=== PATIENT | female | born 1970 | race Caucasian/White ===

== ENCOUNTER 2017-09-08 13:25 | Inpatient (IN) | payer BC ==
[~2017-09-08] VITALS: Ht 167.6 cm; Wt 96.6 kg
[~2017-09-08 13:25] MED LIST: CEPH500C PO
[2017-09-08] MEDS ORDERED: SODIUM CHLORIDE 0.9% 1000ML 1,000 ML IV SCH (13:47)
--- NOTE | 2017-09-08 14:06 | DIAGNOSTIC IMAGING REPORT ---
HEAD WITHOUT CONTRAST (CT) CLINICAL HISTORY: 46 years-old Female with Stroke. Acute strokelike symptoms with right arm numbness and tingling TECHNIQUE: Multiple axial CT images of the head were obtained without contrast. A dose lowering technique was utilized adhering to the principles of ALARA. CT DOSE: 601.98 mGy.cm COMPARISON: None. FINDINGS: No acute intracranial hemorrhage, midline shift, mass, large territorial ischemia or abnormal extra-axial collection. The calvarium is intact. The paranasal sinuses, mastoid air cells, and middle ear cavities are clear. IMPRESSION: No acute intracranial abnormality. The above report was generated using voice recognition software. It may contain grammatical, syntax or spelling errors. Electronically signed by: Sagar Keller M.D. 09/08/2017 2:05 PM Dictated Date/Time: 09/08/2017 1:57 PM
--- NOTE | 2017-09-08 14:21 | EMERGENCY ROOM VISIT NOTE ---
History Report prepared by Rodrigue: Haley Lugo Under the Supervision of: Dr. Richard Galan M.D. First contact with patient: 13:44 Chief Complaint: NEURO SYMPTOMS Nursing Triage Summary: Pt reports she was sitting at her desk at work and had sudden onset of right hand and arm numbness and tingling, tingling and tightness in chest, slurred speech, and tingling to face. Pt states "my tongue went weird." Pt reports lasted 2 1/2 minutes. Pt reports symptoms haven't subsided, but lessened in severity. NIH scale 0. History of Present Illness The patient is a 46 year old female who presents to the Emergency Room with complaints of an episode of neurological symptoms occurring 45 minutes LEADITE HEATER. The patient states that she had been feeling well all morning. She was at work and took a break to eat lunch. Afterwards she went outside and was sitting on a wall , smoking a cigarette, and talking to her daughter on the phone. She suddenly developed slurred speech, numbness in her right hand, tightness in her chest, and tingling in her face. These symptoms lasted for less than 5 minutes and resolved on their own. She denies experiencing any chest pain or shortness of breath. sppech appears to be normal wo slurring or signs of dysarthria delete ears. soft nontedner moves all ex well no motor senosry deficirts. noted. Source of History: patient Onset: 45 minutes LEADITE HEATER Position: other (global) Quality: other (neurological) Timing: other (episode) Modifying Factors (Relieving): other (time) Associated Symptoms: + numbness (right hand), No chest pain, No SOB Note: Pt notes slurred speech, tightness in chest, tingling in face. Review of Systems All systems have been listed, reviewed, and are negative other than those previously mentioned. Please see Additional Medical History Sheet. Past Medical & Surgical Medical Problems: (1) Possible TIA (2) Stroke-like symptoms Surgical Problems: (1) H/O tubal ligation Family History Cancer Diabetes mellitus Gallbladder disease Heart disease Hypertension Kidney disease Kidney stones Social History Smoking Status: Current Every Day Smoker Alcohol Use: occasionally Marital Status: in relationship Housing Status: lives with significant other Occupation Status: employed Current/Historical Medications No Active Prescriptions or Reported Meds Allergies Coded Allergies: No Known Allergies (Verified , 09/08/17) Physical Exam Vital Signs Date Time Temp Pulse Resp B/P (MAP) Pulse Ox O2 Delivery O2 Flow Rate FiO2 09/08/17 14:24 76 18 128/85 94 Room Air 09/08/17 14:02 96 Room Air 09/08/17 13:37 80 09/08/17 13:35 36.7 79 18 115/75 95 Room Air Physical Exam GENERAL: Patient awake, alert, oriented x 3. Patient follows commands. Patient does not appear toxic. Patient is adequately hydrated and well- nourished. SKIN: No erythema, pallor, cyanosis or rash HEENT: Normal head, pupils equal, reactive to light and accommodation. Ears normal. Oral cavity and posterior pharynx appear normal. Neck: Without adenopathy, no neck vein distention. LUNGS: Clear to auscultation. No wheezes, no rales, no rhonchi. HEART: No murmurs. No gallops. No rubs ABDOMEN: No masses, no rebound, no hepatomegaly or splenomegaly. EXTREMITIES: No signs of trauma. No pedal or pretibial edema. No calf or thigh tenderness. NEUROLOGIC: Cranial nerves II-XII within normal limits. No gross motor sensory function deficits. Medical Decision & Procedures ER Provider Diagnostic Interpretation: Radiology results as stated below per my review and radiologist interpretation: HEAD WITHOUT CONTRAST (CT) CLINICAL HISTORY: 46 years-old Female with Stroke. Acute strokelike symptoms with right arm numbness and tingling TECHNIQUE: Multiple axial CT images of the head were obtained without contrast. A dose lowering technique was utilized adhering to the principles of ALARA. CT DOSE: 601.98 mGy.cm COMPARISON: None. FINDINGS: No acute intracranial hemorrhage, midline shift, mass, large territorial ischemia or abnormal extra-axial collection. The calvarium is intact. The paranasal sinuses, mastoid air cells, and middle ear cavities are clear. IMPRESSION: No acute intracranial abnormality. The above report was generated using voice recognition software. It may contain grammatical, syntax or spelling errors. Electronically signed by: Sagar Keller M.D. 09/08/2017 2:05 PM Dictated Date/Time: 09/08/2017 1:57 PM Laboratory Results 09/08/17 14:05 Red Blood Count 3.97, Mean Corpuscular Volume 96.5, Mean Corpuscular Hemoglobin 34.0, Mean Corpuscular Hemoglobin Concent 35.2, Mean Platelet Volume 10.4, Neutrophils (%) (Auto) 60.5, Lymphocytes (%) (Auto) 28.5, Monocytes (%) (Auto) 8.4, Eosinophils (%) (Auto) 2.1, Basophils (%) (Auto) 0.4, Neutrophils # (Auto) 4.32, Lymphocytes # (Auto) 2.04, Monocytes # (Auto) 0.60, Eosinophils # (Auto) 0.15, Basophils # (Auto) 0.03 09/08/17 14:05 Test 09/08/17 14:05 White Blood Count 7.15 K/uL (4.8-10.8) Red Blood Count 3.97 M/uL (4.2-5.4) Hemoglobin 13.5 g/dL (12.0-16.0) Hematocrit 38.3 % (37-47) Mean Corpuscular Volume 96.5 fL (80-100) Mean Corpuscular Hemoglobin 34.0 pg (25-34) Mean Corpuscular Hemoglobin Concent 35.2 g/dl (32-36) Platelet Count 226 K/uL (130-400) Mean Platelet Volume 10.4 fL (7.4-10.4) Neutrophils (%) (Auto) 60.5 % Lymphocytes (%) (Auto) 28.5 % Monocytes (%) (Auto) 8.4 % Eosinophils (%) (Auto) 2.1 % Basophils (%) (Auto) 0.4 % Neutrophils # (Auto) 4.32 K/uL (1.4-6.5) Lymphocytes # (Auto) 2.04 K/uL (1.2-3.4) Monocytes # (Auto) 0.60 K/uL (0.11-0.59) Eosinophils # (Auto) 0.15 K/uL (0-0.5) Basophils # (Auto) 0.03 K/uL (0-0.2) RDW Standard Deviation 47.7 fL (36.4-46.3) RDW Coefficient of Variation 13.5 % (11.5-14.5) Immature Granulocyte % (Auto) 0.1 % Immature Granulocyte # (Auto) 0.01 K/uL (0.00-0.02) Prothrombin Time 10.5 SECONDS (9.0-12.0) Prothromb Time International Ratio 1.0 (0.9-1.1) Activated Partial Thromboplast Time 26.9 SECONDS (21.0-31.0) Partial Thromboplastin Ratio 1.0 Anion Gap 6.0 mmol/L (3-11) Est Creatinine Clear Calc Drug Dose 113.4 ml/min Estimated GFR () 120.5 Estimated GFR (Non- 103.9 BUN/Creatinine Ratio 17.3 (10-20) Calcium Level 9.1 mg/dl (8.5-10.1) Total Creatine Kinase 106 U/L (26-192) Troponin I < 0.015 ng/ml (0-0.045) Laboratory results as stated above per my review. Medications Administered Medications (Trade) Dose Ordered Sig/Tsering Route Start Time Stop Time Status Last Admin Dose Admin Sodium Chloride 1,000 ml @ 50 mls/hr Q20H IV 09/08/17 13:47 10/08/17 13:46 09/08/17 14:10 50 MLS/HR Aspirin (Ecotrin Tab) 325 mg ONE ONCE PO 09/08/17 14:30 09/08/17 14:31 DC 09/08/17 14:37 325 MG ECG Indication: altered mental status Rate (beats per minute): 66 Rhythm: normal sinus Findings: no acute ischemic change, no ectopy ED Course 1344: Past medical records reviewed. The patient was evaluated in room B3B. A complete history and physical examination was performed. The patient was taken to CT at this time. 1347: NSS 1000 ml @ 50 mls/hr IV 1417: I reassessed the patient and updated her on the CT results. 1430: Aspirin 325 mg PO 1432: I spoke with Jessica Merritt PA-C. We discussed the patients case. [facility] Medical Decision Nurses notes reviewed. Medical history sheet reviewed. Differential diagnosis includes but is not limited to: CVA, TIA, hyperventilation/anxiety. The patient's presentation is most consistent with a TIA. I did consider the possibility of hyperventilation but her symptoms seemed to be more focal especially with the slurred speech and right hand numbness. The patient's NIH stroke score is now 0. The patient was given 325 mg of aspirin. I believe the patient should be further evaluated in the hospital with an MRI and ultrasound of her carotids. I discussed care with the patient, her significant other and the hospitalist. Medication Reconcilliation Current Medication List: was personally reviewed by me Blood Pressure Screening Patient's blood pressure: Normal blood pressure Consults Time Called: 1429 Consulting Physician: Jessica Merritt PA-C Returned Call: 1432 I spoke with Jessica Merritt PA-C. We discussed the patients case. The patient will be evaluated by the [facility] for further management. Impression Primary Impression: TIA (transient ischemic attack) Scribe Attestation The scribe's documentation has been prepared under my direction and personally reviewed by me in its entirety. I confirm that the note above accurately reflects all work, treatment, procedures, and medical decision making performed by me. Departure Information Dispostion Being Evaluated By Hospitalist Prescriptions No Active Prescriptions or Reported Meds Referrals Chema Schwartz M.D. (PCP) Patient Instructions My [facility] Stroke History Time Last Known Well 12:50 Stroke t-PA Criteria Reviewed Does NOT meet criteria for t-PA Reason t-PA Not Given Treatment not indicated Strict Exclusion Criteria Complete resolution of symptoms (NI Problem Qualifiers Primary Impression: TIA (transient ischemic attack)
[2017-09-08 14:29] LABS: BASO % 0.4 %; BASO ABS # 0.03 K/uL (0-0.2); COMPLETE YES; EOS % 2.1 %; HEMATOCRIT 38.3 % (37-47); IG% 0.1 %; LYMPH % 28.5 %; LYMPH ABS # 2.04 K/uL (1.2-3.4); MEAN CELL VOLUME 96.5 fL (80-100); MEAN CORPUSCULAR HGB CONC 35.2 g/dl (32-36); MEAN PLATELET VOLUME 10.4 fL (7.4-10.4); MONO % 8.4 %; NEUT % 60.5 %; PLATELET COUNT 226 K/uL (130-400); RED BLOOD COUNT 3.97 M/uL (4.2-5.4); WHITE BLOOD COUNT 7.15 K/uL (4.8-10.8)
[2017-09-08] MEDS ORDERED: ASPIRIN 325 MG ECTAB PO ONE (14:30)
[2017-09-08 14:39] LABS: PROTHROMBIN TIME (PATIENT) 10.5 SECONDS (9.0-12.0)
[2017-09-08 14:50] LABS: BLOOD UREA NITROGEN 12 mg/dl (7-18); BUN/CREATININE RATIO 17.3 (10-20); CALCIUM 9.1 mg/dl (8.5-10.1); CARBON DIOXIDE 27 mmol/L (21-32); CHLORIDE 107 mmol/L (98-107); CREATININE 0.67 mg/dl (0.60-1.20); GLUCOSE 89 mg/dl (70-99); POTASSIUM 3.8 mmol/L (3.5-5.1); SODIUM 141 mmol/L (136-145)
[2017-09-08] MEDS ORDERED: ONDANSETRON INJ 2 MG/ML 2 ML VIAL IV PRN (15:15)
[2017-09-08 15:35] VITALS: BP 141/82; PULSE 64; TEMP 36.7; O2SAT 96; Ht 167.6 cm; Wt 96.6 kg
[2017-09-08] MEDS ORDERED: IV FLUIDS COMPLETED PRN (15:45)
[2017-09-08] MEDS: ACETAMINOPHEN 325 MG TAB PO PRN (15:49)
--- NOTE | 2017-09-08 16:02 | History and Physical ---
History & Physical Date & Time of Service: Sep 08, 2017 at 15:22 Chief Complaint: neurological symptoms Primary Care Physician: Chema Schwartz M.D. History of Present Illness Source: patient, clinic records This is a 46 y/o female chronic smoker, otherwise without significant PMH, who presents to the ED with neurological symptoms. Pt states today around 12:50 PM she was sitting at work talking to her daughter on the phone when she developed facial tingling, "tongue twisting", difficulty using her lips to form words, slurred speech, tingling and tightness across her chest, right arm felt numb and contracted against her chest and she was unable to move it, blurred vision, and head "felt like a blur". She states she was repeating that something was wrong. Symptoms resolved after 5 minutes. She denies being upset or anxious at the time of the incident. Pt has a chronic cough with yellow sputum attributed to smoking which is unchanged from baseline. She reports longstanding bilateral thigh pain when climbing stairs. She denies fever, chills, diaphoresis, GOMEZ, jaw pain, neck pain, back pain, URI symptoms, swallowing difficulty, dizziness, SOB , SCHULER, palpitations, abdominal pain, N/V/D, dysuria, frequency, urgency, abnormal bleeding. Denies hx of HTN, HL, DM, stroke, CAD. 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 Social History Smoking Status: Current Every Day Smoker (1 ppd, pt unsure how many years) Alcohol Use: 3-4 beers per day. occasional liquor. last drink 09/07 evening. no hx of etoh withdrawal. Drug Use: none Marital Status: in relationship Occupational Status: employed Immunizations History of Influenza Vaccine: N/A History of Tetanus Vaccine?: Unknown History of Pneumococcal: No History of Hepatitis B Vaccine: Unknown Multi-Drug Resistant Organisms History of MDRO: No Allergies Coded Allergies: No Known Allergies (Verified , 09/08/17) Home Medications No Active Prescriptions or Reported Meds Review of Systems Ten systems reviewed and negative except as noted in HPI. Physical Exam Vital Signs Date Time Temp Pulse Resp B/P (MAP) Pulse Ox O2 Delivery O2 Flow Rate FiO2 09/08/17 15:06 Room Air 09/08/17 14:24 76 18 128/85 94 Room Air 09/08/17 14:02 96 Room Air 09/08/17 13:37 80 09/08/17 13:35 36.7 79 18 115/75 95 Room Air General Appearance: WD/WN, no apparent distress, + pertinent finding (alert cooperative 46 year old female, boyfriend at bedside, supportive) Head: normocephalic, atraumatic Eyes: normal inspection, PERRL, EOMI, sclerae normal ENT: normal ENT inspection (normal external inspection of ears, nose, lips), hearing grossly normal, pharynx normal Neck: supple, trachea midline Respiratory/Chest: chest non-tender, lungs clear, normal breath sounds, no respiratory distress, no accessory muscle use Cardiovascular: regular rate, rhythm, no murmur, normal peripheral pulses (DP pulses 2+) Abdomen/GI: normal bowel sounds, non tender, soft Extremities/Musculoskelatal: no calf tenderness, no pedal edema, + pertinent finding (left great toe partial amputation, well healed) Neurologic/Psych: 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 facial movements symmetric. ), no motor/sensory deficits (motor 5/5 all extremities. sensation to light touch grossly intact all extremities.), alert, normal mood/affect, oriented x 3, + pertinent finding (finger to nose intact bilaterally. plantar reflex difficult to elicit. no tremor. ) Skin: normal color, warm/dry, no rash (no rash on the chest) Diagnostics Laboratory Results Results Past 24 Hours Test 09/08/17 14:05 Range/Units White Blood Count 7.15 4.8-10.8 K/uL Red Blood Count 3.97 4.2-5.4 M/uL Hemoglobin 13.5 12.0-16.0 g/dL Hematocrit 38.3 37-47 % Mean Corpuscular Volume 96.5 80-100 fL Mean Corpuscular Hemoglobin 34.0 25-34 pg Mean Corpuscular Hemoglobin Concent 35.2 32-36 g/dl Platelet Count 226 130-400 K/uL Mean Platelet Volume 10.4 7.4-10.4 fL Neutrophils (%) (Auto) 60.5 % Lymphocytes (%) (Auto) 28.5 % Monocytes (%) (Auto) 8.4 % Eosinophils (%) (Auto) 2.1 % Basophils (%) (Auto) 0.4 % Neutrophils # (Auto) 4.32 1.4-6.5 K/uL Lymphocytes # (Auto) 2.04 1.2-3.4 K/uL Monocytes # (Auto) 0.60 0.11-0.59 K/uL Eosinophils # (Auto) 0.15 0-0.5 K/uL Basophils # (Auto) 0.03 0-0.2 K/uL RDW Standard Deviation 47.7 36.4-46.3 fL RDW Coefficient of Variation 13.5 11.5-14.5 % Immature Granulocyte % (Auto) 0.1 % Immature Granulocyte # (Auto) 0.01 0.00-0.02 K/uL Prothrombin Time 10.5 9.0-12.0 SECONDS Prothromb Time International Ratio 1.0 0.9-1.1 Activated Partial Thromboplast Time 26.9 21.0-31.0 SECONDS Partial Thromboplastin Ratio 1.0 Sodium Level 141 136-145 mmol/L Potassium Level 3.8 3.5-5.1 mmol/L Chloride Level 107 98-107 mmol/L Carbon Dioxide Level 27 21-32 mmol/L Anion Gap 6.0 3-11 mmol/L Blood Urea Nitrogen 12 7-18 mg/dl Creatinine 0.67 0.60-1.20 mg/dl Est Creatinine Clear Calc Drug Dose 113.4 ml/min Estimated GFR () 120.5 Estimated GFR (Non- 103.9 BUN/Creatinine Ratio 17.3 10-20 Random Glucose 89 70-99 mg/dl Calcium Level 9.1 8.5-10.1 mg/dl Total Creatine Kinase 106 26-192 U/L Troponin I < 0.015 0-0.045 ng/ml Diagnostic Radiology HEAD WITHOUT CONTRAST (CT) CLINICAL HISTORY: 46 years-old Female with Stroke. Acute strokelike symptoms with right arm numbness and tingling TECHNIQUE: Multiple axial CT images of the head were obtained without contrast. A dose lowering technique was utilized adhering to the principles of ALARA. CT DOSE: 601.98 mGy.cm COMPARISON: None. FINDINGS: No acute intracranial hemorrhage, midline shift, mass, large territorial ischemia or abnormal extra-axial collection. The calvarium is intact. The paranasal sinuses, mastoid air cells, and middle ear cavities are clear. IMPRESSION: No acute intracranial abnormality. EKG NSR, 66 bpm, no ST abnormality Impression Assessment and Plan TRANSIENT NEUROLOGICAL SYMPTOMS Possible TIA? At risk due to cigarette smoking, obesity No focal deficits on exam CT head negative Labs unremarkable Received aspirin 324 mg in ER, will add aspirin 81 mg daily Check MRI brain, echo with bubble study, carotid doppler Telemetry monitoring, neuro checks Consult neurology EPISODE OF CHEST TINGLING/ TIGHTNESS, ATYPICAL Occurred with neurological symptoms EKG- no evidence of ischemia Troponin negative x 1 ALCOHOL USE No sign of withdrawal Monitor DVT PROPHYLAXIS Lovenox SQ FULL CODE DISPOSITION Admission telemetry PCP is Dr. Schwartz Patient seen in collaboration with Dr. Tran. Please see his addendum. Resuscitation Status FULL RESUSCITATION VTE Prophylaxis VTE Risk Assessment Done? Y/N: Yes Risk Level: Moderate Given or contraindicated: Enoxaparin (Lovenox)SQ Note ATTENDING ADDENDUM Record reviewed. Patient interviewed and examined. Care coordinated with Leonarda Merritt PA-C. Please refer to her documentation for patient's history. 46 YO female with episode of facial paresthesiae (circumoral), visual changes, dysarthria, RUE weakness or spasm. Symptoms resolved. Mild headache. EXAM: General- no distress VS- as noted Lungs- clear Heart- RRR Abdomen- + BS, soft, nontender Extremities- no pretibial edema or calf tenderness Neuro- alert, PERRL, EOMI, no dysarthria, no aphasia, no facial palsy, tongue midline, upper and lower extremity strength 5/5 . DATA: Head CT negative. ASSESSMENT AND PLAN: Neuro symptoms as summarized above. Head CT negative. Symptoms resolved. ? vascular event (TIA vs migraine equivalent). Consider hyperventilation with associated symptoms. EKG NSR. Check MRI brain, carotid duplex, echo. Risk factor modification. Neuro consulted. Please refer to CLIFFORD Merritt's documentation for discussion of other issues. Westley Tran MD .
[2017-09-08] MEDS ORDERED: ENOXAPARIN 40 MG/0.4 ML SYR SC SCH (18:00)
[2017-09-08 19:45] VITALS: BP 162/90; PULSE 60; TEMP 36.7; O2SAT 97
[2017-09-08] MEDS ORDERED: GADAVIST IV PRN (19:45)
--- NOTE | 2017-09-08 19:47 | DIAGNOSTIC IMAGING REPORT ---
BRAIN COMBO CLINICAL HISTORY: stroke like symptoms, possible TIA mental status change COMPARISON STUDY: No previous studies for comparison. TECHNIQUE: Utilizing a 1.5 Kanika magnet and dedicated coil, multiplanar, multiecho imaging of the brain was performed pre and postcontrast administration. IV administration of 9 mL of Gadavist contrast was uneventful. FINDINGS: Diffusion-weighted images are negative for an acute ischemic insult. Signal characteristics of the cerebellar as well as cerebral hemispheres are in general unremarkable. Findings of mild chronic small vessel change of the pontine medullary region as well as cerebral hemispheres bilaterally. There is no significant postcontrast enhancement. IMPRESSION: Mild chronic small vessel change of aging given the patient's age. No acute ischemic process. No abnormal postcontrast enhancement. The above report was generated using voice recognition software. It may contain grammatical, syntax or spelling errors. Electronically signed by: Chema Ng M.D. 09/08/2017 7:45 PM Dictated Date/Time: 09/08/2017 7:42 PM
--- NOTE | 2017-09-08 21:48 | DIAGNOSTIC IMAGING REPORT ---
CAROTID DOPPLER NECK ART HISTORY: Mental status change possible TIA COMPARISON: None. TECHNIQUE: Real-time, grayscale, and color Doppler sonography of the carotid arteries was performed. Imaging reviewed in the transverse and longitudinal planes. All measurements were calculated based on NASCET criteria. FINDINGS: Antegrade flow is seen in the bilateral vertebral arteries. The brachial pressures are hemodynamically similar. Mild plaque dimension bilaterally The peak systolic velocity within the right ICA is 59. The right systolic ratio is 1.0. The peak systolic velocity within the left ICA is 66. The left systolic ratio is 0.9. IMPRESSION: No hemodynamically significant stenosis seen within the carotid arteries. Minimal plaque formation bilaterally The above report was generated using voice recognition software. It may contain grammatical, syntax or spelling errors. Electronically signed by: Chema Ng M.D. 09/08/2017 9:47 PM Dictated Date/Time: 09/08/2017 9:46 PM
[2017-09-08 23:59] VITALS: O2SAT 97
[2017-09-09] VITALS (7 sets, daily range): BP systolic 120–138; BP diastolic 64–85; PULSE 51–59; TEMP 36.5–36.7; O2SAT 96–97
[2017-09-09] MEDS: ACETAMINOPHEN 325 MG TAB PO PRN (03:17)
[2017-09-09 06:10] LABS: BLOOD UREA NITROGEN 13 mg/dl (7-18); BUN/CREATININE RATIO 20.8 (10-20); CALCIUM 8.4 mg/dl (8.5-10.1); CARBON DIOXIDE 27 mmol/L (21-32); CHLORIDE 105 mmol/L (98-107); CHOLESTEROL 200 mg/dl (0-200); CREATININE 0.61 mg/dl (0.60-1.20); GLUCOSE 88 mg/dl (70-99); POTASSIUM 3.4 mmol/L (3.5-5.1); SODIUM 137 mmol/L (136-145); TRIGLYCERIDES 97 mg/dl (0-150); VERY LOW DENSITY LIPOPROT CALC 19 mg/dl
[2017-09-09 06:15] LABS: CHOLESTEROL/HDL RATIO 2.3; HDL CHOLESTEROL 87 mg/dl; LDL CHOLESTEROL CALCULATED 94 mg/dl
[2017-09-09] MEDS: POTASSIUM CHLORIDE 20 MEQ TABCR PO SCH ×2 (08:52→16:41)
[2017-09-09] MEDS ORDERED: ASPIRIN 81 MG ECTAB PO SCH (09:00)
[2017-09-09] MEDS ORDERED: OPTIRAY 320 IV PRN (10:30)
--- NOTE | 2017-09-09 10:59 | NEUROLOGY CONSULTATION ---
DATE OF CONSULTATION: 09/09/2017 PRIMARY CARE PHYSICIAN: Chema Schwartz MD REASON FOR CONSULTATION: Possible transient ischemic attack. HISTORY OF PRESENT ILLNESS: Mrs. Ocampo is a 46-year-old right-handed female, who was a chronic smoker without significant medical history, presents to the Emergency Room. Around 12:50, she was sitting on a wall, talking to her daughter, about a nonstressful event, noted bilateral facial tingling, bilateral chest tingling, tightness in her chest. Her right arm fell onto her chest and she could not move it. It did not spasm. Her speech was slurred. She speaks of her tongue twisting, but physically it did not actually twist. No other numbness or tingling were noted. Her vision was blurred, but there was no scintillating visual phenomenon. No facial weakness was noted. It terminated gradually in 5 minutes without any accompanying headache. There was no chest palpitation or shortness of breath. She denies a history of anxiety or panic attacks. She has otherwise been well. No head or neck injury, chiropractic manipulation of the neck, medical or dental procedures, fevers, chills, sweats or weight loss. There was no vertigo. No dysphasia. No nausea, vomiting, urinary frequency, or urgency. PAST MEDICAL HISTORY: Her medical history is notable for smoking. She has no history of high blood pressure, diabetes, or elevated cholesterol. She has not had a DVT, PE or miscarriage. There is no history of rheumatic fever. There is no history of [place]. The patient has no history of migrainous headaches or throbbing headaches. 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 SOCIAL HISTORY: Smokes. Drinks 3-4 beers per day. No drug use. Works at a [id number]. ALLERGIES: No allergies are noted. MEDICATIONS: No meds were used. There is no vepe-kzi-modscgu medication use or recent medication withdrawals. FAMILY HISTORY: No early cerebrovascular disease. Sister has had 2 DVTs and the patient believes she is on anticoagulant. Her daughter has migraines. CT of the head noncontrast was unremarkable. MRI of the brain, both of which I have reviewed, showed mild chronic vascular changes. No acute abnormality. Carotid ultrasound, no significant stenosis. EKG sinus rhythm. LABORATORY DATA: White count 7.15, H&H 13.5/38.3, and platelet count 226. PT 10.5 and PTT 26.9. Chemistry profile is unremarkable. Total cholesterol is 200, LDL 94, and HDL 87. PHYSICAL EXAMINATION: VITAL SIGNS: Temperature 36.7, pulse 59, respiratory rate 20, blood pressure 138/76, and oxygen saturation 97%. GENERAL: The patient is awake and alert. There is normal speech and language. Her affect is appropriate. There is no right/left confusion. NECK: There are no carotid bruits. HEART: No heart murmur. Heart is regular rate and rhythm. LUNGS: Clear. ABDOMEN: Soft and nontender. EXTREMITIES: There are some superficial varicosities in the anterior left cancino. There is no calf swelling or tenderness. Peripheral pulses are intact and feet as well radial pulse. NEUROLOGIC: Pupils are equal, round, and reactive to light. The optic nerves were unremarkable. There are normal will, motility, facial sensation, and facial symmetry. Speech and language are normal. Tongue is midline. Motor: Normal bulk and tone. No resting tremor or cogwheel rigidity. Full strength. No drift. Normal rapid alternating movements. There is a mild tremor on [id number], left greater than right. Jdcj-[id number] is normal. Sensation is intact to light touch, temperature and vibration. Reflexes symmetric. Toes downgoing. Gait is unremarkable. IMPRESSION: This spell of facial tingling, chest tingling and chest tightness has some home farooq of hyperventilation; however, I can confidently attribute dysarthria and weakness of the right arm to hyperventilation. Initially, it sounded like she may have had carpopedal spasm, but in exploring this further with the patient that does not appear to be so. Therefore, I would say that this could be a posterior circulation transient ischemic attack given the bilateral paresthesias, dysarthria and right arm weakness. To complete workup, I would do a CTA of the head and neck with attention to the posterior circulation and echo with a bubble study. Given her family history of pulmonary embolism, if the echo with bubble study shows a patent foramen ovale, I would do a venous Doppler of the lower extremities. I as well will order a thrombosis panel given the family history. I would recommend aspirin and Plavix together for 3 months and then aspirin alone, statin with a goal LDL less than 70. The patient appears to have an essential tremor, although whether or not this is simply a heightened physiologic tremor due to the stress of the illness is unclear. Provided vascular imaging is unremarkable, I think she can confidently return to work when she is scheduled next to do so. The patient should see us in followup within 2-3 weeks. Addendum. CTA reviewed. PRox L vert and distal L vert stenosis. Distal basilar narrowing, unclear if that is acquired or chronic or congenital flow given compensatory flow through COW. Rec asa, plavix, risk factor mod, statin, follow- up in my office, STEVEN Galindo MD [facility]
--- NOTE | 2017-09-09 11:29 | DIAGNOSTIC IMAGING REPORT ---
HEAD ANGIO WITH CONTRAST CLINICAL HISTORY: Vertebral basilar insufficiency. Mental status change TECHNIQUE: Transaxial acquisition with multi axial reformatted images COMPARISON STUDY: 09/08/2017 FINDINGS: Anterior and middle cerebral circulation is unremarkable. There is no significant stenotic process. The vertebral basilar system demonstrates a small caliber left vertebral artery within the cervical region. The right vertebral artery is dominant at that site. There is a high-grade stenosis of the left vertebral vessel at the level of the base of the skull at its juncture with C1. The right Vertebral artery is dominant at this site. There is a high-grade stenosis of the residual left vertebral artery medially proximal to its juncture with the right vertebral. The right vertebral supplies the bulk of the outflow to the basilar. The basilar shows a multifactorial moderate to moderately significant stenotic changes. The right as well as left posterior communicating vessels are patent and appear to supply the bulk of the blood flow to the posterior cerebral circulation. IMPRESSION: 1. Unremarkable appearing anterior and middle cerebral circulation. 2. 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 3. The right vertebral artery is dominant and supplies the bulk of the flow to the basilar artery. 4. Basilar artery shows considerable narrowing at its distal aspect with considerable components of the blood flow to the posterior cerebral circulation originating from the posterior communicating vessels. The above report was generated using voice recognition software. It may contain grammatical, syntax or spelling errors. Electronically signed by: Chema Ng M.D. 09/09/2017 11:28 AM Dictated Date/Time: 09/09/2017 11:16 AM
--- NOTE | 2017-09-09 11:34 | DIAGNOSTIC IMAGING REPORT ---
NECK ANGIO WITH CONTRAST HISTORY: Mental status change TECHNIQUE: Multiaxial CT images of the neck were performed following the intravenous administration of contrast to evaluate the major cervical vessels. Maximum intensity projection images were also obtained. All measurements were calculated based on NASCET criteria. A dose lowering technique was utilized adhering to the principles of ALARA. COMPARISON STUDY: None. FINDINGS: The aortic arch and proximal great vessels are widely patent. The right as well as left common as well as internal carotid artery show no significant stenotic process. The right vertebral vessel appears to be generally unremarkable throughout its length in the cervical region. No significant stenotic process is identified. Left vertebral artery is a moderate degree of stenosis at its origin. The remaining course of the left vertebral vessel demonstrates a small caliber as compared to the contralateral right vertebral. There is a high degree of the stenosis in or near occlusion at its distal aspect at approximately level of C1. Minimal, if any flow is identified distal to this level with the bulk of flow of the basilar artery supplied from the right vertebral. IMPRESSION: 1. No significant abnormality of the carotid systems. 2. Right vertebral artery is dominant with no significant stenotic process. 3. Left vertebral artery is relatively small in terms caliber compared to the right, and shows a significant degree of stenosis at its origin as well as near complete occlusion at its distal aspect at approximately level of C1. The above report was generated using voice recognition software. It may contain grammatical, syntax or spelling errors. Electronically signed by: Chema Ng M.D. 09/09/2017 11:33 AM Dictated Date/Time: 09/09/2017 11:30 AM
--- NOTE | 2017-09-09 12:34 | DIAGNOSTIC IMAGING REPORT ---
VENOUS DOPPLER LWR EXT BILA HISTORY: Pain. Edema. possible TIA COMPARISON STUDY: None. FINDINGS: There is normal compressibility, flow, and augmentation within the bilateral lower extremity deep venous systems. IMPRESSION: No DVT within the right or left lower extremity. The above report was generated using voice recognition software. It may contain grammatical, syntax or spelling errors. Electronically signed by: Chema Ng M.D. 09/09/2017 12:33 PM Dictated Date/Time: 09/09/2017 12:33 PM
--- NOTE | 2017-09-09 13:55 | ECHOCARDIOGRAM REPORT ---
*NOTICE TO RECEIVING [employer] This information is strictly Confidential and protected under [place] law. [place] law prohibits you from making any further disclosure of this information unless further disclosure is expressly permitted by the written consent of the person to whom it pertains or is authorized by law. A general authorization for the release of medical or other information is not sufficient for this purpose. Hospital accepts no responsibility if the information is made available to any other person, INCLUDING THE PATIENT. Interpretation Summary * Name: YANG FEBRUARY Study Date: 09/09/2017 09:47 AM BP: 120/84 mmHg * Patient Location: C.2E\S\E203\S\1 HR: 51 * : 1970 (M/d/yyyy) Gender: Female Height: 66 in * Age: 46 yrs Ethnicity: [place] Weight: 213 lb * Ordering Physician: Leonarda Merritt * Referring Physician: Self, Referred * Performed By: Leidy Her RDCS * * Reason For Study: TIA * BSA: 2.1 m2 * The study was technically difficult. * There is no comparison study available. * -- Conclusions -- * Ejection Fraction = 55-60%. * Injection of contrast documented no interatrial shunt. * Pulse wave TDI of the anterior and posterior mitral annulas demonstrates normal LV relaxation * There is trace mitral regurgitation. Procedure Details * A complete two-dimensional transthoracic echocardiogram was performed (2D, M-mode, Doppler and color flow Doppler). * A saline contrast injection was performed to assess for cardiac shunting. * The injection was performed through an intravenous line in the right arm. * The attending nurse who injected the saline contrast was Asia Childs RN. * A total of 20 cc of agitated saline was given. Left Ventricle * The left ventricle is normal in size. * There is normal left ventricular wall thickness. * Ejection Fraction = 55-60%. * Left ventricular systolic function is normal. * The left ventricular wall motion is normal. Right Ventricle * The right ventricle is normal size. * The right ventricular systolic function is normal as assessed by tricuspid annular plane systolic excursion (TAPSE) (normal >1.5 cm). Atria * The left atrial size is normal. * Right atrial size is normal. * Injection of contrast documented no interatrial shunt. Mitral Valve * The mitral valve is grossly normal. * There is no mitral valve stenosis. * There is trace mitral regurgitation. Tricuspid Valve * The tricuspid valve is not well visualized. * There is no tricuspid stenosis. * Significant tricuspid regurgitation is absent. Aortic Valve * The aortic valve is trileaflet. * Aortic stenosis is absent. * There is no significant aortic regurgitation. Pulmonic Valve * The pulmonary valve is not well seen, but the Doppler examination is normal without significant regurgitation or stenosis. Great Vessels * The aortic root and proximal ascending aorta are normal sized. Pericardium/Pleural * There is no pericardial effusion. Great Vessels * Normal inferior vena cava diameter and respiratory variation suggests normal central venous pressure. Left Ventricular Diastolic Function * Pulse wave TDI of the anterior and posterior mitral annulas demonstrates normal LV relaxation MMode 2D Measurements and Calculations IVSd 0.91 cm LVIDd 5.1 cm LVIDs 3.4 cm LVPWd 1.0 cm IVS/LVPW 0.88 FS 32.4 % EDV(Teich) 122.6 ml ESV(Teich) 48.6 ml EF(Teich) 60.3 % EDV(cubed) 131.0 ml ESV(cubed) 40.5 ml EF(cubed) 69.1 % LV mass(C)d 179.2 grams LV mass(C)dI 87.2 grams/m\S\2 SV(Teich) 74.0 ml SI(Teich) 36.0 ml/m\S\2 SV(cubed) 90.4 ml SI(cubed) 44.0 ml/m\S\2 Ao root diam 3.3 cm Ao root area 8.6 cm\S\2 ACS 1.9 cm LA dimension 3.0 cm asc Aorta Diam 3.1 cm LA/Ao 0.92 LVOT diam 2.0 cm LVOT area 3.2 cm\S\2 LVAd ap4 30.0 cm\S\2 LVLd ap4 8.5 cm EDV(MOD-sp4) 87.4 ml EDV(sp4-el) 89.7 ml LVAs ap4 16.0 cm\S\2 LVLs ap4 7.2 cm ESV(MOD-sp4) 30.2 ml ESV(sp4-el) 30.1 ml EF(MOD-sp4) 65.4 % EF(sp4-el) 66.4 % LVAd ap2 34.5 cm\S\2 LVLd ap2 8.5 cm EDV(MOD-sp2) 116.9 ml EDV(sp2-el) 119.3 ml LVAs ap2 18.1 cm\S\2 LVLs ap2 6.9 cm ESV(MOD-sp2) 41.7 ml ESV(sp2-el) 40.1 ml EF(MOD-sp2) 64.3 % EF(sp2-el) 66.4 % LVLd %diff -0.52 % EDV(MOD-bp) 101.7 ml LVLs %diff -4.03 % ESV(MOD-bp) 36.0 ml EF(MOD-bp) 64.6 % SV(MOD-sp4) 57.2 ml SI(MOD-sp4) 27.8 ml/m\S\2 SV(MOD-sp2) 75.2 ml SI(MOD-sp2) 36.6 ml/m\S\2 SV(MOD-bp) 65.7 ml SI(MOD-bp) 32.0 ml/m\S\2 SV(sp4-el) 59.6 ml SI(sp4-el) 29.0 ml/m\S\2 SV(sp2-el) 79.1 ml SI(sp2-el) 38.5 ml/m\S\2 Doppler Measurements and Calculations MV E max dyan 63.1 cm/sec MV A max dyan 42.7 cm/sec MV E/A 1.5 MV dec time 0.32 sec Ao V2 max 106.0 cm/sec Ao max PG 4.5 mmHg Ao max PG (full) 1.4 mmHg LYDIA(V,A) 2.6 cm\S\2 LYDIA(V,D) 2.6 cm\S\2 LV V1 max PG 3.1 mmHg LV V1 max 87.8 cm/sec PA V2 max 81.4 cm/sec PA max PG 2.7 mmHg PA acc slope 243.9 cm/sec\S\2 PA acc time 0.21 sec TR max dyan 201.5 cm/sec PA pr(Accel) -17.65 mmHg
--- NOTE | 2017-09-09 16:41 | Progress Note ---
Medicine Progress Note Date & Time of Visit: Sep 09, 2017 at 16:41 . Subjective Doing well. No further neuro symptoms. No headache. No CP or SOB. . Objective Last 8 Hrs Date Time Temp Pulse Resp B/P (MAP) Pulse Ox O2 Delivery O2 Flow Rate FiO2 09/09/17 15:12 36.7 57 18 131/85 (100) 96 Room Air 09/09/17 12:34 36.7 57 20 134/70 (91) 96 Room Air 09/09/17 12:00 Room Air Physical Exam: General- no distress Lungs- clear Heart- RRR Abdomen- + BS, soft, nontender Extremities- no pretibial edema or calf tenderness Neuro- alert; PERRL, EOMI; no facial palsy; no dysarthria; tongue midline; motor strength upper and lower extremities intact Laboratory Results: Last 24 Hours Test 09/08/17 22:14 09/09/17 05:21 09/09/17 11:45 Troponin I < 0.015 ng/ml < 0.015 ng/ml Sodium Level 137 mmol/L Potassium Level 3.4 mmol/L Chloride Level 105 mmol/L Carbon Dioxide Level 27 mmol/L Anion Gap 6.0 mmol/L Blood Urea Nitrogen 13 mg/dl Creatinine 0.61 mg/dl Est Creatinine Clear Calc Drug Dose 132.1 ml/min Estimated GFR () 124.2 Estimated GFR (Non- 107.2 BUN/Creatinine Ratio 20.8 Random Glucose 88 mg/dl Calcium Level 8.4 mg/dl Triglycerides Level 97 mg/dl Cholesterol Level 200 mg/dl HDL Cholesterol 87 mg/dl LDL Cholesterol, Calculated 94 mg/dl VLDL Cholesterol, Calculated 19 mg/dl Cholesterol/HDL Ratio 2.3 Assessment & Plan POSSIBLE TIA Presented with 5 min episode of facial numbness, dysarthria, RUE weakness while talking on phone. Exam in ED nonfocal. CT head negative. MRI brain demonstrated mild small vessel white matter ischemic changes, no acute event. EKG NSR. Carotid duplex showed minimal plaque. Echo showed normal LV wall motion and function, no intracardiac thrombi. Neurology consulted. [place] that pt may have had a posterior circulation event. Family history of thromboembolic disease. Venous duplex lower extremities negative. Echo did not show any right to left shunt. Hypercoagulable work-up ordered- results pending at time of discharge. CTA neck and intracranial vessels performed: moderate stenosis @ origin of left vertebral artery with high degree of stenosis distally bulk of flow to basilar artery supplied vias right vertebral artery narrowing of distal basilar artery Narrowing of left vertebral and basilar arteries could be congenital or atherosclerotic in nature. Antiplatelet therapy with aspirin + clopidogrel x 3 months, the aspirin alone long-term recommended. LDL-c = 94. Lipid lowering therapy with atorvastatin 40 mg daily initiated. Importance of smoking cessation stressed. VTE PROPHYLAXIS Received SQ enoxaparin. Ambulated. DISPOSITION Discharged to home. Family Medicine follow-up with Dr. Schwartz. Neurology follow-up with Dr. Galindo. . Current Inpatient Medications: Current Inpatient Medications Medications (Trade) Dose Ordered Sig/Tsering Route Start Time Stop Time Status Last Admin Dose Admin Enoxaparin Sodium (Lovenox Inj) 40 mg Q24H SC 09/08/17 18:00 10/08/17 17:59 09/08/17 17:18 40 MG Acetaminophen (Tylenol Tab) 650 mg Q4H PRN PO 09/08/17 15:15 10/08/17 15:14 09/09/17 03:17 650 MG Ondansetron HCl (Zofran Inj) 4 mg Q6H PRN IV 09/08/17 15:15 10/08/17 15:14 Miscellaneous (Iv Fluids Completed) 1 ea PRN PRN N/A 09/08/17 15:45 09/08/18 15:44 Aspirin (Ecotrin Tab) 81 mg QAM PO 09/09/17 09:00 10/09/17 08:59 09/09/17 08:52 81 MG Gadobutrol (Gadavist) 9 mmol UD PRN IV 09/08/17 19:45 09/12/17 19:44 Potassium Chloride (Klor-Con Tab) 20 meq BIDM PO 09/09/17 07:30 10/09/17 07:29 09/09/17 08:52 20 MEQ Ioversol (Optiray 320) 125 ml UD PRN IV 09/09/17 10:30 09/13/17 10:29
[2017-09-09] MEDS ORDERED: ASPI-428 PO (16:50)
[2017-09-09] MEDS ORDERED: LPT40 PO (16:50)
[2017-09-09] MEDS ORDERED: CLOP1TAB15 PO (16:50)
--- NOTE | 2017-09-09 16:59 | Discharge Instructions ---
Discharge Instructions Date of Service Sep 09, 2017. Admission Reason for Admission: possible TIA (ministroke) . Discharge Discharge Diagnosis / Problem: possible TIA (ministroke) Discharge Goals Goal(s): Improve disease control Activity Recommendations Activity Limitations: resume your previous activity . Instructions / Follow-Up Instructions / Follow-Up APPOINTMENTS: FAMILY MEDICINE 09/12/2017 3:10 PM Chema Schwartz MD NEUROLOGY Dr. Gloria Galindo Please ask Dr. Schwartz for referral. OTHER INSTRUCTIONS: You many have had a TIA (ministroke). New medications: coated aspirin (Lipitor) 81 mg daily, probably long-term clopidogrel (Plavix) 75 mg, probably for 3 months atorvastatin (Lipitor) 40 mg daily It is very important that you quit smoking- it can cause heart attacks, strokes , cancer, lung disease. Seek medical attention if you have: * temperature above 101 * chest pain or trouble breathing * abdominal pain, nausea, vomiting * diarrhea, dark stools or bloody stools * any unanswered questions or concerns Call 911 if symptoms are severe. Call if you have any questions or problems. My cell # is [phone]. You can also reach a [facility] hospitalist on duty at [facility] 24 hours a day by calling [phone]. Please take good care of yourself. Westley Tran . Risk Factors for Stroke: You can reduce your chances of stroke by working with your medical provider to adopt a healthy lifestyle. Some specific ways to lower your chance of stroke are: * If you are a smoker, now is the time to stop smoking cigarettes * If you are diabetic, improve the control of your blood sugars * Avoid excessive amounts of alcohol * Control high blood pressure * Lose weight if you are overweight * Be sure to lead an active lifestyle * Eat a healthy diet low in salt, cholesterol and fat You should know about other risk factors for stroke that you are unable to control. These include: * Age 55 years or older * Male gender * Certain racial groups: , or / * Family History of Stroke, Mini stroke or Heart Attack * Sickle Cell Disease Follow Up: It is important for you to keep your follow up appointments with your medical provider. Current Hospital Diet Patient's current hospital diet: AHA Diet (Heart Healthy) Discharge Diet Recommended Diet: AHA Diet (Heart Healthy) Procedures Procedures Performed: CT and MRI of brain looked OK ( no spots that looked like a stroke). CT angiogram to look at blood vessels showed some narrowing of arteries in back of neck that go to the bottom of the brain. Ultrasound of the carotid arteries in the front of the neck showed some mild hardening of the arteries. Ultrasound of legs looked OK- no blood clots. Ultrasound of heart looked OK. Pending Studies Studies pending at discharge: yes List of pending studies: Several blood tests to look for clotting disorders are being done. Results may take a week or so to come back. Laboratory Results Lipid Panel Test 09/09/17 05:21 Range/Units Triglycerides Level 97 0-150 mg/dl Cholesterol Level 200 0-200 mg/dl HDL Cholesterol 87 mg/dl Cholesterol/HDL Ratio 2.3 LDL Cholesterol, Calculated 94 mg/dl Medical Emergencies . Who to Call and When: Medical Emergencies: Call 911 immediately if you experience any of the following warning signs and symptoms of Stroke: * Sudden numbness or weakness of the face, arm or leg, especially on one side of the body * Sudden confusion, trouble speaking or understanding * Sudden trouble seeing in one or both eyes * Sudden trouble walking, dizziness, loss of balance or coordination * Sudden severe headache with no cause Do not delay calling 911 if you experience any warning signs or symptoms of a stroke. Delay in seeking medical attention may affect what treatments can be given to you. . Non-Emergent Contact Non-Emergency issues call your: Primary Care Provider, Hospital Doctor, Neurologist . . "Provider Documentation" section prepared by Westley Tran. . Stroke Core Measures Reason no t-PA for Stroke: Treatment not indicated Reason no antithrom by day 2: Treatment provided - N/A Reason no antithrom at D/C: Treatment provided - N/A Reason no statin at D/C: Treatment provided - N/A Reason no anticoag w/a fib: Treatment not tolerated VTE Core Measure Inpt VTE Proph given/why not?: Enoxaparin (Lovenox)SQ
--- NOTE | 2017-09-11 03:57 | Discharge Summary ---
Discharge Summary Date of Service Sep 11, 2017. 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 Procedures: cardiac monitoring CT head MRI brain carotid duplex echocardiogram venous duplex lower extremities CTA neck CTA intracranial vessels . Consultations: Neurology with Dr. Galindo . Pending Studies/Follow-Up: hypercoagulable work-up pending at time of discharge Please make referral for outpatient Neuro f/u with Dr. Galindo. . Medication Reconciliation New Medications: Aspirin (Ecotrin Low Strength) 81 Mg Tab 1 TAB PO DAILY, #30 TAB No prescription necessary. Atorvastatin (Atorvastatin Calcium) 40 Mg Tab 40 MG PO DAILY, #30 TAB Clopidogrel (Plavix) 75 Mg Tab 75 MG PO DAILY, #30 TAB Admission Information HPI (per Admitting provider): This is a 46 y/o female chronic smoker, otherwise without significant PMH, who presents to the ED with neurological symptoms. Pt states today around 12:50 PM she was sitting at work talking to her daughter on the phone when she developed facial tingling, "tongue twisting", difficulty using her lips to form words, slurred speech, tingling and tightness across her chest, right arm felt numb and contracted against her chest and she was unable to move it, blurred vision, and head "felt like a blur". She states she was repeating that something was wrong. Symptoms resolved after 5 minutes. She denies being upset or anxious at the time of the incident. Pt has a chronic cough with yellow sputum attributed to smoking which is unchanged from baseline. She reports longstanding bilateral thigh pain when climbing stairs. She denies fever, chills, diaphoresis, GOMEZ, jaw pain, neck pain, back pain, URI symptoms, swallowing difficulty, dizziness, SOB , SCHULER, palpitations, abdominal pain, N/V/D, dysuria, frequency, urgency, abnormal bleeding. Denies hx of HTN, HL, DM, stroke, CAD. . Physical Exam (per Admitting): General Appearance: WD/WN, no apparent distress, + pertinent finding (alert cooperative 46 year old female, boyfriend at bedside, supportive) Head: normocephalic, atraumatic Eyes: normal inspection, PERRL, EOMI, sclerae normal ENT: normal ENT inspection (normal external inspection of ears, nose, lips) , hearing grossly normal, pharynx normal Neck: supple, trachea midline Respiratory/Chest: chest non-tender, lungs clear, normal breath sounds, no respiratory distress, no accessory muscle use Cardiovascular: regular rate, rhythm, no murmur, normal peripheral pulses ( DP pulses 2+) Abdomen/GI: normal bowel sounds, non tender, soft Extremities/Musculoskelatal: no calf tenderness, no pedal edema, + pertinent finding (left great toe partial amputation, well healed) Neurologic/Psych: internet specialist II-XII nml as tested (no dysarthria. facial movements symmetric. ), no motor/sensory deficits (motor 5/5 all extremities. sensation to light touch grossly intact all extremities.), alert, normal mood/affect, oriented x 3, + pertinent finding (finger to nose intact bilaterally. plantar reflex difficult to elicit. no tremor. ) Skin: normal color, warm/dry, no rash (no rash on the chest) Hospital Course POSSIBLE TIA Presented with 5 min episode of facial numbness, dysarthria, RUE weakness while talking on phone. Exam in ED nonfocal. CT head negative. MRI brain demonstrated mild small vessel white matter ischemic changes, no acute event. EKG NSR. Carotid duplex showed minimal plaque. Echo showed normal LV wall motion and function, no intracardiac thrombi. Neurology consulted. Garfield that pt may have had a posterior circulation event. Family history of thromboembolic disease. Venous duplex lower extremities negative. Echo did not show any right to left shunt. Hypercoagulable work-up ordered- results pending at time of discharge. CTA neck and intracranial vessels performed: moderate stenosis @ origin of left vertebral artery with high degree of stenosis distally bulk of flow to basilar artery supplied vias right vertebral artery narrowing of distal basilar artery Narrowing of left vertebral and basilar arteries could be congenital or atherosclerotic in nature. Antiplatelet therapy with aspirin + clopidogrel x 3 months, the aspirin alone long-term recommended. LDL-c = 94. Lipid lowering therapy with atorvastatin 40 mg daily initiated. Importance of smoking cessation stressed. VTE PROPHYLAXIS Received SQ enoxaparin. Ambulated. DISPOSITION Discharged to home. Family Medicine follow-up with Dr. Schwartz. Neurology follow-up with Dr. Galindo. . Total time spent on discharge = 35 minutes. This includes examination of the patient, discharge planning, medication reconciliation, and communication with other providers. . Discharge Instructions Date of Service Sep 09, 2017. Admission Reason for Admission: possible TIA (ministroke) . Discharge Discharge Diagnosis / Problem: possible TIA (ministroke) Discharge Goals Goal(s): Improve disease control Activity Recommendations Activity Limitations: resume your previous activity . Instructions / Follow-Up Instructions / Follow-Up APPOINTMENTS: FAMILY MEDICINE 09/12/2017 3:10 PM Chema Schwartz MD NEUROLOGY Dr. Gloria Galindo Please ask Dr. Schwartz for referral. OTHER INSTRUCTIONS: You many have had a TIA (ministroke). New medications: coated aspirin (Lipitor) 81 mg daily, probably long-term clopidogrel (Plavix) 75 mg, probably for 3 months atorvastatin (Lipitor) 40 mg daily It is very important that you quit smoking- it can cause heart attacks, strokes , cancer, lung disease. Seek medical attention if you have: * temperature above 101 * chest pain or trouble breathing * abdominal pain, nausea, vomiting * diarrhea, dark stools or bloody stools * any unanswered questions or concerns Call 911 if symptoms are severe. Call if you have any questions or problems. My cell # is [phone]. You can also reach a [facility] hospitalist on duty at [facility] 24 hours a day by calling [phone]. Please take good care of yourself. Westley Tran . Risk Factors for Stroke: You can reduce your chances of stroke by working with your medical provider to adopt a healthy lifestyle. Some specific ways to lower your chance of stroke are: * If you are a smoker, now is the time to stop smoking cigarettes * If you are diabetic, improve the control of your blood sugars * Avoid excessive amounts of alcohol * Control high blood pressure * Lose weight if you are overweight * Be sure to lead an active lifestyle * Eat a healthy diet low in salt, cholesterol and fat You should know about other risk factors for stroke that you are unable to control. These include: * Age 55 years or older * Male gender * Certain racial groups: , or / * Family History of Stroke, Mini stroke or Heart Attack * Sickle Cell Disease Follow Up: It is important for you to keep your follow up appointments with your medical provider. Current Hospital Diet Patient's current hospital diet: AHA Diet (Heart Healthy) Discharge Diet Recommended Diet: AHA Diet (Heart Healthy) Procedures Procedures Performed: CT and MRI of brain looked OK ( no spots that looked like a stroke). CT angiogram to look at blood vessels showed some narrowing of arteries in back of neck that go to the bottom of the brain. Ultrasound of the carotid arteries in the front of the neck showed some mild hardening of the arteries. Ultrasound of legs looked OK- no blood clots. Ultrasound of heart looked OK. Pending Studies Studies pending at discharge: yes List of pending studies: Several blood tests to look for clotting disorders are being done. Results may take a week or so to come back. Laboratory Results Lipid Panel Test 09/09/17 05:21 Range/Units Triglycerides Level 97 0-150 mg/dl Cholesterol Level 200 0-200 mg/dl HDL Cholesterol 87 mg/dl Cholesterol/HDL Ratio 2.3 LDL Cholesterol, Calculated 94 mg/dl Medical Emergencies . Who to Call and When: Medical Emergencies: Call 911 immediately if you experience any of the following warning signs and symptoms of Stroke: * Sudden numbness or weakness of the face, arm or leg, especially on one side of the body * Sudden confusion, trouble speaking or understanding * Sudden trouble seeing in one or both eyes * Sudden trouble walking, dizziness, loss of balance or coordination * Sudden severe headache with no cause Do not delay calling 911 if you experience any warning signs or symptoms of a stroke. Delay in seeking medical attention may affect what treatments can be given to you. . Non-Emergent Contact Non-Emergency issues call your: Primary Care Provider, Hospital Doctor, Neurologist . . "Provider Documentation" section prepared by Westley Tran. . Stroke Core Measures Reason no t-PA for Stroke: Treatment not indicated Reason no antithrom by day 2: Treatment provided - N/A Reason no antithrom at D/C: Treatment provided - N/A Reason no statin at D/C: Treatment provided - N/A Reason no anticoag w/a fib: Treatment not tolerated VTE Core Measure Inpt VTE Proph given/why not?: Enoxaparin (Lovenox)SQ . Additional Copies To Chema Schwartz M.D.; Gloria Galindo M.D.
[2017-09-14 21:38] LABS: ANTITHROMBINIII ACTIVITY** 60 % activity (80-120); B2 GLYCOPROTEIN IGA <9 SAU (<=20); B2 GLYCOPROTEIN IGG <9 SGU (<=20); B2 GLYCOPROTEIN IGM <9 SMU (<=20); LUPUS ANTICOAGULANT** TC36573X Negative (Negative); PROTEIN C ACTIVITY** TC 1777X 86 % (70-180); PROTEIN S ACT(FUNCT)**1779X 118 % (60-140)
== END 2017-09-09 17:40 | disposition home or self-care (01) | DRG 69 ==
LOC: C.EDB 13:25 → EDBD 13:25 → ENRESERV 15:03 → C.2E 15:07 → EDBEDREQ 15:23
PROVIDERS: ADMIT Hospitalist; ATTEND Hospitalist
DX: G45.9 Transient cerebral ischemic attack, unspecified (principal); I65.02 Occlusion and stenosis of left vertebral artery; I65.1 Occlusion and stenosis of basilar artery; F17.210 Nicotine dependence, cigarettes, uncomplicated; M60.9 Myositis, unspecified; Z89.422 Acquired absence of other left toe(s)

== ENCOUNTER 2020-09-26 20:35 | Inpatient (IN) ==
[2020-09-26] MEDS ORDERED: SODIUM CHLORIDE 0.9% 1000ML 1,000 ML IV ONE (20:52)
[2020-09-26] MEDS ORDERED: DEXAMETHASONE SOD INJ 10 MG/ML VIAL IV ONE (20:56)
--- NOTE | 2020-09-26 21:04 | Emergency Department Note ---
Impression & Plan Pneumonia, Hypoxia, COVID-19 virus infection, SOB (shortness of breath) ED Provider Note NAME: KANCHAN SORIA AGE: 50 SEX: F : 1970 ARRIVES VIA: Walk-In INFORMANT: Patient, ED PROVIDER(S): Conor Steele DO CHIEF COMPLAINT: Cough HPI: The patient is a 50-year-old female who presented to the emergency department for an evaluation of difficulty breathing. The patient started having symptoms a few days ago. She noticed fever and cough. The cough is nonproductive. Her significant other recently tested positive for COVID-19. The patient is concerned that she may have COVID-19. She was tested recently as an outpatient but does not know the results of this test as of yet. She denies having any nausea but has had decreased p.o. intake. She is had decreased and loss of smell and taste. She notices no swelling in the legs. She denies having any chest pain. She states her symptoms are moderate to severe. She is not been seen by her primary care physician recently. She states that she is been compliant with her medications otherwise. She has noticed dizziness especially upon standing. ROS: See above HPI for pertinent positives & negatives. A total of 10 systems reviewed and were otherwise negative. PAST MEDICAL HISTORY: See Below PAST SURGICAL HISTORY: See Below FAMILY HISTORY: See Below SOCIAL HISTORY: See Below HOME MEDICATIONS: See Below ALLERGIES: See Below VITALS: See Below PHYSICAL EXAMINATION: GENERAL: The patient is awake and alert. She is very anxious appearing. EYES: The conjunctivae are clear. The pupils are round and reactive. EARS, NOSE, MOUTH AND THROAT: The nose is without any evidence of any deformity. NECK: The neck is nontender and supple. RESPIRATORY: Shallow respirations were noted. Scattered rales were noted in all lung will. There was significant conversational dyspnea as well as tachypnea. CARDIOVASCULAR: Regular rate and rhythm noted there no murmurs rubs or gallops normal S1 normal S2. GASTROINTESTINAL: The abdomen is soft. Abdomen is nontender. MUSCULOSKELETAL/EXTREMITIES: There is no evidence of gross deformity full range of motion is noted in the hips and shoulders. SKIN: There is no obvious evidence of any rash. There are no petechiae, pallor or cyanosis noted. NEUROLOGIC: Patient is awake alert and oriented x3. MEDICAL DECISION MAKING: The patient is a 50-year-old female who presented to the emergency department for an evaluation of difficulty breathing. The patient significant other tested positive for COVID-19. She herself started having symptoms over the last 2 or 3 days. She presents tonight with severe cough and difficulty breathing. The patient is very hypoxic. She was placed on supplemental oxygen. She had significant improvement of her symptoms. She was treated with IV fluids IV Decadron and IV Zosyn. She was reevaluated multiple times. I discussed the patient's laboratory and radiographic studies with her. Likely she is suffering from COVID-19 infection. [facility] to evaluate the patient in the emergency department for further management and disposition. Aggressive hydration was avoided given the patient's likely COVID-19 infection to avoid pulmonary edema. Triage Nursing notes reviewed. Prior medical records reviewed Vital Signs: reviewed and remarkable for hypoxia and hypotension Differential diagnosis: Reactive airway disease, pneumonia, pneumothorax, COPD, CHF, infections, cardiac ischemia, pulmonary embolism, musculoskeletal, gastrointestinal, as well as other pathologies. ER treatment provided: See below Diagnostics interpreted by me: ECG: EKG was obtained in the emergency department. My interpretation is normal sinus rhythm at 94 bpm. There was no ectopy. There was no acute ST segment abnormalities noted. This was compared to a tracing from November 052017. No significant changes were noted. Cardiac Monitoring: An order was placed for continuous cardiac monitoring. The monitor shows a rate of 89 bpm with sinus rhythm. Laboratory studies: As stated above and show below. Imaging studies: See below Consultation(s): 2200: I discussed this case with Dr. Olsen who [facility]. He is agreed to evaluate the patient in the emergency department. ED COURSE: Procedures: none PDMP:reviewed and no issues Critical Care: I have personally spent greater than 40 minutes of critical care time in the direct management of this patient. This includes bedside care, interpretation of diagnostic studies, and testing, discussion with consultants, patient, and family members, and other required patient management activities. This 40 minutes is in excess of all separately billable procedures. Past Med/Surg History Medical History (Updated 09/26/20 @ 22:03 by Conor Steele DO) GERD (gastroesophageal reflux disease) Well controlled and stable Hyperlipidemia SOB (shortness of breath) on exertion Chronic issue since pt has CVA in 2017 Transient ischemic attack (TIA) 2017-PLACED ON PLAVIX-NO ISSUES SINCE Surgical History H/O foot surgery LEFT GREAT TOE SX X 2 History of bilateral tubal ligation History of colonoscopy History of endometrial ablation History of esophagogastroduodenoscopy (EGD) Family History Mother Family history of diabetes mellitus Social History Smoking Status: Never smoker Second Hand Exposure: Yes (ON OCC); Hx Alcohol Use: Yes Alcohol type: beer Hx Substance Use: No Preferred Language: Turkmen Communication Ability: Effective Case Fitter Required: No Beliefs That Will Affect Care: None Current Living Situation: Significant Other Feels Safe at Home: Yes Assistive Devices: Glasses Allergies Allergies Allergy/AdvReac Type Severity Reaction Status Date / Time No Known Allergies Allergy Verified 09/26/20 21:57 Home Meds Home Medications Medication Instructions Recorded Confirmed atorvastatin 40 mg PO QAM 11/05/18 09/26/20 clopidogrel 75 mg PO QAM 11/05/18 09/26/20 omeprazole 40 mg PO QAM 11/05/18 09/26/20 Dulera 2 puff INHALATION BID 07/17/20 09/26/20 cyanocobalamin (vitamin B-12) 1,000 mcg PO QAM 07/17/20 09/26/20 meloxicam 15 mg PO DAILY PRN 07/17/20 09/26/20 Results & Data (ED) Vital Signs Vital Signs - 24 hr 09/26/20 20:38 09/26/20 21:20 09/26/20 21:22 Temperature 37.4 C Temperature Source Oral Pulse Rate 105 H Respiratory Rate 20 Respiratory Effort / Characteristics Non-Labored Spontaneous Respiratory Depth Normal Blood Pressure 98/62 L Blood Pressure Mean 74 Pulse Oximetry 77 L 95 Oxygen Delivery Method Room Air Nasal Cannula Oxygen Flow Rate 4 Sepsis Recent Fever Within 48 Hours Yes Sepsis New/Unexplained Change in Mental Status No Sepsis Action Taken by Nursing Physician Notified Home Medications Current Medication List: was personally reviewed by me Laboratory Data Attestation: I reviewed the patient's lab results. Result diagrams: 09/26/20 21:07 09/26/20 21:07 Lab Results 09/26/20 09/26/20 09/26/20 Range/Units 21:07 21:07 21:07 WBC 4.68 L (4.8-10.8) K/uL RBC 4.61 (4.2-5.4) M/uL Hgb 10.1 L (12.0-16.0) g/dL Hct 34.4 L (37-47) % MCV 74.6 L (80-100) fL MCH 21.9 L (25-34) pg MCHC 29.4 L (32-36) g/dL RDW Std Deviation 55.5 H (36.4-46.3) fL RDW Coeff of Iveth 20.4 H (11.5-14.5) % Plt Count 276 (130-400) K/uL MPV 10.2 (7.4-10.4) fL Immature Gran % (Auto) 0.4 % Neut % (Auto) 79.1 % Lymph % (Auto) 14.3 % Thomas % (Auto) 5.8 % Eos % (Auto) 0.0 % Baso % (Auto) 0.4 % Neut # (Auto) 3.70 (1.4-6.5) K/uL Lymph # (Auto) 0.67 L (1.2-3.4) K/uL Thomas # (Auto) 0.27 (0.11-0.59) K/uL Eos # (Auto) 0.00 (0-0.5) K/uL Baso # (Auto) 0.02 (0-0.2) K/uL Immature Gran # (Auto) 0.02 (0.00-0.02) K/uL Absolute Nucleated RBC 0.05 H (0-0) K/uL Nucleated RBC % (auto) 1.0 % Anisocytosis Present PT 10.8 (9.0-12.0) Seconds INR 1.0 (0.9-1.1) APTT 27.9 (21.0-31.0) Seconds PTT Ratio 1.0 VBG pH (7.36-7.41) VBG pCO2 (38-50) mmHg VBG pO2 mmHg VBG HCO3 mmol/L VBG O2 Saturation % VBG Base Excess mEq/L Barometric Pressure mm/Hg Sodium 134 L (136-145) mmol/L Potassium 3.3 L (3.5-5.1) mmol/L Chloride 98 (98-107) mmol/L Carbon Dioxide 28 (21-32) mmol/L Anion Gap 8.0 (3-11) BUN 12 (7-18) mg/dl Creatinine 0.88 (0.6-1.2) mg/dl Est Cr Clr Drug Dosing 87.2 ml/min Est GFR ( Amer) 87.6 Est GFR (Non-Af Amer) 75.5 BUN/Creatinine Ratio 14.0 (10-20) Glucose 101 H (70-99) mg/dl Calcium 8.5 (8.5-10.1) mg/dl Magnesium 2.5 H (1.8-2.4) mg/dl Total Bilirubin 0.4 (0.2-1) mg/dl AST 53 H (15-37) U/L ALT 31 (12-78) U/L Alkaline Phosphatase 72 (45-117) U/L Troponin I < 0.015 (0-0.045) ng/ml Total Protein 8.0 (6.4-8.2) gm/dl Albumin 3.2 L (3.4-5.0) gm/dl Globulin 4.8 H (2.5-4.0) gm/dl Albumin/Globulin Ratio 0.7 L (0.9-2) COVID-19 Eval Order 09/26/20 09/26/20 Range/Units 21:07 21:12 WBC (4.8-10.8) K/uL RBC (4.2-5.4) M/uL Hgb (12.0-16.0) g/dL Hct (37-47) % MCV (80-100) fL MCH (25-34) pg MCHC (32-36) g/dL RDW Std Deviation (36.4-46.3) fL RDW Coeff of Iveth (11.5-14.5) % Plt Count (130-400) K/uL MPV (7.4-10.4) fL Immature Gran % (Auto) % Neut % (Auto) % Lymph % (Auto) % Thomas % (Auto) % Eos % (Auto) % Baso % (Auto) % Neut # (Auto) (1.4-6.5) K/uL Lymph # (Auto) (1.2-3.4) K/uL Thomas # (Auto) (0.11-0.59) K/uL Eos # (Auto) (0-0.5) K/uL Baso # (Auto) (0-0.2) K/uL Immature Gran # (Auto) (0.00-0.02) K/uL Absolute Nucleated RBC (0-0) K/uL Nucleated RBC % (auto) % Anisocytosis PT (9.0-12.0) Seconds INR (0.9-1.1) APTT (21.0-31.0) Seconds PTT Ratio VBG pH 7.42 H (7.36-7.41) VBG pCO2 43 (38-50) mmHg VBG pO2 30 mmHg VBG HCO3 27 mmol/L VBG O2 Saturation < 60.0 % VBG Base Excess 2.3 mEq/L Barometric Pressure 739.2 mm/Hg Sodium (136-145) mmol/L Potassium (3.5-5.1) mmol/L Chloride (98-107) mmol/L Carbon Dioxide (21-32) mmol/L Anion Gap (3-11) BUN (7-18) mg/dl Creatinine (0.6-1.2) mg/dl Est Cr Clr Drug Dosing ml/min Est GFR ( Amer) Est GFR (Non-Af Amer) BUN/Creatinine Ratio (10-20) Glucose (70-99) mg/dl Calcium (8.5-10.1) mg/dl Magnesium (1.8-2.4) mg/dl Total Bilirubin (0.2-1) mg/dl AST (15-37) U/L ALT (12-78) U/L Alkaline Phosphatase (45-117) U/L Troponin I (0-0.045) ng/ml Total Protein (6.4-8.2) gm/dl Albumin (3.4-5.0) gm/dl Globulin (2.5-4.0) gm/dl Albumin/Globulin Ratio (0.9-2) COVID-19 Eval [email or web address] Administered Medications Discontinued Medications Dexamethasone (Dexamethasone Sod Inj 10 Mg/Ml Vial) 10 mg IV NOW ONE Stop: 09/26/20 20:57 Last Admin: 09/26/20 21:17 Dose: 10 mg Documented by: [id number] Sodium Chloride (Nss 1000ml) 1,000 mls @ 999 mls/hr IV .Q1H1M ONE Stop: 09/26/20 21:52 Last Admin: 09/26/20 21:17 Dose: 999 mls/hr Documented by: [id number] Imaging Data Attestation: I personally reviewed and interpreted this imaging study as follows: My Impression: 1 view the chest x-ray was obtained in the emergency department. My interpretation is bilateral parenchymal infiltrates were noted. There is no free air, mild cardiomegaly was noted. Blood Pressure Blood Pressure Findings: Low blood pressure Discharge Plan Visit Data Chief Complaint: Fever Stated Complaint: COVID - FEVER 102 - SOB ED Provider: Conor Steele Discharge Problem: Pneumonia, Hypoxia, COVID-19 virus infection, SOB (shortness of breath) Patient Disposition: Being Evaluated by Hospitalist Condition: Fair Forms Stand Alone Forms: My [facility] Prescriptions Prescriptions: No Action atorvastatin 40 mg tablet 40 mg PO QAM RF: 0 clopidogrel 75 mg tablet 75 mg PO QAM RF: 0 omeprazole 40 mg capsule,delayed release(DR/EC) 40 mg PO QAM RF: 0 meloxicam 15 mg Tablet 15 mg PO DAILY PRN (Reason: Pain) RF: 0 Dulera 200-5 mcg/actuation Hfa Aerosol Inhaler 2 puff INHALATION BID RF: 0 cyanocobalamin (vitamin B-12) 1,000 mcg Capsule 1,000 mcg PO QAM RF: 0 Referrals Referrals: Chema Schwartz MD [Primary Care Provider] -
[2020-09-26 21:34] LABS: Basophils # (auto) 0.02 K/uL (0-0.2); Basophils % (auto) 0.4 %; Hematocrit (blood only) 34.4 % (37-47); Hemoglobin 10.1 g/dL (12.0-16.0); Immature Granulocytes # (auto) 0.02 K/uL (0.00-0.02); Immature Granulocytes % (auto) 0.4 %; Lymphocytes # (auto) 0.67 K/uL (1.2-3.4); Lymphocytes % (auto) 14.3 %; Mean Corpuscular Hemoglobin 21.9 pg (25-34); Mean Corpuscular Hgb Conc 29.4 g/dL (32-36); Mean Corpuscular Volume 74.6 fL (80-100); Mean Platelet Volume 10.2 fL (7.4-10.4); Monocytes # (auto) 0.27 K/uL (0.11-0.59); Monocytes % (auto) 5.8 %; Neutrophils % (auto) 79.1 %; Nucleated RBC # (auto) 0.05 K/uL (0-0); Platelet Count 276 K/uL (130-400); RDW Coefficient of Variation 20.4 % (11.5-14.5); RDW Standard Deviation 55.5 fL (36.4-46.3); Red Blood Count 4.61 M/uL (4.2-5.4); White Blood Count 4.68 K/uL (4.8-10.8)
[2020-09-26 21:38] LABS: Base Excess VBG 2.3 mEq/L; HCO3 VBG 27 mmol/L; PCO2 VBG 43 mmHg (38-50); PO2 VBG 30 mmHg; pH VBG 7.42 (7.36-7.41)
[2020-09-26 21:39] LABS: Oxygen Saturation VBG < 60.0 %
[2020-09-26] MEDS ORDERED: PIPERACILLIN/TAZOBACTAM 4.5 GM/120 ML BAG IV ONE (21:42)
[2020-09-26] MEDS ORDERED: PIPERACILL/TAZOBAC CONSULT ACTIVE PRN (21:42)
[2020-09-26] MEDS ORDERED: SODIUM CHLORIDE 0.9% 1000ML 500 ML IV ONE (21:42)
[2020-09-26 21:44] LABS: Partial Thromboplastin Time 27.9 Seconds (21.0-31.0); Prothrombin Time 10.8 Seconds (9.0-12.0)
[2020-09-26 21:52] LABS: Anisocytosis Present
[2020-09-26 22:01] LABS: Alanine Aminotransferase 31 U/L (12-78); Albumin Globulin Ratio 0.7 (0.9-2); Albumin Level 3.2 gm/dl (3.4-5.0); Alkaline Phosphatase 72 U/L (45-117); Aspartate Aminotransferase 53 U/L (15-37); Bilirubin,Total 0.4 mg/dl (0.2-1); Blood Urea Nitrogen 12 mg/dl (7-18); Calcium 8.5 mg/dl (8.5-10.1); Carbon Dioxide 28 mmol/L (21-32); Chloride 98 mmol/L (98-107); Creatinine Clr Calc Pharmacy 87.2 ml/min; Est GFR (African American) 87.6; Est GFR (Non-African American) 75.5; Globulin 4.8 gm/dl (2.5-4.0); Glucose 101 mg/dl (70-99); Magnesium 2.5 mg/dl (1.8-2.4); Potassium 3.3 mmol/L (3.5-5.1); Sodium 134 mmol/L (136-145); Troponin I < 0.015 ng/ml (0-0.045)
[2020-09-26 23:54] LABS: Influenza A virus by PCR Negative (Negative); Influenza B virus by PCR Negative (Negative)
[2020-09-27 00:17] LABS: SARS CoV2 RNA(COVID-19) ID NOW NEGATIVE (NEGATIVE)
[2020-09-27 01:22] LABS: Adenovirus PCR Not Detected (NotDetected); Bordetella parapertussis PCR Not Detected (NotDetected); Bordetella pertussis PCR Not Detected (NotDetected); Chlamydia pneumoniae PCR Not Detected (NotDetected); Coronavirus 229E PCR Not Detected (NotDetected); Coronavirus HKU1 PCR Not Detected (NotDetected); Coronavirus NL63 PCR Not Detected (NotDetected); Coronavirus OC43PCR Not Detected (NotDetected); Human Metapneumovirus PCR Not Detected (NotDetected); Influenza A PCR Not Detected (NotDetected); Influenza B PCR Not Detected (NotDetected); Mycoplasma pneumoniae PCR Not Detected (NotDetected); Parainfluenza Virus 1 PCR Not Detected (NotDetected); Parainfluenza Virus 2 PCR Not Detected (NotDetected); Parainfluenza Virus 3 PCR Not Detected (NotDetected); Parainfluenza Virus 4 PCR Not Detected (NotDetected); Respiratory Syncytial VirusPCR Not Detected (NotDetected); Rhinovirus/Enterovirus PCR Not Detected (NotDetected)
[2020-09-27 01:45] LABS: Coronavirus CoV-2 (COVID19)PCR DETECTED (NotDetected)
[2020-09-27] MEDS ORDERED: REMDESIVIR 200 MG in SODIUM CHLORIDE 0.9% 210 ML IV STA (01:49)
[2020-09-27] MEDS ORDERED: ALBUTEROL HFA 8 GM INHALER INH PRN (02:32)
[2020-09-27] MEDS ORDERED: POTASSIUM CHLORIDE CRTAB 20 MEQ TABCR PO STA (02:32)
[2020-09-27] MEDS ORDERED: ACETAMINOPHEN 325 MG TAB PO PRN (02:32)
--- NOTE | 2020-09-27 03:19 | History and Physical Report ---
DATE OF ADMISSION: 09/26/2020 CHIEF COMPLAINT: Fever, short of breath. HISTORY OF PRESENT ILLNESS: A 50-year-old female with past medical history significant for CVA, history of lymphadenopathy, recent history of dysfunctional uterine bleeding, status post recent hysterectomy about 7 weeks ago, presents with not feeling well, fever and shortness of breath. The patient's was diagnosed with COVID. The patient's symptoms started last Monday, she was having dry cough, on and off fevers, body aches, headache, generalized weakness, poor appetite, has few episodes of diarrhea, could not tell whether she lost sense of smell or taste because she could not eat because of poor appetite. No sore throat, no runny nose, no blurred vision, no earache, no chest pain. Has some shortness of breath, no abdominal pain. No swelling in the legs, no rash. When the patient came here, she was hypoxic, oxygen level is 77% and somewhat hypotensive with 4 liters oxygen her saturations improved. Labs show leukopenia and lymphopenia. Initial SARS-CoV-2 was negative, but we will reorder the BioFire, which is pending. ALLERGIES: No known drug allergies. PAST MEDICAL HISTORY: As mentioned above. PAST SURGICAL HISTORY: Colonoscopy, EGDs, hysterectomy, endometrial ablation, ligation of oviducts, left great toe partial amputation. MEDICATIONS: The patient is on Meloxicam 50 mg p.o. daily p.r.n., Dulera two puffs b.i.d., atorvastatin 40 mg p.o. daily, Plavix 75 mg p.o. daily, omeprazole 40 mg p.o. daily, vitamin B12 1000 mcg sublingual daily, albuterol nebulization p.r.n. FAMILY HISTORY: Significant for mother had ovarian cancer, diabetes. Father has heart attack. Brother has diabetes. Sister has blood clots. SOCIAL HISTORY: . Former smoker, quit in 2017. Alcohol 2-3 beers per week. No drug use. REVIEW OF SYMPTOMS: As per HPI. Rest of review of symptoms negative. PHYSICAL EXAMINATION: GENERAL: The patient is obese, not in acute distress. VITAL SIGNS: Temperature 37.4, pulse 83, respiratory rate 21, blood pressure 116/69. Currently, oxygen when she came in was 77% on room air, currently 90% on 4 liters. HEENT: Pupils equal, round, reactive to light. Oral mucosa moist. NECK: No JVD, supple. CARDIOVASCULAR: S1, S2 heard, regular rate and rhythm, no murmur, no gallop. RESPIRATORY SYSTEM: Normal AP diameter. No accessory muscle use. No wheezing, no crackles. ABDOMEN: Soft, bowel sounds present, nontender. No distention. CENTRAL NERVOUS SYSTEM: Cranial nerves II-XII grossly intact. Nonfocal. EXTREMITIES: No edema, no erythema. LABORATORY DATA: WBC 4.6, hemoglobin 10.1, hematocrit 34.4, platelets 276. Lymphocytes 0.67. PT 10.8, INR 1, APTT 27.9. Venous blood gas pH of 7.42. Sodium 134, potassium 3.3, chloride 98, bicarbonate 28, BUN 12, creatinine 0.8, serum glucose 101, lactate 1.2, calcium 8.5, magnesium 2.5, total bilirubin 0.4, AST 53, ALT 31, alkaline phosphatase 72. Troponin I less than 0.015. Procalcitonin 0.07. SARS-CoV-2 RNA negative. Chest x-ray, right lower lobe infiltrate. EKG: Normal sinus rhythm, rate of 94, nonspecific ST changes seen, no significant change was found. ASSESSMENT AND PLAN: This is a 50-year-old female who was exposed to COVID prresents because of not feeling well since last Monday fever and shortness of breath, body aches, poor appetite, weakness and also hypoxic when she came in. 1. Hypoxia, possible COVID-19 pneumonia. Her got diagnosed with COVID-19. Initial test with SARS-CoV-2 negative we are waiting for BioFire but patient has leukopenia and also lymphopenia, requiring oxygen 4 liters. Received Zosyn and IV Decadron in the ER in the ER. We will continue with Rocephin and doxycycline and if the BioFire comes as COVID positive we continue with dexamethasone 6 mg daily and also start on remdesivir, closely monitor in the tele floor. 2. History of anemia secondary to recent dysfunctional uterine bleeding, status post hysterectomy, at the time of her hysterectomy her hemoglobin was 8, current hemoglobin is 10.1. We will follow the labs. 3. History of stroke, TIA in the past. Continue aspirin, continue Plavix and statin. 4. Deep venous thrombosis prophylaxis, Lovenox. DISPOSITION: Closely monitor in the tele floor. Level 1 full code. Addendum: Biofire covid positive. Started on remdesivir and decadron. MTDD
[2020-09-27] MEDS: DOXYCYCLINE HYCLATE 100 MG in DEXTROSE 5% 100 ML IV SCH ×2 (03:41→15:31)
[2020-09-27] MEDS: SODIUM CHLORIDE 0.9% 10ML FLUSH IV SCH (03:44)
[2020-09-27] MEDS ORDERED: ENOXAPARIN INJ 40 MG/0.4 ML SYR SQ SCH (04:00)
--- NOTE | 2020-09-27 07:02 | Electrocardiogram Report ---
Test Reason : Blood Pressure : / mmHG Vent. Rate : 094 BPM Atrial Rate : 094 BPM P-R Int : 142 ms QRS Dur : 090 ms QT Int : 350 ms P-R-T Axes : 029 -10 050 degrees QTc Int : 437 ms Normal sinus rhythm Moderate voltage criteria for LVH, may be normal variant Nonspecific ST abnormality Borderline ECG When compared with ECG of 05-NOV-2018 03:00, No significant change was found Confirmed by Juan Groves ([id number]) on 09/27/2020 7:01:55 AM Referred By: REFERRED SELF Confirmed By:Juan Groves
[2020-09-27 07:21] LABS: D Dimer 1130 ug/L FEU (0-500)
[2020-09-27 07:33] LABS: Alanine Aminotransferase 30 U/L (12-78); Albumin Level 2.6 gm/dl (3.4-5.0); Alkaline Phosphatase 60 U/L (45-117); Aspartate Aminotransferase 55 U/L (15-37); Bilirubin Direct < 0.1 mg/dl (0-0.2); Bilirubin,Total 0.3 mg/dl (0.2-1)
[2020-09-27] MEDS ORDERED: ENOXAPARIN INJ 60 MG/0.6 ML SYR SQ ONE (08:00)
[2020-09-27] MEDS: FLUTICASONE/VILANTEROL 200/25MCG 14 PUFFS/INHALER INH SCH (08:22)
[2020-09-27] MEDS: ATORVASTATIN 40 MG TAB PO SCH (08:23)
[2020-09-27] MEDS: CYANOCOBALAMIN 500 MCG TABLET (VITAMIN B-12) PO SCH (08:23)
[2020-09-27] MEDS: CLOPIDOGREL BISULFATE 75 MG TAB PO SCH (08:23)
[2020-09-27] MEDS: PANTOprazole 40 MG TAB PO SCH (08:23)
[2020-09-27] MEDS: cefTRIAXone SODIUM 2,000 MG in DEXTROSE 5% 50 ML IV SCH (08:23)
--- NOTE | 2020-09-27 08:52 | XRay Report ---
XR chest 1V portable HISTORY: 50 years-old Female SEPSIS COMPARISON: Chest radiograph 11/05/2018 TECHNIQUE: Portable AP view of the chest FINDINGS: Cardiac silhouette is mildly enlarged. Lungs are hypoinflated. Interstitial opacities of the mid and lower lung zones. No pneumothorax or large pleural effusion. Bones appear grossly intact. IMPRESSION: Interstitial opacities of the mid and lower lung zones are suspicious for an atypical pne umonitis. Pulmonary edema considered less likely. ACT 112: Negative or not required by law. The above report was generated using voice recognition software. It may contain grammatical, syntax o r spelling errors. Electronically signed by: Sagar Keller M.D. 09/27/2020 8:51 AM
[2020-09-27] MEDS: ADVANCED PROBIOTIC 1250 MG CAPSULE PO SCH (11:11)
--- NOTE | 2020-09-27 14:00 | Hospitalist Progress Note ---
Date of Service September 27, 2020 Assessment & Plan (1) Acute respiratory failure with hypoxia: Presented with cough, fever, shortness of breath with minimal exertion Have acute hypoxic respiratory failure at presentation secondary to COVID-19 infection Complains cough with increasing shortness of breath Has been requiring high flow oxygen to maintain saturation Been getting nebulized bronchodilator Discussed with sow farm manager, if the condition does not get any better she will need to be intubated and transferred to ICU We will try to keep her at prone position as large as she can tolerate (2) COVID-19 virus infection: Exposed to COVID-19 since Monday last Bio fire is positive for COVID-19 Has been receiving remdesivir and dexamethasone Supportive treatment with cough medications and nebulized bronchodilator (3) Pneumonia: Has bilateral interstitial opacities in lungs Likely secondary to Covid 19 pneumonia Will cover with antibiotic for possible bacterial superinfection with IV Zosyn and doxycycline (4) GERD (gastroesophageal reflux disease): Continue PPI (5) H/O: stroke: Continue Plavix DVT prophylaxis Noted to have high D-dimer at presentation with history of recent hysterectomy about 7 weeks ago High suspicion for thromboembolic disease CTA of the chest is not performed for technical reasons Cussed with sow farm manager and she was put on therapeutic Lovenox the plan to monitor D-dimer while in the hospital Discussed in detail with the patient and will discuss with the as well Admission and Anticipated Discharge Date Admission Date: September 26, 2020 Subjective 09/27/2020 The patient was seen and examined in telemetry/Covid unit She was exposed to her Covid positive since Monday last 09/25/2020 She has been complaining of extreme tiredness, cough fever and shortness of breath since then She complains to have cough and shortness of breath this afternoon without any chest pain and/or palpitation No fever and/or chills Review of Systems Review of Systems: All systems reviewed and are unremarkable except as noted below Respiratory: + cough, + chest congestion, + dyspnea and + wheezing Physical Exam Physical Exam: Lying in bed with distress secondary to cough and shortness of breath Constitutional: well developed, well nourished, + ill appearing and + obese Eyes: PERRL, conjunctivae normal, anicteric sclerae ENMT: external ear and nose normal, oropharynx normal Neck: trachea midline, no thyromegaly Respiratory: + respiratory distress (Moderate shortness of breath at rest) and + cough Auscultation: + diminished lung sounds, + crackles and + wheezes Cardiovascular: Rate/Rhythm: regular rate and regular rhythm Heart Sounds: no murmur Gastrointestinal (Abdomen): Inspection/Auscultation: abdomen not distended Percussion/Palpation: abdomen soft; abdomen nontender Musculoskeletal: No acute arthritis in any joint Neurologic: Alert, awake and oriented x3 Psychiatric: A+Ox3, euthymic affect Lymphatic: no cervical or axillary lymphadenopathy Results & Data Results & Data ([facility]) Vital Signs (Past 12 Hours) Vital Signs Temp Pulse Pulse Pulse Resp BP Pulse Ox 09/27/20 11:39 36.6 C 68 20 101/63 88 L 09/27/20 08:00 69 09/27/20 07:40 36.5 C 77 20 107/64 90 09/27/20 02:32 36.7 C 73 24 122/81 92 Laboratory Results Short CBC 09/26/20 Range/Units 21:07 WBC 4.68 L (4.8-10.8) K/uL Hgb 10.1 L (12.0-16.0) g/dL Hct 34.4 L (37-47) % Plt Count 276 (130-400) K/uL BMP 09/26/20 21:07 Sodium 134 L Potassium 3.3 L Chloride 98 Carbon Dioxide 28 BUN 12 Creatinine 0.88 Glucose 101 H Calcium 8.5 Cardiac Enzymes 09/26/20 Range/Units 21:07 Troponin I < 0.015 (0-0.045) ng/ml Liver Function 09/26/20 09/27/20 Range/Units 21:07 06:01 Total Bilirubin 0.4 0.3 (0.2-1) mg/dl Direct Bilirubin < 0.1 (0-0.2) mg/dl AST 53 H 55 H (15-37) U/L ALT 31 30 (12-78) U/L Alkaline Phosphatase 72 60 (45-117) U/L Albumin 3.2 L 2.6 L (3.4-5.0) gm/dl Medications Administered Current Inpatient Medications Acetaminophen (Acetaminophen 325 Mg Tab) 650 mg PO Q4H PRN PRN Reason: Pain or Fever Stop: 10/27/20 02:31 Albuterol (Albuterol Hfa 8 Gm Inhaler) 2 puffs INH Q4H PRN PRN Reason: Shortness Of Breath Or Wheezing Stop: 10/27/20 02:31 Atorvastatin Calcium (Atorvastatin 40 Mg Tab) 40 mg PO QAM [facility] Stop: 10/27/20 08:59 Last Admin: 09/27/20 08:23 Dose: 40 mg Documented by: Clopidogrel Bisulfate (Clopidogrel Bisulfate 75 Mg Tab) 75 mg PO QAM [facility] Stop: 10/27/20 08:59 Last Admin: 09/27/20 08:23 Dose: 75 mg Documented by: Cyanocobalamin (Cyanocobalamin 500 Mcg Tablet (Vitamin B-12)) 1,000 mcg PO QAM [facility] Stop: 10/27/20 08:59 Last Admin: 09/27/20 08:23 Dose: 1,000 mcg Documented by: Dexamethasone (Dexamethasone 1 Mg Tab) 6 mg PO DAILY@2100 [facility] Stop: 10/27/20 20:59 Enoxaparin Sodium (Enoxaparin 100 Mg/1ml Syr) 100 mg SQ Q12 [facility] Stop: 10/27/20 20:59 Fluticasone/Vilanterol (Fluticasone/Vilanterol 200/25mcg 14 Puffs/Inhaler) 1 puffs INH DAILY [facility] Stop: 10/27/20 08:59 Last Admin: 09/27/20 08:22 Dose: 1 puffs Documented by: Guaifenesin (Guaifenesin 600 Mg Tabcr) 1,200 mg PO Q12 [facility] Stop: 10/27/20 20:59 Ceftriaxone Sodium 2,000 mg/ (Dextrose) 70 mls @ 100 mls/hr IV DAILY [facility]; Protocol Stop: 10/04/20 08:59 Last Infusion: 09/27/20 09:05 Dose: Infused Documented by: Doxycycline Hyclate 100 mg/ (Dextrose) 110 mls @ 50 mls/hr IV Q12H [facility] Stop: 10/04/20 03:59 Last Infusion: 09/27/20 05:53 Dose: Infused Documented by: Remdesivir 100 mg/ Sodium (Chloride) 250 mls @ 250 mls/hr IV Q24H [facility]; Protocol Stop: 10/01/20 04:59 Lactobacillus Acidoph/Casei/Rhamnos (Advanced Probiotic 1250 Mg Capsule) 2 cap PO DAILY [facility] Stop: 10/27/20 09:14 Last Admin: 09/27/20 11:11 Dose: 2 cap Documented by: Pantoprazole Sodium (Pantoprazole 40 Mg Tab) 40 mg PO QAM [facility] Stop: 10/27/20 08:59 Last Admin: 09/27/20 08:23 Dose: 40 mg Documented by: Sodium Chloride (Sodium Chloride 0.9% 10ml Flush) 30 ml IV Q24H [facility] Stop: 10/01/20 04:01 Last Admin: 09/27/20 03:44 Dose: 30 ml Documented by: (1) Pneumonia Laterality: bilateral Lung location: unspecified part of lung Pneumonia type: due to unspecified organism Qualified Code(s): J18.9 - Pneumonia, unspecified organism
[2020-09-27] MEDS: ENOXAPARIN 100 MG/1ML SYR SQ SCH (20:06)
[2020-09-27] MEDS: guaiFENesin 600 MG TABCR PO SCH (20:08)
[2020-09-27] MEDS: dexAMETHasone 1 MG TAB PO SCH (20:09)
[2020-09-27] MEDS ORDERED: dexAMETHasone 1 MG TAB PO SCH (21:00)
[2020-09-28] MEDS: REMDESIVIR 100 MG in SODIUM CHLORIDE 0.9% 230 ML IV SCH (05:04)
[2020-09-28] MEDS: DOXYCYCLINE HYCLATE 100 MG in DEXTROSE 5% 100 ML IV SCH ×2 (06:27→15:32)
[2020-09-28] MEDS: SODIUM CHLORIDE 0.9% 10ML FLUSH IV SCH (06:28)
[2020-09-28 06:34] LABS: Hematocrit (blood only) 28.4 % (37-47); Hemoglobin 8.4 g/dL (12.0-16.0); Immature Granulocytes # (auto) 0.01 K/uL (0.00-0.02); Immature Granulocytes % (auto) 0.3 %; Lymphocytes # (auto) 0.39 K/uL (1.2-3.4); Lymphocytes % (auto) 10.5 %; Mean Corpuscular Hemoglobin 22.2 pg (25-34); Mean Corpuscular Hgb Conc 29.6 g/dL (32-36); Mean Corpuscular Volume 74.9 fL (80-100); Mean Platelet Volume 10.8 fL (7.4-10.4); Monocytes % (auto) 5.4 %; Neutrophils # (auto) 3.11 K/uL (1.4-6.5); Neutrophils % (auto) 83.8 %; Platelet Count 305 K/uL (130-400); RDW Coefficient of Variation 20.4 % (11.5-14.5); RDW Standard Deviation 56.4 fL (36.4-46.3); Red Blood Count 3.79 M/uL (4.2-5.4); White Blood Count 3.71 K/uL (4.8-10.8)
[2020-09-28 06:57] LABS: D Dimer 520 ug/L FEU (0-500)
[2020-09-28 07:12] LABS: Albumin Level 2.5 gm/dl (3.4-5.0); BUN Creatinine Ratio 22.3 (10-20); Calcium 8.1 mg/dl (8.5-10.1); Creatinine Clr Calc Pharmacy 109.1 ml/min; Est GFR (African American) 117.7; Est GFR (Non-African American) 101.6; Magnesium 2.5 mg/dl (1.8-2.4); Potassium 3.5 mmol/L (3.5-5.1)
[2020-09-28 07:15] LABS: Albumin Globulin Ratio 0.6 (0.9-2); Bilirubin,Total 0.3 mg/dl (0.2-1); C Reactive Protein 4.31 mg/dl (0-0.29); Ferritin 63.7 ng/ml (8-388); Globulin 4.2 gm/dl (2.5-4.0); Phosphorus 3.1 mg/dl (2.5-4.9); Total Protein 6.7 gm/dl (6.4-8.2)
[2020-09-28 07:16] LABS: Anisocytosis Present; Hypochromasia Present
[2020-09-28] MEDS: CLOPIDOGREL BISULFATE 75 MG TAB PO SCH (10:37)
[2020-09-28] MEDS: ENOXAPARIN 100 MG/1ML SYR SQ SCH ×2 (10:37→21:58)
[2020-09-28] MEDS: FLUTICASONE/VILANTEROL 200/25MCG 14 PUFFS/INHALER INH SCH (10:37)
[2020-09-28] MEDS: guaiFENesin 600 MG TABCR PO SCH ×2 (10:37→21:58)
[2020-09-28] MEDS: ATORVASTATIN 40 MG TAB PO SCH (10:37)
[2020-09-28] MEDS: cefTRIAXone SODIUM 2,000 MG in DEXTROSE 5% 50 ML IV SCH (10:38)
[2020-09-28] MEDS: CYANOCOBALAMIN 500 MCG TABLET (VITAMIN B-12) PO SCH (10:38)
[2020-09-28] MEDS: ADVANCED PROBIOTIC 1250 MG CAPSULE PO SCH (10:38)
[2020-09-28] MEDS: PANTOprazole 40 MG TAB PO SCH (10:38)
--- NOTE | 2020-09-28 15:31 | Hospitalist Progress Note ---
Date of Service September 28, 2020 Assessment & Plan (1) Acute respiratory failure with hypoxia: Presented with cough, fever, shortness of breath with minimal exertion Have acute hypoxic respiratory failure at presentation secondary to COVID-19 infection Complains cough with increasing shortness of breath Has been requiring high flow oxygen to maintain saturation Been getting nebulized bronchodilator Discussed with elementary school social worker, if the condition does not get any better she will need to be intubated and transferred to ICU We will try to keep her at prone position as large as she can tolerate Remains critical but stable and requiring high flow oxygen at 10 L via oxygen mask to maintain saturation above 92% We will continue current management if the oxygen requirements increases and the patient's condition deteriorates she will need to be intubated and transferred to ICU (2) COVID-19 virus infection: Exposed to COVID-19 since Monday last Bio fire is positive for COVID-19 Has been receiving remdesivir and dexamethasone Supportive treatment with cough medications and nebulized bronchodilator ID consultation has been placed for further guidance with management management (3) Pneumonia: Has bilateral interstitial opacities in lungs Likely secondary to Covid 19 pneumonia Will cover with antibiotic for possible bacterial superinfection with IV Zosyn and doxycycline Procalcitonin was not elevated We will continue current antibiotics for possible superinfection (4) GERD (gastroesophageal reflux disease): Continue PPI (5) H/O: stroke: Continue Plavix DVT prophylaxis Noted to have high D-dimer at presentation with history of recent hysterectomy about 7 weeks ago High suspicion for thromboembolic disease CTA of the chest is not performed for technical reasons Cussed with elementary school social worker and she was put on therapeutic Lovenox the plan to monitor D-dimer while in the hospital D-dimer has improved to 520 and will check it again day after tomorrow Discussed in detail with the patient and will discuss with the as well We will discussed with significant other this afternoon Admission and Anticipated Discharge Date Admission Date: September 26, 2020 Subjective 09/27/2020 The patient was seen and examined in telemetry/Covid unit She was exposed to her Covid positive since Monday last 09/25/2020 She has been complaining of extreme tiredness, cough fever and shortness of breath since then She complains to have cough and shortness of breath this afternoon without any chest pain and/or palpitation No fever and/or chills 09/28/2020 The patient was seen and examined in telemetry/Covid unit He remains stable but is still requiring high flow oxygen at a rate of 10 L via oxygen mask to maintain saturation She has cough and minimal chest pain secondary to cough Denies any other symptoms Review of Systems Review of Systems: All systems reviewed and are unremarkable except as noted below Respiratory: + cough, + chest congestion, + dyspnea and + wheezing Physical Exam Physical Exam: Lying in bed with distress secondary to cough and shortness of breath Constitutional: well developed, well nourished, + ill appearing and + obese Eyes: PERRL, conjunctivae normal, anicteric sclerae ENMT: external ear and nose normal, oropharynx normal Neck: trachea midline, no thyromegaly Respiratory: + respiratory distress (Moderate shortness of breath at rest) and + cough Auscultation: + diminished lung sounds, + crackles and + wheezes Cardiovascular: Rate/Rhythm: regular rate and regular rhythm Heart Sounds: no murmur Gastrointestinal (Abdomen): Inspection/Auscultation: abdomen not distended Percussion/Palpation: abdomen soft; abdomen nontender Musculoskeletal: No acute arthritis in any joint Psychiatric: A+Ox3, euthymic affect Lymphatic: no cervical or axillary lymphadenopathy Results & Data Results & Data ([facility]) Vital Signs (Past 12 Hours) Vital Signs Temp Pulse Pulse Pulse Resp BP Pulse Ox 09/28/20 11:11 36.5 C 57 L 18 106/65 92 09/28/20 08:00 69 09/28/20 07:33 36.7 C 58 L 19 98/61 L 93 09/28/20 03:27 36.6 C 67 22 90/40 L 91 Laboratory Results Short CBC 09/28/20 Range/Units 05:55 WBC 3.71 L (4.8-10.8) K/uL Hgb 8.4 L (12.0-16.0) g/dL Hct 28.4 L (37-47) % Plt Count 305 (130-400) K/uL BMP 09/28/20 05:55 Sodium 140 Potassium 3.5 Chloride 107 Carbon Dioxide 28 BUN 15 Creatinine 0.66 Glucose 129 H Calcium 8.1 L Liver Function 09/28/20 Range/Units 05:55 Total Bilirubin 0.3 (0.2-1) mg/dl AST 52 H (15-37) U/L ALT 34 (12-78) U/L Alkaline Phosphatase 56 (45-117) U/L Albumin 2.5 L (3.4-5.0) gm/dl Medications Administered Current Inpatient Medications Acetaminophen (Acetaminophen 325 Mg Tab) 650 mg PO Q4H PRN PRN Reason: Pain or Fever Stop: 10/27/20 02:31 Albuterol (Albuterol Hfa 8 Gm Inhaler) 2 puffs INH Q4H PRN PRN Reason: Shortness Of Breath Or Wheezing Stop: 10/27/20 02:31 Atorvastatin Calcium (Atorvastatin 40 Mg Tab) 40 mg PO QAM [facility] Stop: 10/27/20 08:59 Last Admin: 09/28/20 10:37 Dose: 40 mg Documented by: Clopidogrel Bisulfate (Clopidogrel Bisulfate 75 Mg Tab) 75 mg PO QAM [facility] Stop: 10/27/20 08:59 Last Admin: 09/28/20 10:37 Dose: 75 mg Documented by: Cyanocobalamin (Cyanocobalamin 500 Mcg Tablet (Vitamin B-12)) 1,000 mcg PO QAM [facility] Stop: 10/27/20 08:59 Last Admin: 09/28/20 10:38 Dose: 1,000 mcg Documented by: Dexamethasone (Dexamethasone 1 Mg Tab) 6 mg PO DAILY@2100 [facility] Stop: 10/27/20 20:59 Last Admin: 09/27/20 20:09 Dose: 6 mg Documented by: Enoxaparin Sodium (Enoxaparin 100 Mg/1ml Syr) 100 mg SQ Q12 [facility] Stop: 10/27/20 20:59 Last Admin: 09/28/20 10:37 Dose: 100 mg Documented by: Fluticasone/Vilanterol (Fluticasone/Vilanterol 200/25mcg 14 Puffs/Inhaler) 1 puffs INH DAILY [facility] Stop: 10/27/20 08:59 Last Admin: 09/28/20 10:37 Dose: 1 puffs Documented by: Guaifenesin (Guaifenesin 600 Mg Tabcr) 1,200 mg PO Q12 [facility] Stop: 10/27/20 20:59 Last Admin: 09/28/20 10:37 Dose: 1,200 mg Documented by: Ceftriaxone Sodium 2,000 mg/ (Dextrose) 70 mls @ 100 mls/hr IV DAILY [facility]; Protocol Stop: 10/04/20 08:59 Last Infusion: 09/28/20 11:20 Dose: Infused Documented by: Doxycycline Hyclate 100 mg/ (Dextrose) 110 mls @ 50 mls/hr IV Q12H [facility] Stop: 10/04/20 03:59 Last Infusion: 09/28/20 08:39 Dose: Infused Documented by: Remdesivir 100 mg/ Sodium (Chloride) 250 mls @ 250 mls/hr IV Q24H [facility]; Protocol Stop: 10/01/20 04:59 Last Infusion: 09/28/20 06:11 Dose: Infused Documented by: Lactobacillus Acidoph/Casei/Rhamnos (Advanced Probiotic 1250 Mg Capsule) 2 cap PO DAILY [facility] Stop: 10/27/20 09:14 Last Admin: 09/28/20 10:38 Dose: 2 cap Documented by: Pantoprazole Sodium (Pantoprazole 40 Mg Tab) 40 mg PO QAM [facility] Stop: 10/27/20 08:59 Last Admin: 09/28/20 10:38 Dose: 40 mg Documented by: Sodium Chloride (Sodium Chloride 0.9% 10ml Flush) 30 ml IV Q24H [facility] Stop: 10/01/20 04:01 Last Admin: 09/28/20 06:28 Dose: 30 ml Documented by: (1) Pneumonia Laterality: bilateral Lung location: unspecified part of lung Pneumonia type: due to unspecified organism Qualified Code(s): J18.9 - Pneumonia, unspecified organism
[2020-09-28] MEDS: dexAMETHasone 1 MG TAB PO SCH (22:00)
[2020-09-29] MEDS: REMDESIVIR 100 MG in SODIUM CHLORIDE 0.9% 230 ML IV SCH (03:23)
[2020-09-29] MEDS: DOXYCYCLINE HYCLATE 100 MG in DEXTROSE 5% 100 ML IV SCH ×2 (04:43→15:18)
[2020-09-29] MEDS: SODIUM CHLORIDE 0.9% 10ML FLUSH IV SCH (05:39)
[2020-09-29 07:14] LABS: Hematocrit (blood only) 28.1 % (37-47); Hemoglobin 8.1 g/dL (12.0-16.0); Mean Corpuscular Hemoglobin 21.7 pg (25-34); Mean Corpuscular Hgb Conc 28.8 g/dL (32-36); Mean Corpuscular Volume 75.1 fL (80-100); Mean Platelet Volume 11.1 fL (7.4-10.4); Platelet Count 349 K/uL (130-400); RDW Coefficient of Variation 20.5 % (11.5-14.5); RDW Standard Deviation 56.5 fL (36.4-46.3); Red Blood Count 3.74 M/uL (4.2-5.4); White Blood Count 3.94 K/uL (4.8-10.8)
[2020-09-29 07:20] LABS: D Dimer 270 ug/L FEU (0-500)
[2020-09-29 07:45] LABS: Anisocytosis Present; Immature Granulocytes # (auto) 0.02 K/uL (0.00-0.02); Immature Granulocytes % (auto) 0.5 %; Lymphocytes # (auto) 0.39 K/uL (1.2-3.4); Lymphocytes % (auto) 9.9 %; Monocytes # (auto) 0.27 K/uL (0.11-0.59); Monocytes % (auto) 6.9 %; Neutrophils # (auto) 3.26 K/uL (1.4-6.5); Neutrophils % (auto) 82.7 %
[2020-09-29 08:08] LABS: Albumin Level 2.4 gm/dl (3.4-5.0); BUN Creatinine Ratio 22.4 (10-20); Calcium 8.5 mg/dl (8.5-10.1); Creatinine Clr Calc Pharmacy 128.5 ml/min; Est GFR (African American) 122.1; Est GFR (Non-African American) 105.4; Magnesium 2.3 mg/dl (1.8-2.4); Potassium 3.4 mmol/L (3.5-5.1)
[2020-09-29 08:14] LABS: Albumin Globulin Ratio 0.6 (0.9-2); Bilirubin,Total 0.2 mg/dl (0.2-1); Phosphorus 3.8 mg/dl (2.5-4.9); Total Protein 6.4 gm/dl (6.4-8.2)
[2020-09-29] MEDS: ATORVASTATIN 40 MG TAB PO SCH (08:15)
[2020-09-29] MEDS: ENOXAPARIN 100 MG/1ML SYR SQ SCH (08:15)
[2020-09-29] MEDS: CYANOCOBALAMIN 500 MCG TABLET (VITAMIN B-12) PO SCH (08:16)
[2020-09-29] MEDS: FLUTICASONE/VILANTEROL 200/25MCG 14 PUFFS/INHALER INH SCH (08:16)
[2020-09-29] MEDS: ADVANCED PROBIOTIC 1250 MG CAPSULE PO SCH (08:16)
[2020-09-29] MEDS: guaiFENesin 600 MG TABCR PO SCH ×2 (08:16→20:24)
[2020-09-29] MEDS: PANTOprazole 40 MG TAB PO SCH (08:16)
[2020-09-29] MEDS: CLOPIDOGREL BISULFATE 75 MG TAB PO SCH (08:16)
[2020-09-29] MEDS: cefTRIAXone SODIUM 2,000 MG in DEXTROSE 5% 50 ML IV SCH (08:17)
[2020-09-29] MEDS ORDERED: POTASSIUM CHLORIDE CRTAB 20 MEQ TABCR PO STA (13:21)
--- NOTE | 2020-09-29 14:59 | Hospitalist Progress Note ---
Date of Service September 29, 2020 Assessment & Plan (1) Acute respiratory failure with hypoxia: Presented with cough, fever, shortness of breath with minimal exertion Have acute hypoxic respiratory failure at presentation secondary to COVID-19 infection Complains cough with increasing shortness of breath Has been requiring high flow oxygen to maintain saturation Has been getting nebulized bronchodilator Discussed with pipe foreman, if the condition does not get any better she will need to be intubated and transferred to ICU We will try to keep her at prone position as large as she can tolerate Remains critical but stable and requiring high flow oxygen at 10 L via oxygen mask since admission to maintain saturation above 92% s We will continue current management if the oxygen requirements increases and the patient's condition deteriorates she will need to be intubated and transferred to ICU Condition is much better since this morning of 09/29/2020 with decreasing cough, shortness of breath and wheezing Awaiting ID recommendation for further management (2) COVID-19 virus infection: Exposed to COVID-19 since Monday last Bio fire is positive for COVID-19 Has been receiving remdesivir and dexamethasone Supportive treatment with cough medications and nebulized bronchodilator ID consultation has been placed for further guidance with management management (3) Pneumonia: Has bilateral interstitial opacities in lungs Likely secondary to Covid 19 pneumonia Will cover with antibiotic for possible bacterial superinfection with IV ceftriaxone and doxycycline Procalcitonin was not elevated We will continue current antibiotics for possible superinfection Remains stable (4) GERD (gastroesophageal reflux disease): Continue PPI (5) H/O: stroke: Continue Plavix DVT prophylaxis Noted to have high D-dimer at presentation with history of recent hysterectomy about 7 weeks ago High suspicion for thromboembolic disease CTA of the chest is not performed for technical reasons Cussed with pipe foreman and she was put on therapeutic Lovenox the plan to monitor D-dimer while in the hospital D-dimer has improved to 520 and will check it again day after tomorrow D-dimer has been normalized Will discontinue therapeutic dose of Lovenox to prophylactic dose of Lovenox Discussed in detail with the patient and will discuss with the as well We will discussed with significant other this afternoon Admission and Anticipated Discharge Date Admission Date: September 26, 2020 Subjective 09/27/2020 The patient was seen and examined in telemetry/Covid unit She was exposed to her Covid positive since Monday last 09/25/2020 She has been complaining of extreme tiredness, cough fever and shortness of breath since then She complains to have cough and shortness of breath this afternoon without any chest pain and/or palpitation No fever and/or chills 09/28/2020 The patient was seen and examined in telemetry/Covid unit He remains stable but is still requiring high flow oxygen at a rate of 10 L via oxygen mask to maintain saturation She has cough and minimal chest pain secondary to cough Denies any other symptoms 09/29/2020 The patient was seen and examined in telemetry/Covid unit She has been feeling much better today with decreasing cough and shortness of breath Weakness is also improving Denies any fever and/or chills, any nausea and or vomiting Review of Systems Review of Systems: All systems reviewed and are unremarkable except as noted below Respiratory: + cough, + chest congestion, + dyspnea and + wheezing Neurologic: + generalized weakness Physical Exam Physical Exam: Lying in bed with mild distress distress secondary to cough and shortness of breath Constitutional: well developed, well nourished, + acute distress (Minimal distress due to shortness of breath), + ill appearing and + obese Eyes: PERRL, conjunctivae normal, anicteric sclerae ENMT: external ear and nose normal, oropharynx normal Neck: trachea midline, no thyromegaly Respiratory: + respiratory distress (Moderate shortness of breath at rest) and + cough Auscultation: + diminished lung sounds, + crackles (Minimal bibasilar) and + wheezes (Mild to minimal bilaterally) Cardiovascular: Rate/Rhythm: regular rate and regular rhythm Heart Sounds: no murmur Gastrointestinal (Abdomen): Inspection/Auscultation: abdomen not distended Percussion/Palpation: abdomen soft; abdomen nontender Musculoskeletal: No acute arthritis in any joint Neurologic: Alert, awake and oriented x3. Generally weak but no focal neuro deficit Psychiatric: A+Ox3, euthymic affect Lymphatic: no cervical or axillary lymphadenopathy Results & Data Results & Data ([facility]) Vital Signs (Past 12 Hours) Vital Signs Temp Pulse Pulse Pulse Resp BP Pulse Ox 09/29/20 11:43 36.6 C 66 19 99/60 L 92 09/29/20 08:00 86 09/29/20 07:38 36.4 C L 52 L 17 99/64 L 97 09/29/20 04:00 36.6 C 69 19 97/55 L 95 Laboratory Results Short CBC 09/29/20 Range/Units 06:38 WBC 3.94 L (4.8-10.8) K/uL Hgb 8.1 L (12.0-16.0) g/dL Hct 28.1 L (37-47) % Plt Count 349 (130-400) K/uL BMP 09/29/20 06:38 Sodium 140 Potassium 3.4 L Chloride 107 Carbon Dioxide 26 BUN 13 Creatinine 0.59 L Glucose 143 H Calcium 8.5 Liver Function 09/29/20 Range/Units 06:38 Total Bilirubin 0.2 (0.2-1) mg/dl AST 36 (15-37) U/L ALT 27 (12-78) U/L Alkaline Phosphatase 55 (45-117) U/L Albumin 2.4 L (3.4-5.0) gm/dl Medications Administered Current Inpatient Medications Acetaminophen (Acetaminophen 325 Mg Tab) 650 mg PO Q4H PRN PRN Reason: Pain or Fever Stop: 10/27/20 02:31 Albuterol (Albuterol Hfa 8 Gm Inhaler) 2 puffs INH Q4H PRN PRN Reason: Shortness Of Breath Or Wheezing Stop: 10/27/20 02:31 Atorvastatin Calcium (Atorvastatin 40 Mg Tab) 40 mg PO [facility] Stop: 10/27/20 08:59 Last Admin: 09/29/20 08:15 Dose: 40 mg Documented by: Clopidogrel Bisulfate (Clopidogrel Bisulfate 75 Mg Tab) 75 mg PO [facility] Stop: 10/27/20 08:59 Last Admin: 09/29/20 08:16 Dose: 75 mg Documented by: Cyanocobalamin (Cyanocobalamin 500 Mcg Tablet (Vitamin B-12)) 1,000 mcg PO [facility] Stop: 10/27/20 08:59 Last Admin: 09/29/20 08:16 Dose: 1,000 mcg Documented by: Dexamethasone (Dexamethasone 1 Mg Tab) 6 mg PO DAILY@2100 [facility] Stop: 10/27/20 20:59 Last Admin: 09/28/20 22:00 Dose: 6 mg Documented by: Enoxaparin Sodium (Enoxaparin Inj 40 Mg/0.4 Ml Syr) 40 mg SQ [facility] Stop: 10/30/20 08:59 Fluticasone/Vilanterol (Fluticasone/Vilanterol 200/25mcg 14 Puffs/Inhaler) 1 puffs INH DAILY [facility] Stop: 10/27/20 08:59 Last Admin: 09/29/20 08:16 Dose: 1 puffs Documented by: Guaifenesin (Guaifenesin 600 Mg Tabcr) 1,200 mg PO Q12 [facility] Stop: 10/27/20 20:59 Last Admin: 09/29/20 08:16 Dose: 1,200 mg Documented by: Ceftriaxone Sodium 2,000 mg/ (Dextrose) 70 mls @ 100 mls/hr IV DAILY [facility]; Protocol Stop: 10/04/20 08:59 Last Infusion: 09/29/20 08:59 Dose: Infused Documented by: Doxycycline Hyclate 100 mg/ (Dextrose) 110 mls @ 50 mls/hr IV Q12H [facility] Stop: 10/04/20 03:59 Last Admin: 09/29/20 15:18 Dose: 50 mls/hr Documented by: Remdesivir 100 mg/ Sodium (Chloride) 250 mls @ 250 mls/hr IV Q24H [facility]; Protocol Stop: 10/01/20 04:59 Last Infusion: 09/29/20 04:59 Dose: Infused Documented by: Lactobacillus Acidoph/Casei/Rhamnos (Advanced Probiotic 1250 Mg Capsule) 2 cap PO DAILY [facility] Stop: 10/27/20 09:14 Last Admin: 09/29/20 08:16 Dose: 2 cap Documented by: Pantoprazole Sodium (Pantoprazole 40 Mg Tab) 40 mg PO QAM [facility] Stop: 10/27/20 08:59 Last Admin: 09/29/20 08:16 Dose: 40 mg Documented by: Sodium Chloride (Sodium Chloride 0.9% 10ml Flush) 30 ml IV Q24H [facility] Stop: 10/01/20 04:01 Last Admin: 09/29/20 05:39 Dose: 30 ml Documented by: (1) Pneumonia Laterality: bilateral Lung location: unspecified part of lung Pneumonia type: due to unspecified organism Qualified Code(s): J18.9 - Pneumonia, unspecified organism
[2020-09-29] MEDS: dexAMETHasone 1 MG TAB PO SCH (20:23)
[2020-09-30] MEDS: REMDESIVIR 100 MG in SODIUM CHLORIDE 0.9% 230 ML IV SCH (03:55)
[2020-09-30] MEDS: DOXYCYCLINE HYCLATE 100 MG in DEXTROSE 5% 100 ML IV SCH ×2 (05:57→16:01)
[2020-09-30] MEDS: SODIUM CHLORIDE 0.9% 10ML FLUSH IV SCH (05:57)
[2020-09-30 08:17] LABS: Creatinine Clr Calc Pharmacy 128.4 ml/min; Est GFR (African American) 122.1; Est GFR (Non-African American) 105.4
[2020-09-30] MEDS: ENOXAPARIN INJ 40 MG/0.4 ML SYR SQ SCH (08:54)
[2020-09-30] MEDS: CLOPIDOGREL BISULFATE 75 MG TAB PO SCH (08:54)
[2020-09-30] MEDS: FLUTICASONE/VILANTEROL 200/25MCG 14 PUFFS/INHALER INH SCH (08:54)
[2020-09-30] MEDS: CYANOCOBALAMIN 500 MCG TABLET (VITAMIN B-12) PO SCH (08:54)
[2020-09-30] MEDS: cefTRIAXone SODIUM 2,000 MG in DEXTROSE 5% 50 ML IV SCH (08:54)
[2020-09-30] MEDS: guaiFENesin 600 MG TABCR PO SCH ×2 (08:54→20:52)
[2020-09-30] MEDS: ATORVASTATIN 40 MG TAB PO SCH (08:55)
[2020-09-30] MEDS: ADVANCED PROBIOTIC 1250 MG CAPSULE PO SCH (08:55)
[2020-09-30] MEDS: PANTOprazole 40 MG TAB PO SCH (08:55)
--- NOTE | 2020-09-30 16:08 | Hospitalist Progress Note ---
Date of Service September 30, 2020 Assessment & Plan (1) Acute respiratory failure with hypoxia: 2/2 COVID-19 pneumonia. Continues on dexmethasone and remdesivir. Also on Rocephin and doxycycline. Reporting diarrhea approx 4 times daily since symptoms began pre-hospital. Refuses Gatorade or other drinks outside of water. No wheezing on exam tonight and she appears stable/improving. Declined conv. plasma. Cont current management. IVF for COVID-associated diarrhea and check lytes in am. Check inflammatory markers in am. Probiotics ok to continue. Breo daily. Albuterol PRN. (2) Pneumonia due to COVID-19 virus: likely viral with negative procalcitonin but also receiving abx with significant hypoxia. Plan as above. (3) GERD (gastroesophageal reflux disease): stable, Continue PPI per home regimen. (4) H/O: stroke: per history, cont lipitor and plavix per home regimen. (5) Post-operative state: Hysterectomy 7-8 weeks ago. Was initially considered to have possible PE and was placed on full dose Lovenox. D-dimer was trended and normalized and her clinical course has improved. Lovenox reduced to the DVT prophylaxis dose. (6) DVT prophylaxis: Lovenox Full Code Dispo-cont hospitalization while hypoxic. Plan for home when off oxygen and medically stable. Zelda Sigala DO [facility] Hospitalist Admission and Anticipated Discharge Date Admission Date: September 26, 2020 Subjective 50 yo F admitted for COVID-19 pneumonia she is feeling improved today-persistent hypoxia still reports some shortness of breath and dry cough we discussed CP and she declines. She has some diarrhea, approx 4 times daily since symptoms began about 1 week ago. Significant other is doing well at home. Sister was on the phone and has no questions ROS otherwise negative. She is tolerating PO. Review of Systems Review of Systems: All systems reviewed & are unremarkable except as noted in Subjective Physical Exam Physical Exam: CONSTITUTIONAL: WNWD, vitals as above, generally well- appearing EYES: normal conjunctivae, no scleral icterus ENT: external ear and nose normal, MMM, oxymask in place RESPIRATORY: clear to auscultation bilaterally, no crackles, rales or wheezes, normal respiratory effort CARDIOVASCULAR: regular rate and rhythm, S1 and 2 heard without murmurs, gallops or rubs, no JVD, no peripheral edema GASTROINTESTINAL: soft, nontender, nondistended, no guarding MUSCULOSKELETAL: strength 5/5 throughout, head is normocephalic and atraumatic, can move around in bed independently. SKIN: warm and dry NEUROLOGIC: CN 2-12 grossly intact, normal cognition, normal speech, no gross focal deficits. PSYCHIATRIC: alert cooperative and oriented to person, place and time. Results & Data Results & Data ([facility]) Vital Signs (Past 12 Hours) Vital Signs Temp Pulse Pulse Pulse Resp BP BP 09/30/20 15:33 36.3 C L 64 18 109/65 09/30/20 11:21 36.9 C 60 19 104/74 09/30/20 08:00 48 L 09/30/20 07:33 09/30/20 07:26 36.5 C 57 L 18 110/76 Pulse Ox 09/30/20 15:33 96 09/30/20 11:21 95 09/30/20 08:00 09/30/20 07:33 95 09/30/20 07:26 95 Laboratory Results [facility] 09/30/20 06:34 Creatinine 0.59 L Liver Function 09/30/20 Range/Units 06:34 AST 32 (15-37) U/L ALT 27 (12-78) U/L Medications Administered Current Inpatient Medications Acetaminophen (Acetaminophen 325 Mg Tab) 650 mg PO Q4H PRN PRN Reason: Pain or Fever Stop: 10/27/20 02:31 Albuterol (Albuterol Hfa 8 Gm Inhaler) 2 puffs INH Q4H PRN PRN Reason: Shortness Of Breath Or Wheezing Stop: 10/27/20 02:31 Atorvastatin Calcium (Atorvastatin 40 Mg Tab) 40 mg PO [facility] Stop: 10/27/20 08:59 Last Admin: 09/30/20 08:55 Dose: 40 mg Documented by: Clopidogrel Bisulfate (Clopidogrel Bisulfate 75 Mg Tab) 75 mg PO [facility] Stop: 10/27/20 08:59 Last Admin: 09/30/20 08:54 Dose: 75 mg Documented by: Cyanocobalamin (Cyanocobalamin 500 Mcg Tablet (Vitamin B-12)) 1,000 mcg PO [facility] Stop: 10/27/20 08:59 Last Admin: 09/30/20 08:54 Dose: 1,000 mcg Documented by: Dexamethasone (Dexamethasone 1 Mg Tab) 6 mg PO DAILY@2100 [facility] Stop: 10/27/20 20:59 Last Admin: 09/29/20 20:23 Dose: 6 mg Documented by: Enoxaparin Sodium (Enoxaparin Inj 40 Mg/0.4 Ml Syr) 40 mg SQ QAM [facility] Stop: 10/30/20 08:59 Last Admin: 09/30/20 08:54 Dose: 40 mg Documented by: Fluticasone/Vilanterol (Fluticasone/Vilanterol 200/25mcg 14 Puffs/Inhaler) 1 puffs INH DAILY [facility] Stop: 10/27/20 08:59 Last Admin: 09/30/20 08:54 Dose: 1 puffs Documented by: Guaifenesin (Guaifenesin 600 Mg Tabcr) 1,200 mg PO Q12 [facility] Stop: 10/27/20 20:59 Last Admin: 09/30/20 08:54 Dose: 1,200 mg Documented by: Ceftriaxone Sodium 2,000 mg/ (Dextrose) 70 mls @ 100 mls/hr IV DAILY [facility]; Protocol Stop: 10/04/20 08:59 Last Infusion: 09/30/20 11:00 Dose: Infused Documented by: Doxycycline Hyclate 100 mg/ (Dextrose) 110 mls @ 50 mls/hr IV Q12H [facility] Stop: 10/04/20 03:59 Last Admin: 09/30/20 16:01 Dose: 50 mls/hr Documented by: Remdesivir 100 mg/ Sodium (Chloride) 250 mls @ 250 mls/hr IV Q24H [facility]; Protocol Stop: 10/01/20 04:59 Last Infusion: 09/30/20 05:56 Dose: Infused Documented by: Lactobacillus Acidoph/Casei/Rhamnos (Advanced Probiotic 1250 Mg Capsule) 2 cap PO DAILY [facility] Stop: 10/27/20 09:14 Last Admin: 09/30/20 08:55 Dose: 2 cap Documented by: Pantoprazole Sodium (Pantoprazole 40 Mg Tab) 40 mg PO QAM [facility] Stop: 10/27/20 08:59 Last Admin: 09/30/20 08:55 Dose: 40 mg Documented by: Sodium Chloride (Sodium Chloride 0.9% 10ml Flush) 30 ml IV Q24H [facility] Stop: 10/01/20 04:01 Last Admin: 09/30/20 05:57 Dose: 30 ml Documented by:
[2020-09-30] MEDS ORDERED: LOPERAMIDE HCL 2 MG CAP PO PRN (19:53)
[2020-09-30] MEDS: dexAMETHasone 1 MG TAB PO SCH (20:53)
[2020-10-01] MEDS: REMDESIVIR 100 MG in SODIUM CHLORIDE 0.9% 230 ML IV SCH (03:40)
[2020-10-01] MEDS: SODIUM CHLORIDE 0.9% 10ML FLUSH IV SCH (03:40)
[2020-10-01] MEDS: DOXYCYCLINE HYCLATE 100 MG in DEXTROSE 5% 100 ML IV SCH ×2 (04:40→16:21)
[2020-10-01 07:04] LABS: C Reactive Protein 1.35 mg/dl (0-0.29); Creatinine Clr Calc Pharmacy 126.3 ml/min; Est GFR (African American) 121.5; Est GFR (Non-African American) 104.8
[2020-10-01 07:09] LABS: Ferritin 25.2 ng/ml (8-388)
[2020-10-01] MEDS: FLUTICASONE/VILANTEROL 200/25MCG 14 PUFFS/INHALER INH SCH (08:49)
[2020-10-01] MEDS: PANTOprazole 40 MG TAB PO SCH (08:50)
[2020-10-01] MEDS: guaiFENesin 600 MG TABCR PO SCH ×2 (08:50→20:31)
[2020-10-01] MEDS: ADVANCED PROBIOTIC 1250 MG CAPSULE PO SCH (08:50)
[2020-10-01] MEDS: CYANOCOBALAMIN 500 MCG TABLET (VITAMIN B-12) PO SCH (08:51)
[2020-10-01] MEDS: ATORVASTATIN 40 MG TAB PO SCH (08:51)
[2020-10-01] MEDS: CLOPIDOGREL BISULFATE 75 MG TAB PO SCH (08:51)
[2020-10-01] MEDS: ENOXAPARIN INJ 40 MG/0.4 ML SYR SQ SCH (08:52)
[2020-10-01] MEDS: cefTRIAXone SODIUM 2,000 MG in DEXTROSE 5% 50 ML IV SCH (10:10)
--- NOTE | 2020-10-01 12:57 | Hospitalist Progress Note ---
Date of Service October 01, 2020 Assessment & Plan (1) Acute respiratory failure with hypoxia: 2/2 COVID-19 pneumonia. Continues on dexmethasone. Completed course of remdesivir. Also on Rocephin and doxycycline. Reporting diarrhea approx 4 times daily since symptoms began pre-hospital. Refuses Gatorade or other drinks outside of water. Diarrhea is unconcerning for her, and somewhat chronic?. No wheezing on exam tonight and she appears stable/improving. Declined conv. plasma. Cont current management. Probiotics ok to continue. Breo daily. Albuterol PRN. (2) Pneumonia due to COVID-19 virus: likely viral with negative procalcitonin but also receiving abx with significant hypoxia. Plan as above. (3) GERD (gastroesophageal reflux disease): stable, Continue PPI per home regimen. (4) H/O: stroke: per history, cont lipitor and plavix per home regimen. (5) Post-operative state: Hysterectomy 7-8 weeks ago. Was initially considered to have possible PE and was placed on full dose Lovenox. D-dimer was trended and normalized and her clinical course has improved. Lovenox reduced to the DVT prophylaxis dose. (6) DVT prophylaxis: Lovenox Full Code Dispo-cont hospitalization while hypoxic. Plan for home when off oxygen and medically stable. Zelda Sigala DO [facility] Hospitalist Admission and Anticipated Discharge Date Admission Date: September 26, 2020 Subjective cc: hypoxia 2/2 covid pneumonia Doing well today reported walking around the room and cleaning cough improved feeling well denies abdominal pain ([id number]) some persistent, chronic diarrhea, unconcerning to patient who is afebrile and tolerating PO Review of Systems Review of Systems: All systems reviewed & are unremarkable except as noted in Subjective Physical Exam Physical Exam: CONSTITUTIONAL: WNWD, vitals as above, generally well- appearing EYES: normal conjunctivae, no scleral icterus ENT: external ear and nose normal, MMM, oxymask in place RESPIRATORY: clear to auscultation bilaterally, no crackles, rales or wheezes, normal respiratory effort CARDIOVASCULAR: regular rate and rhythm, S1 and 2 heard without murmurs, gallops or rubs, no JVD, no peripheral edema GASTROINTESTINAL: soft, nontender, nondistended, no guarding MUSCULOSKELETAL: strength 5/5 throughout, head is normocephalic and atraumatic, can move around in bed independently. SKIN: warm and dry NEUROLOGIC: CN 2-12 grossly intact, normal cognition, normal speech, no gross focal deficits. PSYCHIATRIC: alert cooperative and oriented to person, place and time. Results & Data Results & Data ([facility]) Vital Signs (Past 12 Hours) Vital Signs Temp Pulse Pulse Resp BP Pulse Ox 10/01/20 10:48 36.4 C L 63 18 112/76 92 10/01/20 07:19 36.3 C L 63 20 105/65 93 10/01/20 03:52 36.6 C 72 24 122/76 94 Laboratory Results BMP 10/01/20 06:09 Creatinine 0.60 Liver Function 10/01/20 Range/Units 06:09 AST 37 (15-37) U/L ALT 34 (12-78) U/L Medications Administered Current Inpatient Medications Acetaminophen (Acetaminophen 325 Mg Tab) 650 mg PO Q4H PRN PRN Reason: Pain or Fever Stop: 10/27/20 02:31 Albuterol (Albuterol Hfa 8 Gm Inhaler) 2 puffs INH Q4H PRN PRN Reason: Shortness Of Breath Or Wheezing Stop: 10/27/20 02:31 Atorvastatin Calcium (Atorvastatin 40 Mg Tab) 40 mg PO [facility] Stop: 10/27/20 08:59 Last Admin: 10/01/20 08:51 Dose: 40 mg Documented by: Clopidogrel Bisulfate (Clopidogrel Bisulfate 75 Mg Tab) 75 mg PO [facility] Stop: 10/27/20 08:59 Last Admin: 10/01/20 08:51 Dose: 75 mg Documented by: Cyanocobalamin (Cyanocobalamin 500 Mcg Tablet (Vitamin B-12)) 1,000 mcg PO [facility] Stop: 10/27/20 08:59 Last Admin: 10/01/20 08:51 Dose: 1,000 mcg Documented by: Dexamethasone (Dexamethasone 1 Mg Tab) 6 mg PO DAILY@2100 [facility] Stop: 10/27/20 20:59 Last Admin: 09/30/20 20:53 Dose: 6 mg Documented by: Enoxaparin Sodium (Enoxaparin Inj 40 Mg/0.4 Ml Syr) 40 mg SQ [facility] Stop: 10/30/20 08:59 Last Admin: 10/01/20 08:52 Dose: 40 mg Documented by: Fluticasone/Vilanterol (Fluticasone/Vilanterol 200/25mcg 14 Puffs/Inhaler) 1 puffs INH DAILY [facility] Stop: 10/27/20 08:59 Last Admin: 10/01/20 08:49 Dose: 1 puffs Documented by: Guaifenesin (Guaifenesin 600 Mg Tabcr) 1,200 mg PO Q12 [facility] Stop: 10/27/20 20:59 Last Admin: 10/01/20 08:50 Dose: 1,200 mg Documented by: Ceftriaxone Sodium 2,000 mg/ (Dextrose) 70 mls @ 100 mls/hr IV DAILY [facility]; Protocol Stop: 10/04/20 08:59 Last Infusion: 10/01/20 10:55 Dose: Infused Documented by: Doxycycline Hyclate 100 mg/ (Dextrose) 110 mls @ 50 mls/hr IV Q12H [facility] Stop: 10/04/20 03:59 Last Infusion: 10/01/20 07:20 Dose: Infused Documented by: Lactobacillus Acidoph/Casei/Rhamnos (Advanced Probiotic 1250 Mg Capsule) 2 cap PO DAILY [facility] Stop: 10/27/20 09:14 Last Admin: 10/01/20 08:50 Dose: 2 cap Documented by: Loperamide HCl (Loperamide Hcl 2 Mg Cap) 2 mg PO DAILY PRN PRN Reason: diarrhea Stop: 10/30/20 19:52 Pantoprazole Sodium (Pantoprazole 40 Mg Tab) 40 mg PO QAM [facility] Stop: 10/27/20 08:59 Last Admin: 10/01/20 08:50 Dose: 40 mg Documented by:
[2020-10-01 16:32] LABS: Appearance Urine Clear (Clear); Bacteria Urine Automated Negative (Negative); Bilirubin Urine Negative (Negative); Blood Urine Negative (Negative); Color Urine Yellow; Epithelial Cell Urine Auto >30 /lpf (0-5); Glucose Urine UA Negative (Negative); Ketones Urine Negative (Negative); Leukocyte Esterase Urine Negative (Negative); Nitrite Urine Negative (Negative); Protein Urine Trace (Negative); RBC Urine Automated 0-4 /hpf (0-4); Specific Gravity Urine 1.022 (1.000-1.030); Urobilinogen Urine Negative (Negative); pH Urine 6.5 (4.5-7.5)
[2020-10-01] MEDS: dexAMETHasone 1 MG TAB PO SCH (20:31)
[2020-10-02] MEDS: DOXYCYCLINE HYCLATE 100 MG in DEXTROSE 5% 100 ML IV SCH ×2 (04:10→16:02)
[2020-10-02] MEDS: ADVANCED PROBIOTIC 1250 MG CAPSULE PO SCH (08:39)
[2020-10-02] MEDS: CYANOCOBALAMIN 500 MCG TABLET (VITAMIN B-12) PO SCH (08:39)
[2020-10-02] MEDS: guaiFENesin 600 MG TABCR PO SCH ×2 (08:41→19:31)
[2020-10-02] MEDS: PANTOprazole 40 MG TAB PO SCH (08:41)
[2020-10-02] MEDS: CLOPIDOGREL BISULFATE 75 MG TAB PO SCH (08:41)
[2020-10-02] MEDS: ATORVASTATIN 40 MG TAB PO SCH (08:41)
[2020-10-02] MEDS: ENOXAPARIN INJ 40 MG/0.4 ML SYR SQ SCH (08:42)
[2020-10-02] MEDS: FLUTICASONE/VILANTEROL 200/25MCG 14 PUFFS/INHALER INH SCH (08:43)
[2020-10-02] MEDS: cefTRIAXone SODIUM 2,000 MG in DEXTROSE 5% 50 ML IV SCH (08:48)
[2020-10-02] MEDS ORDERED: dexAMETHasone 1 MG TAB PO SCH (15:00)
--- NOTE | 2020-10-02 17:06 | Hospitalist Progress Note ---
Date of Service October 02, 2020 Assessment & Plan (1) Acute respiratory failure with hypoxia: 2/2 COVID-19 pneumonia. Continues on dexmethasone. Completed course of remdesivir. Also on Rocephin and doxycycline-today is 7th day of abx, so will stop after today. Reporting diarrhea approx 4 times daily since symptoms began pre-hospital. Refuses Gatorade or other drinks outside of water but appears unconcerned by this. Declined conv. plasma. Cont current management. Probiotics ok to continue. Breo daily. Albuterol PRN. 10/02-still hypoxic with ambulation so needs to remain hospitalized. DC telemetry, march shower. (2) Pneumonia due to COVID-19 virus: Plan as above. (3) GERD (gastroesophageal reflux disease): stable, Continue PPI per home regimen. (4) H/O: stroke: per history, cont lipitor and plavix per home regimen. (5) Post-operative state: Hysterectomy 7-8 weeks ago. Was initially considered to have possible PE and was placed on full dose Lovenox. D-dimer was trended and normalized and her clinical course has improved. Lovenox reduced to the DVT prophylaxis dose. (6) DVT prophylaxis: Lovenox Full Code Dispo-cont hospitalization while hypoxic. Plan for home when off oxygen and medically stable. Zelda Sigala DO [facility] Hospitalist Admission and Anticipated Discharge Date Admission Date: September 26, 2020 Subjective cc: hypoxia 2/2 covid pneumonia Doing well today continues to ambulate and has less SOB with exertion today. Nurse checked ambulatory pulse ox this morning and she dropped into the mid 80s feeling well denies abdominal pain (post-op state) some persistent, chronic diarrhea, unconcerning to patient who is afebrile and tolerating PO Review of Systems Review of Systems: All systems reviewed & are unremarkable except as noted in Subjective Physical Exam Physical Exam: CONSTITUTIONAL: WNWD, vitals as above, generally well- appearing EYES: normal conjunctivae, no scleral icterus ENT: external ear and nose normal, MMM, oxymask in place RESPIRATORY: clear to auscultation bilaterally, no crackles, rales or wheezes, normal respiratory effort CARDIOVASCULAR: regular rate and rhythm, S1 and 2 heard without murmurs, ga llops or rubs, no JVD, no peripheral edema GASTROINTESTINAL: soft, nontender, nondistended, no guarding MUSCULOSKELETAL: strength 5/5 throughout, head is normocephalic and atraumatic, ambulatory SKIN: warm and dry NEUROLOGIC: CN 2-12 grossly intact, normal cognition, normal speech, no gross focal deficits. PSYCHIATRIC: alert cooperative and oriented to person, place and time. Results & Data Results & Data ([facility]) Vital Signs (Past 12 Hours) Vital Signs Temp Pulse Pulse Pulse Resp BP Pulse Ox 10/02/20 16:16 36.4 C L 69 18 106/78 94 10/02/20 11:04 36.3 C L 57 L 20 110/63 90 10/02/20 07:42 67 10/02/20 07:35 36.2 C L 59 L 18 97/70 L 92 Medications Administered Current Inpatient Medications Acetaminophen (Acetaminophen 325 Mg Tab) 650 mg PO Q4H PRN PRN Reason: Pain or Fever Stop: 10/27/20 02:31 Albuterol (Albuterol Hfa 8 Gm Inhaler) 2 puffs INH Q4H PRN PRN Reason: Shortness Of Breath Or Wheezing Stop: 10/27/20 02:31 Atorvastatin Calcium (Atorvastatin 40 Mg Tab) 40 mg PO [facility] Stop: 10/27/20 08:59 Last Admin: 10/02/20 08:41 Dose: 40 mg Documented by: Clopidogrel Bisulfate (Clopidogrel Bisulfate 75 Mg Tab) 75 mg PO [facility] Stop: 10/27/20 08:59 Last Admin: 10/02/20 08:41 Dose: 75 mg Documented by: Cyanocobalamin (Cyanocobalamin 500 Mcg Tablet (Vitamin B-12)) 1,000 mcg PO [facility] Stop: 10/27/20 08:59 Last Admin: 10/02/20 08:39 Dose: 1,000 mcg Documented by: Dexamethasone (Dexamethasone 1 Mg Tab) 6 mg PO DAILY@1500 [facility] Stop: 11/01/20 14:59 Last Admin: 10/02/20 16:03 Dose: 6 mg Documented by: Enoxaparin Sodium (Enoxaparin Inj 40 Mg/0.4 Ml Syr) 40 mg SQ [facility] Stop: 10/30/20 08:59 Last Admin: 10/02/20 08:42 Dose: 40 mg Documented by: Fluticasone/Vilanterol (Fluticasone/Vilanterol 200/25mcg 14 Puffs/Inhaler) 1 puffs INH DAILY [facility] Stop: 10/27/20 08:59 Last Admin: 10/02/20 08:43 Dose: 1 puffs Documented by: Guaifenesin (Guaifenesin 600 Mg Tabcr) 1,200 mg PO Q12 [facility] Stop: 10/27/20 20:59 Last Admin: 10/02/20 08:41 Dose: 1,200 mg Documented by: Ceftriaxone Sodium 2,000 mg/ (Dextrose) 70 mls @ 100 mls/hr IV DAILY [facility]; Protocol Stop: 10/04/20 08:59 Last Infusion: 10/02/20 10:26 Dose: Infused Documented by: Doxycycline Hyclate 100 mg/ (Dextrose) 110 mls @ 50 mls/hr IV Q12H [facility] Stop: 10/04/20 03:59 Last Admin: 10/02/20 16:02 Dose: 50 mls/hr Documented by: Lactobacillus Acidoph/Casei/Rhamnos (Advanced Probiotic 1250 Mg Capsule) 2 cap PO DAILY [facility] Stop: 10/27/20 09:14 Last Admin: 10/02/20 08:39 Dose: 2 cap Documented by: Loperamide HCl (Loperamide Hcl 2 Mg Cap) 2 mg PO DAILY PRN PRN Reason: diarrhea Stop: 10/30/20 19:52 Pantoprazole Sodium (Pantoprazole 40 Mg Tab) 40 mg PO QAM [facility] Stop: 10/27/20 08:59 Last Admin: 10/02/20 08:41 Dose: 40 mg Documented by:
[2020-10-03 06:48] LABS: Hematocrit (blood only) 30.8 % (37-47); Mean Corpuscular Hemoglobin 21.6 pg (25-34); Mean Corpuscular Hgb Conc 29.2 g/dL (32-36); Mean Corpuscular Volume 73.9 fL (80-100); Mean Platelet Volume 10.8 fL (7.4-10.4); Platelet Count 532 K/uL (130-400); RDW Coefficient of Variation 20.4 % (11.5-14.5); Red Blood Count 4.17 M/uL (4.2-5.4)
[2020-10-03 07:21] LABS: BUN Creatinine Ratio 15.9 (10-20); Creatinine Clr Calc Pharmacy 117.7 ml/min; Est GFR (African American) 120.2; Est GFR (Non-African American) 103.7; Potassium 3.3 mmol/L (3.5-5.1)
[2020-10-03] MEDS: FLUTICASONE/VILANTEROL 200/25MCG 14 PUFFS/INHALER INH SCH (08:44)
[2020-10-03] MEDS: CYANOCOBALAMIN 500 MCG TABLET (VITAMIN B-12) PO SCH (08:45)
[2020-10-03] MEDS: PANTOprazole 40 MG TAB PO SCH (08:45)
[2020-10-03] MEDS: ADVANCED PROBIOTIC 1250 MG CAPSULE PO SCH (08:45)
[2020-10-03] MEDS: CLOPIDOGREL BISULFATE 75 MG TAB PO SCH (08:45)
[2020-10-03] MEDS: ENOXAPARIN INJ 40 MG/0.4 ML SYR SQ SCH (08:45)
[2020-10-03] MEDS: ATORVASTATIN 40 MG TAB PO SCH (08:45)
[2020-10-03] MEDS ORDERED: POTASSIUM CHLORIDE CRTAB 20 MEQ TABCR PO STA ×2 (10:54→10:57)
[2020-10-03] MEDS: dexAMETHasone 1 MG TAB PO SCH (11:52)
--- NOTE | 2020-10-03 16:10 | XRay Report ---
XR chest 1V portable HISTORY: persistent hypoxia, +covid COMPARISON: Chest 09/26/2020. FINDINGS: No pneumothorax. No pleural effusions. The heart remains borderline enlarged. There are per ipheral bilateral mid to lower lung zone airspace opacities, right greater than left. This has slight ly progressed on the right and slightly improved on the left. IMPRESSION: Bilateral peripheral airspace opacities. This has slightly progressed on the right and slightly impro lloyd on the left. ACT 112: Negative or not required by law. Electronically signed by: Maxi Benitez M.D. 10/03/2020 4:09 PM
--- NOTE | 2020-10-03 16:39 | Hospitalist Progress Note ---
Date of Service October 03, 2020 Assessment & Plan (1) Acute respiratory failure with hypoxia: 2/2 COVID-19 pneumonia. Continues on dexmethasone. Completed course of remdesivir. Also on Rocephin and doxycycline-today is 7th day of abx, so will stop after today. Reporting diarrhea approx 4 times daily since symptoms began pre-hospital. Refuses Gatorade or other drinks outside of water but appears unconcerned by this. Declined conv. plasma. Cont current management. Probiotics ok to continue. Breo daily. Albuterol PRN. 10/03-slightly increased oxygen needs. Monitor closely for second wave of inflammation. (2) Pneumonia due to COVID-19 virus: Plan as above. (3) GERD (gastroesophageal reflux disease): stable, Continue PPI per home regimen. (4) H/O: stroke: per history, cont lipitor and plavix per home regimen. (5) Post-operative state: Hysterectomy 7-8 weeks ago. Was initially considered to have possible PE and was placed on full dose Lovenox. D-dimer was trended and normalized and her clinical course has improved. Lovenox reduced to the DVT prophylaxis dose. (6) DVT prophylaxis: Lovenox Full Code Dispo-cont hospitalization while hypoxic. Plan for home when off oxygen and medically stable. Zelda Sigala DO [facility] Hospitalist Admission and Anticipated Discharge Date Admission Date: September 26, 2020 Subjective cc: hypoxia 2/2 covid pneumonia Appears to need more oxygen today drops to mid-80s saturation at rest on room air Platelets are slightly up otherwise no issues. Review of Systems Review of Systems: All systems reviewed & are unremarkable except as noted in Subjective Physical Exam Physical Exam: CONSTITUTIONAL: WNWD, vitals as above, generally well- appearing EYES: normal conjunctivae, no scleral icterus ENT: external ear and nose normal, MMM, oxymask in place RESPIRATORY: clear to auscultation bilaterally, no crackles, rales or wheezes, normal respiratory effort CARDIOVASCULAR: regular rate and rhythm, S1 and 2 heard without murmurs, gallops or rubs, no JVD, no peripheral edema GASTROINTESTINAL: soft, nontender, nondistended, no guarding MUSCULOSKELETAL: strength 5/5 throughout, head is normocephalic and atraumatic, ambulatory SKIN: warm and dry NEUROLOGIC: CN 2-12 grossly intact, normal cognition, normal speech, no gross focal deficits. PSYCHIATRIC: alert cooperative and oriented to person, place and time. Results & Data Results & Data ([facility]) Vital Signs (Past 12 Hours) Vital Signs Temp Pulse Resp BP Pulse Ox 10/03/20 16:08 36.5 C 74 20 115/75 95 10/03/20 08:09 36.6 C 52 L 18 111/60 97 Laboratory Results Short CBC 10/03/20 Range/Units 06:01 WBC 6.00 (4.8-10.8) K/uL Hgb 9.0 L (12.0-16.0) g/dL Hct 30.8 L (37-47) % Plt Count 532 H (130-400) K/uL BMP 10/03/20 06:01 Sodium 141 Potassium 3.3 L Chloride 106 Carbon Dioxide 30 BUN 10 Creatinine 0.62 Glucose 101 H Calcium 9.0 Medications Administered Current Inpatient Medications Acetaminophen (Acetaminophen 325 Mg Tab) 650 mg PO Q4H PRN PRN Reason: Pain or Fever Stop: 10/27/20 02:31 Albuterol (Albuterol Hfa 8 Gm Inhaler) 2 puffs INH Q4H PRN PRN Reason: Shortness Of Breath Or Wheezing Stop: 10/27/20 02:31 Atorvastatin Calcium (Atorvastatin 40 Mg Tab) 40 mg PO [facility] Stop: 10/27/20 08:59 Last Admin: 10/03/20 08:45 Dose: 40 mg Documented by: Clopidogrel Bisulfate (Clopidogrel Bisulfate 75 Mg Tab) 75 mg PO [facility] Stop: 10/27/20 08:59 Last Admin: 10/03/20 08:45 Dose: 75 mg Documented by: Cyanocobalamin (Cyanocobalamin 500 Mcg Tablet (Vitamin B-12)) 1,000 mcg PO [facility] Stop: 10/27/20 08:59 Last Admin: 10/03/20 08:45 Dose: 1,000 mcg Documented by: Dexamethasone (Dexamethasone 1 Mg Tab) 6 mg PO DAILY@1200 [facility] Stop: 11/02/20 11:59 Last Admin: 10/03/20 11:52 Dose: 6 mg Documented by: Enoxaparin Sodium (Enoxaparin Inj 40 Mg/0.4 Ml Syr) 40 mg SQ [facility] Stop: 10/30/20 08:59 Last Admin: 10/03/20 08:45 Dose: 40 mg Documented by: Fluticasone/Vilanterol (Fluticasone/Vilanterol 200/25mcg 14 Puffs/Inhaler) 1 puffs INH DAILY [facility] Stop: 10/27/20 08:59 Last Admin: 10/03/20 08:44 Dose: 1 puffs Documented by: Lactobacillus Acidoph/Casei/Rhamnos (Advanced Probiotic 1250 Mg Capsule) 2 cap PO DAILY [facility] Stop: 10/27/20 09:14 Last Admin: 10/03/20 08:45 Dose: 2 cap Documented by: Loperamide HCl (Loperamide Hcl 2 Mg Cap) 2 mg PO DAILY PRN PRN Reason: diarrhea Stop: 10/30/20 19:52 Pantoprazole Sodium (Pantoprazole 40 Mg Tab) 40 mg PO QAM [facility] Stop: 10/27/20 08:59 Last Admin: 10/03/20 08:45 Dose: 40 mg Documented by:
[2020-10-04 07:18] LABS: Hemoglobin 8.4 g/dL (12.0-16.0); Mean Corpuscular Hemoglobin 21.7 pg (25-34); Mean Corpuscular Volume 74.9 fL (80-100); Mean Platelet Volume 10.9 fL (7.4-10.4); Platelet Count 566 K/uL (130-400); RDW Coefficient of Variation 20.3 % (11.5-14.5); RDW Standard Deviation 55.3 fL (36.4-46.3); Red Blood Count 3.87 M/uL (4.2-5.4); White Blood Count 5.08 K/uL (4.8-10.8)
[2020-10-04 07:32] LABS: BUN Creatinine Ratio 16.4 (10-20); C Reactive Protein 0.87 mg/dl (0-0.29); Calcium 8.4 mg/dl (8.5-10.1); Creatinine Clr Calc Pharmacy 123.7 ml/min; Est GFR (African American) 122.1; Est GFR (Non-African American) 105.4; Potassium 3.3 mmol/L (3.5-5.1)
[2020-10-04 07:37] LABS: Ferritin 23.1 ng/ml (8-388)
[2020-10-04] MEDS ORDERED: POTASSIUM CHLORIDE CRTAB 20 MEQ TABCR PO STA (09:13)
[2020-10-04] MEDS: OMEPRAZOLE 40 MG PO SCH (09:33)
[2020-10-04] MEDS: FLUTICASONE/VILANTEROL 200/25MCG 14 PUFFS/INHALER INH SCH (09:34)
[2020-10-04] MEDS: ENOXAPARIN INJ 40 MG/0.4 ML SYR SQ SCH (09:34)
[2020-10-04] MEDS: ATORVASTATIN 40 MG TAB PO SCH (09:35)
[2020-10-04] MEDS: ADVANCED PROBIOTIC 1250 MG CAPSULE PO SCH (09:35)
[2020-10-04] MEDS: CYANOCOBALAMIN 500 MCG TABLET (VITAMIN B-12) PO SCH (09:36)
[2020-10-04] MEDS: CLOPIDOGREL BISULFATE 75 MG TAB PO SCH (09:36)
[2020-10-04] MEDS: PANTOprazole 40 MG TAB PO SCH (09:38)
[2020-10-04] MEDS: ASCORBIC ACID 500 MG TAB PO SCH (11:06)
[2020-10-04] MEDS: ZINC SULFATE 220 MG CAPSULE PO SCH (11:06)
[2020-10-04] MEDS: CHOLECALCIFEROL 1,000 UNITS 25 MCG TAB PO SCH (11:06)
[2020-10-04] MEDS: dexAMETHasone 1 MG TAB PO SCH (12:53)
--- NOTE | 2020-10-04 19:47 | Hospitalist Progress Note ---
Date of Service October 04, 2020 Assessment & Plan (1) Acute respiratory failure with hypoxia: 2/2 COVID-19 pneumonia. Continues on dexmethasone. Completed course of remdesivir. Also on Rocephin and doxycycline-today is 7th day of abx, so will stop after today. Reporting diarrhea approx 4 times daily since symptoms began pre-hospital. Refuses Gatorade or other drinks outside of water but appears unconcerned by this. Declined conv. plasma. Cont current management. Probiotics ok to continue. Breo daily. Albuterol PRN. Needing less oxygen today. Maybe home in am. (2) Pneumonia due to COVID-19 virus: Plan as above. (3) GERD (gastroesophageal reflux disease): stable, Continue PPI per home regimen. (4) H/O: stroke: per history, cont lipitor and plavix per home regimen. (5) Post-operative state: Hysterectomy 7-8 weeks ago. Was initially considered to have possible PE and was placed on full dose Lovenox. D-dimer was trended and normalized and her clinical course has improved. Lovenox reduced to the DVT prophylaxis dose. (6) DVT prophylaxis: Lovenox Full Code Dispo-cont hospitalization while hypoxic. Plan for home when off oxygen and medically stable. Zelda Siagla DO [facility] Hospitalist Admission and Anticipated Discharge Date Admission Date: September 26, 2020 Subjective cc: hypoxia 2/2 covid pneumonia Doing well today continues to ambulate and has less SOB with exertion today. she is now oxygenating well on room air and requiring min oxygen with ambulation she is eating a plate of chicken wings and tolerating PO Review of Systems Review of Systems: All systems reviewed & are unremarkable except as noted in Subjective Physical Exam Physical Exam: CONSTITUTIONAL: WNWD, vitals as above, generally well- appearing EYES: normal conjunctivae, no scleral icterus ENT: external ear and nose normal, MMM RESPIRATORY: clear to auscultation bilaterally, no crackles, rales or wheezes, normal respiratory effort CARDIOVASCULAR: regular rate and rhythm, S1 and 2 heard without murmurs, gallops or rubs, no JVD, no peripheral edema MUSCULOSKELETAL: strength 5/5 throughout, head is normocephalic and atraumatic, ambulatory SKIN: warm and dry NEUROLOGIC: CN 2-12 grossly intact, normal cognition, normal speech, no gross focal deficits. PSYCHIATRIC: alert cooperative and oriented to person, place and time. Results & Data Results & Data ([facility]) Vital Signs (Past 12 Hours) Vital Signs Temp Pulse Resp BP Pulse Ox 10/04/20 15:38 36.5 C 70 18 102/65 91 10/04/20 08:39 36.4 C L 66 18 123/77 96 Laboratory Results Short CBC 10/04/20 Range/Units 05:37 WBC 5.08 (4.8-10.8) K/uL Hgb 8.4 L (12.0-16.0) g/dL Hct 29.0 L (37-47) % Plt Count 566 H (130-400) K/uL BMP 10/04/20 05:37 Sodium 142 Potassium 3.3 L Chloride 108 H Carbon Dioxide 30 BUN 10 Creatinine 0.59 L Glucose 83 Calcium 8.4 L Medications Administered Current Inpatient Medications Acetaminophen (Acetaminophen 325 Mg Tab) 650 mg PO Q4H PRN PRN Reason: Pain or Fever Stop: 10/27/20 02:31 Albuterol (Albuterol Hfa 8 Gm Inhaler) 2 puffs INH Q4H PRN PRN Reason: Shortness Of Breath Or Wheezing Stop: 10/27/20 02:31 Ascorbic Acid (Ascorbic Acid 500 Mg Tab) 1,000 mg PO [facility] Stop: 11/03/20 09:14 Last Admin: 10/04/20 11:06 Dose: 1,000 mg Documented by: Atorvastatin Calcium (Atorvastatin 40 Mg Tab) 40 mg PO [facility] Stop: 10/27/20 08:59 Last Admin: 10/04/20 09:35 Dose: 40 mg Documented by: Clopidogrel Bisulfate (Clopidogrel Bisulfate 75 Mg Tab) 75 mg PO [facility] Stop: 10/27/20 08:59 Last Admin: 10/04/20 09:36 Dose: 75 mg Documented by: Cyanocobalamin (Cyanocobalamin 500 Mcg Tablet (Vitamin B-12)) 1,000 mcg PO [facility] Stop: 10/27/20 08:59 Last Admin: 10/04/20 09:36 Dose: 1,000 mcg Documented by: Dexamethasone (Dexamethasone 1 Mg Tab) 6 mg PO DAILY@1200 [facility] Stop: 11/02/20 11:59 Last Admin: 10/04/20 12:53 Dose: 6 mg Documented by: Enoxaparin Sodium (Enoxaparin Inj 40 Mg/0.4 Ml Syr) [facility] Stop: 10/30/20 08:59 Last Admin: 10/04/20 09:34 Dose: 40 mg Documented by: Fluticasone/Vilanterol (Fluticasone/Vilanterol 200/25mcg 14 Puffs/Inhaler) 1 puffs INH DAILY [facility] Stop: 10/27/20 08:59 Last Admin: 10/04/20 09:34 Dose: 1 puffs Documented by: Lactobacillus Acidoph/Casei/Rhamnos (Advanced Probiotic 1250 Mg Capsule) 2 cap PO DAILY [facility] Stop: 10/27/20 09:14 Last Admin: 10/04/20 09:35 Dose: 2 cap Documented by: Loperamide HCl (Loperamide Hcl 2 Mg Cap) 2 mg PO DAILY PRN PRN Reason: diarrhea Stop: 10/30/20 19:52 *Omeprazole Dr 40 Mg *Non-Formulary Patient's Own Med 1 ea PO DAILY@0800 [facility]; Protocol Stop: 11/03/20 07:59 Last Admin: 10/04/20 09:33 Dose: 1 cap Documented by: Pantoprazole Sodium (Pantoprazole 40 Mg Tab) 40 mg PO [facility] Stop: 10/27/20 08:59 Last Admin: 10/04/20 09:38 Dose: Not Given Documented by: Vitamin D (Cholecalciferol 1,000 Units 25 Mcg Tab) 2,000 units PO [facility] Stop: 11/03/20 09:14 Last Admin: 10/04/20 11:06 Dose: 2,000 units Documented by: Zinc Sulfate (Zinc Sulfate 220 Mg Capsule) 220 mg PO [facility] Stop: 11/03/20 09:14 Last Admin: 10/04/20 11:06 Dose: 220 mg Documented by:
[2020-10-05 08:00] LABS: Iron 22 mcg/dl (35-150); Total Iron Binding Capacity 311 mcg/dl (250-450)
[2020-10-05] MEDS: OMEPRAZOLE 40 MG PO SCH (08:33)
[2020-10-05] MEDS: CLOPIDOGREL BISULFATE 75 MG TAB PO SCH (08:34)
[2020-10-05] MEDS: ATORVASTATIN 40 MG TAB PO SCH (08:34)
[2020-10-05] MEDS: ZINC SULFATE 220 MG CAPSULE PO SCH (08:35)
[2020-10-05] MEDS: CHOLECALCIFEROL 1,000 UNITS 25 MCG TAB PO SCH (08:35)
[2020-10-05] MEDS: ASCORBIC ACID 500 MG TAB PO SCH (08:35)
[2020-10-05] MEDS: FLUTICASONE/VILANTEROL 200/25MCG 14 PUFFS/INHALER INH SCH (08:36)
[2020-10-05] MEDS: CYANOCOBALAMIN 500 MCG TABLET (VITAMIN B-12) PO SCH (08:36)
[2020-10-05] MEDS: ADVANCED PROBIOTIC 1250 MG CAPSULE PO SCH (08:36)
[2020-10-05] MEDS: ENOXAPARIN INJ 40 MG/0.4 ML SYR SQ SCH (08:37)
[2020-10-05] MEDS: PANTOprazole 40 MG TAB PO SCH (08:37)
[2020-10-05] MEDS: dexAMETHasone 1 MG TAB PO SCH (12:16)
--- NOTE | 2020-10-05 16:02 | Discharge Summary ---
Date of Service October 05, 2020 Admission HPI Per Admitting Provider HISTORY OF PRESENT ILLNESS: A 50-year-old female with past medical history significant for CVA, history of lymphadenopathy, recent history of dysfunctional uterine bleeding, status post recent hysterectomy about 7 weeks ago, presents with not feeling well, fever and shortness of breath. The patient's was diagnosed with COVID. The patient's symptoms started last Monday, she was having dry cough, on and off fevers, body aches, headache, generalized weakness, poor appetite, has few episodes of diarrhea, could not tell whether she lost sense of smell or taste because she could not eat because of poor appetite. No sore throat, no runny nose, no blurred vision, no earache, no chest pain. Has some shortness of breath, no abdominal pain. No swelling in the legs, no rash. When the patient came here, she was hypoxic, oxygen level is 77% and somewhat hypotensive with 4 liters oxygen her saturations improved. Labs show leukopenia and lymphopenia. Initial SARS-CoV-2 was negative, but we will reorder the [employer], which is pending. Admission Exam Per Admitting Provider PHYSICAL EXAMINATION: GENERAL: The patient is obese, not in acute distress. VITAL SIGNS: Temperature 37.4, pulse 83, respiratory rate 21, blood pressure 116/69. Currently, oxygen when she came in was 77% on room air, currently 90% on 4 liters. HEENT: Pupils equal, round, reactive to light. Oral mucosa moist. NECK: No JVD, supple. CARDIOVASCULAR: S1, S2 heard, regular rate and rhythm, no murmur, no gallop. RESPIRATORY SYSTEM: Normal AP diameter. No accessory muscle use. No wheezing, no crackles. ABDOMEN: Soft, bowel sounds present, nontender. No distention. CENTRAL NERVOUS SYSTEM: Cranial nerves II-XII grossly intact. Nonfocal. EXTREMITIES: No edema, no erythema. Principal Diagnosis COVID pneumonia Discharge Exam CONSTITUTIONAL: WNWD, vitals as above, generally well-appearing EYES: normal conjunctivae, no scleral icterus ENT: external ear and nose normal, MMM RESPIRATORY: clear to auscultation bilaterally, no crackles, rales or wheezes, normal respiratory effort CARDIOVASCULAR: regular rate and rhythm, S1 and 2 heard without murmurs, gallops or rubs, no JVD, no peripheral edema MUSCULOSKELETAL: strength 5/5 throughout, head is normocephalic and atraumatic, ambulatory SKIN: warm and dry NEUROLOGIC: CN 2-12 grossly intact, normal cognition, normal speech, no gross focal deficits. PSYCHIATRIC: alert cooperative and oriented to person, place and time. Discharge Data Allergies Allergy/AdvReac Type Severity Reaction Status Date / Time No Known Allergies Allergy Verified 09/26/20 21:57 Consultations 09/26/20 22:02 ED Decision to Admit Stat 09/27/20 02:32 Consult Case Management - Discharge Planning Routine 09/28/20 12:36 Consult Infectious Diseases Routine Hospital Course (1) Acute respiratory failure with hypoxia: 2/2 COVID-19 pneumonia. Received a 10-day course of dexmethasone. Completed course of remdesivir. Also completed 7 days of Rocephin and doxycycline. Declined conv. plasma. Cont current management. Probiotics ok to continue. Breo daily. At time of discharge she was still requiring a small amount of supplemental oxygen with ambulation and was set up with this at discharge. At time of discharge she was clinically stable and afebrile for several days. She was mentating and ambulating at baseline and was sent home in stable condition with close PCP follow-up recommended. (2) Pneumonia due to COVID-19 virus: Total Time Total Time Spent Total Time Spent (In Minutes): 60 Total Time Includes: Examination of the Patient, Discharge Planning, Medication Reconciliation and Communication With Other Providers Discharge Plan Discharge Items Patient Disposition: Home - Self-Care Reason For Visit: FEVER, SOB Discharge Diagnosis: COVID pneumonia Condition on Discharge: Good Activity: Resume your previous activity Non-emergency contact: Primary Care Provider Call non-emergency contact if: you have any medication questions, your symptoms worsen, your pain is not controlled and you have a fever Follow-up/Referrals: Chema Schwartz MD [Primary Care Provider] - 10/06/20 9:40 am (Date & Time 10/06/2020 9:40 AM Provider Chema Schwartz MD [facility] PLEASE NOTE: THIS IS A TELEPHONE APPOINTMENT. YOUR PHYSICIAN WILL CALL YOU AT THE APPOINTMENT TIME. IF YOU HAVE ANY QUESTIONS, PLEASE CALL ) Diet: Regular Addtl Attending Provider Instructions: Please take all medications as instructed on discharge list below. You are being sent home with supplemental oxygen, which you should be able to wean off of over the next 1-2 weeks. If you need prolonged oxygen, it may be a good idea to see a doctor for a referral to a clinical research monitor. You have completed a course of antibiotics for your pneumonia. A repeat x-ray is recommended in 4 weeks to ensure the pneumonia infiltrates have completely resolved. This may be ordered by your primary care physician. You completed a course of antiviral therapy and were also given steroids. It is recommended that you continue to rest and quarantine in your home for 21 days since your diagnosis of coronavirus, which was on 09/26/2020. Please consult www.cdc.gov and www.[place]gov for further information on coronavirus. You do have anemia and were found to have a low iron level. Supplementation for iron is being provided, and this will need to be followed up with your primary care provider. It was a pleasure taking care of you! Please call if you have any questions or problems. You can reach a [facility] hospitalist on duty at [facility] 24 hours a day by calling [phone]. Take care of yourself. Zelda Sigala DO [facility] Hospitalist Addtl Poolroom Table Attendant Provider Instructions: Home Isolation COVID-19 Instructions The following information about Home Isolation is from the CDC Website: https://www.cdc.gov/coronavirus/2019-ncov/hcp/nkcpnija-uuecvyg-rghszj.html Stay home except to get medical care People who are mildly ill with COVID-19 are able to isolate at home during their illness. You should restrict activities outside your home, except for getting medical care. Do not go to work, school, or public areas. Avoid using public transportation, ride-sharing, or taxis. Separate yourself from other people and animals in your home People: As much as possible, you should stay in a specific room and away from other people in your home. Also, you should use a separate bathroom, if available. Animals: You should restrict contact with pets and other animals while you are sick with COVID-19, just like you would around other people. Although there have not been reports of pets or other animals becoming sick with COVID-19, it is still recommended that people sick with COVID-19 limit contact with animals until more information is known about the virus. When possible, have another member of your household care for your animals while you are sick. If you are sick with COVID-19, avoid contact with your pet, including petting, snuggling, being kissed or licked, and sharing food. If you must care for your pet or be around animals while you are sick, wash your hands before and after you interact with pets and wear a face mask. Call ahead before visiting your doctor If you have a medical appointment, call the healthcare provider and tell them that you have or may have COVID-19. This will help the healthcare providers office take steps to keep other people from getting infected or exposed. Wear a face mask You should wear a face mask when you are around other people (e.g., sharing a room or vehicle) or pets and before you enter a healthcare providers office. If you are not able to wear a face mask (for example, because it causes trouble breathing), then people who live with you should not stay in the same room with you, or they should wear a face mask if they enter your room. Cover your coughs and sneezes Cover your mouth and nose with a tissue when you cough or sneeze. Throw used tissues in a lined trash can. Immediately wash your hands with soap and water fo r at least 20 seconds or, if soap and water are not available, clean your hands with an alcohol-based hand harvest worker field crop that contains at least 60% alcohol. Clean your hands often Wash your hands often with soap and water for at least 20 seconds, especially after blowing your nose, coughing, or sneezing; going to the bathroom; and before eating or preparing food. If soap and water are not readily available, use an alcohol-based hand harvest worker field crop with at least 60% alcohol, covering all surfaces of your hands and rubbing them together until they feel dry. Soap and water are the best option if hands are visibly dirty. Avoid touching your eyes, nose, and mouth with unwashed hands. Avoid sharing personal household items You should not share dishes, drinking glasses, cups, eating utensils, towels, or bedding with other people or pets in your home. After using these items, they should be washed thoroughly with soap and water. Clean all high-touch surfaces everyday High touch surfaces include counters, tabletops, doorknobs, bathroom fixtures, toilets, phones, keyboards, tablets, and bedside tables. Also, clean any chandler faces that may have blood, stool, or body fluids on them. Use a household cleaning spray or wipe, according to the label instructions. Labels contain instructions for safe and effective use of the cleaning product including precautions you should take when applying the product, such as wearing gloves and making sure you have good ventilation during use of the product. Monitor your symptoms Seek prompt medical attention if your illness is worsening (e.g., difficulty breathing).Beforeseeking care, call your healthcare provider and tell them th at you have, or are being evaluated for, COVID-19. Put on a face mask before you enter the facility. These steps will help the healthcare providers office to keep other people in the office or waiting room from getting infected or exposed. Ask your healthcare provider to call the local or state health department. Persons who are placed under active monitoring or facilitated self- monitoring should follow instructions provided by their local health department or occupational health professionals, as appropriate. When working with your local health department check their available hours. If you have a medical emergency and need to call 911, notify the dispatch personnel that you have, or are being evaluated for COVID-19. If possible, put on a face mask before emergency medical services arrive. Discontinuing home isolation Patients with confirmed COVID-19 should remain under home isolation precautions until the risk of secondary transmission to others is thought to be low. The decision to discontinue home isolation precautions should be made on a [id number] basis, in consultation with healthcare providers and state and local health departments. Pending Studies at Discharge: No Stand-Alone Forms: My [facility], Work/School Release (Inpt) Medications and DC Order Prescriptions: New ferrous sulfate 325 mg (65 mg iron) Tablet,Delayed Release (Dr/Ec) 325 mg PO BIDM Qty: 60 RF: 0 Continued atorvastatin 40 mg tablet 40 mg PO QAM RF: 0 clopidogrel 75 mg tablet 75 mg PO QAM RF: 0 omeprazole 40 mg capsule,delayed release(DR/EC) 40 mg PO QAM RF: 0 meloxicam 15 mg Tablet 15 mg PO DAILY PRN (Reason: Pain) RF: 0 Dulera 200-5 mcg/actuation Hfa Aerosol Inhaler 2 puff INHALATION BID RF: 0 cyanocobalamin (vitamin B-12) 1,000 mcg Capsule 1,000 mcg PO QAM RF: 0 Discharge Orders: Discharge Order (Routine); Ordered 10/05/20 Ordered By: Zelda Sigala Admission Data Admit Date/Time: 09/26/20 23:04 Attending Provider: Zelda Sigala Admit Provider: Kendall Olsen Primary Care Provider: Chema Schwartz Other Providers: Kendall Olsen ; Rajeev Fuller ; Lorena Sylvester ; Philippe Almonte I. ; Juan Nieves II ; Minda Alberto ; Chema Woo Other Interventions: Discharge Summary Assessment (RN) Last Done: 10/05/20 16:39
[2020-10-05] MEDS ORDERED: FERROUS SULFATE 325 MG TAB PO SCH (17:00)
== END 2020-10-05 17:04 | disposition home or self-care (01) | DRG 177 ==
LOC: ED 20:35 → 2S 23:04 → SUATTDRO 23:04 → 2S 09-27 01:58

== ENCOUNTER 2022-05-18 16:10 | Inpatient (IN) ==
--- NOTE | 2022-05-18 16:16 | ED Triage Note ---
Date of Service May 18, 2022 History of Present Illness This patient was briefly evaluated while in triage. An abbreviated physical exam was performed. This patient is a 51-year-old Female with past medical history of salmonella who presents to the ED for evaluation of "they sent me in. Something about my kidneys on my blood work". Blood work done at [facility] in [place]. Physical Exam VITALS: Vitals are noted on the nurse's note and reviewed by myself. GENERAL: This is a 51 year old white female, in no acute distress, nondiaphoretic, well-developed well-nourished. SKIN: No rashes, edema. HEAD: Normocephalic atraumatic. NECK: No JVD. MUSCULOSKELETAL: No tenderness to palpation. Normal gait. NEURO: Patient was alert and oriented to person place and time. No focal neurological deficits. Initial orders for labs and / or imaging were placed and patient was placed in the waiting area until a bed is available. Please see further documentation for the full ED course. MDM / Impression Impression Impression: SERAFIN (acute kidney injury), Acute dehydration, Diarrhea, Anemia : Diarrhea Qualifiers: Diarrhea type: unspecified type Qualified Code(s): R19.7 - Diarrhea, unspecified Anemia Qualifiers: Anemia type: unspecified type Qualified Code(s): D64.9 - Anemia, unspecified
[2022-05-18 17:15] LABS: Hemoglobin 9.7 g/dl (12.0-16.0); Mean Corpuscular Hemoglobin 25.2 pg (25.0-34.0); Mean Corpuscular Hgb Conc 32.3 g/dL (32.0-36.0); Mean Corpuscular Volume 77.9 fL (80.0-100.0); Mean Platelet Volume 9.8 fL (9.4-12.3); Platelet Count 471 K/uL (130-400); RDW Coefficient of Variation 16.3 % (11.5-14.5); RDW Standard Deviation 45.9 fL (36.4-46.3); Red Blood Count 3.85 M/uL (3.93-5.22); White Blood Count 9.61 K/ul (4.8-10.8)
[2022-05-18] MEDS ORDERED: SODIUM CHLORIDE 0.9% 1000ML 1,000 ML IV ONE ×2 (17:23→18:20)
[2022-05-18 17:25] LABS: Albumin Globulin Ratio 0.7 (0.9-2); BUN Creatinine Ratio 7.4 (10-20); Bilirubin,Total 0.4 mg/dl (0.2-1.0); Calcium 8.4 mg/dl (8.5-10.1); Creatinine Clr Calc Pharmacy 38.5 ml/min; Est GFR (African American) 34.5 ml/min; Est GFR (Non-African American) 29.8 ml/min; Globulin 4.2 gm/dl (2.5-4.0); Potassium 3.2 mmol/L (3.5-5.1); Total Protein 7.2 gm/dl (6.0-8.3)
--- NOTE | 2022-05-18 17:37 | Emergency Department Note ---
Impression & Plan SERAFIN (acute kidney injury), Acute dehydration, Diarrhea, Anemia ED Provider Note NAME: KANCHAN SORIA AGE: 51 SEX: F : 1970 ARRIVES VIA: Walk-In INFORMANT: Patient, ED PROVIDER(S): Conor Steele DO CHIEF COMPLAINT: Dehydration HPI: The patient is a 51-year-old female who presented to the emergency department for an evaluation. The patient started having diarrhea with blood over the course the last few weeks. She did have a colonoscopy was diagnosed with Salmonella. She was seen in our facility last week for similar complaints. This was also after her colonoscopy and her treatment for Salmonella. She continues to have diarrhea as well as blood in her bowel moods. She had outpatient lab studies done and was referred to the emergency department for "abnormal kidney studies". The patient does not know what her lab studies showed. She denies having any chest pain or difficulty breathing. She has been noticing swelling in her hands and her feet. She states she has been compliant with her outpatient medications otherwise. ROS: See above HPI for pertinent positives & negatives. A total of 10 systems reviewed and were otherwise negative. PAST MEDICAL HISTORY: See Below PAST SURGICAL HISTORY: See Below FAMILY HISTORY: See Below SOCIAL HISTORY: See Below HOME MEDICATIONS: See Below ALLERGIES: See Below VITALS: See Below PHYSICAL EXAMINATION: GENERAL: Patient is awake alert in no acute distress patient is resting comfortably and showing no signs of anxiety EYES: The conjunctivae are clear. The pupils are round and reactive. EARS, NOSE, MOUTH AND THROAT: The nose is without any evidence of any deformity. NECK: The neck is nontender and supple. RESPIRATORY: Normal respiratory effort is noted there is no evidence of wheezing rhonchi or rales CARDIOVASCULAR: Regular rate and rhythm noted there no murmurs rubs or gallops normal S1 normal S2. GASTROINTESTINAL: The abdomen was distended. There is no guarding or rigidity noted. MUSCULOSKELETAL/EXTREMITIES: There is no evidence of gross deformity full range of motion is noted in the hips and shoulders. SKIN: Skin is cool and dry. There is trace pedal edema bilaterally. NEUROLOGIC: Patient is awake alert and oriented x3 MEDICAL DECISION MAKING: The patient is a 51-year-old female who presented to the emergency department for an evaluation of diarrhea. The patient had outpatient lab studies which showed her creatinine was starting to go up. The patient had a colonoscopy recently which was positive for Salmonella. She was treated with an antibiotic but continues to have diarrhea as well as some blood in her bowel moods. I discussed the patient's laboratory results with her. I discussed her condition with her gastroenterology group as well as the on-call [facility] hospitalist group. The patient will likely require further IV hydration. She does have some degree of anemia. Triage Nursing notes reviewed. Prior medical records reviewed Vital Signs: reviewed and remarkable for no significant abnormalities Differential diagnosis: Infection, dehydration, metabolic abnormality, hypo/hyperglycemia, electrolyte disturbance, anemia, hypoxia, cardiac sources, intracerebral event, toxicologic, neurologic, as well as other pathologies. ER treatment provided: See below Diagnostics interpreted by me: ECG: none Cardiac Monitoring: An order was placed for continuous cardiac monitoring. The monitor shows a rate of 80 bpm with sinus rhythm. Laboratory studies: As stated above and show below. Imaging studies: See below Consultation(s): I discussed this case with Ria who is on-call for the [facility] hospitalist group. I discussed this case with Sia Evans. Past Med/Surg History Medical History GERD (gastroesophageal reflux disease) Well controlled and stable Hyperlipidemia SOB (shortness of breath) on exertion Chronic issue since pt has CVA in 2017 Transient ischemic attack (TIA) 2017-PLACED ON PLAVIX-NO ISSUES SINCE Surgical History H/O foot surgery LEFT GREAT TOE SX X 2 History of bilateral tubal ligation History of colonoscopy History of endometrial ablation History of esophagogastroduodenoscopy (EGD) Family History Mother Family history of diabetes mellitus Social History Smoking Status: Former smoker Second Hand Exposure: Yes (ON OCC); Hx Alcohol Use: Yes Alcohol type: beer Hx Substance Use: No Preferred Language: Kittitian Communication Ability: Effective Interior Design Consultant Required: No Beliefs That Will Affect Care: None Current Living Situation: Significant Other Feels Safe at Home: Yes Assistive Devices: Glasses and Oxygen - Continuous Allergies Allergies Allergy/AdvReac Type Severity Reaction Status Date / Time No Known Allergies Allergy Verified 10/26/20 22:21 Home Meds Home Medications Medication Instructions Recorded Confirmed atorvastatin 40 mg tablet 40 mg PO QAM 11/05/18 10/26/20 clopidogrel 75 mg tablet 75 mg PO QAM 11/05/18 10/26/20 omeprazole 40 mg capsule,delayed 40 mg PO QAM 11/05/18 10/26/20 release cyanocobalamin (vitamin B-12) 1,000 mcg PO QAM 07/17/20 10/26/20 1,000 mcg capsule meloxicam 15 mg tablet 15 mg PO DAILY PRN 07/17/20 10/26/20 mometasone-formoterol HFA 200 2 puff INHALATION BID 07/17/20 10/26/20 mcg-5 mcg/actuation aerosol inhaler (Dulera) albuterol sulfate 90 mcg/actuation 2 puff INHALATION QID PRN 10/26/20 10/26/20 aerosol inhaler Previous Rx's Medication Instructions Recorded dicyclomine 20 mg tablet 20 mg PO QID #20 tab 10/26/20 Results & Data (ED) Vital Signs Vital Signs - 24 hr 05/18/22 16:14 05/18/22 17:28 05/18/22 18:00 Temperature 37.0 C Temperature Source Temporal Artery Scan Pulse Rate 97 H 80 Pulse Rate [Apical] 92 H Pulse Rhythm Regular Pulse Strength Normal Respiratory Rate 20 19 23 Respiratory Effort / Characteristics Non-Labored Spontaneous Non-Labored Spontaneous Respiratory Depth Normal Normal Respiratory Pattern Regular Regular Blood Pressure 122/90 115/74 Blood Pressure [Right Arm] 131/91 Blood Pressure Mean 100 87 Blood Pressure Mean [Right Arm] 104 Blood Pressure Position Sitting Pulse Oximetry 93 98 97 Oxygen Delivery Method Room Air Room Air Sepsis Recent Fever Within 48 Hours No Sepsis New/Unexplained Change in Mental Status No Sepsis Action Taken by Nursing No Action Required Home Medications Current Medication List: was personally reviewed by me Laboratory Data Attestation: I reviewed the patient's lab results. Result diagrams: 05/18/22 16:56 05/18/22 16:56 Lab Results 05/18/22 05/18/22 05/18/22 Range/Units 16:56 16:56 17:38 WBC 9.61 (4.8-10.8) K/ul RBC 3.85 L (3.93-5.22) M/uL Hgb 9.7 L (12.0-16.0) g/dl Hct 30.0 L (34.1-44.9) % MCV 77.9 L (80.0-100.0) fL MCH 25.2 (25.0-34.0) pg MCHC 32.3 (32.0-36.0) g/dL RDW Std Deviation 45.9 (36.4-46.3) fL RDW Coeff of Iveth 16.3 H (11.5-14.5) % Plt Count 471 H (130-400) K/uL MPV 9.8 (9.4-12.3) fL Immature Gran % (Auto) 0.6 % Neut % (Auto) 75.4 % Lymph % (Auto) 10.3 % [place] % (Auto) 5.8 % Eos % (Auto) 7.3 % Baso % (Auto) 0.6 % Neut # (Auto) 7.24 H (1.4-6.5) K/uL Lymph # (Auto) 0.99 L (1.2-3.4) K/uL [place] # (Auto) 0.56 (0.24-0.82) K/uL Eos # (Auto) 0.70 H (0-0.50) K/uL Baso # (Auto) 0.06 (0-0.2) K/uL Immature Gran # (Auto) 0.06 H (0.00-0.02) K/uL Tear Drop Cells 1+ Sodium 133 L (136-145) mmol/L Potassium 3.2 L (3.5-5.1) mmol/L Chloride 95 L (98-107) mmol/L Carbon Dioxide 29 (21-32) mmol/L Anion Gap 9 (3-11) BUN 14 (6-23) mg/dl Creatinine 1.89 H (0.6-1.2) mg/dl Est Cr Clr Drug Dosing 38.5 ml/min Est GFR ( Amer) 34.5 ml/min Est GFR (Non-Af Amer) 29.8 ml/min BUN/Creatinine Ratio 7.4 L (10-20) Glucose 104 H (70-99(Fasting)) mg/dl Calcium 8.4 L (8.5-10.1) mg/dl Total Bilirubin 0.4 (0.2-1.0) mg/dl AST 45 H (13-39) U/L ALT 37 (7-52) U/L Alkaline Phosphatase 92 (34-104) U/L Total Protein 7.2 (6.0-8.3) gm/dl Albumin 3.0 L (3.4-5.0) gm/dl Globulin 4.2 H (2.5-4.0) gm/dl Albumin/Globulin Ratio 0.7 L (0.9-2) Urine Color Yellow Urine Appearance Clear (Clear) Urine pH 5.5 (4.5-7.5) Ur Specific [place] 1.010 (1.000-1.030) Urine Protein 1+ H (Negative) Urine Glucose (UA) Negative (Negative) Urine Ketones Negative (Negative) Urine Blood Trace H (Negative) Urine Nitrite Negative (Negative) Urine Bilirubin Negative (Negative) Urine Urobilinogen Negative (Negative) Ur Leukocyte Esterase 1+ H (Negative) Administered Medications Sodium Chloride (Nss 1000ml) 1,000 mls @ 999 mls/hr IV .Q1H1M ONE Stop: 05/18/22 19:20 Last Admin: 05/18/22 18:28 Dose: 999 mls/hr Documented by: [id number] Discontinued Medications Sodium Chloride (Nss 1000ml) 1,000 mls @ 999 mls/hr IV .Q1H1M ONE Stop: 05/18/22 18:23 Last Admin: 05/18/22 17:36 Dose: 999 mls/hr Documented by: [id number] Potassium Chloride (Potassium Chloride Crtab 20 Meq Tabcr) 20 meq PO NOW STA Stop: 05/18/22 18:03 Last Admin: 05/18/22 18:26 Dose: 20 meq Documented by: [id number] Discharge Plan Visit Data Chief Complaint: Abnormal Labs/Diagnostic Testing Stated Complaint: ABNORMAL LABS. REF BY DR SCHWARTZ ED Provider: Conor Steele Discharge Problem: SERAFIN (acute kidney injury), Acute dehydration, Diarrhea, Anemia Patient Disposition: Being Evaluated by Hospitalist Forms Stand Alone Forms: My [facility] Prescriptions Prescriptions: No Action atorvastatin 40 mg tablet 40 mg PO QAM RF: 0 clopidogrel 75 mg tablet 75 mg PO QAM RF: 0 omeprazole 40 mg capsule,delayed release(DR/EC) 40 mg PO QAM RF: 0 albuterol sulfate 90 mcg/actuation HFA aerosol inhaler 2 puff INHALATION QID PRN (Reason: Shortness Of Breath Or Wheezing) RF: 0 dicyclomine 20 mg tablet 20 mg PO QID Qty: 20 RF: 0 meloxicam 15 mg Tablet 15 mg PO DAILY PRN (Reason: Pain) RF: 0 Dulera 200-5 mcg/actuation Hfa Aerosol Inhaler 2 puff INHALATION BID RF: 0 cyanocobalamin (vitamin B-12) 1,000 mcg Capsule 1,000 mcg PO QAM RF: 0 Referrals Referrals: Chema Schwartz MD [Primary Care Provider] -
[2022-05-18 18:00] LABS: Appearance Urine Clear (Clear); Bacteria Urine Automated Negative (Negative); Bilirubin Urine Negative (Negative); Blood Urine Trace (Negative); Color Urine Yellow; Epithelial Cell Urine Auto >30 /lpf (0-5); Glucose Urine UA Negative (Negative); Ketones Urine Negative (Negative); Leukocyte Esterase Urine 1+ (Negative); Nitrite Urine Negative (Negative); Protein Urine 1+ (Negative); Urobilinogen Urine Negative (Negative); pH Urine 5.5 (4.5-7.5)
[2022-05-18] MEDS ORDERED: POTASSIUM CHLORIDE CRTAB 20 MEQ TABCR PO STA ×2 (18:02→19:07)
[2022-05-18 18:42] LABS: Basophils # (auto) 0.06 K/uL (0-0.2); Basophils % (auto) 0.6 %; Eosinophils % (auto) 7.3 %; Immature Granulocytes # (auto) 0.06 K/uL (0.00-0.02); Immature Granulocytes % (auto) 0.6 %; Lymphocytes # (auto) 0.99 K/uL (1.2-3.4); Lymphocytes % (auto) 10.3 %; Monocytes # (auto) 0.56 K/uL (0.24-0.82); Monocytes % (auto) 5.8 %; Neutrophils # (auto) 7.24 K/uL (1.4-6.5); Neutrophils % (auto) 75.4 %; Tear Drop Cells 1+
[2022-05-18 19:14] LABS: RBC Urine Automated 0-4 /hpf (0-4)
--- NOTE | 2022-05-18 21:45 | History & Physical Report ---
Date of Service May 18, 2022 Assessment & Plan (1) Salmonella enteritis: (2) Colitis: (3) Hypokalemia: (4) Reactive arthritis: (5) SERAFIN (acute kidney injury): (6) Anemia: Plan: This is a 51-year-old female who has significant past medical history of COVID-pneumonia, TIA currently on aspirin therapy, GERD, anemia who presents to ED for persistent bloody diarrhea x2-1/2 months. Salmonella enteritis Colitis with bloody diarrhea Admit to telemetry Consult gastroenterology Last colonoscopy 05/04 showed chronic inflammation Stool culture from April positive for Salmonella, repeat on 05/18 was negative She did complete course of ciprofloxacin Afebrile and WBC WNL Will hold on antibiotics for now until evaluated by GI Diet as tolerated, n.p.o. after midnight Await GI evaluation before starting antidiarrheals continue ASA for now in setting of prior TIA Reactive arthritis/hawa syndrome Conjunctivitis Likely in setting of recent Salmonella infection ESR significantly elevated, CRP pending Further work-up includes Lyme, Anaplasma, hepatitis, chlamydia, gonorrhea, RPR, blood cultures NSAIDS contraindicated in setting of SERAFIN Consider Prednisone 20mg daily if okay with GI Consult opthal to r/o Uveitis Hypokalemia replace SERAFIN cr 1.89 likely in setting of GI loss NSS + 20meq KCL - re eval in a.m. Hx of TIA continue asa no residual deficit Anemia hx of iron def likely in setting of blood loss from diarrhea obtain anemia panel in a.m. DVT ppx: SCDS Dispo: tele PCP: Lana FULL CODE Pt was seen and examined in collaboration with Dr. Arredondo, please see addendum History of Present Illness Chief Complaint: bloody diarrhea x 2.5 months Primary Care Provider: Chema Schwartz MD This is a 51-year-old female who has significant past medical history of COVID- pneumonia, TIA currently on aspirin therapy, GERD, anemia who presents to ED for persistent bloody diarrhea x2-1/2 months. Patient states her diarrhea started approximately 2 and half months ago. She reports it is also bloody, but not with every bowel movement. She reports it is bright red blood per rectum. She was seen and evaluated by PCP In mid April in which a stool culture tested positive for Salmonella. She was started on Cipro 500 mg twice daily x3 days. She completed course. Unfortunately her diarrhea and bloody stools persisted. She did have a repeat stool culture today which was negative for enteric pathogens and C. difficile. She is having anywhere from 10-20 bowel movements a day. She is able to tolerate oral intake; however, her bowels move instantly. She also reports significant arthralgias specifically in elbows, hands, knees, ankles and feet. She feels she has difficult time walking due to the pain in her feet. Over the last week she also developed bilateral eye redness. She does complain of painful eyes but denies any change in vision, blurry vision, double vision, or drainage. She denies any sick contacts. She also reports painless lesions on her hands intermittently. The one approximately 2 weeks ago developed into a blister and the skin peeled off. She currently has 1 on her right hand. She also reports occasional mouth ulcerations, but has not had anything recently. She denies any fever, chills, sweats, lightheadedness, dizziness, syncope, chest pain, shortness with, cough, hemoptysis, nausea, vomiting, dysuria, increased urgency or frequency with urination, vaginal discharge. She does have a history of hysterectomy. Her boyfriend is at bedside. She reports approximately 20 pound weight loss in the past 2 months. In ED patient made hemodynamically stable. She was afebrile. Lab work notable for anemia of 9.7, ESR 118, sodium 133, K3.2, creatinine 1.89, calcium 8.4, AST 45, SARS-CoV-2 negative. She was seen in ED at the end of April. At that time she did have CT abdomen pelvis which showed findings consistent with proctocolitis most pronounced in the descending colon and sigmoid colon. She had a colonoscopy on 05/04 which showed chronic inflammation. This was reviewed in [facility]. Allergies Allergy/AdvReac Type Severity Reaction Status Date / Time No Known Allergies Allergy Verified 10/26/20 22:21 Home Medications Medication Instructions Recorded Confirmed Type atorvastatin 40 mg tablet 40 mg PO QAM 11/05/18 05/18/22 History omeprazole 40 mg capsule,delayed 40 mg PO QAM 11/05/18 05/18/22 History release meloxicam 15 mg tablet 15 mg PO DAILY PRN 07/17/20 05/18/22 History mometasone-formoterol HFA 200 2 puff INHALATION BID 07/17/20 05/18/22 History mcg-5 mcg/actuation aerosol inhaler (Dulera) albuterol sulfate 90 mcg/actuation 2 puff INHALATION QID PRN 10/26/20 05/18/22 History aerosol inhaler aspirin 81 mg chewable tablet 81 mg PO DAILY 05/18/22 05/18/22 History cholecalciferol (vitamin D3) 25 25 mcg PO DAILY 05/18/22 05/18/22 History mcg (1,000 unit) tablet dicyclomine 10 mg capsule 10 mg PO QID PRN 05/18/22 05/18/22 History Past Med/Surg History Medical History GERD (gastroesophageal reflux disease) Well controlled and stable Hyperlipidemia SOB (shortness of breath) on exertion Chronic issue since pt has CVA in 2017 Transient ischemic attack (TIA) 2017-PLACED ON PLAVIX-NO ISSUES SINCE Surgical History H/O foot surgery LEFT GREAT TOE SX X 2 History of bilateral tubal ligation History of colonoscopy History of endometrial ablation History of esophagogastroduodenoscopy (EGD) Family History Mother Family history of diabetes mellitus Social History Smoking Status: Never smoker Second Hand Exposure: Yes (ON OCC); Hx Alcohol Use: Yes Alcohol type: beer Hx Substance Use: No Preferred Language: Salvadorean Communication Ability: Effective Metal Solderer Required: No Beliefs That Will Affect Care: None Current Living Situation: Other Current Living Situation Comment: fiance Feels Safe at Home: Yes Assistive Devices: None Review of Systems Review of Systems: All systems reviewed & are unremarkable except as noted in HPI & below Physical Exam Physical Exam: Constitutional: WD/WN, acutely ill-appearing female, vitals as above, NAD, sitting up in bed, pleasant, conversing easily Head: Normocephalic, Atraumatic Eyes: PERRL, conjunctivae with bilateral erythema sparing limbus, anicteric sclerae ENMT: external ear and nose normal, oropharynx normal Neck: trachea midline, no thyromegaly normal visual inspection Respiratory: normal respiratory effort, lungs clear to auscultation, no wheeze, rales, rhonchi. Normal insp/exp effort, no accessory muscle use Cardiovascular: RRR, no murmur, no edema Vessels: no JVD or carotid bruit Chest: normal inspection of chest Abdomen: normal bowel sounds, soft, nontender, no hepatosplenomegaly Musculoskeletal: no cyanosis or clubbing, extremities motor strength 5/5, no edema or joint effusions Skin: Positive urticarial lesion to palmar aspect of right hand, warm and dry normal turgor Neurologic: PERRL, EOMI, accommodation nl, no face palsy, no dysarthria CN's II-XI intact bilaterally and moves all extremities Psychiatric: A+Ox3, euthymic affect Lymphatic: no cervical or axillary lymphadenopathy : deferred Results & Data Results & Data ([facility]) Vital Signs (Past 12 Hours) Vital Signs Temp Pulse Pulse Resp BP BP Pulse Ox 05/18/22 21:00 37.1 C 90 18 130/85 92 05/18/22 19:00 37.1 C 82 18 129/88 94 05/18/22 18:00 80 23 115/74 97 05/18/22 17:28 92 H 19 131/91 98 05/18/22 16:14 37.0 C 97 H 20 122/90 93 Medications Administered Medication List Discontinued Medications Sodium Chloride (Nss 1000ml) 1,000 mls @ 999 mls/hr IV .Q1H1M ONE Stop: 05/18/22 18:23 Last Infusion: 05/18/22 18:43 Dose: 0 mls/hr Documented by: [id number] Admin: 05/18/22 17:36 Dose: 999 mls/hr Documented by: [id number] Sodium Chloride (Nss 1000ml) 1,000 mls @ 999 mls/hr IV .Q1H1M ONE Stop: 05/18/22 19:20 Last Infusion: 05/18/22 19:43 Dose: 0 mls/hr Documented by: [id number] Admin: 05/18/22 18:28 Dose: 999 mls/hr Documented by: [id number] Potassium Chloride (Potassium Chloride Crtab 20 Meq Tabcr) 20 meq PO NOW STA Stop: 05/18/22 18:03 Last Admin: 05/18/22 18:26 Dose: 20 meq Documented by: [id number] Potassium Chloride (Potassium Chloride Crtab 20 Meq Tabcr) 20 meq PO NOW STA Stop: 05/18/22 19:08 Last Admin: 05/18/22 20:50 Dose: 20 meq Documented by: [id number] COVID-19 Results Results COVID-19 Adm Lab Results: RBC 3.55 M/uL (3.93-5.22) L 05/19/22 WBC 7.45 K/ul (4.8-10.8) 05/19/22 Hgb 8.9 g/dl (12.0-16.0) L 05/19/22 Hct 28.1 % (34.1-44.9) L 05/19/22 Plt Count 424 K/uL (130-400) H 05/19/22 Neutrophils (%) (Auto) 75.0 % 05/19/22 Lymphocytes (%) (Auto) 9.1 % 05/19/22 Monocytes # (Auto) 0.56 K/uL (0.24-0.82) 05/19/22 Eosinophils # (Auto) 0.54 K/uL (0-0.50) H 05/19/22 Immature Granulocyte % (Auto) 0.7 % 05/19/22 Neutrophils # (Auto) 5.58 K/uL (1.4-6.5) 05/19/22 Lymphocytes # (Auto) 0.68 K/uL (1.2-3.4) L 05/19/22 Monocytes # (Auto) 0.56 K/uL (0.24-0.82) 05/19/22 Eosinophils # (Auto) 0.54 K/uL (0-0.50) H 05/19/22 Basophils # (Auto) 0.04 K/uL (0-0.2) 05/19/22 Immature Granulocyte # (Auto) 0.05 K/uL (0.00-0.02) H 05/19/22 Echinocytes 1+ 05/19/22 Tear Drop Cells 1+ 05/18/22 Na 140 mmol/L (136-145) 05/19/22 K 3.9 mmol/L (3.5-5.1) 05/19/22 Cl 106 mmol/L (98-107) 05/19/22 CO2 24 mmol/L (21-32) 05/19/22 Anion Gap 10 (3-11) 05/19/22 BUN 11 mg/dl (6-23) 05/19/22 Creatinine 1.54 mg/dl (0.6-1.2) H 05/19/22 BUN/Creatinine Ratio 7.1 (10-20) L 05/19/22 Glucose Level 96 mg/dl (70-99(Fasting)) 05/19/22 Ca 7.7 mg/dl (8.5-10.1) L 05/19/22 Total Bilirubin 0.3 mg/dl (0.2-1.0) 05/19/22 AST/SGOT 30 U/L (13-39) 05/19/22 ALT/SGPT 28 U/L (7-52) 05/19/22 Alkaline Phosphatase 78 U/L (34-104) 05/19/22 Total Protein 5.9 gm/dl (6.0-8.3) L 05/19/22 Albumin 2.5 gm/dl (3.4-5.0) L 05/19/22 Globulin 3.4 gm/dl (2.5-4.0) 05/19/22 Albumin/Globulin Ratio 0.7 (0.9-2) L 05/19/22 CRP 23.63 mg/dl (0-0.5) H 05/18/22 Ferritin 110.4 ng/ml (8-388) 05/19/22 SARS-CoV-2, RNA, NAAT NEGATIVE (NEGATIVE) 05/18/22 Code Status & VTE Plan Code Status FULL CODE VTE Prophylaxis Plan VTE Prophylaxis will be ordered: Yes Supervising Physician Co-Signing Physician Notes Patient seen and examined by me, care coordinated with Ulises Thomas PA-C, please refer to her note above for further detail. Pt is a 51-year-old female w/ history of COVID-pneumonia, TIA currently on aspirin therapy, GERD, anemia, Salmonella infection, who presents w/persistent bloody diarrhea x2-1/2 months. She was seen and evaluated by PCP In mid April in which a stool culture tested positive for Salmonella. She was started on Cipro 500 mg twice daily x3 days. She completed course. Unfortunately her diarrhea and bloody stools persisted. She did have a repeat stool culture today which was negative for enteric pathogens and C. difficile. She also reports signific ant arthralgias. Over the last week she also developed bilateral eye redness. She was seen in ED at the end of April. At that time she did have CT abdomen pelvis which showed findings consistent with proctocolitis most pronounced in the descending colon and sigmoid colon. She had a colonoscopy on 05/04 which showed chronic inflammation. This was reviewed in [facility]. Creatinine elevated, given IV fluids in ED. Currently patient is lying in bed, in no acute distress. She is alert oriented answer questions appropriately. Heart sounds regular. Lung sounds clear to auscultation. Abdomen soft nontender nondistended. Patient is able to move extremities. As above, reports pain in joints. Bilateral conjunctivitis noted. Patient was given IV fluids in the ED, for SERAFIN. Will consult further with GI given persistent bloody stools. Ophthalmology also consulted. Given arthralgias, and her other findings, concern for systemic underlying process, ?Hawa's syndrome , additional blood work ordered as above. Continue to closely monitor. MD Arnulfo (1) Anemia Anemia type: unspecified type Qualified Code(s): D64.9 - Anemia, unspecified
[2022-05-18] MEDS ORDERED: ALUMINUM/MAGNESIUM SUSP 30 ML UDC PO PRN (21:52)
[2022-05-18] MEDS ORDERED: ALBUTEROL HFA 8 GM INHALER INH PRN (21:52)
[2022-05-18] MEDS ORDERED: ACETAMINOPHEN 325 MG TAB PO PRN (21:52)
[2022-05-18] MEDS: NSS + 20MEQ KCL 20 MEQ/1,000 ML BAG IV SCH (22:18)
[2022-05-18 22:32] LABS: Lyme Ab IgG w/WB Rflx Negative (Negative); Lyme Ab IgM w/WB Rflx Negative (Negative)
[2022-05-19 01:08] LABS: Rapid Plasma Reagin Nonreactive (Nonreactive)
[2022-05-19 07:00] LABS: Hematocrit (blood only) 28.1 % (34.1-44.9); Hemoglobin 8.9 g/dl (12.0-16.0); Mean Corpuscular Hemoglobin 25.1 pg (25.0-34.0); Mean Corpuscular Hgb Conc 31.7 g/dL (32.0-36.0); Mean Corpuscular Volume 79.2 fL (80.0-100.0); Mean Platelet Volume 9.9 fL (9.4-12.3); Platelet Count 424 K/uL (130-400); RDW Coefficient of Variation 16.2 % (11.5-14.5); RDW Standard Deviation 46.6 fL (36.4-46.3); Red Blood Count 3.55 M/uL (3.93-5.22); White Blood Count 7.45 K/ul (4.8-10.8)
[2022-05-19 07:13] LABS: Alanine Aminotransferase 28 U/L (7-52); Albumin Globulin Ratio 0.7 (0.9-2); Albumin Level 2.5 gm/dl (3.4-5.0); Alkaline Phosphatase 78 U/L (34-104); Anion Gap 10 (3-11); Aspartate Aminotransferase 30 U/L (13-39); BUN Creatinine Ratio 7.1 (10-20); Bilirubin,Total 0.3 mg/dl (0.2-1.0); Blood Urea Nitrogen 11 mg/dl (6-23); Calcium 7.7 mg/dl (8.5-10.1); Carbon Dioxide 24 mmol/L (21-32); Chloride 106 mmol/L (98-107); Creatinine Clr Calc Pharmacy 47.9 ml/min; Est GFR (African American) 44.2 ml/min; Est GFR (Non-African American) 38.1 ml/min; Globulin 3.4 gm/dl (2.5-4.0); Glucose 96 mg/dl (70-99(Fasting)); Iron < 10 mcg/dl (35-150); Magnesium 1.6 mg/dl (1.7-2.4); Potassium 3.9 mmol/L (3.5-5.1); Sodium 140 mmol/L (136-145); Total Protein 5.9 gm/dl (6.0-8.3); Transferrin 152 mg/dl (200-360)
[2022-05-19 07:20] LABS: Ferritin 110.4 ng/ml (8-388)
[2022-05-19 07:23] LABS: Folate (Folic Acid) 18.65 ng/ml (>5.38)
[2022-05-19 07:30] LABS: Basophils # (auto) 0.04 K/uL (0-0.2); Basophils % (auto) 0.5 %; Echinocytes 1+; Eosinophils # (auto) 0.54 K/uL (0-0.50); Eosinophils % (auto) 7.2 %; Immature Granulocytes # (auto) 0.05 K/uL (0.00-0.02); Immature Granulocytes % (auto) 0.7 %; Lymphocytes # (auto) 0.68 K/uL (1.2-3.4); Lymphocytes % (auto) 9.1 %; Monocytes # (auto) 0.56 K/uL (0.24-0.82); Monocytes % (auto) 7.5 %; Neutrophils # (auto) 5.58 K/uL (1.4-6.5)
[2022-05-19] MEDS: NSS + 20MEQ KCL 20 MEQ/1,000 ML BAG IV SCH (07:34)
--- NOTE | 2022-05-19 08:13 | Gastrointestinal Consultation ---
Date of Consultation May 19, 2022 Assessment & Plan (1) Salmonella infection: (2) Colitis: (3) Reactive arthritis: This is a 51 y/o female with 2.5 month h/o (bloody) diarrhea; history of Salmonella infection (Tx w/ Cipro and repeat stool studies neg) and recent colonoscopy w/ inflammatory changes seen in the left colon/sigmoid/rectum and bx w/ mild chronic active colitis. Now admitted w/ SERAFIN, having ongoing diarrhea and now with eye redness, arthralgias and papular skin rash on the extremities. Of note, ESR elevated > 100 and CRP 23; has chronic anemia as well. On exam she has conjunctival injection; abd soft, nontender. Unclear etiology for her presentation though diff dx includes IBD (? new-onset extraintestinal manifestations), reactive arthritis/conjunctivitis given recent infection vs other; leaning more toward IBD. - Multiple labs pending including Lyme, FIONA, blood cx - Monitor and document stool output - Recommend starting IV SoluMedrol 20 mg TID today; re-evaluate tomorrow and probably send home on a tapering course w/ outpt GI follow-up thereafter to reassess and adjust medications - Low residue diet Thank you for allowing us to participate in the care of this patient. Please call with any acute changes, questions or concerns. Please see addendum below with additional recommendation from my supervising physician. Supervising Physician Co-Signing Physician Notes I saw and evaluated the patient. We were consulted for evaluation of persistent hematochezia. The patient has a history of Salmonella infection but has had persistent symptoms despite a recent therapy. The patient did recently have repeat stool cultures which were negative. A colonoscopy was performed by my partner several weeks ago notable for left-sided colitis. Reports having hematochezia and running to the bathroom at least 15 up to 20 times per day. Physical examination Swelling of the upper extremities and lower extremities noted Mild epigastric tenderness noted Impression: Patient presenting with a somewhat complicated picture given the recent Salmonella infection. As the patient was culture negative and has persistent symptoms I wonder if she may have underlying ulcerative colitis. Would recommend initiation of steroid therapy and will reassess her symptoms over the next few days for improvement. History of Present Illness Reason for Consultation: salmonella , persistent bloody diarrhea Requesting Physician: Ria Thomas PA-C Attending Physician: Aleks Patel MD History of Present Illness This is a 51-year-old female with PMHx COVID-PNA, TIA currently on aspirin therapy, GERD, chronic anemia who presents to ED for persistent bloody diarrhea x 2-1/2 months. Stool culture in April positive for Salmonella, tx w/ Cipro x 3 days but diarrhea persisted. Having 10-20 BMs a day along with 20 lb weight loss. She was seen in ED at the end of April. At that time she did have CT abdomen pelvis which showed findings consistent with proctocolitis most pronounced in the descending colon and sigmoid colon. She had a colonoscopy on 05/04 which showed friable inflamed mucosa with spontaneous bleeding in the descending/sigmoid colon and rectum; bx w/ mild chronic active colitis. Repeat stool culture and C diff testing neg. Was sent to the ER as OP labs showed SERAFIN w/ creatinine of 2. On arrival she was afebrile. Lab work notable for anemia of 9.7, ESR 118, CRP 23, sodium 133, K3.2, SERAFIN w/ creatinine 1.89, calcium 8.4, AST 45, SARS-CoV-2 negative. Has developed bilateral conjunctival redness and upper and lower extremity arthralgias, ? Tony syndrome; ophtho consult pending. She also has a few small red bumps on her knees and hands. Further work-up includes Lyme, Anaplasma, hepatitis, chlamydia, gonorrhea, RPR, blood cultures pending. She continues to have diarrhea which is intermittently bloody. Can have 10-20 BMs per day. Stool can be small or med volume but persists through nonfasting states; keeps her up at night. + Urgency. Stool can be brown; can be mucosy. No melena or fatty stools. Has occasional LLQ pressure preceding BMs. No fam Hx UC, Crohn's. No recent change in meds. Colonoscopy 05/06/22: - The examined colon appeared normal. - Friable (with spontaneous bleeding), granular, hemorrhagic and inflamed mucosa was found in the descending, sigmoid, and rectum. Biopsied. - The examination was otherwise normal on direct and retroflexion views. A. Colon, descending, biopsies: Mild chronic active colitis No dysplasia is seen B. Colon, sigmoid, biopsies: Mild chronic active colitis No dysplasia is seen C. Colon, rectum, biopsies: Mild chronic active colitis No dysplasia is seen CTAP 2020: No acute process identified within the abdomen or pelvis. Fat within the bowel wall of the ascending and proximal transverse colon. This is a nonspecific finding that has been described as having increased incidence in the setting of inflammatory bowel disease, as well as, obesity. No findings to suggest acute bowel pathology. EUS 2020; There was no sign of significant pathology in the ampulla. - There was no sign of significant pathology in the common bile duct. - There was no sign of significant pathology in the gallbladder. - There was no evidence of significant pathology in the visualized portion of the liver. - There was no sign of significant pathology in the entire pancreas. - Endosonographic images of the left adrenal gland were unremarkable. Colonoscopy 2020:The examined colon appeared normal. Biopsied. - The examination was otherwise normal on direct and retroflexion views. EGD 2020: Normal esophagus. - Z-line regular. - Normal stomach. Biopsied. - Normal duodenal bulb and second portion of the duodenum. Biopsied EGD 2019:Normal esophagus. Biopsied. - Normal stomach. Biopsied. - Normal duodenal bulb and second portion of the duodenum. Biopsied. Colonoscopy 2018:The examined colon appeared normal. A 4 mm polyp was found in the sigmoid colon. The polyp was sessile abd was removed with a cold biopsy forceps. Resection and retrieval were complete. Scattered small-mouthed diverticula were found in the sigmoid colon. Internal hemorrhoids were found during retroflexion. Allergies Allergy/AdvReac Type Severity Reaction Status Date / Time No Known Allergies Allergy Verified 10/26/20 22:21 Home Medications Medication Instructions Recorded Confirmed Type atorvastatin 40 mg tablet 40 mg PO QAM 11/05/18 05/18/22 History omeprazole 40 mg capsule,delayed 40 mg PO QAM 11/05/18 05/18/22 History release meloxicam 15 mg tablet 15 mg PO DAILY PRN 07/17/20 05/18/22 History mometasone-formoterol HFA 200 2 puff INHALATION BID 07/17/20 05/18/22 History mcg-5 mcg/actuation aerosol inhaler (Dulera) albuterol sulfate 90 mcg/actuation 2 puff INHALATION QID PRN 10/26/20 05/18/22 History aerosol inhaler aspirin 81 mg chewable tablet 81 mg PO DAILY 05/18/22 05/18/22 History cholecalciferol (vitamin D3) 25 25 mcg PO DAILY 05/18/22 05/18/22 History mcg (1,000 unit) tablet dicyclomine 10 mg capsule 10 mg PO QID PRN 05/18/22 05/18/22 History Patient History Medical History GERD (gastroesophageal reflux disease) Well controlled and stable Hyperlipidemia SOB (shortness of breath) on exertion Chronic issue since pt has CVA in 2017 Transient ischemic attack (TIA) 2017-PLACED ON PLAVIX-NO ISSUES SINCE Surgical History H/O foot surgery LEFT GREAT TOE SX X 2 History of bilateral tubal ligation History of colonoscopy History of endometrial ablation History of esophagogastroduodenoscopy (EGD) Family History Mother Family history of diabetes mellitus Social History Smoking Status: Never smoker Second Hand Exposure: Yes (ON OCC); Hx Alcohol Use: Yes Alcohol type: beer Hx Substance Use: No Preferred Language: Ukrainian Communication Ability: Effective 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 Beliefs That Will Affect Care: None Current Living Situation: Other Current Living Situation Comment: fiance Feels Safe at Home: Yes Assistive Devices: None Review of Systems Review of Systems: All systems reviewed & are unremarkable except as noted in HPI & below Physical Exam Constitutional: WD/WN, vitals as above Eyes: + conjunctival injection bilaterally ENMT: external ear and nose normal, oropharynx normal Respiratory: normal respiratory effort, lungs clear to auscultation Cardiovascular: RRR, no murmur, no edema Gastrointestinal (Abdomen): normal bowel sounds, soft, nontender, no hepatosplenomegaly Skin: a few small erythematous papular lesions to the knees, hands Psychiatric: A+Ox3, euthymic affect Results & Data ([facility]) Vital Signs (Past 12 Hours) Vital Signs Temp Pulse Pulse Resp BP Pulse Ox Pulse Ox 05/19/22 07:59 37.3 C 86 18 113/74 94 05/19/22 04:35 37.0 C 86 16 118/81 94 05/18/22 22:43 37.3 C 93 H 20 145/83 H 94 05/18/22 22:17 87 05/18/22 22:02 88 05/18/22 21:52 37.3 C 93 H 20 145/83 H 94 94 05/18/22 21:00 37.1 C 90 18 130/85 92 Laboratory Results 05/19/22 05/19/22 05/19/22 Range/Units 06:29 06:29 06:29 WBC 7.45 (4.8-10.8) K/ul RBC 3.55 L (3.93-5.22) M/uL Hgb 8.9 L (12.0-16.0) g/dl Hct 28.1 L (34.1-44.9) % MCV 79.2 L (80.0-100.0) fL MCH 25.1 (25.0-34.0) pg MCHC 31.7 L (32.0-36.0) g/dL RDW Std Deviation 46.6 H (36.4-46.3) fL RDW Coeff of Iveth 16.2 H (11.5-14.5) % Plt Count 424 H (130-400) K/uL MPV 9.9 (9.4-12.3) fL Immature Gran % (Auto) 0.7 % Neut % (Auto) 75.0 % Lymph % (Auto) 9.1 % [place] % (Auto) 7.5 % Eos % (Auto) 7.2 % Baso % (Auto) 0.5 % Neut # (Auto) 5.58 (1.4-6.5) K/uL Lymph # (Auto) 0.68 L (1.2-3.4) K/uL [place] # (Auto) 0.56 (0.24-0.82) K/uL Eos # (Auto) 0.54 H (0-0.50) K/uL Baso # (Auto) 0.04 (0-0.2) K/uL Immature Gran # (Auto) 0.05 H (0.00-0.02) K/uL Tear Drop Cells Echinocytes 1+ ESR (0-30) mm/hr Sodium 140 (136-145) mmol/L Potassium 3.9 D (3.5-5.1) mmol/L Chloride 106 (98-107) mmol/L Carbon Dioxide 24 (21-32) mmol/L Anion Gap 10 (3-11) BUN 11 (6-23) mg/dl Creatinine 1.54 H D (0.6-1.2) mg/dl Est Cr Clr Drug Dosing 47.9 ml/min Est GFR ( Amer) 44.2 ml/min Est GFR (Non-Af Amer) 38.1 ml/min BUN/Creatinine Ratio 7.1 L (10-20) Glucose 96 (70-99(Fasting)) mg/dl Calcium 7.7 L (8.5-10.1) mg/dl Magnesium 1.6 L (1.7-2.4) mg/dl Iron < 10 L (35-150) mcg/dl Transferrin 152 L (200-360) mg/dl Ferritin 110.4 (8-388) ng/ml Total Bilirubin 0.3 (0.2-1.0) mg/dl AST 30 (13-39) U/L ALT 28 (7-52) U/L Alkaline Phosphatase 78 (34-104) U/L C-Reactive Protein (0-0.5) mg/dl Total Protein 5.9 L (6.0-8.3) gm/dl Albumin 2.5 L (3.4-5.0) gm/dl Globulin 3.4 (2.5-4.0) gm/dl Albumin/Globulin Ratio 0.7 L (0.9-2) Vitamin B12 456 (180-914) pg/ml Folate 18.65 (>5.38) ng/ml TSH (0.300-4.500) uIu/ml Urine Color Urine Appearance (Clear) Urine pH (4.5-7.5) Ur Specific [place] (1.000-1.030) Urine Protein (Negative) Urine Glucose (UA) (Negative) Urine Ketones (Negative) Urine Blood (Negative) Urine Nitrite (Negative) Urine Bilirubin (Negative) Urine Urobilinogen (Negative) Ur Leukocyte Esterase (Negative) Urine WBC (Auto) (0-5) /hpf Urine RBC (Auto) (0-4) /hpf U Hyaline Cast (Auto) (0-5) /lpf U Epithel Cells (Auto) (0-5) /lpf Urine Bacteria (Auto) (Negative) Ur Renal Epithelial Cell Rheumatoid Factor FIONA Screen RPR (Nonreactive) Lyme Disease IgG Ab (Negative) Lyme Disease IgM Ab (Negative) C.trachomatis RNA Hepatitis A IgM Ab Hep Bs Antigen Hep Bs Ag Confirmation Hep B Core IgM Ab Hepatitis C Ab (EIA) Hep C Ab Signal/Cutoff N.gonorrhoeae RNA SARS-CoV-2, RNA, NAAT (NEGATIVE) Anti-Streptolysin O Ab 05/18/22 05/18/22 05/18/22 Range/Units Unknown 17:38 17:38 WBC (4.8-10.8) K/ul RBC (3.93-5.22) M/uL Hgb (12.0-16.0) g/dl Hct (34.1-44.9) % MCV (80.0-100.0) fL MCH (25.0-34.0) pg MCHC (32.0-36.0) g/dL RDW Std Deviation (36.4-46.3) fL RDW Coeff of Iveth (11.5-14.5) % Plt Count (130-400) K/uL MPV (9.4-12.3) fL Immature Gran % (Auto) % Neut % (Auto) % Lymph % (Auto) % [place] % (Auto) % Eos % (Auto) % Baso % (Auto) % Neut # (Auto) (1.4-6.5) K/uL Lymph # (Auto) (1.2-3.4) K/uL [place] # (Auto) (0.24-0.82) K/uL Eos # (Auto) (0-0.50) K/uL Baso # (Auto) (0-0.2) K/uL Immature Gran # (Auto) (0.00-0.02) K/uL Tear Drop Cells Echinocytes ESR (0-30) mm/hr Sodium (136-145) mmol/L Potassium (3.5-5.1) mmol/L Chloride (98-107) mmol/L Carbon Dioxide (21-32) mmol/L Anion Gap (3-11) BUN (6-23) mg/dl Creatinine (0.6-1.2) mg/dl Est Cr Clr Drug Dosing ml/min Est GFR ( Amer) ml/min Est GFR (Non-Af Amer) ml/min BUN/Creatinine Ratio (10-20) Glucose (70-99(Fasting)) mg/dl Calcium (8.5-10.1) mg/dl Magnesium (1.7-2.4) mg/dl Iron (35-150) mcg/dl Transferrin (200-360) mg/dl Ferritin (8-388) ng/ml Total Bilirubin (0.2-1.0) mg/dl AST (13-39) U/L ALT (7-52) U/L Alkaline Phosphatase (34-104) U/L C-Reactive Protein (0-0.5) mg/dl Total Protein (6.0-8.3) gm/dl Albumin (3.4-5.0) gm/dl Globulin (2.5-4.0) gm/dl Albumin/Globulin Ratio (0.9-2) Vitamin B12 (180-914) pg/ml Folate (>5.38) ng/ml TSH (0.300-4.500) uIu/ml Urine Color Yellow Urine Appearance Clear (Clear) Urine pH 5.5 (4.5-7.5) Ur Specific [place] 1.010 (1.000-1.030) Urine Protein 1+ H (Negative) Urine Glucose (UA) Negative (Negative) Urine Ketones Negative (Negative) Urine Blood Trace H (Negative) Urine Nitrite Negative (Negative) Urine Bilirubin Negative (Negative) Urine Urobilinogen Negative (Negative) Ur Leukocyte Esterase 1+ H (Negative) Urine WBC (Auto) 10-30 H (0-5) /hpf Urine RBC (Auto) 0-4 (0-4) /hpf U Hyaline Cast (Auto) 1-5 (0-5) /lpf U Epithel Cells (Auto) >30 H (0-5) /lpf Urine Bacteria (Auto) Negative (Negative) Ur Renal Epithelial Cell Not Reportable Rheumatoid Factor FIONA Screen RPR (Nonreactive) Lyme Disease IgG Ab (Negative) Lyme Disease IgM Ab (Negative) C.trachomatis RNA Pending Hepatitis A IgM Ab Hep Bs Antigen Hep Bs Ag Confirmation Hep B Core IgM Ab Hepatitis C Ab (EIA) Hep C Ab Signal/Cutoff N.gonorrhoeae RNA Pending SARS-CoV-2, RNA, NAAT NEGATIVE (NEGATIVE) Anti-Streptolysin O Ab 05/18/22 05/18/2222 Range/Units 16:56 16:56 16:56 WBC (4.8-10.8) K/ul RBC (3.93-5.22) M/uL Hgb (12.0-16.0) g/dl Hct (34.1-44.9) % MCV (80.0-100.0) fL MCH (25.0-34.0) pg MCHC (32.0-36.0) g/dL RDW Std Deviation (36.4-46.3) fL RDW Coeff of Iveth (11.5-14.5) % Plt Count (130-400) K/uL MPV (9.4-12.3) fL Immature Gran % (Auto) % Neut % (Auto) % Lymph % (Auto) % [place] % (Auto) % Eos % (Auto) % Baso % (Auto) % Neut # (Auto) (1.4-6.5) K/uL Lymph # (Auto) (1.2-3.4) K/uL [place] # (Auto) (0.24-0.82) K/uL Eos # (Auto) (0-0.50) K/uL Baso # (Auto) (0-0.2) K/uL Immature Gran # (Auto) (0.00-0.02) K/uL Tear Drop Cells Echinocytes ESR 118 H (0-30) mm/hr Sodium 133 L (136-145) mmol/L Potassium 3.2 L (3.5-5.1) mmol/L Chloride 95 L (98-107) mmol/L Carbon Dioxide 29 (21-32) mmol/L Anion Gap 9 (3-11) BUN 14 (6-23) mg/dl Creatinine 1.89 H (0.6-1.2) mg/dl Est Cr Clr Drug Dosing 38.5 ml/min Est GFR ( Amer) 34.5 ml/min Est GFR (Non-Af Amer) 29.8 ml/min BUN/Creatinine Ratio 7.4 L (10-20) Glucose 104 H (70-99(Fasting)) mg/dl Calcium 8.4 L (8.5-10.1) mg/dl Magnesium (1.7-2.4) mg/dl Iron (35-150) mcg/dl Transferrin (200-360) mg/dl Ferritin (8-388) ng/ml Total Bilirubin 0.4 (0.2-1.0) mg/dl AST 45 H (13-39) U/L ALT 37 (7-52) U/L Alkaline Phosphatase 92 (34-104) U/L C-Reactive Protein 23.63 H (0-0.5) mg/dl Total Protein 7.2 (6.0-8.3) gm/dl Albumin 3.0 L (3.4-5.0) gm/dl Globulin 4.2 H (2.5-4.0) gm/dl Albumin/Globulin Ratio 0.7 L (0.9-2) Vitamin B12 (180-914) pg/ml Folate (>5.38) ng/ml TSH (0.300-4.500) uIu/ml Urine Color Urine Appearance (Clear) Urine pH (4.5-7.5) Ur Specific [place] (1.000-1.030) Urine Protein (Negative) Urine Glucose (UA) (Negative) Urine Ketones (Negative) Urine Blood (Negative) Urine Nitrite (Negative) Urine Bilirubin (Negative) Urine Urobilinogen (Negative) Ur Leukocyte Esterase (Negative) Urine WBC (Auto) (0-5) /hpf Urine RBC (Auto) (0-4) /hpf U Hyaline Cast (Auto) (0-5) /lpf U Epithel Cells (Auto) (0-5) /lpf Urine Bacteria (Auto) (Negative) Ur Renal Epithelial Cell Rheumatoid Factor FIONA Screen RPR (Nonreactive) Lyme Disease IgG Ab (Negative) Lyme Disease IgM Ab (Negative) C.trachomatis RNA Hepatitis A IgM Ab Hep Bs Antigen Hep Bs Ag Confirmation Hep B Core IgM Ab Hepatitis C Ab (EIA) Hep C Ab Signal/Cutoff N.gonorrhoeae RNA SARS-CoV-2, RNA, NAAT (NEGATIVE) Anti-Streptolysin O Ab 05/18/22 05/18/22 05/18/22 Range/Units 16:56 16:54 16:54 WBC 9.61 (4.8-10.8) K/ul RBC 3.85 L (3.93-5.22) M/uL Hgb 9.7 L (12.0-16.0) g/dl Hct 30.0 L (34.1-44.9) % MCV 77.9 L (80.0-100.0) fL MCH 25.2 (25.0-34.0) pg MCHC 32.3 (32.0-36.0) g/dL RDW Std Deviation 45.9 (36.4-46.3) fL RDW Coeff of Iveth 16.3 H (11.5-14.5) % Plt Count 471 H (130-400) K/uL MPV 9.8 (9.4-12.3) fL Immature Gran % (Auto) 0.6 % Neut % (Auto) 75.4 % Lymph % (Auto) 10.3 % [place] % (Auto) 5.8 % Eos % (Auto) 7.3 % Baso % (Auto) 0.6 % Neut # (Auto) 7.24 H (1.4-6.5) K/uL Lymph # (Auto) 0.99 L (1.2-3.4) K/uL [place] # (Auto) 0.56 (0.24-0.82) K/uL Eos # (Auto) 0.70 H (0-0.50) K/uL Baso # (Auto) 0.06 (0-0.2) K/uL Immature Gran # (Auto) 0.06 H (0.00-0.02) K/uL Tear Drop Cells 1+ Echinocytes ESR (0-30) mm/hr Sodium (136-145) mmol/L Potassium (3.5-5.1) mmol/L Chloride (98-107) mmol/L Carbon Dioxide (21-32) mmol/L Anion Gap (3-11) BUN (6-23) mg/dl Creatinine (0.6-1.2) mg/dl Est Cr Clr Drug Dosing ml/min Est GFR ( Amer) ml/min Est GFR (Non-Af Amer) ml/min BUN/Creatinine Ratio (10-20) Glucose (70-99(Fasting)) mg/dl Calcium (8.5-10.1) mg/dl Magnesium (1.7-2.4) mg/dl Iron (35-150) mcg/dl Transferrin (200-360) mg/dl Ferritin (8-388) ng/ml Total Bilirubin (0.2-1.0) mg/dl AST (13-39) U/L ALT (7-52) U/L Alkaline Phosphatase (34-104) U/L C-Reactive Protein (0-0.5) mg/dl Total Protein (6.0-8.3) gm/dl Albumin (3.4-5.0) gm/dl Globulin (2.5-4.0) gm/dl Albumin/Globulin Ratio (0.9-2) Vitamin B12 (180-914) pg/ml Folate (>5.38) ng/ml TSH 3.953 (0.300-4.500) uIu/ml Urine Color Urine Appearance (Clear) Urine pH (4.5-7.5) Ur Specific [place] (1.000-1.030) Urine Protein (Negative) Urine Glucose (UA) (Negative) Urine Ketones (Negative) Urine Blood (Negative) Urine Nitrite (Negative) Urine Bilirubin (Negative) Urine Urobilinogen (Negative) Ur Leukocyte Esterase (Negative) Urine WBC (Auto) (0-5) /hpf Urine RBC (Auto) (0-4) /hpf U Hyaline Cast (Auto) (0-5) /lpf U Epithel Cells (Auto) (0-5) /lpf Urine Bacteria (Auto) (Negative) Ur Renal Epithelial Cell Rheumatoid Factor FIONA Screen RPR Nonreactive (Nonreactive) Lyme Disease IgG Ab Negative (Negative) Lyme Disease IgM Ab Negative (Negative) C.trachomatis RNA Hepatitis A IgM Ab Hep Bs Antigen Hep Bs Ag Confirmation Hep B Core IgM Ab Hepatitis C Ab (EIA) Hep C Ab Signal/Cutoff N.gonorrhoeae RNA SARS-CoV-2, RNA, NAAT (NEGATIVE) Anti-Streptolysin O Ab 05/18/22 Range/Units 16:54 WBC (4.8-10.8) K/ul RBC (3.93-5.22) M/uL Hgb (12.0-16.0) g/dl Hct (34.1-44.9) % MCV (80.0-100.0) fL MCH (25.0-34.0) pg MCHC (32.0-36.0) g/dL RDW Std Deviation (36.4-46.3) fL RDW Coeff of Iveth (11.5-14.5) % Plt Count (130-400) K/uL MPV (9.4-12.3) fL Immature Gran % (Auto) % Neut % (Auto) % Lymph % (Auto) % [place] % (Auto) % Eos % (Auto) % Baso % (Auto) % Neut # (Auto) (1.4-6.5) K/uL Lymph # (Auto) (1.2-3.4) K/uL [place] # (Auto) (0.24-0.82) K/uL Eos # (Auto) (0-0.50) K/uL Baso # (Auto) (0-0.2) K/uL Immature Gran # (Auto) (0.00-0.02) K/uL Tear Drop Cells Echinocytes ESR (0-30) mm/hr Sodium (136-145) mmol/L Potassium (3.5-5.1) mmol/L Chloride (98-107) mmol/L Carbon Dioxide (21-32) mmol/L Anion Gap (3-11) BUN (6-23) mg/dl Creatinine (0.6-1.2) mg/dl Est Cr Clr Drug Dosing ml/min Est GFR ( Amer) ml/min Est GFR (Non-Af Amer) ml/min BUN/Creatinine Ratio (10-20) Glucose (70-99(Fasting)) mg/dl Calcium (8.5-10.1) mg/dl Magnesium (1.7-2.4) mg/dl Iron (35-150) mcg/dl Transferrin (200-360) mg/dl Ferritin (8-388) ng/ml Total Bilirubin (0.2-1.0) mg/dl AST (13-39) U/L ALT (7-52) U/L Alkaline Phosphatase (34-104) U/L C-Reactive Protein (0-0.5) mg/dl Total Protein (6.0-8.3) gm/dl Albumin (3.4-5.0) gm/dl Globulin (2.5-4.0) gm/dl Albumin/Globulin Ratio (0.9-2) Vitamin B12 (180-914) pg/ml Folate (>5.38) ng/ml TSH (0.300-4.500) uIu/ml Urine Color Urine Appearance (Clear) Urine pH (4.5-7.5) Ur Specific [place] (1.000-1.030) Urine Protein (Negative) Urine Glucose (UA) (Negative) Urine Ketones (Negative) Urine Blood (Negative) Urine Nitrite (Negative) Urine Bilirubin (Negative) Urine Urobilinogen (Negative) Ur Leukocyte Esterase (Negative) Urine WBC (Auto) (0-5) /hpf Urine RBC (Auto) (0-4) /hpf U Hyaline Cast (Auto) (0-5) /lpf U Epithel Cells (Auto) (0-5) /lpf Urine Bacteria (Auto) (Negative) Ur Renal Epithelial Cell Rheumatoid Factor Pending FIONA Screen Pending RPR (Nonreactive) Lyme Disease IgG Ab (Negative) Lyme Disease IgM Ab (Negative) C.trachomatis RNA Hepatitis A IgM Ab Pending Hep Bs Antigen Pending Hep Bs Ag Confirmation Pending Hep B Core IgM Ab Pending Hepatitis C Ab (EIA) Pending Hep C Ab Signal/Cutoff Pending N.gonorrhoeae RNA SARS-CoV-2, RNA, NAAT (NEGATIVE) Anti-Streptolysin O Ab Pending
[2022-05-19] MEDS: DICYCLOMINE HCL 10 MG CAP PO PRN (08:42)
[2022-05-19] MEDS: PANTOprazole 40 MG TAB PO SCH (08:43)
[2022-05-19] MEDS: ATORVASTATIN 40 MG TAB PO SCH (08:43)
[2022-05-19] MEDS: ASPIRIN 81 MG ECTAB PO SCH (08:43)
[2022-05-19] MEDS: FLUTICASONE/VILANTEROL 200/25MCG 14 PUFFS/INHALER INH SCH (08:43)
[2022-05-19] MEDS: CHOLECALCIFEROL 1,000 UNITS 25 MCG TAB PO SCH (08:43)
[2022-05-19] MEDS: ARTIFICIAL TEARS OP SCH ×2 (14:05→21:09)
--- NOTE | 2022-05-19 14:18 | Hospitalist Progress Note ---
Date of Service May 19, 2022 Assessment & Plan (1) IBD (inflammatory bowel disease): (2) Colitis: (3) Reactive arthritis: (4) Salmonella enteritis: (5) Hypokalemia: (6) SERAFIN (acute kidney injury): (7) Anemia: Plan: This is a 51-year-old female with h/o COVID-pneumonia, TIA, GERD, anemia, recent salmonella infection in April s/p ciprox3 days with negative repeat stool studies presented to the ED 05/18 for persistent bloody diarrhea x2-1/2 months. She had OP colonoscopy 05/06 which showed inflammatory changes in left colon/sigmoid/rectum with mild chronic active colitis. She had recent CT A/P 05/09 which showed findings consistent with a proctocolitis, most pronounced within the descending colon and sigmoid colon. ? IBD/?reactive arthritis with h/o recent salmonella infection - Continues to have bloody diarrhea for 2.5 months. S/p ciprox3 days for salmonella infection in April- repeat stool studies negative - OP colonoscopy 05/04 with inflammatory changes in left colon/sigmoid/rectum with mild chronic active colitis - On presentation, afebrile, normal WBC but has elevated ESR >100, CRP 23 along with arthralgias and conjunctivitis concern for IBD with extraintestinal manifestation vs Reactive arthritis vs others - Seen by GI- recommendations noted- plan for iv solumedrol tid to see response along with steroid taper at discharged and OP GI follow up - low residue diet - f/u on remaining labs - Ophthalmology eval pending Hypokalemia- resolved with repletion Hypomagnesemia- repleted, recheck in am SERAFIN- suspected prerenal in setting of continued GI loss - Cr 1.89->1.5, continue IVF, recheck in am Hx of TIA- On ASA Anemia- Hb 8.9, relatively stable, likely from ongoing acute illness and intermittent rectal bleeding. B12, folate normal. Iron studies inconclusive, probable anemia of chronic inflammation, possible some iron deficiency. Will monitor. DVT ppx: SCDS Dispo- Medsurg. Started on iv solumedrol for suspected IBD, await improvement. Admission and Anticipated Discharge Date Admission Date: May 18, 2022 Subjective Continues to have multiple loose BMs- 11 since admission- intermittently bloody. No fever, chills, nausea, vomiting. No eye pain, photophobia, blurry vision, diplopia. Has multiple joint pains and some papular skin rash in hand and LE. Physical Exam Physical Exam: General: Sitting comfortably in bed, not in acute distress, on room air HEENT: EOMI, SARIKA, MMM. Bilateral conjunctival injections laterally, no discharge, no diplopia. Chest: Clear breath sounds bilaterally, no wheezes or crackles CVS: Regular rate and rhythm, normal heart sounds, no murmur Abdomen: Soft, non tender, not distended, normal bowel sounds Neuro: Awake, alert, oriented, conversing well, non focal Extremities: No cyanosis, clubbing or edema Skin: few papular skin rash in hand, thigh MSK: Multiple joint pains (wrist, knee, elbows etc)- no erythema or effusion Results & Data Results & Data ([facility]) Vital Signs (Past 12 Hours) Vital Signs Temp Pulse Pulse Resp BP Pulse Ox 05/19/22 11:28 36.8 C 78 20 111/75 96 05/19/22 08:58 95 H 05/19/22 07:59 37.3 C 86 18 113/74 94 05/19/22 04:35 37.0 C 86 16 118/81 94 Laboratory Results Short CBC 05/18/22 05/19/22 Range/Units 16:56 06:29 WBC 9.61 7.45 (4.8-10.8) K/ul Hgb 9.7 L 8.9 L (12.0-16.0) g/dl Hct 30.0 L 28.1 L (34.1-44.9) % Plt Count 471 H 424 H (130-400) K/uL BMP 05/18/22 05/19/22 16:56 06:29 Sodium 133 L 140 Potassium 3.2 L 3.9 D Chloride 95 L 106 Carbon Dioxide 29 24 BUN 14 11 Creatinine 1.89 H 1.54 H D Glucose 104 H 96 Calcium 8.4 L 7.7 L Liver Function 05/18/22 05/19/22 Range/Units 16:56 06:29 Total Bilirubin 0.4 0.3 (0.2-1.0) mg/dl AST 45 H 30 (13-39) U/L ALT 37 28 (7-52) U/L Alkaline Phosphatase 92 78 (34-104) U/L Albumin 3.0 L 2.5 L (3.4-5.0) gm/dl Urine 05/18/22 Range/Units 17:38 Urine Color Yellow Urine Appearance Clear (Clear) Urine pH 5.5 (4.5-7.5) Ur Specific Ponce 1.010 (1.000-1.030) Urine Protein 1+ H (Negative) Urine Glucose (UA) Negative (Negative) Medications Administered Current Inpatient Medications Acetaminophen (Acetaminophen 325 Mg Tab) 650 mg PO Q4H PRN PRN Reason: Pain or Fever Stop: 06/17/22 21:51 Al Hydrox/Mg Hydrox/Simethicone (Aluminum/Magnesium Susp 30 Ml Udc) 15 ml PO Q4H PRN PRN Reason: Dyspepsia Stop: 06/17/22 21:51 Albuterol (Albuterol Hfa 8 Gm Inhaler) 2 puffs INH QID PRN PRN Reason: Shortness Of Breath Or Wheezin Stop: 06/17/22 21:51 Artificial Tears (Artificial Tears) 2 drops OP TID [facility]VIN Stop: 06/18/22 13:59 Aspirin (Aspirin 81 Mg Ectab) 81 mg PO DAILY [facility] Stop: 06/18/22 08:59 Last Admin: 05/19/22 08:43 Dose: 81 mg Documented by: Atorvastatin Calcium (Atorvastatin 40 Mg Tab) 40 mg PO QAM [facility] Stop: 06/18/22 08:59 Last Admin: 05/19/22 08:43 Dose: 40 mg Documented by: Dicyclomine HCl (Dicyclomine Hcl 10 Mg Cap) 10 mg PO QID PRN PRN Reason: abd pain Stop: 06/17/22 21:51 Last Admin: 05/19/22 08:42 Dose: 10 mg Documented by: Fluticasone/Vilanterol (Fluticasone/Vilanterol 200/25mcg 14 Puffs/Inhaler) 1 puffs INH DAILY [facility] Stop: 06/18/22 08:59 Last Admin: 05/19/22 08:43 Dose: 1 puffs Documented by: Potassium Chloride/Sodium Chloride (Normal Saline W/20 Meq Kcl) 20 meq in 1,000 mls @ 100 mls/hr IV .Q10H [facility]VIN; Protocol Stop: 06/17/22 21:59 Last Admin: 05/19/22 07:34 Dose: 100 mls/hr Documented by: Methylprednisolone 20 mg/ (Syringe) 0.32 mls @ 1.5 mls/min IV TID [facility] Stop: 06/18/22 13:59 Ondansetron HCl (Ondansetron Inj 2 Mg/Ml 2 Ml Vial) 4 mg IV Q6H PRN PRN Reason: Nausea Stop: 06/17/22 21:51 Pantoprazole Sodium (Pantoprazole 40 Mg Tab) 40 mg PO QAM [facility] Stop: 06/18/22 08:59 Last Admin: 05/19/22 08:43 Dose: 40 mg Documented by: Vitamin D (Cholecalciferol 1,000 Units 25 Mcg Tab) 1,000 units PO DAILY [facility] Stop: 06/18/22 08:59 Last Admin: 05/19/22 08:43 Dose: 1,000 units Documented by: (1) Anemia Anemia type: unspecified type Qualified Code(s): D64.9 - Anemia, unspecified
[2022-05-19] MEDS: methylPREDNISolone 20 MG in SYRINGE 0 ML IV SCH ×2 (14:26→22:31)
[2022-05-19] MEDS: SODIUM CHLORIDE 0.9% 1000ML 1,000 ML IV SCH (14:26)
--- NOTE | 2022-05-19 21:45 | Consultation Report ---
OPHTHALMOLOGY CONSULTATION NOTE DATE OF SERVICE: 05/19/2022. CHIEF COMPLAINT AND HISTORY OF PRESENT ILLNESS: This is a 51-year-old female who was admitted to [facility] for bloody diarrhea that has been persistent over the past 2-1/2 months. S he did have a positive stool culture for Salmonella in mid April and has been on treatment, but her sy mptoms have been persistent. She has a medical history of TIA, GERD and anemia. She reports that ab out 2 weeks ago, she began to have redness on the whites of her eyes. There is no pain or light sens itivity, but she feels like her vision may have been more blurry since the redness started. Her visi on in general has seemed blurry recently and she is overdue for an eye exam. She reports that she maloney s had similar episodes of redness in the past, but has attributed them to other factors such as cough ing or sneezing or bearing down with Valsalva. She denies any associated headaches or significant lo ss of vision. She was given prescription bifocals years ago, but does not wear them. She only uses reading glasses. She does not use any eye drops regularly. The primary hospital team is concerned f or the possibility for reactive arthritis and they have consulted ophthalmology to look for the possi bility of uveitis. PAST MEDICAL HISTORY: TIA, hyperlipidemia, GERD, anemia. PAST SURGICAL HISTORY: Tubal ligation, endometrial ablation, colonoscopy. MEDICATIONS: Please see med list. ALLERGIES: No known drug allergies. FAMILY HISTORY: She does report that 2 of her brothers are blind, but does not know what the reason is for their blindness. SOCIAL HISTORY: She lives with her fiance. PHYSICAL EXAMINATION: Her visual acuity without correction is 20/60 in the right eye and 20/40 in th e left eye. Her eye pressures in the right are 18 and in the left are 15. Her pupils are both 4 mm and react down to 3 mm with no afferent pupillary defect noted. Her confrontational visual will ar e full in both eyes and her extraocular movements are full in both eyes. Her slit-lamp exam for the right eye shows lids, lashes, and lacrimal glands within normal limits. Her conjunctiva and sclera s how nasal and temporal injection of the bulbar conjunctiva, which is mild. Her cornea looks clear. Her anterior chamber is deep and quiet with no AC cell. Her iris is normal. Her lens shows 1+ nucle ar sclerosis. For her left eye, the lids, lashes, and lacrimal glands appear within normal limits. T he conjunctiva and sclera show nasal and temporal bulbar conjunctival injection, which is mild. The cornea is clear. The anterior chamber is deep and quiet with no AC cell. The iris is normal and the lens shows 1+ nuclear sclerosis. Her dilated exam on the right side shows a cup-to-disc ratio of 0. 35. The macula, vessels, and peripheral retina are within normal limits. The dilated exam on the le ft shows a cup-to-disc ratio of 0.35 and the macula, vessels, and peripheral retina are all within no rmal limits. ASSESSMENT AND PLAN: This is a 51-year-old female with a 2-week history of conjunctival injection bi laterally. 1. Conjunctivitis/episcleritis, both eyes. This does not seem infectious. It is mostly nasal and t emporal in the interpalpebral region and there is no associated watering or discharge. This could be inflammatory given her recent gastrointestinal inflammation and concerns from her primary team and g astrointestinal team, but there is no uveitis noted in either eye anteriorly or posteriorly. We disc ussed that redness on the white of the eye could also be due to ocular surface dryness, which could n ot be assessed very well in this inpatient environment. It looks like she has already been ordered a rtificial tears to be used in the hospital and I agree that it is fine to use them 3-4 times a day an d more if needed. If this is indeed inflammatory in nature, then her treatment with IV Solu-Medrol w ill help treat her eye condition as well. I recommend that we reassess her eyes as an outpatient upo n discharge. 2. Nuclear cataracts. These are mild in both eyes. They do not seem like they are visually signifi cant, but we will need to check a formal refraction as an outpatient to see if there is any effect on her vision from the cataracts. Thank you for this consult. Job ID: [id number]
[2022-05-20] MEDS: SODIUM CHLORIDE 0.9% 1000ML 1,000 ML IV SCH ×3 (04:02→22:37)
[2022-05-20 06:09] LABS: Hematocrit (blood only) 26.1 % (34.1-44.9); Hemoglobin 8.1 g/dl (12.0-16.0); Mean Corpuscular Hemoglobin 24.9 pg (25.0-34.0); Mean Corpuscular Volume 80.3 fL (80.0-100.0); Mean Platelet Volume 9.5 fL (9.4-12.3); Platelet Count 370 K/uL (130-400); RDW Coefficient of Variation 16.3 % (11.5-14.5); Red Blood Count 3.25 M/uL (3.93-5.22); White Blood Count 4.82 K/ul (4.8-10.8)
[2022-05-20 06:39] LABS: Albumin Globulin Ratio 0.8 (0.9-2); Albumin Level 2.5 gm/dl (3.4-5.0); BUN Creatinine Ratio 9.7 (10-20); Bilirubin,Total 0.2 mg/dl (0.2-1.0); C Reactive Protein 17.88 mg/dl (0-0.5); Calcium 7.6 mg/dl (8.5-10.1); Creatinine Clr Calc Pharmacy 51.2 ml/min; Est GFR (African American) 47.9 ml/min; Est GFR (Non-African American) 41.4 ml/min; Globulin 3.3 gm/dl (2.5-4.0); Magnesium 1.5 mg/dl (1.7-2.4); Phosphorus 3.2 mg/dl (2.5-4.9); Potassium 3.9 mmol/L (3.5-5.1); Total Protein 5.8 gm/dl (6.0-8.3)
[2022-05-20 06:55] LABS: Basophils # (auto) 0.01 K/uL (0-0.2); Basophils % (auto) 0.2 %; Immature Granulocytes # (auto) 0.04 K/uL (0.00-0.02); Immature Granulocytes % (auto) 0.8 %; Lymphocytes # (auto) 0.38 K/uL (1.2-3.4); Lymphocytes % (auto) 7.9 %; Monocytes % (auto) 4.1 %; Neutrophils # (auto) 4.19 K/uL (1.4-6.5)
[2022-05-20] MEDS: MAGNESIUM SULFATE / D5W 1 GM/100 ML BAG IV SCH ×2 (08:10→10:46)
[2022-05-20] MEDS: ASPIRIN 81 MG ECTAB PO SCH (08:12)
[2022-05-20] MEDS: CHOLECALCIFEROL 1,000 UNITS 25 MCG TAB PO SCH (08:12)
[2022-05-20] MEDS: ATORVASTATIN 40 MG TAB PO SCH (08:12)
[2022-05-20] MEDS: FLUTICASONE/VILANTEROL 200/25MCG 14 PUFFS/INHALER INH SCH (08:12)
[2022-05-20] MEDS: ARTIFICIAL TEARS OP SCH ×3 (08:13→20:00)
[2022-05-20] MEDS: PANTOprazole 40 MG TAB PO SCH (08:13)
[2022-05-20] MEDS: methylPREDNISolone 20 MG in SYRINGE 0 ML IV SCH ×3 (08:13→20:00)
--- NOTE | 2022-05-20 09:58 | Gastroenterology Progress Note ---
Date of Service May 20, 2022 Assessment & Plan (1) Salmonella infection: (2) Colitis: (3) Reactive arthritis: Plan: This is a 51 y/o female with 2.5 month h/o (bloody) diarrhea; history of Salmonella infection (Tx w/ Cipro and repeat stool studies neg and symptoms persist) and recent colonoscopy w/ inflammatory changes seen in the left colon/sigmoid/rectum and bx w/ mild chronic active colitis. Now admitted w/ SERAFIN, ongoing diarrhea and hematochezia, along with eye redness/arthralgias/papular skin rash and elevated ESR/CRP, suggesting inflammatory component. She has chronic anemia as well; HGB 8 today. Overnight her eyes and joints seem improved though diarrhea continues. Abd soft, nontender. Given her presentation we wonder about IBD such as UC. - Multiple labs pending including Lyme, FIONA, blood cx - Monitor and document stool output - Trend H&H, transfuse PRN - Continue IV SoluMedrol 20 mg TID. Pending improvement and when ready for discharge, would recommend sending home on a tapering course of PO steroids (perhaps prednisone starting at 60 mg daily), w/ outpt GI follow-up thereafter to reassess and adjust medications as needed - Notified nurse team about her left hand swelling - Low residue diet Thank you for allowing us to participate in the care of this patient. Please call with any acute changes, questions or concerns. Please see addendum below with additional recommendation from my supervising physician. Admission and Anticipated Discharge Date Admission Date: May 18, 2022 Supervising Physician Co-Signing Physician Notes I saw and evaluated the patient. She notes that she continues to have medication diarrhea however her I changes in joint pains are improved today. Would recommend continued use of Solu-Medrol, should the patient be discharged over the weekend with then recommend outpatient use of prednisone 40 mg daily for 2 weeks, 30 mg daily for 1 week, 20 mg daily for 1 week, 10 mg daily for 1 week then 5 mg daily. The patient will need to follow with her regular GI provider Dr. Piña for further recommendations with regard to her new diagnosis of inflammatory bowel disease. Subjective Patient seen and examined, chart reviewed. Continues to have loose BMs overnight and this AM; intermittent blood, LLQ abd cramping prior to BMs. Tolerating low-residue diet. No nausea, vomiting, hematemesis, melena, fever, chills, CP, SOB. Was seen by construction stonemason and given eye drops; eye redness is better today; ankle pain is better; has dorsal left hand swelling. Review of Systems Review of Systems: All systems reviewed & are unremarkable except as noted in HPI & below Physical Exam Constitutional: WD/WN, vitals as above Eyes: eyes with much less injection today ENMT: external ear and nose normal, oropharynx normal Respiratory: normal respiratory effort, lungs clear to auscultation Cardiovascular: RRR, no murmur, no edema Gastrointestinal (Abdomen): normal bowel sounds, soft, nontender, no hepatosplenomegaly Musculoskeletal: left dorsal hand with mild edema; soft, no erythema, warmth, rash Skin: improved skin rash to the knees (had a few small erythematous papular lesions; resolving today) Psychiatric: A+Ox3, euthymic affect Results & Data ([facility]) Vital Signs (Past 12 Hours) Vital Signs Temp Pulse Pulse Pulse Resp BP Pulse Ox 05/20/22 07:52 36.4 C L 73 16 133/86 98 05/20/22 07:38 36.5 C 60 18 122/82 94 05/20/22 04:00 36.4 C L 57 L 18 119/79 95 05/19/22 23:00 36.5 C 65 18 115/77 94 05/19/22 22:45 60 Laboratory Results 05/20/22 05/20/22 05/20/22 Range/Units 05:52 05:52 05:52 WBC 4.82 (4.8-10.8) K/ul RBC 3.25 L (3.93-5.22) M/uL Hgb 8.1 L (12.0-16.0) g/dl Hct 26.1 L (34.1-44.9) % MCV 80.3 (80.0-100.0) fL MCH 24.9 L (25.0-34.0) pg MCHC 31.0 L (32.0-36.0) g/dL RDW Std Deviation 48.0 H (36.4-46.3) fL RDW Coeff of Iveth 16.3 H (11.5-14.5) % Plt Count 370 (130-400) K/uL MPV 9.5 (9.4-12.3) fL Immature Gran % (Auto) 0.8 % Neut % (Auto) 87.0 % Lymph % (Auto) 7.9 % Lamar % (Auto) 4.1 % Eos % (Auto) 0.0 % Baso % (Auto) 0.2 % Neut # (Auto) 4.19 (1.4-6.5) K/uL Lymph # (Auto) 0.38 L (1.2-3.4) K/uL Lamar # (Auto) 0.20 L (0.24-0.82) K/uL Eos # (Auto) 0.00 (0-0.50) K/uL Baso # (Auto) 0.01 (0-0.2) K/uL Immature Gran # (Auto) 0.04 H (0.00-0.02) K/uL ESR 87 H (0-30) mm/hr Sodium 137 (136-145) mmol/L Potassium 3.9 (3.5-5.1) mmol/L Chloride 107 (98-107) mmol/L Carbon Dioxide 23 (21-32) mmol/L Anion Gap 7 (3-11) BUN 14 (6-23) mg/dl Creatinine 1.44 H (0.6-1.2) mg/dl Est Cr Clr Drug Dosing 51.2 ml/min Est GFR ( Amer) 47.9 ml/min Est GFR (Non-Af Amer) 41.4 ml/min BUN/Creatinine Ratio 9.7 L (10-20) Glucose 141 H (70-99(Fasting)) mg/dl Calcium 7.6 L (8.5-10.1) mg/dl Phosphorus 3.2 (2.5-4.9) mg/dl Magnesium 1.5 L (1.7-2.4) mg/dl Total Bilirubin 0.2 (0.2-1.0) mg/dl AST 26 (13-39) U/L ALT 27 (7-52) U/L Alkaline Phosphatase 70 (34-104) U/L C-Reactive Protein 17.88 H (0-0.5) mg/dl Total Protein 5.8 L (6.0-8.3) gm/dl Albumin 2.5 L (3.4-5.0) gm/dl Globulin 3.3 (2.5-4.0) gm/dl Albumin/Globulin Ratio 0.8 L (0.9-2)
[2022-05-20 11:12] LABS: Chlamydia Trach RNA NOT DETECTED (NOT DETECTED); GC (Neis gonorrhoeae) RNA NOT DETECTED (NOT DETECTED)
[2022-05-20 13:12] LABS: Anti Nuclear Antibody Screen NEGATIVE (NEGATIVE); HBSAG NON-REACTIVE (NON-REACTIVE); Hepatitis A Antibody IgM NON-REACTIVE (NON-REACTIVE); Hepatitis B Core Antibody IgM NON-REACTIVE (NON-REACTIVE); Rheumatoid Factor <14 IU/mL (<14)
--- NOTE | 2022-05-20 13:47 | Hospitalist Progress Note ---
Date of Service May 20, 2022 Assessment & Plan (1) IBD (inflammatory bowel disease): (2) Colitis: (3) Reactive arthritis: (4) Salmonella enteritis: (5) Hypokalemia: (6) SERAFIN (acute kidney injury): (7) Anemia: Plan: This is a 51-year-old female with h/o COVID-pneumonia, TIA, GERD, anemia, recent salmonella infection in April s/p ciprox3 days with negative repeat stool studies presented to the ED 05/18 for persistent bloody diarrhea x2-1/2 months. She had OP colonoscopy 05/06 which showed inflammatory changes in left colon/sigmoid/rectum with mild chronic active colitis. She had recent CT A/P 05/09 which showed findings consistent with a proctocolitis, most pronounced within the descending colon and sigmoid colon. ? IBD/?reactive arthritis with h/o recent salmonella infection - Continues to have bloody diarrhea for 2.5 months. S/p ciprox3 days for salmonella infection in April- repeat stool studies negative - OP colonoscopy 05/04 with inflammatory changes in left colon/sigmoid/rectum with mild chronic active colitis - On presentation, afebrile, normal WBC but has elevated ESR >100, CRP 23 along with arthralgias and conjunctivitis concern for IBD with extraintestinal manifestation vs Reactive arthritis vs others - Seen by GI- recommendations noted- Continue iv solumedrol 20 mg tid (started 05/19)- change to prendisone taper at discharge. ESR, CRP already improving. OP f/u with GI - low residue diet - f/u on remaining labs - Seen by Ophthalmology- no uveitis- OP follow up Hypokalemia- resolved with repletion Hypomagnesemia- repleted, recheck in am SERAFIN- suspected prerenal in setting of continued GI loss - Cr 1.89->1.5->1.4, continue IVF, recheck in am Hx of TIA- On ASA Anemia- Hb 9.7->8.9->8.1, relatively stable, likely from ongoing acute illness and intermittent rectal bleeding. B12, folate normal. Iron studies inconclusive, probable anemia of chronic inflammation, possible some iron deficiency. Will monitor. DVT ppx: SCDS. Will consider sc heparin if hemoglobin and rectal bleeding remains stable. On PPI for GI prophylaxis Dispo- Medsurg. Started on iv solumedrol for suspected IBD, await improvement. Admission and Anticipated Discharge Date Admission Date: May 18, 2022 Subjective Feels about the same, only slightly improved. Still having lots of bloody BMs, about 8 so far. Still has some abd pain. No N/V, fever, chills, shortness of breath. She is concerned about her left hand swelling- recommended elevating her LLE and using ice pack. Tolerating oral intake without issues. Physical Exam 2 Physical Exam: General: Sitting comfortably in bed, not in acute distress, on room air HEENT: EOMI, SARIKA, MMM. Bilateral conjunctival redness improved. Chest: Clear breath sounds bilaterally, no wheezes or crackles CVS: Regular rate and rhythm, normal heart sounds, no murmur Abdomen: Soft, non tender, not distended, normal bowel sounds Neuro: Awake, alert, oriented, conversing well, non focal Extremities: No cyanosis, clubbing or edema Skin: few papular skin rash in fingers, thigh MSK: Multiple arthralgias (wrist, knee, elbows etc)- no erythema or effusion Results & Data Results & Data ([facility]) Vital Signs (Past 12 Hours) Vital Signs Temp Pulse Pulse Resp BP Pulse Ox 05/20/22 11:11 36.6 C 62 18 114/76 96 05/20/22 07:52 36.4 C L 73 16 133/86 98 05/20/22 07:38 36.5 C 60 18 122/82 94 05/20/22 04:00 36.4 C L 57 L 18 119/79 95 Laboratory Results Short CBC 05/20/22 Range/Units 05:52 WBC 4.82 (4.8-10.8) K/ul Hgb 8.1 L (12.0-16.0) g/dl Hct 26.1 L (34.1-44.9) % Plt Count 370 (130-400) K/uL BMP 05/20/22 05:52 Sodium 137 Potassium 3.9 Chloride 107 Carbon Dioxide 23 BUN 14 Creatinine 1.44 H Glucose 141 H Calcium 7.6 L Liver Function 05/20/22 Range/Units 05:52 Total Bilirubin 0.2 (0.2-1.0) mg/dl AST 26 (13-39) U/L ALT 27 (7-52) U/L Alkaline Phosphatase 70 (34-104) U/L Albumin 2.5 L (3.4-5.0) gm/dl Medications Administered Current Inpatient Medications Acetaminophen (Acetaminophen 325 Mg Tab) 650 mg PO Q4H PRN PRN Reason: Pain or Fever Stop: 06/17/22 21:51 Al Hydrox/Mg Hydrox/Simethicone (Aluminum/Magnesium Susp 30 Ml Udc) 15 ml PO Q4H PRN PRN Reason: Dyspepsia Stop: 06/17/22 21:51 Albuterol (Albuterol Hfa 8 Gm Inhaler) 2 puffs INH QID PRN PRN Reason: Shortness Of Breath Or Wheezin Stop: 06/17/22 21:51 Artificial Tears (Artificial Tears) 2 drops OP TID [facility] Stop: 06/18/22 13:59 Last Admin: 05/20/22 08:13 Dose: 2 drops Documented by: Aspirin (Aspirin 81 Mg Ectab) 81 mg PO DAILY [facility] Stop: 06/18/22 08:59 Last Admin: 05/20/22 08:12 Dose: 81 mg Documented by: Atorvastatin Calcium (Atorvastatin 40 Mg Tab) 40 mg PO QAM [facility] Stop: 06/18/22 08:59 Last Admin: 05/20/22 08:12 Dose: 40 mg Documented by: Dicyclomine HCl (Dicyclomine Hcl 10 Mg Cap) 10 mg PO QID PRN PRN Reason: abd pain Stop: 06/17/22 21:51 Last Admin: 05/19/22 08:42 Dose: 10 mg Documented by: Fluticasone/Vilanterol (Fluticasone/Vilanterol 200/25mcg 14 Puffs/Inhaler) 1 puffs INH DAILY [facility] Stop: 06/18/22 08:59 Last Admin: 05/20/22 08:12 Dose: 1 puffs Documented by: Methylprednisolone 20 mg/ (Syringe) 0.32 mls @ 1.5 mls/min IV TID [facility] Stop: 06/18/22 13:59 Last Admin: 05/20/22 08:13 Dose: 1.5 mls/min Documented by: Sodium Chloride (Nss 1000ml) 1,000 mls @ 125 mls/hr IV .Q8H [facility] Stop: 06/18/22 14:29 Last Infusion: 05/20/22 09:05 Dose: 125 mls/hr Documented by: Ondansetron HCl (Ondansetron Inj 2 Mg/Ml 2 Ml Vial) 4 mg IV Q6H PRN PRN Reason: Nausea Stop: 06/17/22 21:51 Pantoprazole Sodium (Pantoprazole 40 Mg Tab) 40 mg PO QAM [facility] Stop: 06/18/22 08:59 Last Admin: 05/20/22 08:13 Dose: 40 mg Documented by: Vitamin D (Cholecalciferol 1,000 Units 25 Mcg Tab) 1,000 units PO DAILY [facility] Stop: 06/18/22 08:59 Last Admin: 05/20/22 08:12 Dose: 1,000 units Documented by: (1) Anemia Anemia type: unspecified type Qualified Code(s): D64.9 - Anemia, unspecified
[2022-05-20] MEDS ORDERED: Nursing to Pharmacy Communication SCH (15:45)
[2022-05-21] MEDS: SODIUM CHLORIDE 0.9% 1000ML 1,000 ML IV SCH ×3 (06:18→22:05)
[2022-05-21 07:12] LABS: Hematocrit (blood only) 26.7 % (34.1-44.9); Hemoglobin 8.3 g/dl (12.0-16.0); Mean Corpuscular Hemoglobin 25.1 pg (25.0-34.0); Mean Corpuscular Hgb Conc 31.1 g/dL (32.0-36.0); Mean Corpuscular Volume 80.7 fL (80.0-100.0); Mean Platelet Volume 9.8 fL (9.4-12.3); Platelet Count 463 K/uL (130-400); RDW Coefficient of Variation 16.4 % (11.5-14.5); RDW Standard Deviation 48.6 fL (36.4-46.3); Red Blood Count 3.31 M/uL (3.93-5.22); White Blood Count 7.21 K/ul (4.8-10.8)
[2022-05-21 07:31] LABS: C Reactive Protein 7.03 mg/dl (0-0.5); Magnesium 1.7 mg/dl (1.7-2.4)
[2022-05-21 07:39] LABS: Albumin Globulin Ratio 0.7 (0.9-2); Albumin Level 2.6 gm/dl (3.4-5.0); BUN Creatinine Ratio 13.2 (10-20); Bilirubin,Total 0.2 mg/dl (0.2-1.0); Calcium 7.6 mg/dl (8.5-10.1); Creatinine Clr Calc Pharmacy 64.7 ml/min; Est GFR (African American) 63.6 ml/min; Est GFR (Non-African American) 54.9 ml/min; Globulin 3.5 gm/dl (2.5-4.0); Potassium 3.7 mmol/L (3.5-5.1); Total Protein 6.1 gm/dl (6.0-8.3)
[2022-05-21] MEDS: DICYCLOMINE HCL 10 MG CAP PO PRN (08:27)
[2022-05-21] MEDS: ASPIRIN 81 MG ECTAB PO SCH (08:27)
[2022-05-21] MEDS: PANTOprazole 40 MG TAB PO SCH (08:28)
[2022-05-21] MEDS: methylPREDNISolone 20 MG in SYRINGE 0 ML IV SCH ×3 (08:28→20:45)
[2022-05-21] MEDS: ATORVASTATIN 40 MG TAB PO SCH (08:28)
[2022-05-21] MEDS: CHOLECALCIFEROL 1,000 UNITS 25 MCG TAB PO SCH (08:28)
[2022-05-21] MEDS: FLUTICASONE/VILANTEROL 200/25MCG 14 PUFFS/INHALER INH SCH (08:29)
[2022-05-21] MEDS: ARTIFICIAL TEARS OP SCH ×3 (08:29→20:45)
[2022-05-21 11:54] LABS: Appearance Urine Clear (Clear); Bilirubin Urine Negative (Negative); Blood Urine Negative (Negative); Color Urine Yellow; Glucose Urine UA Negative (Negative); Ketones Urine Negative (Negative); Leukocyte Esterase Urine Negative (Negative); Nitrite Urine Negative (Negative); Protein Urine Negative (Negative); Specific Gravity Urine 1.007 (1.000-1.030); Urobilinogen Urine Negative (Negative); pH Urine 5.5 (4.5-7.5)
[2022-05-21] MEDS: LOPERAMIDE HCL 2 MG CAP PO PRN (13:49)
--- NOTE | 2022-05-21 15:30 | Hospitalist Progress Note ---
Date of Service May 21, 2022 Assessment & Plan (1) IBD (inflammatory bowel disease): (2) Colitis: (3) Reactive arthritis: (4) Salmonella enteritis: (5) Hypokalemia: (6) SERAFIN (acute kidney injury): (7) Anemia: Plan: This is a 51-year-old female with h/o COVID-pneumonia, TIA, GERD, anemia, recent salmonella infection in April s/p ciprox3 days with negative repeat stool studies presented to the ED 05/18 for persistent bloody diarrhea x2-1/2 months. She had OP colonoscopy 05/06 which showed inflammatory changes in left colon/sigmoid/rectum with mild chronic active colitis. She had recent CT A/P 05/09 which showed findings consistent with a proctocolitis, most pronounced within the descending colon and sigmoid colon. ? IBD/?reactive arthritis with h/o recent salmonella infection - Continues to have bloody diarrhea for 2.5 months. S/p ciprox3 days for salmonella infection in April- repeat stool studies negative - OP colonoscopy 05/04 with inflammatory changes in left colon/sigmoid/rectum with mild chronic active colitis - On presentation, afebrile, normal WBC but has elevated ESR >100, CRP 23 along with arthralgias and conjunctivitis concern for IBD with extraintestinal manifestation vs Reactive arthritis vs others - Seen by GI- recommendations noted- Continue iv solumedrol 20 mg tid (started 05/19)- change to prednisone taper at discharge. ESR, CRP already improving (ESR 118->87->79) and (CRP 23->17->7). OP f/u with GI - Patient does not feel improved- had more BMs- discussed with GI- okay with imodium as C diff negative. Bowel rest for now. - f/u on remaining labs - Seen by Ophthalmology- no uveitis- OP follow up Hypokalemia- resolved with repletion Hypomagnesemia- resolved with repletion SERAFIN- suspected prerenal in setting of continued GI loss - Cr 1.89->1.5->1.4->1.1, continue IVF, recheck in am Hx of TIA- On ASA Anemia- Hb 9.7->8.9->8.1->8.3, relatively stable, likely from ongoing acute illness and intermittent rectal bleeding. B12, folate normal. Iron studies inconclusive, probable anemia of chronic inflammation, possible some iron deficiency. Will monitor. DVT ppx: SCDS. sc heparin On PPI for GI prophylaxis Dispo- Medsurg. Started on iv solumedrol for suspected IBD, await improvement. Admission and Anticipated Discharge Date Admission Date: May 18, 2022 Subjective She does not feel good as she has had 20+ BM overnight. She is disappointed that she is not improving. Has some abd pain with bowel movement. Had night sweat but no fever. No CP or shortness of breath. Physical Exam Physical Exam: General: Lying in bed, not in acute distress, on room air HEENT: EOMI, SARIKA, MMM. Bilateral conjunctival redness improved. Chest: Clear breath sounds bilaterally, no wheezes or crackles CVS: Regular rate and rhythm, normal heart sounds, no murmur Abdomen: Soft, mild LLQ tenderness, not distended, normal bowel sounds Neuro: Awake, alert, oriented, conversing well, non focal Extremities: No cyanosis, clubbing or edema Skin: few papular skin rash in fingers, thigh MSK: Multiple arthralgias (wrist, knee, elbows etc)- no erythema or effusion Results & Data Results & Data ([facility]) Vital Signs (Past 12 Hours) Vital Signs Temp Pulse Pulse Resp BP Pulse Ox 05/21/22 15:10 36.8 C 58 L 18 121/78 94 05/21/22 12:11 36.5 C 53 L 18 131/84 95 05/21/22 09:28 67 05/21/22 04:00 36.5 C 57 L 20 123/80 94 Laboratory Results Short CBC 05/21/22 Range/Units 06:48 WBC 7.21 (4.8-10.8) K/ul Hgb 8.3 L (12.0-16.0) g/dl Hct 26.7 L (34.1-44.9) % Plt Count 463 H (130-400) K/uL BMP 05/21/22 06:48 Sodium 138 Potassium 3.7 Chloride 107 Carbon Dioxide 24 BUN 15 Creatinine 1.14 D Glucose 125 H Calcium 7.6 L Liver Function 05/21/22 Range/Units 06:48 Total Bilirubin 0.2 (0.2-1.0) mg/dl AST 49 H (13-39) U/L ALT 47 (7-52) U/L Alkaline Phosphatase 74 (34-104) U/L Albumin 2.6 L (3.4-5.0) gm/dl Urine 05/21/22 Range/Units Unknown Urine Color Yellow Urine Appearance Clear (Clear) Urine pH 5.5 (4.5-7.5) Ur Specific [place] 1.007 (1.000-1.030) Urine Protein Negative (Negative) Urine Glucose (UA) Negative (Negative) Medications Administered Current Inpatient Medications Acetaminophen (Acetaminophen 325 Mg Tab) 650 mg PO Q4H PRN PRN Reason: Pain or Fever Stop: 06/17/22 21:51 Al Hydrox/Mg Hydrox/Simethicone (Aluminum/Magnesium Susp 30 Ml Udc) 15 ml PO Q4H PRN PRN Reason: Dyspepsia Stop: 06/17/22 21:51 Albuterol (Albuterol Hfa 8 Gm Inhaler) 2 puffs INH QID PRN PRN Reason: Shortness Of Breath Or Wheezin Stop: 06/17/22 21:51 Artificial Tears (Artificial Tears) 2 drops OP TID [facility]VIN Stop: 06/18/22 13:59 Last Admin: 05/21/22 13:42 Dose: 2 drops Documented by: Aspirin (Aspirin 81 Mg Ectab) 81 mg PO DAILY [facility]VIN Stop: 06/18/22 08:59 Last Admin: 05/21/22 08:27 Dose: 81 mg Documented by: Atorvastatin Calcium (Atorvastatin 40 Mg Tab) 40 mg PO QAM [facility] Stop: 06/18/22 08:59 Last Admin: 05/21/22 08:28 Dose: 40 mg Documented by: Dicyclomine HCl (Dicyclomine Hcl 10 Mg Cap) 10 mg PO QID PRN PRN Reason: abd pain Stop: 06/17/22 21:51 Last Admin: 05/21/22 08:27 Dose: 10 mg Documented by: Fluticasone/Vilanterol (Fluticasone/Vilanterol 200/25mcg 14 Puffs/Inhaler) 1 puffs INH DAILY [facility]VIN Stop: 06/18/22 08:59 Last Admin: 05/21/22 08:29 Dose: 1 puffs Documented by: Methylprednisolone 20 mg/ (Syringe) 0.32 mls @ 1.5 mls/min IV TID ALVIN Stop: 06/18/22 13:59 Last Admin: 05/21/22 13:42 Dose: 1.5 mls/min Documented by: Sodium Chloride (Nss 1000ml) 1,000 mls @ 125 mls/hr IV .Q8H ALVIN Stop: 06/18/22 14:29 Last Admin: 05/21/22 13:42 Dose: 125 mls/hr Documented by: Loperamide HCl (Loperamide Hcl 2 Mg Cap) 2 mg PO QID PRN PRN Reason: Diarrhea Stop: 06/20/22 13:10 Last Admin: 05/21/22 13:49 Dose: 2 mg Documented by: Ondansetron HCl (Ondansetron Inj 2 Mg/Ml 2 Ml Vial) 4 mg IV Q6H PRN PRN Reason: Nausea Stop: 06/17/22 21:51 Pantoprazole Sodium (Pantoprazole 40 Mg Tab) 40 mg PO QAM COUNT INCLUDES THE [facility] Stop: 06/18/22 08:59 Last Admin: 05/21/22 08:28 Dose: 40 mg Documented by: Vitamin D (Cholecalciferol 1,000 Units 25 Mcg Tab) 1,000 units PO DAILY COUNT INCLUDES THE [facility] Stop: 06/18/22 08:59 Last Admin: 05/21/22 08:28 Dose: 1,000 units Documented by: (1) Anemia Anemia type: unspecified type Qualified Code(s): D64.9 - Anemia, unspecified
[2022-05-21] MEDS: HEPARIN SOD 5,000 UNIT/0.5 ML VIAL SQ SCH (20:49)
[2022-05-22] MEDS: SODIUM CHLORIDE 0.9% 1000ML 1,000 ML IV SCH (05:33)
[2022-05-22 06:05] LABS: Hematocrit (blood only) 24.2 % (34.1-44.9); Hemoglobin 7.6 g/dl (12.0-16.0); Mean Corpuscular Hemoglobin 25.3 pg (25.0-34.0); Mean Corpuscular Hgb Conc 31.4 g/dL (32.0-36.0); Mean Corpuscular Volume 80.7 fL (80.0-100.0); Mean Platelet Volume 9.9 fL (9.4-12.3); Platelet Count 401 K/uL (130-400); RDW Coefficient of Variation 16.6 % (11.5-14.5); RDW Standard Deviation 49.1 fL (36.4-46.3); White Blood Count 5.48 K/ul (4.8-10.8)
[2022-05-22 06:26] LABS: BUN Creatinine Ratio 14.3 (10-20); Calcium 7.2 mg/dl (8.5-10.1); Creatinine Clr Calc Pharmacy 75.2 ml/min; Est GFR (African American) 76.3 ml/min; Est GFR (Non-African American) 65.9 ml/min; Magnesium 1.4 mg/dl (1.7-2.4); Phosphorus 3.8 mg/dl (2.5-4.9); Potassium 3.6 mmol/L (3.5-5.1)
[2022-05-22] MEDS: MAGNESIUM SULFATE / D5W 1 GM/100 ML BAG IV SCH ×2 (08:35→10:39)
[2022-05-22] MEDS: ARTIFICIAL TEARS OP SCH ×3 (08:36→20:03)
[2022-05-22] MEDS: ASPIRIN 81 MG ECTAB PO SCH (08:36)
[2022-05-22] MEDS: ATORVASTATIN 40 MG TAB PO SCH (08:36)
[2022-05-22] MEDS: FLUTICASONE/VILANTEROL 200/25MCG 14 PUFFS/INHALER INH SCH (08:37)
[2022-05-22] MEDS: CHOLECALCIFEROL 1,000 UNITS 25 MCG TAB PO SCH (08:37)
[2022-05-22] MEDS: PANTOprazole 40 MG TAB PO SCH (08:38)
[2022-05-22] MEDS: methylPREDNISolone 20 MG in SYRINGE 0 ML IV SCH ×3 (08:38→20:03)
[2022-05-22] MEDS: LOPERAMIDE HCL 2 MG CAP PO PRN ×2 (10:23→20:03)
[2022-05-22] MEDS: DICYCLOMINE HCL 10 MG CAP PO PRN ×2 (10:57→20:03)
--- NOTE | 2022-05-22 11:15 | Hospitalist Progress Note ---
Date of Service May 22, 2022 Assessment & Plan (1) IBD (inflammatory bowel disease): (2) Colitis: (3) Reactive arthritis: (4) Salmonella enteritis: (5) Hypokalemia: (6) SERAFIN (acute kidney injury): (7) Anemia: Plan: This is a 51-year-old female with h/o COVID-pneumonia, TIA, GERD, anemia, recent salmonella infection in April s/p ciprox3 days with negative repeat stool studies presented to the ED 05/18 for persistent bloody diarrhea x2-1/2 months. She had OP colonoscopy 05/06 which showed inflammatory changes in left colon/sigmoid/rectum with mild chronic active colitis. She had recent CT A/P 05/09 which showed findings consistent with a proctocolitis, most pronounced within the descending colon and sigmoid colon. ? IBD/?reactive arthritis with h/o recent salmonella infection - Continues to have bloody diarrhea for 2.5 months. S/p ciprox3 days for salmonella infection in April- repeat stool studies negative - OP colonoscopy 05/04 with inflammatory changes in left colon/sigmoid/rectum with mild chronic active colitis - On presentation, afebrile, normal WBC but has elevated ESR >100, CRP 23 along with arthralgias and conjunctivitis concern for IBD with extraintestinal manifestation vs Reactive arthritis vs others - Seen by GI- recommendations noted- Continue iv solumedrol 20 mg tid (started 05/19)- change to prednisone taper at discharge. ESR, CRP already improving (ESR 118->87->79) and (CRP 23->17->7). OP f/u with GI - C diff negative. Continue imodium prn. Her clinical improvement is lagging behind her labs improvement. - f/u on remaining labs - Seen by Ophthalmology- no uveitis- OP follow up Hypomagnesemia- due to GI loss. repleted iv. recheck in am SERAFIN- suspected prerenal in setting of continued GI loss. Resolved with ivf. - Cr 1.89->1.5->1.4->1.1->0.9 Hx of TIA- On ASA Anemia- Hb 9.7->8.9->8.1->8.3->7.6, relatively stable, likely from ongoing acute illness and intermittent rectal bleeding. B12, folate normal. Iron studies inconclusive, probable anemia of chronic inflammation, possible some iron deficiency. Will start on oral iron supplementation. DVT ppx: SCDS. sc heparin On PPI for GI prophylaxis Dispo- Medsurg. Started on iv solumedrol for suspected IBD, await clinical improvement. Admission and Anticipated Discharge Date Admission Date: May 18, 2022 Subjective Bowel movement temporarily slowed down yesterday after imodium but worsened again overnight. Still with some abd pain with bowel movements. No fever chills, nausea, vomiting. Left hand swelling improved. no new rash. she feels better other than the multiple frequent bowel movements. Arthralgias improved. Physical Exam Physical Exam: General: Sitting in bed, not in acute distress, on room air HEENT: EOMI, SARIKA, MMM. Bilateral conjunctival redness improved. Chest: Clear breath sounds bilaterally, no wheezes or crackles CVS: Regular rate and rhythm, normal heart sounds, no murmur Abdomen: Soft, mild LLQ tenderness, not distended, normal bowel sounds Neuro: Awake, alert, oriented, conversing well, non focal Extremities: No cyanosis, clubbing or edema Skin: few papular skin rash in fingers, thigh MSK: Multiple arthralgias (wrist, knee, elbows etc)- no erythema or effusion Results & Data Results & Data ([facility]) Vital Signs (Past 12 Hours) Vital Signs Temp Pulse Pulse Resp BP Pulse Ox 05/22/22 08:14 36.5 C 46 L 18 163/95 H 95 05/22/22 06:03 48 L 05/22/22 04:00 36.4 C L 47 L 20 128/65 95 Laboratory Results Short CBC 05/22/22 Range/Units 05:42 WBC 5.48 (4.8-10.8) K/ul Hgb 7.6 L (12.0-16.0) g/dl Hct 24.2 L (34.1-44.9) % Plt Count 401 H (130-400) K/uL BMP 05/22/22 05:42 Sodium 139 Potassium 3.6 Chloride 110 H Carbon Dioxide 24 BUN 14 Creatinine 0.98 Glucose 123 H Calcium 7.2 L Urine 05/21/22 Range/Units Unknown Urine Color Yellow Urine Appearance Clear (Clear) Urine pH 5.5 (4.5-7.5) Ur Specific [place] 1.007 (1.000-1.030) Urine Protein Negative (Negative) Urine Glucose (UA) Negative (Negative) Medications Administered Current Inpatient Medications Acetaminophen (Acetaminophen 325 Mg Tab) 650 mg PO Q4H PRN PRN Reason: Pain or Fever Stop: 06/17/22 21:51 Al Hydrox/Mg Hydrox/Simethicone (Aluminum/Magnesium Susp 30 Ml Udc) 15 ml PO Q4H PRN PRN Reason: Dyspepsia Stop: 06/17/22 21:51 Albuterol (Albuterol Hfa 8 Gm Inhaler) 2 puffs INH QID PRN PRN Reason: Shortness Of Breath Or Wheezin Stop: 06/17/22 21:51 Artificial Tears (Artificial Tears) 2 drops OP TID REPLACED BY [facility] Stop: 06/18/22 13:59 Last Admin: 05/22/22 08:36 Dose: 2 drops Documented by: Aspirin (Aspirin 81 Mg Ectab) 81 mg PO DAILY REPLACED BY [facility] Stop: 06/18/22 08:59 Last Admin: 05/22/22 08:36 Dose: 81 mg Documented by: Atorvastatin Calcium (Atorvastatin 40 Mg Tab) 40 mg PO QAM REPLACED BY [facility] Stop: 06/18/22 08:59 Last Admin: 05/22/22 08:36 Dose: 40 mg Documented by: Dicyclomine HCl (Dicyclomine Hcl 10 Mg Cap) 10 mg PO QID PRN PRN Reason: abd pain Stop: 06/17/22 21:51 Last Admin: 05/22/22 10:57 Dose: 10 mg Documented by: Ferrous Sulfate (Ferrous Sulfate 325 Mg Tab) 325 mg PO QAM REPLACED BY [facility] Stop: 06/21/22 11:14 Fluticasone/Vilanterol (Fluticasone/Vilanterol 200/25mcg 14 Puffs/Inhaler) 1 puffs INH DAILY REPLACED BY [facility] Stop: 06/18/22 08:59 Last Admin: 05/22/22 08:37 Dose: 1 puffs Documented by: Heparin Sodium (Porcine) (Heparin Sod 5,000 Unit/0.5 Ml Vial) 5,000 units SQ Q12 [facility] Stop: 06/20/22 20:59 Last Admin: 05/21/22 20:49 Dose: Not Given Documented by: Methylprednisolone 20 mg/ (Syringe) 0.32 mls @ 1.5 mls/min IV TID REPLACED BY [facility] Stop: 06/18/22 13:59 Last Admin: 05/22/22 08:38 Dose: 1.5 mls/min Documented by: Magnesium Sulfate/Dextrose (Magnesium Sulfate / D5w) 1 gm in 100 mls @ 50 mls/hr IV Q2H [facility] Stop: 05/22/22 11:59 Last Admin: 05/22/22 10:39 Dose: 50 mls/hr Documented by: Loperamide HCl (Loperamide Hcl 2 Mg Cap) 2 mg PO QID PRN PRN Reason: Diarrhea Stop: 06/20/22 13:10 Last Admin: 05/22/22 10:23 Dose: 2 mg Documented by: Ondansetron HCl (Ondansetron Inj 2 Mg/Ml 2 Ml Vial) 4 mg IV Q6H PRN PRN Reason: Nausea Stop: 06/17/22 21:51 Pantoprazole Sodium (Pantoprazole 40 Mg Tab) 40 mg PO QAM [facility] Stop: 06/18/22 08:59 Last Admin: 05/22/22 08:38 Dose: 40 mg Documented by: Vitamin D (Cholecalciferol 1,000 Units 25 Mcg Tab) 1,000 units PO DAILY REPLACED BY [facility] Stop: 06/18/22 08:59 Last Admin: 05/22/22 08:37 Dose: 1,000 units Documented by: (1) Anemia Anemia type: unspecified type Qualified Code(s): D64.9 - Anemia, unspecified
[2022-05-22] MEDS: FERROUS SULFATE 325 MG TAB PO SCH (11:57)
[2022-05-23] MEDS: ONDANSETRON INJ 2 MG/ML 2 ML VIAL IV PRN ×2 (02:34→15:09)
[2022-05-23] MEDS: FLUTICASONE/VILANTEROL 200/25MCG 14 PUFFS/INHALER INH SCH (08:09)
[2022-05-23] MEDS: DICYCLOMINE HCL 10 MG CAP PO PRN ×2 (08:10→20:48)
[2022-05-23] MEDS: ARTIFICIAL TEARS OP SCH ×3 (08:10→20:48)
[2022-05-23] MEDS: methylPREDNISolone 20 MG in SYRINGE 0 ML IV SCH ×3 (08:10→20:47)
[2022-05-23] MEDS: FERROUS SULFATE 325 MG TAB PO SCH (08:11)
[2022-05-23] MEDS: ATORVASTATIN 40 MG TAB PO SCH (08:12)
[2022-05-23] MEDS: ASPIRIN 81 MG ECTAB PO SCH (08:12)
[2022-05-23] MEDS: PANTOprazole 40 MG TAB PO SCH (08:12)
[2022-05-23] MEDS: CHOLECALCIFEROL 1,000 UNITS 25 MCG TAB PO SCH (08:13)
[2022-05-23] MEDS: LOPERAMIDE HCL 2 MG CAP PO PRN ×2 (08:18→20:47)
[2022-05-23 08:21] LABS: Hematocrit (blood only) 25.6 % (34.1-44.9); Hemoglobin 8.1 g/dl (12.0-16.0); Mean Corpuscular Hemoglobin 25.2 pg (25.0-34.0); Mean Corpuscular Hgb Conc 31.6 g/dL (32.0-36.0); Mean Corpuscular Volume 79.8 fL (80.0-100.0); Mean Platelet Volume 9.4 fL (9.4-12.3); Nucleated RBC # (auto) 0.02 K/uL (0-0); Nucleated RBC % (auto) 0.3 %; Platelet Count 416 K/uL (130-400); RDW Coefficient of Variation 16.8 % (11.5-14.5); RDW Standard Deviation 48.3 fL (36.4-46.3); Red Blood Count 3.21 M/uL (3.93-5.22); White Blood Count 6.73 K/ul (4.8-10.8)
[2022-05-23 08:48] LABS: BUN Creatinine Ratio 11.3 (10-20); C Reactive Protein 2.34 mg/dl (0-0.5); Calcium 7.9 mg/dl (8.5-10.1); Creatinine Clr Calc Pharmacy 64.1 ml/min; Est GFR (African American) 62.9 ml/min; Est GFR (Non-African American) 54.3 ml/min; Magnesium 1.6 mg/dl (1.7-2.4); Potassium 3.3 mmol/L (3.5-5.1)
[2022-05-23] MEDS ORDERED: POTASSIUM CHLORIDE CRTAB 20 MEQ TABCR PO ONE (09:20)
[2022-05-23] MEDS: MAGNESIUM SULFATE / D5W 1 GM/100 ML BAG IV SCH ×2 (09:41→11:56)
--- NOTE | 2022-05-23 12:03 | Hospitalist Progress Note ---
Date of Service May 23, 2022 Assessment & Plan (1) IBD (inflammatory bowel disease): (2) Colitis: (3) Reactive arthritis: (4) Salmonella enteritis: (5) Hypokalemia: (6) SERAFIN (acute kidney injury): (7) Anemia: Plan: This is a 51-year-old female with h/o COVID-pneumonia, TIA, GERD, anemia, recent salmonella infection in April s/p ciprox3 days with negative repeat stool studies presented to the ED 05/18 for persistent bloody diarrhea x2-1/2 months. She had OP colonoscopy 05/06 which showed inflammatory changes in left colon/sigmoid/rectum with mild chronic active colitis. She had recent CT A/P 05/09 which showed findings consistent with a proctocolitis, most pronounced within the descending colon and sigmoid colon. ? IBD/?reactive arthritis with h/o recent salmonella infection - Continues to have bloody diarrhea for 2.5 months. S/p ciprox3 days for salmonella infection in April- repeat stool studies negative - OP colonoscopy 05/04 with inflammatory changes in left colon/sigmoid/rectum with mild chronic active colitis - On presentation, afebrile, normal WBC but has elevated ESR >100, CRP 23 along with arthralgias and conjunctivitis concern for IBD with extraintestinal manifestation vs Reactive arthritis vs others - Seen by GI- recommendations noted- Continue iv solumedrol 20 mg tid (started 05/19)- change to prednisone taper at discharge. ESR, CRP already improving (ESR 118->87->79->59) and (CRP 23->17->7->2) but her clinical improvement is lagging behind- will discuss with GI regarding any change in plans. - C diff negative. Continue imodium prn. Further management per GI - Seen by Ophthalmology- no uveitis- OP follow up - FIONA negative, RF negative Hypomagnesemia- due to GI loss. repleted iv. recheck in am Hypokalemia- d/t GI loss. repleted. recheck in am SERAFIN- suspected prerenal in setting of continued GI loss. Resolved with ivf. - Cr 1.89->1.5->1.4->1.1->0.9->1.1 Hx of TIA- On ASA Anemia- Hb 9.7->8.9->8.1->8.3->7.6->8.1, relatively stable, likely from ongoing acute illness and intermittent rectal bleeding. B12, folate normal. Iron studies inconclusive, probable anemia of chronic inflammation, possible some iron deficiency. Started on oral iron supplementation 05/22. DVT ppx: SCDS. sc heparin On PPI for GI prophylaxis Dispo- Medsurg. Started on iv solumedrol for suspected IBD, await clinical improvement. Admission and Anticipated Discharge Date Admission Date: May 18, 2022 Subjective Continues to have multiple bloody BM with abdominal pain, otherwise feels improved. No fever or chills. No new rash. Joint pain improved. Physical Exam Physical Exam: General: Sitting in bed, not in acute distress, on room air HEENT: EOMI, SARIKA, MMM. Bilateral conjunctival redness improved. Chest: Clear breath sounds bilaterally, no wheezes or crackles CVS: Regular rate and rhythm, normal heart sounds, no murmur Abdomen: Soft, mild LLQ tenderness, not distended, normal bowel sounds Neuro: Awake, alert, oriented, conversing well, non focal Extremities: No cyanosis, clubbing or edema Skin: few papular skin improved. no new rash MSK: Multiple arthralgias improved Results & Data Results & Data ([facility]) Vital Signs (Past 12 Hours) Vital Signs Temp Pulse Pulse Pulse Resp BP Pulse Ox 05/23/22 11:00 36.9 C 60 17 110/60 92 05/23/22 07:50 36.7 C 60 16 100/60 92 05/23/22 06:10 46 L 05/23/22 02:39 36.4 C L 45 L 16 152/84 H 96 Laboratory Results Short CBC 05/23/22 Range/Units 07:55 WBC 6.73 (4.8-10.8) K/ul Hgb 8.1 L (12.0-16.0) g/dl Hct 25.6 L (34.1-44.9) % Plt Count 416 H (130-400) K/uL BMP 05/23/22 07:55 Sodium 141 Potassium 3.3 L Chloride 105 Carbon Dioxide 29 BUN 13 Creatinine 1.15 Glucose 89 Calcium 7.9 L Medications Administered Artificial Tears (Artificial Tears) 2 drops OP TID [facility]VIN Stop: 06/18/22 13:59 Last Admin: 05/23/22 08:10 Dose: 2 drops Documented by: [id number] Admin: 05/22/22 20:03 Dose: 2 drops Documented by: [id number] Admin: 05/22/22 13:46 Dose: 2 drops Documented by: [id number] Admin: 05/22/22 08:36 Dose: 2 drops Documented by: [id number] Admin: 05/21/22 20:45 Dose: 2 drops Documented by: [id number] Admin: 05/21/22 13:42 Dose: 2 drops Documented by: [id number] Admin: 05/21/22 08:29 Dose: 2 drops Documented by: [id number] Admin: 05/20/22 20:00 Dose: 2 drops Documented by: [id number] Admin: 05/20/22 15:03 Dose: 2 drops Documented by: [id number] Admin: 05/20/22 08:13 Dose: 2 drops Documented by: [id number] Admin: 05/19/22 21:09 Dose: 2 drops Documented by: [id number] Admin: 05/19/22 14:05 Dose: 2 drops Documented by: [id number] Aspirin (Aspirin 81 Mg Ectab) 81 mg PO DAILY [facility] Stop: 06/18/22 08:59 Last Admin: 05/23/22 08:12 Dose: 81 mg Documented by: [id number] Admin: 05/22/22 08:36 Dose: 81 mg Documented by: [id number] Admin: 05/21/22 08:27 Dose: 81 mg Documented by: [id number] Admin: 05/20/22 08:12 Dose: 81 mg Documented by: [id number] Admin: 05/19/22 08:43 Dose: 81 mg Documented by: [id number] Atorvastatin Calcium (Atorvastatin 40 Mg Tab) 40 mg PO QAM [facility] Stop: 06/18/22 08:59 Last Admin: 05/23/22 08:12 Dose: 40 mg Documented by: [id number] Admin: 05/22/22 08:36 Dose: 40 mg Documented by: [id number] Admin: 05/21/22 08:28 Dose: 40 mg Documented by: [id number] Admin: 05/20/22 08:12 Dose: 40 mg Documented by: [id number] Admin: 05/19/22 08:43 Dose: 40 mg Documented by: [id number] Dicyclomine HCl (Dicyclomine Hcl 10 Mg Cap) 10 mg PO QID PRN PRN Reason: abd pain Stop: 06/17/22 21:51 Last Admin: 05/23/22 08:10 Dose: 10 mg Documented by: [id number] Admin: 05/22/22 20:03 Dose: 10 mg Documented by: [id number] Admin: 05/22/22 10:57 Dose: 10 mg Documented by: [id number] Admin: 05/21/22 08:27 Dose: 10 mg Documented by: [id number] Admin: 05/19/22 08:42 Dose: 10 mg Documented by: [id number] Ferrous Sulfate (Ferrous Sulfate 325 Mg Tab) 325 mg PO QAM [facility] Stop: 06/21/22 11:14 Last Admin: 05/23/22 08:11 Dose: 325 mg Documented by: [id number] Admin: 05/22/22 11:57 Dose: 325 mg Documented by: [id number] Fluticasone/Vilanterol (Fluticasone/Vilanterol 200/25mcg 14 Puffs/Inhaler) 1 puffs INH DAILY [facility] Stop: 06/18/22 08:59 Last Admin: 05/23/22 08:09 Dose: 1 puffs Documented by: [id number] Admin: 05/22/22 08:37 Dose: 1 puffs Documented by: [id number] Admin: 05/21/22 08:29 Dose: 1 puffs Documented by: [id number] Admin: 05/20/22 08:12 Dose: 1 puffs Documented by: [id number] Admin: 05/19/22 08:43 Dose: 1 puffs Documented by: [id number] Heparin Sodium (Porcine) (Heparin Sod 5,000 Unit/0.5 Ml Vial) 5,000 units SQ Q12 [facility] Stop: 06/20/22 20:59 Last Admin: 05/21/22 20:49 Dose: Not Given Documented by: [id number] Methylprednisolone 20 mg/ (Syringe) 0.32 mls @ 1.5 mls/min IV TID [facility] Stop: 06/18/22 13:59 Last Admin: 05/23/22 08:10 Dose: 1.5 mls/min Documented by: [id number] Admin: 05/22/22 20:03 Dose: 1.5 mls/min Documented by: [id number] Admin: 05/22/22 13:46 Dose: 1.5 mls/min Documented by: [id number] Admin: 05/22/22 08:38 Dose: 1.5 mls/min Documented by: [id number] Admin: 05/21/22 20:45 Dose: 1.5 mls/min Documented by: [id number] Admin: 05/21/22 13:42 Dose: 1.5 mls/min Documented by: [id number] Admin: 05/21/22 08:28 Dose: 1.5 mls/min Documented by: [id number] Admin: 05/20/22 20:00 Dose: 1.5 mls/min Documented by: [id number] Admin: 05/20/22 15:03 Dose: 1.5 mls/min Documented by: [id number] Admin: 05/20/22 08:13 Dose: 1.5 mls/min Documented by: [id number] Admin: 05/19/22 22:31 Dose: 1.5 mls/min Documented by: [id number] Admin: 05/19/22 14:26 Dose: 1.5 mls/min Documented by: [id number] Magnesium Sulfate/Dextrose (Magnesium Sulfate / D5w) 1 gm in 100 mls @ 50 mls/hr IV Q2H [facility] Stop: 05/23/22 13:29 Last Admin: 05/23/22 11:56 Dose: 50 mls/hr Documented by: [id number] Infusion: 05/23/22 11:41 Dose: 50 mls/hr Documented by: [id number] Admin: 05/23/22 09:41 Dose: 50 mls/hr Documented by: [id number] Loperamide HCl (Loperamide Hcl 2 Mg Cap) 2 mg PO QID PRN PRN Reason: Diarrhea Stop: 06/20/22 13:10 Last Admin: 05/23/22 08:18 Dose: 2 mg Documented by: [id number] Admin: 05/22/22 20:03 Dose: 2 mg Documented by: [id number] Admin: 05/22/22 10:23 Dose: 2 mg Documented by: [id number] Admin: 05/21/22 13:49 Dose: 2 mg Documented by: [id number] Ondansetron HCl (Ondansetron Inj 2 Mg/Ml 2 Ml Vial) 4 mg IV Q6H PRN PRN Reason: Nausea Stop: 06/17/22 21:51 Last Admin: 05/23/22 02:34 Dose: 4 mg Documented by: [id number] Pantoprazole Sodium (Pantoprazole 40 Mg Tab) 40 mg PO QAM [facility] Stop: 06/18/22 08:59 Last Admin: 05/23/22 08:12 Dose: 40 mg Documented by: [id number] Admin: 05/22/22 08:38 Dose: 40 mg Documented by: [id number] Admin: 05/21/22 08:28 Dose: 40 mg Documented by: [id number] Admin: 05/20/22 08:13 Dose: 40 mg Documented by: [id number] Admin: 05/19/22 08:43 Dose: 40 mg Documented by: [id number] Vitamin D (Cholecalciferol 1,000 Units 25 Mcg Tab) 1,000 units PO DAILY [facility] Stop: 06/18/22 08:59 Last Admin: 05/23/22 08:13 Dose: 1,000 units Documented by: [id number] Admin: 05/22/22 08:37 Dose: 1,000 units Documented by: [id number] Admin: 05/21/22 08:28 Dose: 1,000 units Documented by: [id number] Admin: 05/20/22 08:12 Dose: 1,000 units Documented by: [id number] Admin: 05/19/22 08:43 Dose: 1,000 units Documented by: [id number] (1) Anemia Anemia type: unspecified type Qualified Code(s): D64.9 - Anemia, unspecified
--- NOTE | 2022-05-23 14:38 | Gastroenterology Progress Note ---
Date of Service May 23, 2022 Assessment & Plan (1) IBD (inflammatory bowel disease): (2) Colitis: (3) Salmonella enteritis: Plan: Responding well to steroids. This and colonoscopy findings/path suggest diarrhea and pain are from UC. OK to also use Imodium on an as needed basis. Low fiber/low residual diet. Also recommend low lactose. If continues overnight without large number of BMs, then can be discharged tomorrow on prednisone 40mg daily x 1 wk then 30mg daily x 1 week, then 25mg daily x 1 week. Will try to move OP GI f/u to the next 2 wks. GI will watch peripherally, please notify us of new/worsening GI issues. Admission and Anticipated Discharge Date Admission Date: May 18, 2022 Supervising Physician Co-Signing Physician Notes Patient was seen and examined on 05/23 with MART Hays whose note reflects our findings andplan. Would recommend outpatient use of prednisone 40 mg daily for 2 weeks, 30 mg daily for 1 week, 20 mg daily for 1 week, 10 mg daily for 1 week then 5 mg daily. The patient will need to follow with her regular GI provider Dr. Piña for further recommendations with regard to her new diagnosis of inflammatory bowel disease. Will sign off. Please call with questions Subjective 51 yr old female admitted for SERAFIN on 05/19/22, likely secondary to diarrhea from UC. Being tx for IBD w IV steroids. Pt tells me diarrhea is much better today, at the time of our interview this morning, she reported having passed 23 BMs by that time yesterday, and 3 thus far today. Though has had blood in her BMs, not today. Has intermittent LLQ pain, mostly prior to defecation. CRP 2.34 today, down from max 23 on 05/18/22. OP colonoscopy 05/06/22: - Friable (with spontaneous bleeding), granular, hemorrhagic and inflamed mucosa was found in the descending, sigmoid, and rectum. Biopsied. Path: A. Colon, descending, biopsies: Mild chronic active colitis No dysplasia is seen B. Colon, sigmoid, biopsies: Mild chronic active colitis No dysplasia is seen C. Colon, rectum, biopsies: Mild chronic active colitis No dysplasia is seen CTAP w IV contrast 05/09/22: Findings consistent with a proctocolitis, most pronounced within the descending colon and sigmoid colon, as described above. These findings are nonspecific and differential considerations include infectious and inflammatory etiologies. Stool studies in April + for salmonella, - for C-diff. Salmonella tx w anti biotics. Stool studies in May (-) for C-diff and salmonella. Review of Systems Review of Systems: ROS: Gen: Denies weakness, fevers Eyes: No eye redness, or pain, no recent vision changes Resp: No SOB, no cough Cardio: No palpitations/irregular beats, no chest pain GI: Per HPI, otherwise (-) : Denies pain on urination Skin: No jaundice, itching or new rashes M/S: diffuse joint pain, much improved on steroids Physical Exam Constitutional: well developed and cooperative Eyes: PERRL, conjunctivae normal, anicteric sclerae Neck: trachea midline, no thyromegaly Respiratory: normal respiratory effort, lungs clear to auscultation Cardiovascular: RRR, no murmur, no edema Gastrointestinal (Abdomen): Inspection/Auscultation: abdomen normal to inspection and normal bowel sounds; abdomen not distended and no abdominal edema Percussion/Palpation: + abdomen tender (Mild LLQ tenderness. No signs of acute abdomen.) and abdomen soft; no guarding and abdomen not rigid Skin: no rashes, warm and dry normal turgor Neurologic: PERRL, EOMI, accommodation nl, no face palsy, no dysarthria awake; not confused Psychiatric: A+Ox3, euthymic affect Lymphatic: no cervical or axillary lymphadenopathy Results & Data ([facility]) Vital Signs (Past 12 Hours) Vital Signs Temp Pulse Pulse Pulse Resp BP Pulse Ox 05/23/22 11:00 36.9 C 60 17 110/60 92 05/23/22 07:50 36.7 C 60 16 100/60 92 05/23/22 06:10 46 L 05/23/22 02:39 36.4 C L 45 L 16 152/84 H 96 Laboratory Results WBC 6, Hb 8, Hct 25, Plts 416, Na 141, K 3.3, Cl 105, CO2 27, BUN 13, Cr 1.15, glucose 89, CRP 2.34 Diagnostic Findings See HPI (OP and ED imaging and recent stool studies)
[2022-05-23] MEDS: HEPARIN SOD 5,000 UNIT/0.5 ML VIAL SQ SCH (20:48)
[2022-05-24] MEDS: ONDANSETRON INJ 2 MG/ML 2 ML VIAL IV PRN (00:13)
[2022-05-24 05:36] LABS: Hematocrit (blood only) 24.9 % (34.1-44.9); Hemoglobin 7.8 g/dl (12.0-16.0); Mean Corpuscular Hemoglobin 24.8 pg (25.0-34.0); Mean Corpuscular Hgb Conc 31.3 g/dL (32.0-36.0); Mean Corpuscular Volume 79.3 fL (80.0-100.0); Mean Platelet Volume 9.7 fL (9.4-12.3); Nucleated RBC # (auto) 0.02 K/uL (0-0); Nucleated RBC % (auto) 0.3 %; Platelet Count 421 K/uL (130-400); RDW Coefficient of Variation 16.6 % (11.5-14.5); RDW Standard Deviation 47.4 fL (36.4-46.3); Red Blood Count 3.14 M/uL (3.93-5.22); White Blood Count 5.89 K/ul (4.8-10.8)
[2022-05-24 05:50] LABS: Partial Thromboplastin Ratio 0.8; Partial Thromboplastin Time 21.9 Seconds (21.0-31.0)
[2022-05-24 06:07] LABS: Calcium 7.4 mg/dl (8.5-10.1); Creatinine Clr Calc Pharmacy 73.7 ml/min; Est GFR (African American) 74.5 ml/min; Est GFR (Non-African American) 64.3 ml/min; Magnesium 1.6 mg/dl (1.7-2.4); Potassium 3.4 mmol/L (3.5-5.1)
[2022-05-24] MEDS: FERROUS SULFATE 325 MG TAB PO SCH ×2 (09:01→09:15)
[2022-05-24] MEDS: CHOLECALCIFEROL 1,000 UNITS 25 MCG TAB PO SCH (09:02)
[2022-05-24] MEDS: PANTOprazole 40 MG TAB PO SCH (09:02)
[2022-05-24] MEDS: ATORVASTATIN 40 MG TAB PO SCH (09:02)
[2022-05-24] MEDS: DICYCLOMINE HCL 10 MG CAP PO PRN (09:03)
[2022-05-24] MEDS: ASPIRIN 81 MG ECTAB PO SCH (09:03)
[2022-05-24] MEDS: methylPREDNISolone 20 MG in SYRINGE 0 ML IV SCH ×3 (09:04→13:52)
[2022-05-24] MEDS: ARTIFICIAL TEARS OP SCH ×2 (09:04→13:51)
[2022-05-24] MEDS: FLUTICASONE/VILANTEROL 200/25MCG 14 PUFFS/INHALER INH SCH (09:05)
[2022-05-24] MEDS: HEPARIN SOD 5,000 UNIT/0.5 ML VIAL SQ SCH (09:07)
[2022-05-24] MEDS ORDERED: POTASSIUM CHLORIDE CRTAB 20 MEQ TABCR PO STA (09:38)
[2022-05-24] MEDS: MAGNESIUM SULFATE / D5W 1 GM/100 ML BAG IV SCH ×2 (10:00→12:57)
[2022-05-24] MEDS ORDERED: FAMOTIDINE 20 MG TAB PO SCH (13:00)
[2022-05-24 14:44] LABS: Hematocrit (blood only) 28.8 % (34.1-44.9)
--- NOTE | 2022-05-24 16:06 | Discharge Summary ---
Date of Service May 24, 2022 Admission HPI Per Admitting Provider This is a 51-year-old female who has significant past medical history of COVID- pneumonia, TIA currently on aspirin therapy, GERD, anemia who presents to ED for persistent bloody diarrhea x2-1/2 months. Patient states her diarrhea started approximately 2 and half months ago. She reports it is also bloody, but not with every bowel movement. She reports it is bright red blood per rectum. She was seen and evaluated by PCP In mid April in which a stool culture tested positive for Salmonella. She was started on Cipro 500 mg twice daily x3 days. She completed course. Unfortunately her diarrhea and bloody stools persisted. She did have a repeat stool culture today which was negative for enteric pathogens and C. difficile. She is having anywhere from 10-20 bowel movements a day. She is able to tolerate oral intake; however, her bowels move instantly. She also reports significant arthralgias specifically in elbows, hands, knees, ankles and feet. She feels she has difficult time walking due to the pain in her feet. Over the last week she also developed bilateral eye redness. She does complain of painful eyes but denies any change in vision, blurry vision, double vision, or drainage. She denies any sick contacts. She also reports painless lesions on her hands intermittently. The one approximately 2 weeks ago developed into a blister and the skin peeled off. She currently has 1 on her right hand. She also reports occasional mouth ulcerations, but has not had anything recently. She denies any fever, chills, sweats, lightheadedness, dizziness, syncope, chest pain, shortness with, cough, hemoptysis, nausea, vomiting, dysuria, increased urgency or frequency with urination, vaginal discharge. She does have a history of hysterectomy. Her boyfriend is at bedside. She reports approximately 20 pound weight loss in the past 2 months. In ED patient made hemodynamically stable. She was afebrile. Lab work notable for anemia of 9.7, ESR 118, sodium 133, K3.2, creatinine 1.89, calcium 8.4, AST 45, SARS-CoV-2 negative. She was seen in ED at the end of April. At that time she did have CT abdomen pelvis which showed findings consistent with proctocolitis most pronounced in the descending colon and sigmoid colon. She had a colonoscopy on 05/04 which showed chronic inflammation. This was reviewed in [facility]. Admission Exam Per Admitting Provider Constitutional: WD/WN, acutely ill-appearing female, vitals as above, NAD, sitting up in bed, pleasant, conversing easily Head: Normocephalic, Atraumatic Eyes: PERRL, conjunctivae with bilateral erythema sparing limbus, anicteric sclerae ENMT: external ear and nose normal, oropharynx normal Neck: trachea midline, no thyromegaly normal visual inspection Respiratory: normal respiratory effort, lungs clear to auscultation, no wheeze, rales, rhonchi. Normal insp/exp effort, no accessory muscle use Cardiovascular: RRR, no murmur, no edema Vessels: no JVD or carotid bruit Chest: normal inspection of chest Abdomen: normal bowel sounds, soft, nontender, no hepatosplenomegaly Musculoskeletal: no cyanosis or clubbing, extremities motor strength 5/5, no ed olga or joint effusions Skin: Positive urticarial lesion to palmar aspect of right hand, warm and dry normal turgor Neurologic: PERRL, EOMI, accommodation nl, no face palsy, no dysarthria CN's II-XI intact bilaterally and moves all extremities Psychiatric: A+Ox3, euthymic affect Lymphatic: no cervical or axillary lymphadenopathy : deferred Principal Diagnosis Likely inflammatory bowel disease Colitis Salmonella enteritis Reactive arthritis Hypokalemia Hypomagnesemia Discharge Exam General: Lying in bed, not in acute distress, on room air HEENT: EOMI, SARIKA, MMM. Bilateral conjunctival redness --> improved. Chest: Clear breath sounds bilaterally, no wheezes or crackles CVS: Regular rate and rhythm, normal heart sounds, no murmur Abdomen: Soft, mild LLQ tenderness, not distended, normal bowel sounds Neuro: Awake, alert, oriented, conversing well, non focal Extremities: No cyanosis, clubbing or edema Skin: few papular skin improved. no new rash MSK: Multiple arthralgias improved Discharge Data Allergies Allergy/AdvReac Type Severity Reaction Status Date / Time No Known Allergies Allergy Verified 10/26/20 22:21 Consultations 05/18/22 18:40 ED Decision to Admit Stat 05/18/22 21:52 Consult Gastroenterology Routine Consult Ophthalmology Routine Hospital Course (1) IBD (inflammatory bowel disease): (2) Colitis: (3) Reactive arthritis: (4) Salmonella enteritis: (5) Hypokalemia: (6) SERAFIN (acute kidney injury): (7) Anemia: This is a 51-year-old female with h/o COVID-pneumonia, TIA, GERD, anemia, recent salmonella infection in April s/p ciprox3 days with negative repeat stool studies presented to the ED 05/18 for persistent bloody diarrhea x2-1/2 months. She had OP colonoscopy 05/06 which showed inflammatory changes in left colon/sigmoid/rectum with mild chronic active colitis. She had recent CT A/P 05/09 which showed findings consistent with a proctocolitis, most pronounced within the descending colon and sigmoid colon. She was managed for the following: #. ? IBD/?reactive arthritis with h/o recent salmonella infection - Continues to have bloody diarrhea for 2.5 months. S/p ciprox3 days for salmonella infection in April- repeat stool studies negative - OP colonoscopy 05/04 with inflammatory changes in left colon/sigmoid/rectum with mild chronic active colitis - On presentation, afebrile, normal WBC but has elevated ESR >100, CRP 23 along with arthralgias and conjunctivitis concern for IBD with extraintestinal manifestation vs Reactive arthritis vs others - Seen by GI- recommendations noted- Continue iv solumedrol 20 mg tid (started 05/19)---> changed to prednisone taper at discharge. ESR, CRP already improving (ESR 118->87->79->59) and (CRP 23->17->7->2) and some clinical improvement per patient, patient feels better and would like to go home. Pt to continue w/ pepcid for a month and her omeprazole changed to pantoprazole. - C diff negative. Continue imodium prn. Further management per GI - Seen by Ophthalmology- no uveitis- OP follow up - FIONA negative, RF negative #. Hypomagnesemia and Hypokalemia- due to GI loss. repleted. expect better control w/ BM being better, being dc'd on mag supplement, pt to have blood work in 5-7 days and have further discussion w/ PCP for eval and Mx. #. SERAFIN- suspected prerenal in setting of continued GI loss. Resolved with ivf. - Cr 1.89->1.5->1.4->1.1->0.9->1.1 #. Hx of TIA- On ASA #. Anemia- Hb 9.7->8.9->8.1->8.3->7.6->8.1, relatively stable, likely from ongoing acute illness and intermittent rectal bleeding. B12, folate normal. Iron studies inconclusive, probable anemia of chronic inflammation, possible some iron deficiency. Started on oral iron supplementation 05/22. Patient being discharged home with following instruction at the point of discharge: Follow-up with your primary care physician within a week time. You are being discharged on prednisone taper: 40 mg daily x 1 week, then 30 mg daily x 1 week, then 20 mg daily x 1 week, then 10 mg daily x 1 week, then 5 mg daily. You will need to follow-up with GI doctor in 2 weeks time and further discussion about your prednisone/colitis management as an outpatient at that time. You will be discharged on Pepcid twice a day, continue to take it for one month when steroid use is at higher side of taper. Also your omeprazole will be changed to pantoprazole upon discharge. Continue with low fiber/low residue diet. Continue with lactose free diet. Because of your frequent bowel movement, you will be discharged on a small dose of potassium and magnesium supplement, repeat blood work CBC, Mg level and CMP in a week time and have the results forwarded to your primary care physician. You might not need potassium and magnesium supplement once your bowel movements are better controlled. Further discussion with PCP as an outpatient visit within a week time. Follow up with your eye doctor yearly or as scheduled. Take your medications as prescribed. Total Time Total Time Spent Total Time Spent (In Minutes): 45 Discharge Plan Discharge Items Patient Disposition: Home - Self-Care Reason For Visit: SERAFIN, HYPOKALEMIA Discharge Diagnosis: Likely inflammatory bowel disease Colitis Salmonella enteritis Reactive arthritis Hypokalemia Hypomagnesemia Activity: Resume your previous activity Non-emergency contact: Primary Care Provider Call non-emergency contact if: you have any medication questions, your symptoms worsen and your temperature is above 101 Follow-up/Referrals: Chema Schwartz MD [Primary Care Provider] - (Date & Time 05/26/2022 9:40 AM Provider Chema Schwartz MD [facility] ) Diet: Low Fiber and Lactose Intolerant Addtl Attending Provider Instructions: Follow-up with your primary care physician within a week time. You are being discharged on prednisone taper: 40 mg daily x 1 week, then 30 mg daily x 1 week, then 20 mg daily x 1 week, then 10 mg daily x 1 week, then 5 mg daily. You will need to follow-up with GI doctor in 2 weeks time and further discussion about your prednisone/colitis management as an outpatient at that time. You will be discharged on Pepcid twice a day, continue to take it for one month when steroid use is at higher side of taper. Also your omeprazole will be changed to pantoprazole upon discharge. Continue with low fiber/low residue diet. Continue with lactose free diet. Because of your frequent bowel movement, you will be discharged on a small dose of potassium and magnesium supplement, repeat blood work CBC, Mg level and CMP in a week time and have the results forwarded to your primary care physician. You might not need potassium and magnesium supplement once your bowel movements are better controlled. Further discussion with PCP as an outpatient visit within a week time. Follow up with your eye doctor yearly or as scheduled. Take your medications as prescribed. Pending Studies at Discharge: No Stand-Alone Forms: My [facility] [employer] [place], Smoking Cessation Medications and DC Order Prescriptions: New ferrous sulfate 325 mg (65 mg iron) Tablet,Delayed Release (Dr/Ec) 325 mg PO Q OTHER DAY Qty: 30 RF: 0 polyvinyl alcohol [Artificial Tears (polyvin alc)] 1.4 % Drops 2 drp ophthalmic (eye) TID PRN (Reason: dry eye(s)) Qty: 15 RF: 0 pantoprazole 40 mg Tablet,Delayed Release (Dr/Ec) 40 mg PO QAM Qty: 30 RF: 0 famotidine 20 mg Tablet 20 mg PO BID 30 Days Qty: 60 RF: 0 loperamide 2 mg Capsule 2 mg PO QID PRN (Reason: loose stool) Qty: 30 RF: 0 ondansetron 4 mg tablet,disintegrating 4 mg PO Q12H PRN (Reason: nausea and vomiting) Qty: 30 RF: 0 prednisone 10 mg tablet 10 mg PO DAILY Qty: 75 RF: 0 potassium chloride 10 mEq capsule, extended release 10 meq PO DAILY 7 Days Qty: 7 RF: 0 magnesium glycinate 100 mg magnesium capsule 100 mg PO BID 7 Days Qty: 14 RF: 0 Continued atorvastatin 40 mg tablet 40 mg PO QAM RF: 0 albuterol sulfate 90 mcg/actuation HFA aerosol inhaler 2 puff INHALATION QID PRN (Reason: Shortness Of Breath Or Wheezing) RF: 0 meloxicam 15 mg Tablet 15 mg PO DAILY PRN (Reason: Pain) RF: 0 Dulera 200-5 mcg/actuation Hfa Aerosol Inhaler 2 puff INHALATION BID RF: 0 aspirin 81 mg tablet,chewable 81 mg PO DAILY RF: 0 cholecalciferol (vitamin D3) 25 mcg (1,000 unit) tablet 25 mcg PO DAILY RF: 0 dicyclomine 10 mg capsule 10 mg PO QID PRN (Reason: abd pain) RF: 0 Discontinued omeprazole 40 mg capsule,delayed release(DR/EC) 40 mg PO QAM RF: 0 Discharge Orders: Discharge Order (Routine); Ordered 05/24/22 Ordered By: Edward Huber Admission Data Admit Date/Time: 05/18/22 19:27 Attending Provider: Edward Huber Admit Provider: Nikita Arredondo Primary Care Provider: Chema Schwartz Other Providers: Nikita Arredondo ; Jesus Gan ; James Whitten
== END 2022-05-24 17:44 | disposition home or self-care (01) | DRG 372 ==
LOC: ED 16:10 → 2N 19:27 → SUATTDRO 19:27 → 2N 21:51 → 3N 05-23 21:10

== ENCOUNTER 2024-02-24 10:38 | Inpatient (IN) ==
[2024-02-24] MEDS: ONDANSETRON INJ 2 MG/ML 2 ML VIAL IV STA (11:12)
[2024-02-24] MEDS: SODIUM CHLORIDE 0.9% 1,000 ML IV ONE (11:13)
--- NOTE | 2024-02-24 11:22 | Emergency Department Note ---
Impression & Plan Hypoxia, Abdominal pain, Pancolitis, Hypokalemia ED Provider Note NAME: KANCHAN KING AGE: 53 SEX: F : 1970 ARRIVES VIA: Walk-In INFORMANT: Patient ED PROVIDER(S): Sarkis Chowdhury DO CHIEF COMPLAINT: abdominal pain HPI: Patient is a 53-year-old female who presents to the ER for epigastric abdominal pain which has been present for the past week. Symptoms started within the past 7 days. Pain is located in the epigastric region. She notes she has a burning pain from that region all the way up into the back of her throat which is making her cough. She can eat as this makes it worse. Denies any headache or change in vision. No chest pain or shortness of breath other than the burning. No dysuria, urgency, or frequency. She does have some left lower quadrant abdominal pain as well. No other exacerbating or remitting factors. ADDITIONAL HISTORY OBTAINED: Per HPI Chronic Medical/Social Conditions Affecting Care: Per HPI PAST MEDICAL HISTORY:See Below PAST SURGICAL HISTORY:See Below FAMILY HISTORY:See Below SOCIAL HISTORY:See Below HOME MEDICATIONS:See Below ALLERGIES:See Below VITALS:See Below PHYSICAL EXAMINATION: GENERAL: Sitting up in bed, alert, well appearing, well nourished, no distress, non-toxic EYE EXAM: normal conjunctiva. OROPHARYNX: no exudate, no erythema, lips, buccal mucosa, and tongue normal and mucous membranes are moist NECK: supple, no nuchal rigidity, no adenopathy, non-tender LUNGS: Clear to auscultation. Normal chest wall mechanics HEART: no murmurs, S1 normal and S2 normal ABDOMEN: abdomen soft, tender palpation in the epigastric region, normo-active bowel sounds, no masses, no rebound or guarding. UPPER EXTREMITIES: upper extremities are grossly normal. LOWER EXTREMITIES: No pitting edema. NEURO EXAM: Normal sensorium, cranial nerves II-XII grossly intact, normal speech, no gross weakness of arms, no gross weakness of legs. MEDICAL DECISION MAKING: Patient is a 53-year-old female with past medical history of ulcerative colitis, SERAFIN, respiratory failure who presents ER for above-stated complaint. IV was established and blood work is obtained. Labs show mild leukocytosis of 11.6 thousand. Mild anemia 11.3. Platelets are slightly elevated at 447. BMP with a hypokalemia at 3.0. This was repleted with IV potassium. Mag was slightly low at 1.6. LFTs, bilirubin, troponin, was negative. CRP and sed rate elevated ordered per hospitalist. UA was contaminated. Viral panel was negative. She was found to be hypoxic with a pulse ox of 84% on room air. She was placed on 2 L. She had already received a CT abdomen pelvis as she was i-STAT it and taking over to scan upon arrival when she was initially not hypoxic. She was monitored for some time off oxygen and remained persistently hypoxic. She admits to being a smoker for quite some time. She is still smoking. She was not given any narcotics. Following this we did perform a duplex of lower extremities to make sure there were no DVTs as scanning her chest would not be prudent as this would give a double contrast load. Discussed with the patient and as well as Dr. Arredondo. [facility]. Consults/Care Managements Discussions: Per [facility] Triage Nursing notes reviewed. Limited review of prior medical records performed Vital Signs: reviewed and remarkable for tachy Differential diagnosis: Cardiac ischemia, aortic dissection, pulmonary embolism, pneumothorax, pneumonia, pericarditis, myocarditis, esophageal rupture, GERD, cholecystitis, pancreatitis, musculoskeletal, as well as other pathologies. ER treatment provided: See below Diagnostics interpreted by me include EKG and cardiac monitoring as listed below: -Cardiac Monitoring: An order was placed for continuous cardiac monitoring. The monitor shows a rate of 101 with sinus rhythm. -ECG: Sinus rhythm rate 89 Normal axis No PVCs QTc 464 -Laboratory studies:Interpreted by me as stated above in MDM and shown below. Imaging studies: Xrays: As interpreted by me: Portable AP upright 1 view of the chest shows no focal infiltrate CTs show: CT abdomen pelvis shows pancolitis Procedures:none Critical Care: None Past Med/Surg History Medical History (Updated 02/24/24 @ 13:52 by Sarkis Chowdhury DO) Ulcerative colitis GERD (gastroesophageal reflux disease) Well controlled and stable Transient ischemic attack (TIA) 2017-PLACED ON PLAVIX-NO ISSUES SINCE SOB (shortness of breath) on exertion Chronic issue since pt has CVA in 2017 Hyperlipidemia Surgical History History of endometrial ablation History of bilateral tubal ligation H/O foot surgery LEFT GREAT TOE SX X 2 History of esophagogastroduodenoscopy (EGD) History of colonoscopy Family History Mother Family history of diabetes mellitus Social History Smoking Status: Current some day smoker Second Hand Exposure: Yes (ON OCC); Do You Dip or Chew Tobacco: No; Hx Alcohol Use: Yes Alcohol type: beer Hx Substance Use: No Preferred Language: Latvian Communication Ability: Effective Dip Dyer Required: No Beliefs That Will Affect Care: None Current Living Situation: Other Current Living Situation Comment: fiance Feels Safe at Home: Yes Assistive Devices: None Allergies Allergies Allergy/AdvReac Type Severity Reaction Status Date / Time No Known Allergies Allergy Verified 12/31/23 20:58 Home Meds Home Medications Medication Instructions Recorded Confirmed atorvastatin 40 mg tablet 40 mg PO QAM 11/05/18 12/31/23 meloxicam 15 mg tablet 15 mg PO DAILY PRN Pain 07/17/20 12/31/23 mometasone-formoterol HFA 200 2 puff inhalation BID 07/17/20 12/31/23 mcg-5 mcg/actuation aerosol inhaler (Dulera) albuterol sulfate 90 mcg/actuation 2 puff inhalation QID PRN 10/26/20 12/31/23 aerosol inhaler Shortness Of Breath Or Wheezing aspirin 81 mg chewable tablet 81 mg PO DAILY 05/18/22 12/31/23 dicyclomine 10 mg capsule 10 mg PO QID PRN abd pain 05/18/22 12/31/23 omeprazole 40 mg capsule,delayed 40 mg PO DAILY 12/31/23 12/31/23 release triamcinolone acetonide 0.1 % 1 applic dental BID PRN .. 12/31/23 12/31/23 dental paste Previous Rx's Medication Instructions Recorded loperamide 2 mg capsule 2 mg PO QID PRN loose stool #30 05/24/22 caps ondansetron 4 mg disintegrating 4 mg PO Q12H PRN nausea and 05/24/22 tablet vomiting #30 tabs polyvinyl alcohol 1.4 % eye drops 2 drp ophthalmic (eye) TID PRN dry 05/24/22 (Artificial Tears (polyvinyl eye(s) #15 mL alcohol)) prednisone 10 mg tablet 10 mg PO DAILY #75 tabs 05/24/22 Results & Data (ED) Vital Signs Vital Signs - 24 hr 02/24/24 10:48 02/24/24 11:43 02/24/24 11:45 Temperature 37.0 C Temperature Source Temporal Artery Scan Pulse Rate 108 H 86 Respiratory Rate 16 18 Respiratory Effort / Characteristics Non-Labored Spontaneous Respiratory Depth Normal Blood Pressure 110/78 Blood Pressure Mean 88 Pulse Oximetry 96 88 L 91 Oxygen Delivery Method Room Air Nasal Cannula Room Air Oxygen Flow Rate 0 Sepsis New/Unexplained Change in Mental Status No Sepsis Action Taken by Nursing No Action Required Oxygen Flow Rate - Titration 2 Pulse Oximetry Post Tiitration 96 02/24/24 11:50 02/24/24 12:00 02/24/24 12:09 Temperature Temperature Source Pulse Rate 89 91 H 80 Respiratory Rate 17 16 Respiratory Effort / Characteristics Respiratory Depth Blood Pressure 117/66 Blood Pressure Mean 83 Pulse Oximetry 95 98 Oxygen Delivery Method Nasal Cannula Nasal Cannula Oxygen Flow Rate 2 2 Sepsis New/Unexplained Change in Mental Status Sepsis Action Taken by Nursing Oxygen Flow Rate - Titration Pulse Oximetry Post Tiitration 02/24/24 12:10 02/24/24 13:21 Temperature Temperature Source Pulse Rate 83 81 Respiratory Rate 21 17 Respiratory Effort / Characteristics Respiratory Depth Blood Pressure 103/62 Blood Pressure Mean 75 Pulse Oximetry 97 97 Oxygen Delivery Method Nasal Cannula Nasal Cannula Oxygen Flow Rate 2 2 Sepsis New/Unexplained Change in Mental Status Sepsis Action Taken by Nursing Oxygen Flow Rate - Titration Pulse Oximetry Post Tiitration Laboratory Data 02/24/24 11:08 02/24/24 11:08 Lab Results 02/24/24 02/24/24 02/24/24 Range/Units 11:05 11:08 11:13 WBC 11.68 H (4.8-10.8) K/ul RBC 4.20 (4.20-5.40) M/uL Hgb 11.3 L (12.0-16.0) g/dl POC Hgb 12.6 (12.0-16.0) g/dl Hct 34.9 L (37.0-47.0) % POC Hct 37 (37-47) % MCV 83.1 (80.0-100.0) fL MCH 26.9 (25.0-34.0) pg MCHC 32.4 (32.0-36.0) g/dL RDW Std Deviation 47.4 H (36.4-46.3) fL RDW Coeff of Iveth 15.8 H (11.5-14.5) % Plt Count 447 H (130-400) K/uL MPV 10.0 (9.4-12.4) fL Immature Gran % (Auto) 0.5 % Neut % (Auto) 82.6 % Lymph % (Auto) 5.8 % [place] % (Auto) 9.9 % Eos % (Auto) 0.7 % Baso % (Auto) 0.5 % Neut # (Auto) 9.64 H (1.40-6.50) K/uL Lymph # (Auto) 0.68 L (1.20-3.40) K/uL [place] # (Auto) 1.16 H (0.11-0.59) K/uL Eos # (Auto) 0.08 (0.00-0.50) K/uL Baso # (Auto) 0.06 (0.00-0.20) K/uL Immature Gran # (Auto) 0.06 (0.01-0.20) K/uL ESR 99 H (0-30) mm/hr POC Sodium 133 L (135-144) mmol/L Sodium 135 L (136-145) mmol/L POC Potassium 2.9 L (3.3-5.0) mmol/L Potassium 3.0 L (3.5-5.1) mmol/L POC Chloride 91 L (101-112) mmol/L Chloride 94 L (98-107) mmol/L Carbon Dioxide 26 (21-32) mmol/L POC Total CO2 26 (24-31) mmol/L Anion Gap 15 H (3-11) POC Anion Gap 20.0 (16-25) mmol/L POC BUN 5 L (7-18) mg/dl BUN 7 (6-23) mg/dl Creatinine 0.81 (0.6-1.2) mg/dl POC Creatinine 0.9 (0.6-1.3) mg/dl Est Cr Clr Drug Dosing 80.2 ml/min Est GFR ( Amer) 94.8 ml/min Est GFR (Non-Af Amer) 81.8 ml/min BUN/Creatinine Ratio 8.6 L (10-20) Glucose 88 (70-99(Fasting)) mg/dl POC Glucose (other) 89 (70-99) mg/dl Calcium 8.7 (8.6-10.3) mg/dl POC Ioniz Calcium Gabrielle 0.99 L (1.12-1.32) mmol/l Phosphorus 3.5 (2.5-4.9) mg/dl Magnesium 1.6 L (1.7-2.4) mg/dl Total Bilirubin 0.5 (0.2-1.0) mg/dl AST 15 (13-39) U/L ALT 10 (7-52) U/L Alkaline Phosphatase 68 (34-104) U/L Troponin I High Sens 7.8 (0-14) pg/ml C-Reactive Protein 25.70 H (0-0.5) mg/dl Total Protein 7.1 (6.0-8.3) gm/dl Albumin 3.3 L (3.4-5.0) gm/dl Globulin 3.8 (2.5-4.0) gm/dl Albumin/Globulin Ratio 0.9 (0.9-2) Lipase < 3 L (11-82) U/L Urine Color Elliott Urine Appearance Cloudy A (Clear) Urine pH 6.0 (4.5-7.5) Ur Specific Boaz 1.022 (1.000-1.030) Urine Protein 2+ H (Negative) Urine Glucose (UA) Negative (Negative) Urine Ketones 2+ H (Negative) Urine Blood 2+ H (Negative) Urine Nitrite Negative (Negative) Urine Bilirubin 2+ H (Negative) Urine Urobilinogen Negative (Negative) Ur Leukocyte Esterase Trace H (Negative) Urine WBC (Auto) 0-5 (0-5) /hpf Urine RBC (Auto) 6-10 H (0-2) /hpf U Hyaline Cast (Auto) 3-5 H (0-2) /lpf U Epithel Cells (Auto) >20 H (0-2) /hpf Urine Bacteria (Auto) 1+ H (None Seen) Adenovirus (PCR) (NotDetected) B. pertussis DNA (PCR) (NotDetected) B.parapertussis DNA PCR (NotDetected) C. pneumoniae DNA (PCR) (NotDetected) Coronavirus OC43 (PCR) (NotDetected) Coronavirus HKU1 (PCR) (NotDetected) Coronavirus 229E (PCR) (NotDetected) SARS-CoV-2 (PCR) (NotDetected) Coronavirus NL63 (PCR) (NotDetected) Human Metapneumovir PCR (NotDetected) Influenza Type A (PCR) (NotDetected) Influenza Type B (PCR) (NotDetected) M. pneumoniae (PCR) (NotDetected) Parainfluenza 1 (PCR) (NotDetected) Parainfluenza 2 (PCR) (NotDetected) Parainfluenza 3 (PCR) (NotDetected) Parainfluenza 4 (PCR) (NotDetected) RSV (PCR) (NotDetected) Entero/Rhino (PCR) (NotDetected) 02/24/24 Range/Units 12:08 WBC (4.8-10.8) K/ul RBC (4.20-5.40) M/uL Hgb (12.0-16.0) g/dl POC Hgb (12.0-16.0) g/dl Hct (37.0-47.0) % POC Hct (37-47) % MCV (80.0-100.0) fL MCH (25.0-34.0) pg MCHC (32.0-36.0) g/dL RDW Std Deviation (36.4-46.3) fL RDW Coeff of Iveth (11.5-14.5) % Plt Count (130-400) K/uL MPV (9.4-12.4) fL Immature Gran % (Auto) % Neut % (Auto) % Lymph % (Auto) % [place] % (Auto) % Eos % (Auto) % Baso % (Auto) % Neut # (Auto) (1.40-6.50) K/uL Lymph # (Auto) (1.20-3.40) K/uL [place] # (Auto) (0.11-0.59) K/uL Eos # (Auto) (0.00-0.50) K/uL Baso # (Auto) (0.00-0.20) K/uL Immature Gran # (Auto) (0.01-0.20) K/uL ESR (0-30) mm/hr POC Sodium (135-144) mmol/L Sodium (136-145) mmol/L POC Potassium (3.3-5.0) mmol/L Potassium (3.5-5.1) mmol/L POC Chloride (101-112) mmol/L Chloride (98-107) mmol/L Carbon Dioxide (21-32) mmol/L POC Total CO2 (24-31) mmol/L Anion Gap (3-11) POC Anion Gap (16-25) mmol/L POC BUN (7-18) mg/dl BUN (6-23) mg/dl Creatinine (0.6-1.2) mg/dl POC Creatinine (0.6-1.3) mg/dl Est Cr Clr Drug Dosing ml/min Est GFR ( Amer) ml/min Est GFR (Non-Af Amer) ml/min BUN/Creatinine Ratio (10-20) Glucose (70-99(Fasting)) mg/dl POC Glucose (other) (70-99) mg/dl Calcium (8.6-10.3) mg/dl POC Ioniz Calcium Gabrielle (1.12-1.32) mmol/l Phosphorus (2.5-4.9) mg/dl Magnesium (1.7-2.4) mg/dl Total Bilirubin (0.2-1.0) mg/dl AST (13-39) U/L ALT (7-52) U/L Alkaline Phosphatase (34-104) U/L Troponin I High Sens (0-14) pg/ml C-Reactive Protein (0-0.5) mg/dl Total Protein (6.0-8.3) gm/dl Albumin (3.4-5.0) gm/dl Globulin (2.5-4.0) gm/dl Albumin/Globulin Ratio (0.9-2) Lipase (11-82) U/L Urine Color Urine Appearance (Clear) Urine pH (4.5-7.5) Ur Specific Boaz (1.000-1.030) Urine Protein (Negative) Urine Glucose (UA) (Negative) Urine Ketones (Negative) Urine Blood (Negative) Urine Nitrite (Negative) Urine Bilirubin (Negative) Urine Urobilinogen (Negative) Ur Leukocyte Esterase (Negative) Urine WBC (Auto) (0-5) /hpf Urine RBC (Auto) (0-2) /hpf U Hyaline Cast (Auto) (0-2) /lpf U Epithel Cells (Auto) (0-2) /hpf Urine Bacteria (Auto) (None Seen) Adenovirus (PCR) Not Detected (NotDetected) B. pertussis DNA (PCR) Not Detected (NotDetected) B.parapertussis DNA PCR Not Detected (NotDetected) C. pneumoniae DNA (PCR) Not Detected (NotDetected) Coronavirus OC43 (PCR) Not Detected (NotDetected) Coronavirus HKU1 (PCR) Not Detected (NotDetected) Coronavirus 229E (PCR) Not Detected (NotDetected) SARS-CoV-2 (PCR) Not Detected (NotDetected) Coronavirus NL63 (PCR) Not Detected (NotDetected) Human Metapneumovir PCR Not Detected (NotDetected) Influenza Type A (PCR) Not Detected (NotDetected) Influenza Type B (PCR) Not Detected (NotDetected) M. pneumoniae (PCR) Not Detected (NotDetected) Parainfluenza 1 (PCR) Not Detected (NotDetected) Parainfluenza 2 (PCR) Not Detected (NotDetected) Parainfluenza 3 (PCR) Not Detected (NotDetected) Parainfluenza 4 (PCR) Not Detected (NotDetected) RSV (PCR) Not Detected (NotDetected) Entero/Rhino (PCR) Not Detected (NotDetected) Administered Medications Discontinued Medications Al Hydrox/Mg Hydrox/Simethicone (Aluminum/Magnesium Susp 30 Ml Udc) 30 ml PO NOW STA Stop: 02/24/24 10:59 Last Admin: 02/24/24 11:34 Dose: 30 ml Documented By: [facility] Sodium Chloride (Nss) 1,000 mls @ 999 mls/hr IV .Q1H1M ONE Stop: 02/24/24 11:52 Last Admin: 02/24/24 11:13 Dose: 999 mls/hr Documented By: [facility] Potassium Chloride (K Isra / Wtr) 10 meq in 100 mls @ 100 mls/hr IV ONE ONE Stop: 02/24/24 12:57 Last Admin: 02/24/24 12:03 Dose: 100 mls/hr Documented By: TONYA Ioversol (Optiray 320 100ml) 92 ml IV ONCE ONE Stop: 02/24/24 11:29 Last Admin: 02/24/24 11:29 Dose: 92 ml Documented By: SHEKHAR Ketorolac Tromethamine (Ketorolac Tromethamine 15 Mg/Ml Vial) 15 mg IV NOW ONE Stop: 02/24/24 10:59 Last Admin: 02/24/24 11:34 Dose: 15 mg Documented By: TONYA Ondansetron HCl (Ondansetron Inj 2 Mg/Ml 2 Ml Vial) 4 mg IV NOW STA Stop: 02/24/24 10:53 Last Admin: 02/24/24 11:12 Dose: 4 mg Documented By: TONYA Imaging Data Radiologist's Impression: Abdomen/Pelvis CT 02/24/24 10:[address] WITH IV CONTRAST CT DOSE: 1210.67 mGy.cm HISTORY: Acute generalized abdominal pain with fever fever abd pain TECHNIQUE: Multiaxial CT images of the abdomen and pelvis were performed following the IV administration of 92 cc of Optiray, A dose lowering technique was utilized adhering to the principles of ALARA. COMPARISON STUDY: 12/31/2023, 05/09/2022 FINDINGS: Clear lung bases. Free air. Unremarkable spleen, pancreas and adrenal glands. Cholelithiasis without CT evidence of acute cholecystitis. No biliary duct dilation. Unremarkable liver. Patency of the hepatic and portal veins. Unremarkable kidneys. No hydronephrosis. Decompressed urinary bladder with wall thickening. Atherosclerosis of the aorta without aneurysm. There is no lymphadenopathy. No small bowel obstruction or small bowel wall thickening. Mild colonic diverticulosis. Moderate circumferential wall thickening involving the majority of the colon. There is pericolonic stranding. Associated hyperemia with prominent pericolonic vessels is noted. This again involves the ascending colon, transverse colon, descending colon and proximal sigmoid colon. A relatively similar appearance was noted on prior CT. Noninflamed appendix. No abscess. Unremarkable soft tissues. No acute fracture. IMPRESSION: 1. Redemonstration of acute pancolitis, with a similar presentation of disease seen on several prior exams. As previously mentioned, ulcerative colitis is the primary differential consideration. An infectious process could appear similarly. 2. No bowel obstruction, pneumoperitoneum or abscess . 3. Cholelithiasis. ACT 112: Negative or not required by law. The above report was generated using voice recognition software. It may contain grammatical, syntax or spelling errors. Electronically signed by: Nixon Keller M.D. 02/24/2024 12:02 PM Chest X-Ray 02/24/24 11:48 XR chest 1V portable HISTORY: 53 years-old Female hypoxic acute hypoxia COMPARISON: 10/03/2020 TECHNIQUE: AP view of the chest FINDINGS: Cardiomediastinal and hilar silhouettes are within normal limits. Mild chronic interstitial coarsening. No pneumothorax, pleural effusion or airspace consolidation. The bones appear grossly intact. IMPRESSION: No acute process. ACT 112: Negative or not required by law. The above report was generated using voice recognition software. It may contain grammatical, syntax or spelling errors. Electronically signed by: Nixon Keller M.D. 02/24/2024 12:12 PM Venous Doppler Study 02/24/24 11:49 BILATERAL LOWER EXTREMITY VENOUS DOPPLER HISTORY: Acute pain and swelling of the lower legs ? dvt COMPARISON STUDY: 09/09/2017. FINDINGS: There is normal compressibility, flow, and augmentation within the bilateral lower extremity deep venous systems. IMPRESSION: No DVT within the right or left lower extremity. ACT 112: Negative or not required by law. Electronically signed by: Nixon Keller M.D. 02/24/2024 1:28 PM Discharge Plan Visit Data Chief Complaint: Illness Stated Complaint: FEVER, NAUSEA, CHILLS, LETHARGIC ED Provider: Sarkis Chowdhury Discharge Problem: Hypoxia, Abdominal pain, Pancolitis, Hypokalemia Forms Stand Alone Forms: [facility] Prescriptions Prescriptions: No Action atorvastatin 40 mg tablet 40 mg PO QAM albuterol sulfate 90 mcg/actuation HFA aerosol inhaler 2 puff INHALATION QID PRN (Reason: Shortness Of Breath Or Wheezing) meloxicam 15 mg Tablet 15 mg PO DAILY PRN (Reason: Pain) Dulera 200-5 mcg/actuation Hfa Aerosol Inhaler 2 puff INHALATION BID aspirin 81 mg tablet,chewable 81 mg PO DAILY dicyclomine 10 mg capsule 10 mg PO QID PRN (Reason: abd pain) polyvinyl alcohol [Artificial Tears (polyvin alc)] 1.4 % Drops 2 drp ophthalmic (eye) TID PRN (Reason: dry eye(s)) Qty: 15 0RF loperamide 2 mg Capsule 2 mg PO QID PRN (Reason: loose stool) Qty: 30 0RF ondansetron 4 mg tablet,disintegrating 4 mg PO Q12H PRN (Reason: nausea and vomiting) Qty: 30 0RF prednisone 10 mg tablet 10 mg PO DAILY Qty: 75 0RF Rx Instructions: 40 mg daily x 1 week, then 30 mg daily x 1 week, then 20 mg daily x 1 week, then 10 mg daily x 1 week, then 5 mg daily. omeprazole 40 mg Capsule,Delayed Release(Dr/Ec) 40 mg PO DAILY triamcinolone acetonide 0.1 % Paste 1 applic DENTAL BID PRN (Reason: ..) Rx Instructions: use after food and/or drink and/or oral hygiene Referrals Referrals: Chema Schwartz MD [Primary Care Provider] - Discharge Problem: Abdominal pain Qualifiers: Abdominal location: unspecified location Qualified Code(s): R10.9 - Unspecified abdominal pain
[2024-02-24] MEDS: OPTIRAY 320 100ml IV ONE (11:29)
[2024-02-24 11:32] LABS: Basophils # (auto) 0.06 K/uL (0.00-0.20); Basophils % (auto) 0.5 %; Eosinophils # (auto) 0.08 K/uL (0.00-0.50); Eosinophils % (auto) 0.7 %; Hematocrit (blood only) 34.9 % (37.0-47.0); Hemoglobin 11.3 g/dl (12.0-16.0); Immature Granulocytes # (auto) 0.06 K/uL (0.01-0.20); Immature Granulocytes % (auto) 0.5 %; Lymphocytes # (auto) 0.68 K/uL (1.20-3.40); Lymphocytes % (auto) 5.8 %; Mean Corpuscular Hemoglobin 26.9 pg (25.0-34.0); Mean Corpuscular Hgb Conc 32.4 g/dL (32.0-36.0); Mean Corpuscular Volume 83.1 fL (80.0-100.0); Monocytes # (auto) 1.16 K/uL (0.11-0.59); Monocytes % (auto) 9.9 %; Neutrophils # (auto) 9.64 K/uL (1.40-6.50); Neutrophils % (auto) 82.6 %; Platelet Count 447 K/uL (130-400); RDW Coefficient of Variation 15.8 % (11.5-14.5); RDW Standard Deviation 47.4 fL (36.4-46.3); White Blood Count 11.68 K/ul (4.8-10.8)
[2024-02-24] MEDS: ALUMINUM/MAGNESIUM SUSP 30 ML UDC PO STA (11:34)
[2024-02-24] MEDS: KETOROLAC TROMETHAMINE 15 MG/ML VIAL IV ONE (11:34)
[2024-02-24 11:35] LABS: iSTAT Creatinine 0.9 mg/dl (0.6-1.3); iSTAT Hemoglobin 12.6 g/dl (12.0-16.0); iSTAT Ionized Calcium 0.99 mmol/l (1.12-1.32); iSTAT Potassium 2.9 mmol/L (3.3-5.0)
[2024-02-24 11:46] LABS: Appearance Urine Cloudy (Clear); Bacteria Urine Automated 1+ (None Seen); Bilirubin Urine 2+ (Negative); Blood Urine 2+ (Negative); Color Urine Orange; Epithelial Cell Urine Auto >20 /hpf (0-2); Glucose Urine UA Negative (Negative); Ketones Urine 2+ (Negative); Leukocyte Esterase Urine Trace (Negative); Nitrite Urine Negative (Negative); Protein Urine 2+ (Negative); Specific Gravity Urine 1.022 (1.000-1.030); Urobilinogen Urine Negative (Negative); WBC Urine Automated 0-5 /hpf (0-5)
[2024-02-24] MEDS: POTASSIUM CHLORIDE / WTR 10 MEQ/100 ML PLCT IV ONE (12:03)
--- NOTE | 2024-02-24 12:04 | CT Scan Report ---
ABDOMEN AND PELVIS CT WITH IV CONTRAST CT DOSE: 1210.67 mGy.cm HISTORY: Acute generalized abdominal pain with fever fever abd pain TECHNIQUE: Multiaxial CT images of the abdomen and pelvis were performed following the IV administrat ion of 92 cc of Optiray, A dose lowering technique was utilized adhering to the principles of ALARA. COMPARISON STUDY: 12/31/2023, 05/09/2022 FINDINGS: Clear lung bases. Free air. Unremarkable spleen, pancreas and adrenal glands. Cholelithiasi s without CT evidence of acute cholecystitis. No biliary duct dilation. Unremarkable liver. Patency o f the hepatic and portal veins. Unremarkable kidneys. No hydronephrosis. Decompressed urinary bladder with wall thickening. Atherosclerosis of the aorta without aneurysm. There is no lymphadenopathy. No small bowel obstruction or small bowel wall thickening. Mild colonic diverticulosis. Moderate circ umferential wall thickening involving the majority of the colon. There is pericolonic stranding. Asso ciated hyperemia with prominent pericolonic vessels is noted. This again involves the ascending colon , transverse colon, descending colon and proximal sigmoid colon. A relatively similar appearance was noted on prior CT. Noninflamed appendix. No abscess. Unremarkable soft tissues. No acute fracture. IMPRESSION: 1. Redemonstration of acute pancolitis, with a similar presentation of disease seen on several prior exams. As previously mentioned, ulcerative colitis is the primary differential consideration. An infe ctious process could appear similarly. 2. No bowel obstruction, pneumoperitoneum or abscess . 3. Cholelithiasis. ACT 112: Negative or not required by law. The above report was generated using voice recognition software. It may contain grammatical, syntax o r spelling errors. Electronically signed by: Nixon Keller M.D. 02/24/2024 12:02 PM
[2024-02-24 12:13] LABS: Anion Gap 15 (3-11); BUN Creatinine Ratio 8.6 (10-20); Blood Urea Nitrogen 7 mg/dl (6-23); Calcium 8.7 mg/dl (8.6-10.3); Carbon Dioxide 26 mmol/L (21-32); Chloride 94 mmol/L (98-107); Creatinine Clr Calc Pharmacy 80.2 ml/min; Est GFR (African American) 94.8 ml/min; Est GFR (Non-African American) 81.8 ml/min; Glucose 88 mg/dl (70-99(Fasting)); Sodium 135 mmol/L (136-145)
[2024-02-24 12:14] LABS: Alanine Aminotransferase 10 U/L (7-52); Albumin Globulin Ratio 0.9 (0.9-2); Albumin Level 3.3 gm/dl (3.4-5.0); Alkaline Phosphatase 68 U/L (34-104); Aspartate Aminotransferase 15 U/L (13-39); Bilirubin,Total 0.5 mg/dl (0.2-1.0); Globulin 3.8 gm/dl (2.5-4.0); Lipase < 3 U/L (11-82); Magnesium 1.6 mg/dl (1.7-2.4); Total Protein 7.1 gm/dl (6.0-8.3)
--- NOTE | 2024-02-24 12:14 | XRay Report ---
XR chest 1V portable HISTORY: 53 years-old Female hypoxic acute hypoxia COMPARISON: 10/03/2020 TECHNIQUE: AP view of the chest FINDINGS: Cardiomediastinal and hilar silhouettes are within normal limits. Mild chronic interstitial coarsenin g. No pneumothorax, pleural effusion or airspace consolidation. The bones appear grossly intact. IMPRESSION: No acute process. ACT 112: Negative or not required by law. The above report was generated using voice recognition software. It may contain grammatical, syntax o r spelling errors. Electronically signed by: Nixon Keller M.D. 02/24/2024 12:12 PM
[2024-02-24 12:20] LABS: Troponin I High Sensitivity 7.8 pg/ml (0-14)
--- NOTE | 2024-02-24 12:47 | History & Physical Report ---
Date of Service February 24, 2024 Assessment & Plan (1) Diarrhea: (2) Colitis: Plan: GERD Hx of UC Prior Hx of Salmonella enetritis Had fever 100.6F 1 wek ago and since then she has not been feeling well. She reports having severe indigestion, epigastric discomfort, GERD symptoms. She has some cough but she reports it's "all from her throat from her reflux". She denies any sinus congestion, rhinorrhea, productive cough. She has been having watery diarrhea for 1 week. Says that d/t to her UC she always has looser stools but usually not watery like she has now. She has nausea, and poor appetite, not able to eat much. She denies any blood in the stool. She does not feel she is having UC flare. She follows with [facility] but d/t lack of insurance she has not been on any medications. She says mesalamine was not working for her anyway and she has never started Humira - which was discussed with GI - per EMR review. She says she only takes omeprazole and dicyclomine for her stomach. CT abd - Re-demonstration of acute pancolitis, with a similar presentation of disease seen on several prior exams. As previously mentioned, ulcerative colitis is the primary differential consideration. An infectious process could appear similarly. ESR, CRP ordered Stool studies ordered received maalox, zofran in the ED Start IV PPI, famotidine , carafate Will await results of stool studies - to see if antibiotics/ or steroids would be appropriate for the pt - and will further discuss with GI Electrolyte abnormalities, hypokalemia, hypomagnesemia - currently receiving NS in the ED, also will replace K and Mag - will monitor BMP, Mag, Phos and replete as needed Hypoxia - pt is in ED on 2L of suppl. O2 , saturating 97% - discussed w/ ED provider - tried to wean off but pt would desaturate - pt denies any shortness of breath or any resp. symptoms - CXR obtained - shows Mild chronic interstitial coarsening. No pneumothorax, pleural effusion or airspace consolidation. - Biofire ordered - Doppler of LE obtained by ED provider (would prefer not give contrast for CT PE study as she just received contrast w/ CT abd./pelvis), Doppler is negative - start incentive spirometry, cont. suppl. O2 , try to wean off History of Present Illness Chief Complaint: abdominal pain for 1 week, throat pain, cough Primary Care Provider: Chema Schwartz MD Pt is a 53 F w/ hx of IBD/ UC, GERD, hx of Salmonella enteritis, iron def. anemia d/t chronic blood loss, hx of TIA currently on aspirin therapy, who presents with abd. pain, throat pain and cough. Pt says she had fever 100.6F 1 wek ago and since then she has not been feeling well. She reports having severe indigestion, epigastric discomfort, GERD symptoms. She has some cough but she reports it's "all from her throat from her reflux". She denies any sinus congestion, rhinorrhea, productive cough. She has been having watery diarrhea for 1 week. Says that d/t to her UC she always has looser stools but usually not watery like she has now. She has nausea, and poor appetite, not able to eat much. She denies any blood in the stool. She does not feel she is having UC flare. She follows with [facility] but d/t lack of insurance she has not been on any medications. She says mesalamine was not working for her anyway and she has never started Humira - which was discussed with GI - per EMR review. She says she only takes omeprazole and dicyclomine for her stomach. In the ED she was found mildly hypoxic and currently on suppl. O2. CXR was obtained as well as CT abdomen for her abd. symptoms. Blood work significant for electrolyte abnormalities, lisbet. hypokalemia. Currently she is sitting up in bed in [facility], on suppl. O2. She is alert and able to provide hx. She denies any hx of shortness of breath. Only reports feeling weak. Pt's present at the bedside. Allergies Allergy/AdvReac Type Severity Reaction Status Date / Time No Known Allergies Allergy Verified 12/31/23 20:58 Home Medications Medication Instructions Recorded Confirmed Type atorvastatin 40 mg tablet 40 mg PO QAM 11/05/18 12/31/23 History meloxicam 15 mg tablet 15 mg PO DAILY PRN Pain 07/17/20 12/31/23 History mometasone-formoterol HFA 200 2 puff inhalation BID 07/17/20 12/31/23 History mcg-5 mcg/actuation aerosol inhaler (Dulera) albuterol sulfate 90 mcg/actuation 2 puff inhalation QID PRN 10/26/20 12/31/23 History aerosol inhaler Shortness Of Breath Or Wheezing aspirin 81 mg chewable tablet 81 mg PO DAILY 05/18/22 12/31/23 History dicyclomine 10 mg capsule 10 mg PO QID PRN abd pain 05/18/22 12/31/23 History loperamide 2 mg capsule 2 mg PO QID PRN loose stool #30 05/24/22 12/31/23 Rx caps ondansetron 4 mg disintegrating 4 mg PO Q12H PRN nausea and 05/24/22 12/31/23 Rx tablet vomiting #30 tabs polyvinyl alcohol 1.4 % eye drops 2 drp ophthalmic (eye) TID PRN dry 05/24/22 12/31/23 Rx (Artificial Tears (polyvinyl eye(s) #15 mL alcohol)) prednisone 10 mg tablet 10 mg PO DAILY #75 tabs 05/24/22 12/31/23 Rx omeprazole 40 mg capsule,delayed 40 mg PO DAILY 12/31/23 12/31/23 History release triamcinolone acetonide 0.1 % 1 applic dental BID PRN .. 12/31/23 12/31/23 History dental paste Past Med/Surg History Medical History (Updated 02/24/24 @ 12:50 by Nikita Arredondo MD) Ulcerative colitis GERD (gastroesophageal reflux disease) Well controlled and stable Transient ischemic attack (TIA) 2017-PLACED ON PLAVIX-NO ISSUES SINCE SOB (shortness of breath) on exertion Chronic issue since pt has CVA in 2017 Hyperlipidemia Surgical History History of endometrial ablation History of bilateral tubal ligation H/O foot surgery LEFT GREAT TOE SX X 2 History of esophagogastroduodenoscopy (EGD) History of colonoscopy Family History Mother Family history of diabetes mellitus Social History Smoking Status: Current some day smoker Second Hand Exposure: Yes (ON OCC); Do You Dip or Chew Tobacco: No; Hx Alcohol Use: Yes Alcohol type: beer Hx Substance Use: No Preferred Language: Mongolian Communication Ability: Effective Cashier Gambling Required: No Beliefs That Will Affect Care: None Current Living Situation: Other Current Living Situation Comment: naseem Feels Safe at Home: Yes Assistive Devices: None Review of Systems Review of Systems: All systems reviewed & are unremarkable except as noted in Subjective Physical Exam Constitutional: WD/WN, vitals as above Eyes: PERRL, conjunctivae normal, anicteric sclerae ENMT: external ear and nose normal, oropharynx normal Neck: trachea midline, no thyromegaly Respiratory: normal respiratory effort, lungs clear to auscultation Cardiovascular: RRR, no murmur, no edema Chest (Breasts): Chest: normal inspection of chest Gastrointestinal (Abdomen): + epigastric tenderness to palpation, +b owel sounds, soft, otherwise nontender Musculoskeletal: no cyanosis or clubbing, extremities motor strength 5/5 Skin: no rashes, warm and dry Neurologic: PERRL, EOMI, accommodation nl, no face palsy, no dysarthria Psychiatric: A+Ox3, euthymic affect Lymphatic: no lymphedema Results & Data Results & Data Vital Signs (Past 12 Hours) Vital Signs Temp Pulse Resp BP Pulse Ox O2 Del Method O2 Flow Rate 02/24/24 12:09 80 02/24/24 12:00 91 H 16 117/66 98 Nasal Cannula 2 02/24/24 11:50 89 17 95 Nasal Cannula 2 02/24/24 11:45 86 18 91 Room Air 02/24/24 11:43 88 L Nasal Cannula 0 02/24/24 10:48 37.0 C 108 H 16 110/78 96 Room Air Laboratory Results 02/24/24 02/24/24 02/24/24 Range/Units 12:08 11:13 11:08 WBC 11.68 H (4.8-10.8) K/ul RBC 4.20 (4.20-5.40) M/uL Hgb 11.3 L (12.0-16.0) g/dl POC Hgb 12.6 (12.0-16.0) g/dl Hct 34.9 L (37.0-47.0) % POC Hct 37 (37-47) % MCV 83.1 (80.0-100.0) fL MCH 26.9 (25.0-34.0) pg MCHC 32.4 (32.0-36.0) g/dL RDW Std Deviation 47.4 H (36.4-46.3) fL RDW Coeff of Iveth 15.8 H (11.5-14.5) % Plt Count 447 H (130-400) K/uL MPV 10.0 (9.4-12.4) fL Immature Gran % (Auto) 0.5 % Neut % (Auto) 82.6 % Lymph % (Auto) 5.8 % [place] % (Auto) 9.9 % Eos % (Auto) 0.7 % Baso % (Auto) 0.5 % Neut # (Auto) 9.64 H (1.40-6.50) K/uL Lymph # (Auto) 0.68 L (1.20-3.40) K/uL [place] # (Auto) 1.16 H (0.11-0.59) K/uL Eos # (Auto) 0.08 (0.00-0.50) K/uL Baso # (Auto) 0.06 (0.00-0.20) K/uL Immature Gran # (Auto) 0.06 (0.01-0.20) K/uL POC Sodium 133 L (135-144) mmol/L Sodium 135 L (136-145) mmol/L POC Potassium 2.9 L (3.3-5.0) mmol/L Potassium 3.0 L (3.5-5.1) mmol/L POC Chloride 91 L (101-112) mmol/L Chloride 94 L (98-107) mmol/L Carbon Dioxide 26 (21-32) mmol/L POC Total CO2 26 (24-31) mmol/L Anion Gap 15 H (3-11) POC Anion Gap 20.0 (16-25) mmol/L POC BUN 5 L (7-18) mg/dl BUN 7 (6-23) mg/dl Creatinine 0.81 (0.6-1.2) mg/dl POC Creatinine 0.9 (0.6-1.3) mg/dl Est Cr Clr Drug Dosing 80.2 ml/min Est GFR ( Amer) 94.8 ml/min Est GFR (Non-Af Amer) 81.8 ml/min BUN/Creatinine Ratio 8.6 L (10-20) Glucose 88 (70-99(Fasting)) mg/dl POC Glucose (other) 89 (70-99) mg/dl Calcium 8.7 (8.6-10.3) mg/dl POC Ioniz Calcium Gabrielle 0.99 L (1.12-1.32) mmol/l Phosphorus Pending Magnesium 1.6 L (1.7-2.4) mg/dl Total Bilirubin 0.5 (0.2-1.0) mg/dl AST 15 (13-39) U/L ALT 10 (7-52) U/L Alkaline Phosphatase 68 (34-104) U/L Troponin I High Sens 7.8 (0-14) pg/ml Total Protein 7.1 (6.0-8.3) gm/dl Albumin 3.3 L (3.4-5.0) gm/dl Globulin 3.8 (2.5-4.0) gm/dl Albumin/Globulin Ratio 0.9 (0.9-2) Lipase < 3 L (11-82) U/L Urine Color Urine Appearance (Clear) Urine pH (4.5-7.5) Ur Specific [place] (1.000-1.030) Urine Protein (Negative) Urine Glucose (UA) (Negative) Urine Ketones (Negative) Urine Blood (Negative) Urine Nitrite (Negative) Urine Bilirubin (Negative) Urine Urobilinogen (Negative) Ur Leukocyte Esterase (Negative) Urine WBC (Auto) (0-5) /hpf Urine RBC (Auto) (0-2) /hpf U Hyaline Cast (Auto) (0-2) /lpf U Epithel Cells (Auto) (0-2) /hpf Urine Bacteria (Auto) (None Seen) Adenovirus (PCR) Pending B. pertussis DNA (PCR) Pending B.parapertussis DNA PCR Pending C. pneumoniae DNA (PCR) Pending Coronavirus OC43 (PCR) Pending Coronavirus HKU1 (PCR) Pending Coronavirus 229E (PCR) Pending SARS-CoV-2 (PCR) Pending Coronavirus NL63 (PCR) Pending Human Metapneumovir PCR Pending Influenza Type B (PCR) Pending M. pneumoniae (PCR) Pending Parainfluenza 1 (PCR) Pending Parainfluenza 2 (PCR) Pending Parainfluenza 3 (PCR) Pending Parainfluenza 4 (PCR) Pending RSV (PCR) Pending Entero/Rhino (PCR) Pending 02/24/24 Range/Units 11:05 WBC (4.8-10.8) K/ul RBC (4.20-5.40) M/uL Hgb (12.0-16.0) g/dl POC Hgb (12.0-16.0) g/dl Hct (37.0-47.0) % POC Hct (37-47) % MCV (80.0-100.0) fL MCH (25.0-34.0) pg MCHC (32.0-36.0) g/dL RDW Std Deviation (36.4-46.3) fL RDW Coeff of Iveth (11.5-14.5) % Plt Count (130-400) K/uL MPV (9.4-12.4) fL Immature Gran % (Auto) % Neut % (Auto) % Lymph % (Auto) % [place] % (Auto) % Eos % (Auto) % Baso % (Auto) % Neut # (Auto) (1.40-6.50) K/uL Lymph # (Auto) (1.20-3.40) K/uL [place] # (Auto) (0.11-0.59) K/uL Eos # (Auto) (0.00-0.50) K/uL Baso # (Auto) (0.00-0.20) K/uL Immature Gran # (Auto) (0.01-0.20) K/uL POC Sodium (135-144) mmol/L Sodium (136-145) mmol/L POC Potassium (3.3-5.0) mmol/L Potassium (3.5-5.1) mmol/L POC Chloride (101-112) mmol/L Chloride (98-107) mmol/L Carbon Dioxide (21-32) mmol/L POC Total CO2 (24-31) mmol/L Anion Gap (3-11) POC Anion Gap (16-25) mmol/L POC BUN (7-18) mg/dl BUN (6-23) mg/dl Creatinine (0.6-1.2) mg/dl POC Creatinine (0.6-1.3) mg/dl Est Cr Clr Drug Dosing ml/min Est GFR ( Amer) ml/min Est GFR (Non-Af Amer) ml/min BUN/Creatinine Ratio (10-20) Glucose (70-99(Fasting)) mg/dl POC Glucose (other) (70-99) mg/dl Calcium (8.6-10.3) mg/dl POC Ioniz Calcium Gabrielle (1.12-1.32) mmol/l Phosphorus Magnesium (1.7-2.4) mg/dl Total Bilirubin (0.2-1.0) mg/dl AST (13-39) U/L ALT (7-52) U/L Alkaline Phosphatase (34-104) U/L Troponin I High Sens (0-14) pg/ml Total Protein (6.0-8.3) gm/dl Albumin (3.4-5.0) gm/dl Globulin (2.5-4.0) gm/dl Albumin/Globulin Ratio (0.9-2) Lipase (11-82) U/L Urine Color [place] Urine Appearance Cloudy A (Clear) Urine pH 6.0 (4.5-7.5) Ur Specific [place] 1.022 (1.000-1.030) Urine Protein 2+ H (Negative) Urine Glucose (UA) Negative (Negative) Urine Ketones 2+ H (Negative) Urine Blood 2+ H (Negative) Urine Nitrite Negative (Negative) Urine Bilirubin 2+ H (Negative) Urine Urobilinogen Negative (Negative) Ur Leukocyte Esterase Trace H (Negative) Urine WBC (Auto) 0-5 (0-5) /hpf Urine RBC (Auto) 6-10 H (0-2) /hpf U Hyaline Cast (Auto) 3-5 H (0-2) /lpf U Epithel Cells (Auto) >20 H (0-2) /hpf Urine Bacteria (Auto) 1+ H (None Seen) Adenovirus (PCR) B. pertussis DNA (PCR) B.parapertussis DNA PCR C. pneumoniae DNA (PCR) Coronavirus OC43 (PCR) Coronavirus HKU1 (PCR) Coronavirus 229E (PCR) SARS-CoV-2 (PCR) Coronavirus NL63 (PCR) Human Metapneumovir PCR Influenza Type B (PCR) M. pneumoniae (PCR) Parainfluenza 1 (PCR) Parainfluenza 2 (PCR) Parainfluenza 3 (PCR) Parainfluenza 4 (PCR) RSV (PCR) Entero/Rhino (PCR) Diagnostic Findings CXR No acute process. CT abd/ pelvis 1. Re-demonstration of acute pancolitis, with a similar presentation of disease seen on several prior exams. As previously mentioned, ulcerative colitis is the primary differential consideration. An infectious process could appear similarly. 2. No bowel obstruction, pneumoperitoneum or abscess . 3. Cholelithiasis. (1) Diarrhea Diarrhea type: unspecified type Qualified Code(s): R19.7 - Diarrhea, unspecified
[2024-02-24 13:01] LABS: Phosphorus 3.5 mg/dl (2.5-4.9)
[2024-02-24 13:05] LABS: Adenovirus PCR Not Detected (NotDetected); Bordetella parapertussis PCR Not Detected (NotDetected); Bordetella pertussis PCR Not Detected (NotDetected); Chlamydia pneumoniae PCR Not Detected (NotDetected); Coronavirus 229E PCR Not Detected (NotDetected); Coronavirus CoV-2 (COVID19)PCR Not Detected (NotDetected); Coronavirus HKU1 PCR Not Detected (NotDetected); Coronavirus NL63 PCR Not Detected (NotDetected); Coronavirus OC43PCR Not Detected (NotDetected); Human Metapneumovirus PCR Not Detected (NotDetected); Influenza A PCR Not Detected (NotDetected); Influenza B PCR Not Detected (NotDetected); Mycoplasma pneumoniae PCR Not Detected (NotDetected); Parainfluenza Virus 1 PCR Not Detected (NotDetected); Parainfluenza Virus 2 PCR Not Detected (NotDetected); Parainfluenza Virus 3 PCR Not Detected (NotDetected); Parainfluenza Virus 4 PCR Not Detected (NotDetected); Respiratory Syncytial VirusPCR Not Detected (NotDetected); Rhinovirus/Enterovirus PCR Not Detected (NotDetected)
--- NOTE | 2024-02-24 13:30 | Ultrasound Report ---
BILATERAL LOWER EXTREMITY VENOUS DOPPLER HISTORY: Acute pain and swelling of the lower legs ? dvt COMPARISON STUDY: 09/09/2017. FINDINGS: There is normal compressibility, flow, and augmentation within the bilateral lower extremit y deep venous systems. IMPRESSION: No DVT within the right or left lower extremity. ACT 112: Negative or not required by law. Electronically signed by: Nixon Keller M.D. 02/24/2024 1:28 PM
[2024-02-24] MEDS: POTASSIUM CHLORIDE CRTAB 20 MEQ TABCR PO STA (14:06)
[2024-02-24] MEDS: MAGNESIUM SULFATE / D5W 1 GM/100 ML BAG IV ONE (14:08)
[2024-02-24] MEDS: FAMOTIDINE 20MG IV PUSH 20 MG/5 ML SYR IV ONE (14:08)
[2024-02-24] MEDS: PANTOprazole 40 MG in SYRINGE DAILY IV ONE (14:09)
--- OUTSIDE RECORDS SUMMARY | 2024-02-24 16:26 | External Medical Summary | Summary of Care ---
Author Name Unknown Organization [facility] Address [address] [facility] [address] Phone [phone] Care Team Providers Care Television Announcer Name Role Phone Chema Schwartz MD Primary Care Provider [phone] Encounter Details Date Type Department Care Team (Late st Contact Info) Description 01/03/2024 Orders Only PATIENT PORTAL DO NOT DELETE THIS DEPT USED BY [facility] [id number] Allergies No known active allergiesdocumented as of this encounter (statuses as of 01/03/2024) Medications Medication Sig Dispensed Refills Start Date End Date Status Dulera 200-5 MCG/ACT Inhalation Aerosol (Mometasone Furo-Formoterol Fum)Indications:B ronchospasm Inhale 2 Puffs by mouth 2 times a day. 3 Each 3 10/26/2021 Active Albuterol Sulfate HFA 108 (90 Base) MCG/ACT Inhalation Aerosol SolutionIndicatio ns:Pneumonia due to COVID-19 virus inhale 2 puffs by mouth four times a day if needed for shortness of breath wheezing or cough 18 g 5 12/21/2021 Active Polyvinyl Alcohol 1.4 % Ophthalmic Solution (Tears Naturale II) Instill 2 Drops into both eyes 3 times a day as needed. 0 05/24/2022 Active Triamcinolone Acetonide 0.1 % Mouth/Throat Paste (Kenalog In Orabase)Indicatio ns:Oral aphthous ulcer APPLY TO INSIDE OF CHEEK 2 TIMES A DAY 5 g 12 06/07/2022 Active Atorvastatin Calcium 40 MG Oral Tablet (Lipitor)Indicati ons:Cerebrovascul ar disease, arteriosclerotic, post-stroke,Verte bral artery stenosis, left Take 1 Tablet by mouth in the morning. 90 Tablet 3 11/24/2022 Active Naproxen Sodium 220 MG Oral Tablet Take 1 Tablet by mouth 2 times a day with morning and evening meals. 0 Active Vitamin D3 25 MCG (1000 UT) Oral Tablet (Vitamin D3)Indications:Vi tamin D deficiency take 1 tablet by mouth once daily 100 Tablet 3 12/07/2022 Active Celecoxib 200 MG Oral Capsule (CeleBREX) Take 1 Capsule by mouth in the morning. 14 Capsule 0 01/03/2023 Active Additional Information Patient not taking.Reported on 01/23/2023 Aspirin 81 MG Oral Tablet ChewableIndicatio ns:Cerebrovascula r disease, arteriosclerotic, post-stroke chew and swallow 1 tablet by mouth once daily with food 100 Tablet 3 01/16/2023 Active Dicyclomine HCl 10 MG Oral Capsule (Bentyl)Indicatio ns:Abdominal cramping TAKE 1 CAPSULE BY MOUTH 4 TIMES A DAY NEEDED FOR CRAMPING AND ABDOMINAL PAIN 90 Capsule 3 03/24/2023 Active Escitalopram Oxalate 10 MG Oral Tablet (Lexapro)Indicati ons:Current mild episode of major depressive disorder without prior episode (HCC) Take 1 Tablet by mouth daily. 90 Tablet 1 05/31/2023 Active Omeprazole 40 MG Oral Capsule Delayed Release (PriLOSEC) take 1 capsule by mouth every morning 90 Capsule 3 06/19/2023 Active predniSONE 10 MG Oral Tablet (Deltasone) Take 4 Tablets by mouth daily for 14 days, THEN 3 Tablets daily for 7 days, THEN 2 Tablets daily for 7 days, THEN 1 Tablet daily for 7 days, THEN 0.5 Tablets daily for 7 days. 102 Tablet 0 01/02/2024 02/13/2024 Active documented as of this encounter (statuses as of 01/03/2024) Active Problems Problem Noted Date Diagnosed Date History of 2019 novel coronavirus disease (COVID -19) 01/03/2023 IBD (inflammatory bowel disease) 01/03/2023 Other ulcerative colitis with rectal bleeding Generalized osteoarthritis 01/03/2023 Osteoarthritis of spine with radiculopathy, cerv ical region 04/26/2022 Pneumonia due to COVID-19 virus 10/06/2020 Gastroesophageal reflux disease without esophagi tis 10/06/2020 Iron deficiency anemia due to chronic blood loss 10/06/2020 Cerebrovascular disease, arteriosclerotic, post- stroke 09/12/2017 Lymphadenopathy 07/16/2010 OBSTIPATION 11/28/2008 documented as of this encounter (statuses as of 01/03/2024) Resolved Problems Problem Noted Date Diagnosed Date Resolved Date Vertebral artery stenosis, left 09/12/2017 07/31/2019 Contusion of upper arm 07/16/201007/31 Open wound of upper arm 07/16/201007/14 Dog bite 07/16/2010 08/15/2019 Overview: ICD-10 update of inactive term Obesity, Class I, BMI 30.0-3 4.9 (see actual BMI) 02/04/2010 08/15/2019 Overview: Per Obesity Taxonomy Slow transit constipation 12/04/2008 Myalgia and myositis 10/31/2008 019 ADVANCE DIRECTIVE INFORMATION 02/12/2008 08/15/2019 Overview: No, Advance Directive brochure given to patient. JOINT PAIN-SHLDER, RIGHT 11/17/2005 Spasm of muscle 11/17/2005 08/15/2019 Cervicalgia 11/17/2005 08/15/2019 Abnormal weight gain 11/17/2005 019 OBESITY, UNSPECIFIED 11/17/2005 010 Overview: Per Obesity Taxonomy documented as of this encounter (statuses as of 01/03/2024) Immunizations Name Administration Dates Next Due Hepatitis B Vaccine, Recombi nant, Adjuvanted, 20 mcg/mL (Heplisav-B) 01/06/2023,11/11/2022 Hepatitis B, 20+ yrs 09/07/2022 Pneumococcal Conjugate Vaccine, 20-valent (Prevn ar20) 07/26/2023 Pneumococcal Polysaccharide PPV23 (Pneumovax) Seasonal Influenza, PF, 6 M & above, IM , (FluLaval or Fluzone) 07/26/2023,09/07/2022 TDAP (age 10 and older)(Boostrix) 07/31/2019 TDAP (age 11 and older)(Adacel) 02/06/2009 documented as of this encounter Social History Tobacco Use Types Packs/Day Years Used Date Smoking Tobacco: Some Days Cigarettes 1 15 Started: 09/08/2002; Last attempted to quit: 09/08/2017 Passive Smoke Exposure: Past Smokeless Tobacco: Never Alcohol Use Standard Drinks/Week Comments Yes 0 (1 standard drink = 0.6 oz pur e alcohol) 3-4 beers per week AUDIT-C Answer Date Recorded Frequency of Alcohol Consumption 2-3 times a wee k 08/30/2019 Average Number of Drinks Not on file 019 Frequency of Binge Drinking Not on file 08/13 PHQ-2 Answer Date Recorded PHQ Adult Total Score 0 11/24/2022 Hunger Vital Sign Answer Date Recorded Within the past 12 months, y ou worried that your food would run out before you got the money to buy more. Never true 11/24/19 23 Within the past 12 months, t he food you bought just didn't last and you didn't have money to get more. Never true 11/24/2022 Sex and Gender Information Value Date Recorded Sex Assigned at Female 12/03/2019 8:37 AM EST Gender Identity Female 12/03/2019 8:37 AM EST Sexual Orientation Straight 07/31/2019 8: 19 AM EDT Job Start Date Occupation Industry Not on file Not on file Not on file documented as of this encounter Plan of Treatment Upcoming Encounters Date Type Department Care Team (Late st Contact Info) Description 07/29/2024 2:00 PM EDT Office Visit [facility] [address] [place] [address] Chema Schwartz MD [address] [place] [address] Health Maintenance Due Date Last Done Comments Zoster Vaccines (1 of 2) 2018 COVID-19 Vaccine (2022-24 season) 2023 Mammogram 11/18/2023 11/18/2022, 04/2023, 04/27/2021, Additional history exists Depression Screening 11/24/2023 11/24/2022 Diabetes Screening 07/27/2025 07/27/2022, 0 06/08/2022, 05/31/2022, Additional history exists COLONOSCOPY-EVERY 5 YRS AGES 18-100 09/06/2027 09/06/2022, 09/06/2022, 05/06/2022, Additional history exists DTaP,Tdap,and Td Vaccines (3 - Td or Tdap) 07/31/2029 07/31/2019, 02/06/2009 Pap Smear Discontinued 08/07/2020, 1001/2019, 02/09/2015, Additional history exists Hepatitis C Screening Completed 07/27/2022 Hepatitis B Completed 01/06/2023, 10/15, 09/07/2022 Influenza Vaccine (FLU shot) Completed 07/26/2023, 09/07/2022 Pneumococcal Vaccine: Pediatrics (0 to 5 Years) and At-Risk Patients (6 to 64 Years) Completed 07/26/2023, 08/11/2009 GARDASIL-HPV IMMUNIZATION SERIES Aged Out No longer eligible based on patient's age to complete this topic MENINGOCOCCAL (MENACTRA/MENVEO) Aged Out No longer eligible based on patient's age to complete this topic documented as of this encounter Medical Devices Not on filedocumented as of this encounter Care Teams Television Announcer Relationship Specialty Start Date End Date Chema Schwartz MD [address] [place] [address] PCP - General Family Medicine 10/06/20 documented as of this encounter
--- OUTSIDE RECORDS SUMMARY | 2024-02-24 16:26 | External Medical Summary | Summary of Care ---
Author Name Unknown Organization [facility] Address [address] [facility] [place] [address] Phone [phone] Care Team Providers Care Green Chainer Name Role Phone Chema Schwartz MD Primary Care Provider [phone] Encounter Details Date Type Department Care Team (Late st Contact Info) Description 01/01/2024 Telephone Gastroenterology, [facility] [address] [place] [address] Sia Evans CRNP [address] [place] [address] Allergies No known active allergiesdocumented as of this encounter (statuses as of 01/02/2024) Medications Medication Sig Dispensed Refills Start Date [...] as of this encounter (statuses as of 01/02/2024) Active Problems Problem Noted Date Diagnosed Date [...] as of this encounter (statuses as of 01/02/2024) Resolved Problems Problem Noted Date Diagnosed Date [...] as of this encounter (statuses as of 01/02/2024) Immunizations Name Administration Dates Next Due Hepatitis [...] on file documented as of this encounter Miscellaneous Notes * Telephone Encounter - Sia Evans CRNP - 01/02/2024 12:59 PM EST Noted thanks * Telephone Encounter - Cristina Urias RN - 01/02/2024 12:33 PM EST Patient notified of Sia's entire message. Is going to call pharmacy for cost of Prednisone prior to picking it up from the pharmacy. Stopped Mesalamine because she was "pooping constantly" and it stopped whenever she discontinued the medication. Does not want to go back on the Mesalamine. Is "not crazy about doing shots" so she does not want to try Humira. Will schedule colonoscopy after getting insurance. * Telephone Encounter - Sia Evans CRNP - 01/02/2024 11:39 AM EST She was last seen 02/23/23 From her ER scans, it looks like stool studies and labs were stable. CT shows colitis. I did not see a CRP or ESR checked though. I ordered full labs and stools and colonoscopy. As labs and stool done these were just done, does not need to be completed currently but, if fails to improve after 1-2 weeks on steroid will need to be completed She should also have a colonoscopy Did she stop the mesalamine for a reason or because she lost her insurance Does she want to try a refill of mesalamine? Did she ever start the humira that was previously ordered? Regarding the prednisone as c.diff was negative in the scans and so was stool culture we can plan for a steroid taper. However, this is just temporary. Agree with trying to get coverage through [facility] or anywhere else she is eligible as the prednisone is a temporary solution Plan: Cbc Comprehensive metabolic panel Crp (inflammatory marker) Erythrocyte sedimentation rate (esr) Clostridium difficile, pcr Gastrointestinal pathogen panel, stool Regional parasite antigen screen Colonoscopy, diagnostic (rectum) * Telephone Encounter - Ricarda Barrientos RN - 01/01/2024 11:20 AM EST Pt calling for advice. She states she was in [facility] ER last night as is currently having a UC Flare. She states this started 2 weeks ago. Has been experiencing abdominal pain, diarrhea (10-14 times per day) is noting blood in her stools occasionally. She continued, " I am having a lot of pressure inmy belly." Has a poor appetite. Eating a bland diet but is having nausea and vomiting. Ate eggs andtoast this morning and had an immediate emesis. Had IV steroids. No meds at discharge. They asked her to call to schedule a follow up but she has no insurance and our next available apt is 3 months out. Has been off all Mesalamine products since the beginning of 2022. I advised her that I would send a message to Sia to see if she can be seen sooner, but since shehas not been seen for almost 2 years she would need blood work and additional work up for her IBD which could be expensive. I gave her the number to the [facility] Assistance office as well as [facility] to see if they can help coordinate care. Gillian HUA. documented in this encounter Plan of Treatment Upcoming Encounters Date Type Department Care Team (Late st Contact Info) Description 07/29/2024 2:00 PM EDT Office Visit [facility] [address] [place] [phone] Chema Schwartz MD [address], [place] [id number] Scheduled Orders Name Type Priority Associated Diagnoses Orde r Schedule CBC Lab Routine IBD (inflammatory bowel disease) Expected: 01/02/2024, Expires: 01/02/2025 COMPREHENSIVE METABOLIC PANEL Lab Routine IBD (inflammatory bowel disease) Expected: 01/02/2024, Expires: 01/02/2025 CRP (INFLAMMATORY MARKER) Lab Routine IBD (inflammatory bowel disease) Expected: 01/02/2024, Expires: 01/02/2025 ERYTHROCYTE SEDIMENTATION RATE (ESR) Lab Routine IBD (inflammatory bowel disease) Expected: 01/02/2024, Expires: 01/02/2025 CLOSTRIDIUM DIFFICILE, PCR Lab Routine IBD (inflammatory bowel disease) Expected: 01/02/2024, Expires: 01/02/2025 GASTROINTESTINAL PATHOGEN PANEL, STOOL Lab Routine IBD (inflammatory bowel disease) Expected: 01/02/2024, Expires: 01/02/2025 REGIONAL PARASITE ANTIGEN SCREEN Lab Routine IBD (inflammatory bowel disease) Expected: 01/02/2024, Expires: 01/02/2025 COLONOSCOPY, DIAGNOSTIC (RECTUM) Procedures Routine IBD (inflammatory bowel disease) Ordered: 01/02/2024 Health Maintenance Due Date Last Done Comments Zoster Vaccines (1 of 2) 2018 COVID-19 Vaccine ( - season) 2023 Mammogram 11/18/2023 11/18/2022, 04/2023, 04/27/2021, Additional history exists Depression Screening 11/24/2023 11/24/2022 Diabetes Screening 07/27/2025 07/27/2022, 0 06/08/2022, 05/31/2022, Additional history exists COLONOSCOPY-EVERY 5 YRS AGES 18-100 09/06/2027 09/06/2022, 09/06/2022, 05/06/2022, Additional history exists DTaP,Tdap,and Td Vaccines (3 - Td or Tdap) 07/31/2029 07/31/2019, 02/06/2009 Pap Smear Discontinued 08/07/2020, 01/2019, 02/09/2015, Additional history exists Hepatitis C Screening [...] Not on filedocumented as of this encounter Visit Diagnoses Diagnosis IBD (inflammatory bowel disease)- Primary Other and unspecified noninfectious gastroenteritis and colitis documented in this encounter Care Teams Green Chainer Relationship Specialty Start Date End Date Chema Schwartz MD [address] [place] [address] PCP - General Family Medicine 10/06/20 documented as of this encounter
--- OUTSIDE RECORDS SUMMARY | 2024-02-24 16:26 | External Medical Summary | Summary of Care ---
Author Name Unknown Organization [facility] Address [address] [facility] [place] [address] Phone [phone] Care Team Providers Care Manager Creative Services Name Role Phone Chema Schwartz MD Primary Care Provider [phone] Encounter Details Date Type Department Care Team (Late st Contact Info) Description 01/01/2024 Telephone Gastroenterology, [facility] [address] [place] [address] Sia Evans CRNP [address] [place] [address] Allergies No known active allergiesdocumented as of [...] Agree with trying to get coverage through [facility] or anywhere else she is eligible as the prednisone is a temporary solution Plan: Cbc Comprehensive metabolic panel Crp (inflammatory marker) Erythrocyte sedimentation rate (esr) Clostridium difficile, pcr Gastrointestinal pathogen panel, stool Regional parasite antigen screen Colonoscopy, diagnostic (rectum) * Telephone Encounter - Ricarda Barrientos RN - 01/01/2024 11:20 AM EST Pt calling for advice. She states she was in [facility] ER last night as is currently [...] I gave her the number to the [facility] Assistance office as well as [facility] to see if they can help coordinate care. Sia- JAVID. documented in this encounter Plan of Treatment Upcoming Encounters Date Type Department Care Team (Late st Contact Info) Description 07/29/2024 2:00 PM EDT Office Visit [facility] [address] [place] [address] Chema Schwartz MD [address] [place], [place] [phone] Scheduled Orders Name Type Priority Associated Diagnoses [...] of 2) 2018 COVID-19 Vaccine ( - 2022- season) 2023 Mammogram 11/18/2023 11/18/2022, 04/2023, 04/27/2021, Additional history exists Depression Screening 11/24/2023 11/24/2022 Diabetes Screening 07/27/2025 07/27/2022, 0 06/08/2022, 05/31/2022, Additional history exists COLONOSCOPY-EVERY 5 YRS AGES 18-100 09/06/2027 09/06/2022, 09/06/2022, 05/06/2022, Additional history exists DTaP,Tdap,and Td Vaccines (3 - Td or Tdap) 07/31/2029 07/31/2019, 02/06/2009 Pap Smear Discontinued 08/07/2020, 10/01/2019, 02/09/2015, Additional history exists Hepatitis C Screening [...] colitis documented in this encounter Care Teams Manager Creative Services Relationship Specialty Start Date End Date Chema Schwartz MD [address] [place] [address] PCP - General Family Medicine 10/06/20 documented as of this encounter
--- OUTSIDE RECORDS SUMMARY | 2024-02-24 16:26 | External Medical Summary | Summary of Care ---
Author Name Unknown Organization [facility] Address [address] [facility] [place] [address] Phone [phone] Care Team Providers Care Exercise Science Instructor Name Role Phone Chema Schwartz MD Primary Care Provider [phone] Encounter Details Date Type Department Care Team (Late st Contact Info) Description 01/01/2024 Telephone Gastroenterology, [facility] [address] [place] [address] Sia Evans CRNP [address] [place] [address] Allergies No known active allergiesdocumented as of [...] encounter Miscellaneous Notes * Telephone Encounter - Cristina Urias RN [...] Agree with trying to get coverage through [employer] or anywhere else she is eligible as the prednisone is a temporary solution Plan: Cbc Comprehensive metabolic panel Crp (inflammatory marker) Erythrocyte sedimentation rate (esr) Clostridium difficile, pcr Gastrointestinal pathogen panel, stool Regional parasite antigen screen Colonoscopy, diagnostic (rectum) * Telephone Encounter - Ricarda Barrientos RN - 01/01/2024 11:20 AM EST Pt calling for advice. She states she was in [facility] ER last night as is currently having [...] I gave her the number to the [facility] office as well as [facility] to see if they can help coordinate care. Gillian HUA. documented in this encounter Plan of Treatment Upcoming Encounters Date Type Department Care Team (Late st Contact Info) Description 07/29/2024 2:00 PM EDT Office Visit [facility] [address] [place] [address] Chema Schwartz MD [address] [place] [address] Scheduled Orders Name Type Priority Associated Diagnoses [...] colitis documented in this encounter Care Teams Exercise Science Instructor Relationship Specialty Start Date End Date Chema Schwartz MD [address] [place] [address] PCP - General Family Medicine 10/06/20 documented as of this encounter
[2024-02-24] MEDS ORDERED: DICYCLOMINE HCL 10 MG CAP PO PRN (16:33)
[2024-02-24 18:11] LABS: Adenovirus F 40/41 PCR Not Detected (NotDetected); Astrovirus PCR Not Detected (NotDetected); Campylobacter PCR Not Detected (NotDetected); Cryptosporidium PCR Not Detected (NotDetected); Cyclospora cayetanensis PCR Not Detected (NotDetected); Entamoeba histolytica PCR Not Detected (NotDetected); Enteroaggregative E.coli(EAEC) Not Detected (NotDetected); Enteropathogenic E.coli (EPEC) Not Detected (NotDetected); Enterotoxigenic E.coli (ETEC) Not Detected (NotDetected); Giardia lamblia PCR Not Detected (NotDetected); Norovirus GI/GII PCR Not Detected (NotDetected); Plesiomonas shigelloides PCR Not Detected (NotDetected); Rotavirus A PCR Not Detected (NotDetected); Salmonella PCR Not Detected (NotDetected); Sapovirus PCR Not Detected (NotDetected); Shiga-like Toxin E.coli (STEC) Not Detected (NotDetected); Shigella/Enteroinvasive E.coli Not Detected (NotDetected); Vibrio cholerae PCR Not Detected (NotDetected); Vibrio species PCR Not Detected (NotDetected); Yersinia enterocolitica PCR Not Detected (NotDetected)
[2024-02-24] MEDS: SUCRALFATE 1 GM/10 ML UDC PO SCH (18:22)
[2024-02-24] MEDS: PANTOprazole 40 MG in SYRINGE 0 ML IV SCH (19:51)
[2024-02-24] MEDS: FAMOTIDINE 20MG IV PUSH 20 MG/5 ML SYR IV SCH (19:51)
[2024-02-24] MEDS: ACETAMINOPHEN 325 MG TAB PO PRN (22:44)
--- NOTE | 2024-02-25 07:10 | Electrocardiogram Report ---
Test Reason : Blood Pressure : / mmHG Vent. Rate : 089 BPM Atrial Rate : 089 BPM P-R Int : 140 ms QRS Dur : 090 ms QT Int : 382 ms P-R-T Axes : 048 016 071 degrees QTc Int : 464 ms Normal sinus rhythm Normal ECG When compared with ECG of 31-DEC-2023 18:12, No significant change was found Confirmed by Luke Torres ([id number]) on 02/25/2024 7:09:52 AM Referred By: Chema Schwartz Confirmed By:Manoj Torres
[2024-02-25 08:20] LABS: BUN Creatinine Ratio 8.2 (10-20); C Reactive Protein 27.33 mg/dl (0-0.5); Creatinine Clr Calc Pharmacy 111.8 ml/min; Est GFR (African American) 118.3 ml/min; Est GFR (Non-African American) 102.1 ml/min; Magnesium 1.9 mg/dl (1.7-2.4); Phosphorus 3.1 mg/dl (2.5-4.9); Potassium 2.9 mmol/L (3.5-5.1)
[2024-02-25 08:22] LABS: Hematocrit (blood only) 27.6 % (37.0-47.0); Mean Corpuscular Hemoglobin 27.3 pg (25.0-34.0); Mean Corpuscular Hgb Conc 32.6 g/dL (32.0-36.0); Mean Corpuscular Volume 83.6 fL (80.0-100.0); Mean Platelet Volume 10.5 fL (9.4-12.4); Platelet Count 436 K/uL (130-400); RDW Standard Deviation 48.6 fL (36.4-46.3); White Blood Count 9.06 K/ul (4.8-10.8)
[2024-02-25] MEDS: ATORVASTATIN 40 MG TAB PO SCH (09:08)
[2024-02-25] MEDS: ASPIRIN 81 MG CHEW PO SCH (09:08)
[2024-02-25] MEDS: methylPREDNISolone 20 MG in SYRINGE 0 ML IV SCH (11:40)
[2024-02-25] MEDS: POTASSIUM CHLORIDE / WTR 10 MEQ/100 ML PLCT IV SCH (11:40)
[2024-02-25] MEDS: NSS + 20MEQ KCL 20 MEQ/1,000 ML BAG IV SCH (11:40)
--- NOTE | 2024-02-25 12:24 | Ultrasound Report ---
ABDOMINAL ULTRASOUND, RIGHT UPPER QUADRANT HISTORY: Acute right upper quadrant abdominal pain R/O cholecystitis. COMPARISON: CT 02/24/2024 FINDINGS: Pancreas: The pancreas is partially obscured by bowel gas. Liver: Unremarkable. Gallbladder: Cholelithiasis without bladder wall thickening or pericholecystic fluid. Negative sonogr aphic Blanco's sign. CBD: 0.6 cm. Right kidney: No hydronephrosis. IMPRESSION: 1. Cholelithiasis without sonographic evidence of acute cholecystitis. 2. No biliary ductal dilation. ACT 112: Negative or not required by law. Electronically signed by: Nixon Keller M.D. 02/25/2024 12:23 PM
[2024-02-25 12:39] LABS: Albumin Level 2.6 gm/dl (3.4-5.0); Bilirubin Direct 0.2 mg/dl (0-0.2); Bilirubin,Total 0.4 mg/dl (0.2-1.0); Total Protein 5.6 gm/dl (6.0-8.3)
--- NOTE | 2024-02-25 12:54 | Gastrointestinal Consultation ---
Date of Consultation February 25, 2024 Assessment & Plan (1) Pancolitis: Somewhat atypical presentation of flare, but symptoms did worsen after having had weaned off steroids. Fevers are a bit more frequent and pronounced than expected and would continue to exhaust all infectious etiology options. Reasonable to start IV steroids at 20 mg q 8 with solumedrol. Continue supportive care Consider repeat flex/colonoscopy during admission Has [facility] approved and can follow up with us for initiation and education. Please call with any questions or concerns Advance diet as tolerated Prn antiemtics, BID PPI, prn H2B and bentyl as well as needed History of Present Illness Attending Physician: Jj Oconnor MD History of Present Illness This is a 53 yo who has a hx of chronic diarrhea and after normal colonoscopies in 2020, salmonella infection in 2021, had repeat colonoscopy with endoscopic left sided, but pathologic bob chronic colitis consistent with bob ulcerarative colitis. She has been only intermittently followed due to insurance issues, was on ASA medication but still had c/o of 8-10 watery bowel movements daily prompting a long steroid taper that started in of this year. She weaned off appx 2 weeks ago, and then one week ago started c/o of fevers, proximal symptoms of heartburn, malaise, belching and heartburn. During this time she has had pretty consistent GI diarrheal symptoms but much less than when started on the steroids. No blood in her stool, c/o bloating, nausea, and fatigue. Had a fever last evening. Has a mild wbc count with a left shift, dramatically elevated CRP and ESR. Stool studies are negative including enterics as well as c-diff. CT scan: 1. Redemonstration of acute pancolitis, with a similar presentation of disease seen on several prior exams. As previously mentioned, ulcerative colitis is the primary differential consideration. An infectious process could appear similarly. 2. No bowel obstruction, pneumoperitoneum or abscess . 3. Cholelithiasis. Allergies Allergy/AdvReac Type Severity Reaction Status Date / Time No Known Allergies Allergy Verified 12/31/23 20:58 Home Medications Medication Instructions Recorded Confirmed Type dicyclomine 10 mg capsule 10 mg PO QID PRN abd pain 05/18/22 02/24/24 History omeprazole 40 mg capsule,delayed 40 mg PO DAILY 12/31/23 02/24/24 History release Patient History Medical History Ulcerative colitis GERD (gastroesophageal reflux disease) Well controlled and stable Transient ischemic attack (TIA) 2017-PLACED ON PLAVIX-NO ISSUES SINCE SOB (shortness of breath) on exertion Chronic issue since pt has CVA in 2017 Hyperlipidemia Surgical History History of endometrial ablation History of bilateral tubal ligation H/O foot surgery LEFT GREAT TOE SX X 2 History of esophagogastroduodenoscopy (EGD) History of colonoscopy Family History Mother Family history of diabetes mellitus Social History Smoking Status: Current every day smoker Tobacco Type: Cigarettes Cigarettes Per Day: 3 cigarettes per day; Second Hand Exposure: Yes (ON OCC); Do You Dip or Chew Tobacco: No; Hx Alcohol Use: No Hx Substance Use: No Preferred Language: Sinhala Communication Ability: Effective Conservation Educator Required: No Beliefs That Will Affect Care: None Current Living Situation: Spouse Current Living Situation Comment: Home with Other Information That Helps Us Care for You: No Feels Safe at Home: Yes Safety Concerns: Feels Safe At This Time Assistive Devices: None Review of Systems Review of Systems: 10 system review negative except for sta robbie as above Physical Exam Constitutional: WD/WN, vitals as above appears restless Eyes: PERRL, conjunctivae normal, anicteric sclerae ENMT: external ear and nose normal, oropharynx normal Neck: trachea midline, no thyromegaly Respiratory: normal respiratory effort, lungs clear to auscultation Cardiovascular: RRR, no murmur, no edema Chest (Breasts): Chest: normal inspection of chest Gastrointestinal (Abdomen): + epigastric tenderness to palpation, +b owel sounds, soft, otherwise nontender Musculoskeletal: no cyanosis or clubbing, extremities motor strength 5/5 Skin: no rashes, warm and dry Neurologic: PERRL, EOMI, accommodation nl, no face palsy, no dysarthria Psychiatric: A+Ox3, euthymic affect Lymphatic: no lymphedema Results & Data Vital Signs (Past 12 Hours) Vital Signs Temp Pulse Pulse Pulse Resp BP BP 02/25/24 11:35 36.8 C 68 18 100/65 02/25/24 07:12 85 02/25/24 07:00 37 C 91 H 18 96/63 L 02/25/24 04:00 36.8 C 88 18 103/72 Pulse Ox O2 Del Method O2 Flow Rate 02/25/24 11:35 93 Room Air 02/25/24 07:12 02/25/24 07:00 98 Room Air 02/25/24 04:00 99 Nasal Cannula 2
--- NOTE | 2024-02-25 13:31 | Hospitalist Progress Note ---
Date of Service February 25, 2024 Assessment & Plan (1) Diarrhea: Plan: Stool examination remains unremarkable No infection in the stool Electrolyte abnormalities, hypokalemia, hypomagnesemia - currently receiving NS in the ED, also will replace K and Mag -Potassium remains low at 2.9 will give intravenous potassium supplement -Will get intravenous fluid with potassium and electrolytes to be monitored Hypoxia - pt is in ED on 2L of suppl. O2 , saturating 97% - discussed w/ ED provider - tried to wean off but pt would desaturate - pt denies any shortness of breath or any resp. symptoms - CXR obtained - shows Mild chronic interstitial coarsening. No pneumothorax, pleural effusion or airspace consolidation. - Biofire ordered-has been negative - Doppler of LE obtained by ED provider (would prefer not give contrast for CT PE study as she just received contrast w/ CT abd./pelvis), Doppler is negative - start incentive spirometry, cont. suppl. O2 , try to wean off -Has been saturating normally on room air -Hypoxia seems to be resolved (2) Pancolitis: Plan: History of ulcerative colitis and history of Salmonella enteritis Presented with ongoing diarrhea CT of the abdomen showed pancolitis likely secondary to flare Has had a course of prednisone about 1 week ago Appreciate GI input and recommendation Will start Solu-Medrol 20 mg every 8 hourly Has been on Protonix IV twice daily, famotidine and Carafate and will give Maalox/Mylanta for ongoing symptoms Remains n.p.o. Possible EGD/colonoscopy during this admission GERD Has cholelithiasis with normal LFTs Ultrasound did not show any evidence of acute cholecystitis Upper abdominal symptoms suggestive of due to gallbladder disease DVT prophylaxis Will start subcu heparin CODE STATUS Full Admission and Anticipated Discharge Date Admission Date: February 24, 2024 Subjective 02/25/2024 The patient was seen and examined in medical telemetry unit He complains to have abdominal pain more in the upper abdomen associated with ongoing diarrhea without any blood in the stool History of ulcerative colitis and finished a course of steroid 1 to 2-week before Denies any fever and or chills Does not any other extra intestinal manifestations of ulcerative colitis except right upper quadrant pain with cholelithiasis Review of Systems Review of Systems: All systems reviewed and are unremarkable except as noted below Physical Exam Physical Exam: Lying in bed with acute distress due to abdominal pain Constitutional: well developed, well nourished, + ill appearing and + obese Eyes: PERRL, conjunctivae normal, anicteric sclerae ENMT: external ear and nose normal, oropharynx normal Neck: trachea midline, no thyromegaly Respiratory: no respiratory distress Auscultation: lungs clear to auscultation bilaterally Cardiovascular: Rate/Rhythm: regular rate and regular rhythm; not tachycardic Heart Sounds: normal S1 and normal S2; no murmur Extremities: no edema Gastrointestinal (Abdomen): Inspection/Auscultation: normal bowel sounds; abdomen not distended Percussion/Palpation: + abdomen tender (All over including right upper quadrant without rebound) and abdomen soft Musculoskeletal: No acute arthritis involving any of the joint Neurologic: normal touch/pain/proprioception and moves all extremities; no focal motor deficits Psychiatric: A+Ox3, euthymic affect Lymphatic: no cervical or axillary lymphadenopathy Results & Data Results & Data Vital Signs (Past 12 Hours) Vital Signs Temp Pulse Pulse Pulse Resp BP BP 02/25/24 11:35 36.8 C 68 18 100/65 02/25/24 07:12 85 02/25/24 07:00 37 C 91 H 18 96/63 L 02/25/24 04:00 36.8 C 88 18 103/72 Pulse Ox O2 Del Method O2 Flow Rate 02/25/24 11:35 93 Room Air 02/25/24 07:12 02/25/24 07:00 98 Room Air 02/25/24 04:00 99 Nasal Cannula 2 Laboratory Results Short CBC 02/25/24 Range/Units 07:29 WBC 9.06 (4.8-10.8) K/ul Hgb 9.0 L (12.0-16.0) g/dl Hct 27.6 L (37.0-47.0) % Plt Count 436 H (130-400) K/uL BMP 02/25/24 07:29 Sodium 133 L Potassium 2.9 L Chloride 97 L Carbon Dioxide 25 BUN 5 L Creatinine 0.61 Glucose 79 Calcium 8.0 L Liver Function 02/25/24 Range/Units 07:29 Total Bilirubin 0.4 (0.2-1.0) mg/dl Direct Bilirubin 0.2 (0-0.2) mg/dl AST 14 (13-39) U/L ALT 9 (7-52) U/L Alkaline Phosphatase 51 (34-104) U/L Albumin 2.6 L (3.4-5.0) gm/dl Medications Administered Current Inpatient Medications Acetaminophen (Acetaminophen 325 Mg Tab) 650 mg PO Q4H PRN PRN Reason: Pain or Fever Stop: 03/25/24 13:42 Last Admin: 02/25/24 09:13 Dose: 650 mg Aspirin (Aspirin 81 Mg Chew) 81 mg PO DAILY [facility] Stop: 03/26/24 08:59 Last Admin: 02/25/24 09:08 Dose: 81 mg Atorvastatin Calcium (Atorvastatin 40 Mg Tab) 40 mg PO QAM [facility] Stop: 03/26/24 08:59 Last Admin: 02/25/24 09:08 Dose: 40 mg Dicyclomine HCl (Dicyclomine Hcl 10 Mg Cap) 10 mg PO QID PRN PRN Reason: abd pain Stop: 03/25/24 16:32 Pantoprazole Sodium 40 mg/ (Syringe) 10 mls @ 5 mls/min IV BID [facility] Stop: 03/25/24 20:59 Last Admin: 02/25/24 09:08 Dose: 5 mls/min Famotidine (Pepcid 20mg Iv Push) 20 mg in 5 mls @ 2.5 mls/min IV Q12 [facility] Stop: 03/25/24 20:59 Last Admin: 02/25/24 09:13 Dose: 2.5 mls/min Potassium Chloride/Sodium Chloride (Normal Saline W/20 Meq Kcl) 20 meq in 1,000 mls @ 80 mls/hr IV .[id number] [facility]; Protocol Stop: 02/27/24 02:14 Last Admin: 02/25/24 11:40 Dose: 80 mls/hr Methylprednisolone 20 mg/ (Syringe) 0.32 mls @ 1.5 mls/min IV Q8H [facility] Stop: 03/26/24 11:29 Last Admin: 02/25/24 11:40 Dose: 1.5 mls/min Sucralfate (Sucralfate 1 Gm/10 Ml Udc) 1 gm PO QID [facility] Stop: 03/25/24 16:59 Last Admin: 02/25/24 11:39 Dose: 1 gm (1) Diarrhea Diarrhea type: unspecified type Qualified Code(s): R19.7 - Diarrhea, unspecified
[2024-02-26 06:21] LABS: Hematocrit (blood only) 28.8 % (37.0-47.0); Hemoglobin 9.3 g/dl (12.0-16.0); Mean Corpuscular Hemoglobin 27.2 pg (25.0-34.0); Mean Corpuscular Hgb Conc 32.3 g/dL (32.0-36.0); Mean Corpuscular Volume 84.2 fL (80.0-100.0); Platelet Count 488 K/uL (130-400); RDW Coefficient of Variation 15.6 % (11.5-14.5); RDW Standard Deviation 47.3 fL (36.4-46.3); Red Blood Count 3.42 M/uL (4.20-5.40)
[2024-02-26 06:38] LABS: BUN Creatinine Ratio 15.4 (10-20); Calcium 8.4 mg/dl (8.6-10.3); Est GFR (African American) 124.7 ml/min; Est GFR (Non-African American) 107.6 ml/min; Magnesium 2.1 mg/dl (1.7-2.4); Phosphorus 3.3 mg/dl (2.5-4.9); Potassium 3.7 mmol/L (3.5-5.1)
[2024-02-26 06:54] LABS: Basophils # (auto) 0.01 K/uL (0.00-0.20); Basophils % (auto) 0.1 %; Immature Granulocytes # (auto) 0.05 K/uL (0.01-0.20); Immature Granulocytes % (auto) 0.6 %; Lymphocytes # (auto) 0.34 K/uL (1.20-3.40); Lymphocytes % (auto) 3.9 %; Monocytes % (auto) 3.4 %; Polychromasia 1+
--- NOTE | 2024-02-26 10:38 | Gastroenterology Progress Note ---
Date of Service February 26, 2024 Assessment & Plan (1) IBD (inflammatory bowel disease): (2) Diarrhea: Plan Though patient does have a history of active IBD for which she will be transitioning to Humira soon, her clinical picture surely is also suspicious for infectious etiology given fevers & diarrhea. Her stool studies are negative at present, including C diff. -Continue IV Solumedrol, will dose at 40 mg BID. -When patient is discharged, would plan for an 8 week steroid taper beginning at 40 mg daily x 7 days, then decreasing by 5 mg each week for a total of 8 weeks. -Plans to follow-up with her team at [facility] to start her Humira that has been authorized already. -No current plans for inpatient colonoscopy, unless there is a significant clinical change. -Ok to advance diet as tolerated. Admission and Anticipated Discharge Date Admission Date: February 24, 2024 Supervising Physician Co-Signing Physician Notes Agree with ALISSON Smith as above Interviewed and examined patient and agree with above Abd: Soft, NT, ND, +BS Continue current therapy and supportive care Will need steroid taper and outpatient colonoscopy Subjective Patient is a 53 yo female with ulcerative colitis hospitalized with possible flare vs infectious process. Patient notes 10 episodes of diarrhea per day. Stool PCR & C diff negative. She is hungry and wants to eat a real diet. She denies abdominal pain. No further fevers. She denies other new complaints at present. No GI bleeding. She notes she will soon begin Humira as an outpatient and will be following up with [facility]. Review of Systems Constitutional: no fever Gastrointestinal: + diarrhea/loose stools; no abdominal pa in and no blood in stools Physical Exam Constitutional: well developed Respiratory: normal respiratory effort Gastrointestinal (Abdomen): normal bowel sounds, soft, nontender, no hepatosplenomegaly Psychiatric: Orientation: alert and oriented x 3 Results & Data Results & Data Vital Signs (Past 12 Hours) Vital Signs Temp Pulse Pulse Pulse Resp BP BP 02/26/24 07:42 80 02/26/24 07:20 36.4 C L 69 14 100/66 02/26/24 03:44 36.6 C 67 18 102/65 02/25/24 23:44 36.7 C 64 18 98/48 L 02/25/24 23:15 76 Pulse Ox O2 Del Method 02/26/24 07:42 02/26/24 07:20 96 Room Air 02/26/24 03:44 92 Room Air 02/25/24 23:44 92 Room Air 02/25/24 23:15 PG Care Time/CCT Total # of Minutes Spent Total Time Spent with Patient: Total time spent is greater than 50% in coordination of care (as documented) at patient's floor/unit and/or counseling patient: Coding Level of Care Code 03947 SUB INP/OBS CARE 3/50MIN Diagnoses IBD (inflammatory bowel disease) K52.9 Diarrhea R19.7 Diarrhea type: unspecified type (2) Diarrhea Diarrhea type: unspecified type Qualified Code(s): R19.7 - Diarrhea, unspecified
--- NOTE | 2024-02-26 14:08 | Hospitalist Progress Note ---
Date of Service February 26, 2024 Assessment & Plan (1) Diarrhea: Plan: Stool examination remains unremarkable No infection in the stool Electrolyte abnormalities, hypokalemia, hypomagnesemia - currently receiving NS in the ED, also will replace K and Mag -Potassium remains low at 2.9 will give intravenous potassium supplement -Will get intravenous fluid with potassium and electrolytes to be monitored -Electrolytes abnormality has been corrected -She wants to go home and she will be discharged Hypoxia - pt is in ED on 2L of suppl. O2 , saturating 97% - discussed w/ ED provider - tried to wean off but pt would desaturate - pt denies any shortness of breath or any resp. symptoms - CXR obtained - shows Mild chronic interstitial coarsening. No pneumothorax, pleural effusion or airspace consolidation. - Biofire ordered-has been negative - Doppler of LE obtained by ED provider (would prefer not give contrast for CT PE study as she just received contrast w/ CT abd./pelvis), Doppler is negative - start incentive spirometry, cont. suppl. O2 , try to wean off -Has been saturating normally on room air -Hypoxia seems to be resolved and no issues with respiration and her cough (2) Pancolitis: Plan: History of ulcerative colitis and history of Salmonella enteritis Presented with ongoing diarrhea CT of the abdomen showed pancolitis likely secondary to flare Has had a course of prednisone about 1 week ago Appreciate GI input and recommendation Will start Solu-Medrol 20 mg every 8 hourly Has been on Protonix IV twice daily, famotidine and Carafate and will give Maalox/Mylanta for ongoing symptoms Remains n.p.o. Has been tolerating regular diet She wants to go home and should be discharged home on tapering dose of steroid as advised Will a follow-up appointment with outpatient GI GERD Has cholelithiasis with normal LFTs Ultrasound did not show any evidence of acute cholecystitis Upper abdominal symptoms suggestive of due to gallbladder disease DVT prophylaxis Will start subcu heparin CODE STATUS Full Admission and Anticipated Discharge Date Admission Date: February 24, 2024 Subjective 02/25/2024 The patient was seen and examined in medical telemetry unit He complains to have abdominal pain more in the upper abdomen associated with ongoing diarrhea without any blood in the stool History of ulcerative colitis and finished a course of steroid 1 to 2-week before Denies any fever and or chills Does not any other extra intestinal manifestations of ulcerative colitis except right upper quadrant pain with cholelithiasis 02/26/2024 The patient was seen and examined in medical telemetry unit She continues to have diarrhea but denies any significant abdominal pain She will not have any scope during this admission as per GI She will likely be discharged this afternoon Review of Systems Review of Systems: All systems reviewed and are unremarkable except as noted below Physical Exam Physical Exam: Lying in bed with acute distress due to abdominal pain Constitutional: well developed, well nourished, + ill appearing and + obese Eyes: PERRL, conjunctivae normal, anicteric sclerae ENMT: external ear and nose normal, oropharynx normal Neck: trachea midline, no thyromegaly Respiratory: no respiratory distress Auscultation: lungs clear to au scultation bilaterally Cardiovascular: Rate/Rhythm: regular rate and regular rhythm; not tachycardic Heart Sounds: normal S1 and normal S2; no murmur Extremities: no edema Gastrointestinal (Abdomen): Inspection/Auscultation: normal bowel sounds; abdomen not distended Percussion/Palpation: + abdomen tender (All over including right upper quadrant without rebound) and abdomen soft Musculoskeletal: No acute arthritis involving any of the joint Neurologic: normal touch/pain/proprioception and moves all extremities; no focal motor deficits Psychiatric: A+Ox3, euthymic affect Lymphatic: no cervical or axillary lymphadenopathy Results & Data Results & Data Vital Signs (Past 12 Hours) Vital Signs Temp Pulse Pulse Pulse Resp BP BP 02/26/24 11:20 36.4 C L 63 16 98/69 L 02/26/24 07:42 80 02/26/24 07:20 36.4 C L 69 14 100/66 02/26/24 03:44 36.6 C 67 18 102/65 Pulse Ox O2 Del Method 02/26/24 11:20 94 Room Air 02/26/24 07:42 02/26/24 07:20 96 Room Air 02/26/24 03:44 92 Room Air Laboratory Results Short CBC 02/26/24 Range/Units 05:59 WBC 8.70 (4.8-10.8) K/ul Hgb 9.3 L (12.0-16.0) g/dl Hct 28.8 L (37.0-47.0) % Plt Count 488 H (130-400) K/uL BMP 02/26/24 05:59 Sodium 136 Potassium 3.7 D Chloride 102 Carbon Dioxide 25 BUN 8 Creatinine 0.52 L Glucose 127 H Calcium 8.4 L Medications Administered Current Inpatient Medications Acetaminophen (Acetaminophen 325 Mg Tab) 650 mg PO Q4H PRN PRN Reason: Pain or Fever Stop: 03/25/24 13:42 Last Admin: 02/25/24 09:13 Dose: 650 mg Aspirin (Aspirin 81 Mg Chew) 81 mg PO DAILY ALVIN Stop: 03/26/24 08:59 Last Admin: 02/26/24 08:25 Dose: 81 mg Atorvastatin Calcium (Atorvastatin 40 Mg Tab) 40 mg PO QAM ALVIN Stop: 03/26/24 08:59 Last Admin: 02/26/24 08:25 Dose: 40 mg Dicyclomine HCl (Dicyclomine Hcl 10 Mg Cap) 10 mg PO QID PRN PRN Reason: abd pain Stop: 03/25/24 16:32 Pantoprazole Sodium 40 mg/ (Syringe) 10 mls @ 5 mls/min IV BID ALVIN Stop: 03/25/24 20:59 Last Admin: 02/26/24 08:25 Dose: 5 mls/min Famotidine (Pepcid 20mg Iv Push) 20 mg in 5 mls @ 2.5 mls/min IV Q12 ALVIN Stop: 03/25/24 20:59 Last Admin: 02/26/24 08:25 Dose: 2.5 mls/min Potassium Chloride/Sodium Chloride (Normal Saline W/20 Meq Kcl) 20 meq in 1,000 mls @ 80 mls/hr IV .[id number] [facility]; Protocol Stop: 02/27/24 02:14 Last Admin: 02/26/24 02:56 Dose: 80 mls/hr Methylprednisolone 40 mg/ (Syringe) 0.64 mls @ 1.5 mls/min IV Q12 ALVIN Stop: 03/27/24 20:59 Sucralfate (Sucralfate 1 Gm/10 Ml Udc) 1 gm PO QID ALVIN Stop: 03/25/24 16:59 Last Admin: 02/26/24 08:25 Dose: 1 gm (1) Diarrhea Diarrhea type: unspecified type Qualified Code(s): R19.7 - Diarrhea, unspecified
[2024-02-26] MEDS ORDERED: methylPREDNISolone 40 MG in SYRINGE 0 ML IV SCH (21:00)
--- NOTE | 2024-02-27 07:10 | Discharge Summary ---
Date of Service February 26, 2024 Admission HPI Per Admitting Provider Pt is a 53 F w/ hx of IBD/ UC, GERD, hx of Salmonella enteritis, iron def. anemia d/t chronic blood loss, hx of TIA currently on aspirin therapy, who presents with abd. pain, throat pain and cough. Pt says she had fever 100.6F 1 wek ago and since then she has not been feeling well. She reports having severe indigestion, epigastric discomfort, GERD symptoms. She has some cough but she reports it's "all from her throat from her reflux". She denies any sinus congestion, rhinorrhea, productive cough. She has been having watery diarrhea for 1 week. Says that d/t to her UC she always has looser stools but usually not watery like she has now. She has nausea, and poor appetite, not able to eat much. She denies any blood in the stool. She does not feel she is having UC flare. She follows with [facility] GI but d/t lack of insurance she has not been on any medications. She says mesalamine was not working for her anyway and she has never started Humira - which was discussed with GI - per EMR review. She says she only takes omeprazole and dicyclomine for her stomach. In the ED she was found mildly hypoxic and currently on suppl. O2. CXR was obtained as well as CT abdomen for her abd. symptoms. Blood work significant for electrolyte abnormalities, lisbet. hypokalemia. Currently she is sitting up in bed in [facility], on suppl. O2. She is alert and able to provide hx. She denies any hx of shortness of breath. Only reports feeling weak. Pt's present at the bedside. Admission Exam Per Admitting Provider Constitutional: WD/WN, vitals as above Eyes: PERRL, conjunctivae normal, anicteric sclerae ENMT: external ear and nose normal, oropharynx normal Neck: trachea midline, no thyromegaly Respiratory: normal respiratory effort, lungs clear to auscultation Cardiovascular: RRR, no murmur, no edema Chest (Breasts): Chest: normal inspection of chest Gastrointestinal (Abdomen): + epigastric tenderness to palpation, +b owel sounds, soft, otherwise nontender Musculoskeletal: no cyanosis or clubbing, extremities motor strength 5/5 Skin: no rashes, warm and dry Neurologic: PERRL, EOMI, accommodation nl, no face palsy, no dysarthria Psychiatric: A+Ox3, euthymic affect Lymphatic: no lymphedema Principal Diagnosis Flareup of ulcerative colitis, frequent diarrhea and abdominal pain Discharge Exam Lying in bed with acute distress due to abdominal pain Constitutional well developed, well nourished, + ill appearing and + obese Eyes PERRL, conjunctivae normal, anicteric sclerae ENMT external ear and nose normal, oropharynx normal Neck trachea midline, no thyromegaly Respiratory no respiratory distress Auscultation: lungs clear to auscultation bilaterally Cardiovascular Rate/Rhythm: regular rate and regular rhythm; not tachycardic Heart Sounds: normal S1 and normal S2; no murmur Extremities: no edema Gastrointestinal (Abdomen) Inspection/Auscultation: normal bowel sounds; abdomen not distended Percussion/Palpation: + abdomen tender (All over including right upper quadrant without rebound) and abdomen soft Neurologic normal touch/pain/proprioception and moves all extremities; no focal motor deficits Psychiatric A+Ox3, euthymic affect Lymphatic no cervical or axillary lymphadenopathy Discharge Data Allergies Allergy/AdvReac Type Severity Reaction Status Date / Time No Known Allergies Allergy Verified 12/31/23 20:58 Consultations 02/24/24 12:28 ED Decision to Admit Stat 02/24/24 16:33 Consult Gastroenterology Routine Ordered Studies 02/24/24 10:52 CT Abd and Pelvis [CT abd pelvis IV con only] Stat 02/24/24 11:49 US venous duplex leg [US venous doppler LE BI] Stat 02/25/24 11:04 US abdomen limited Urgent Hospital Course (1) Diarrhea: Stool examination remains unremarkable No infection in the stool Electrolyte abnormalities, hypokalemia, hypomagnesemia - currently receiving NS in the ED, also will replace K and Mag -Potassium remains low at 2.9 will give intravenous potassium supplement -Will get intravenous fluid with potassium and electrolytes to be monitored -Electrolytes abnormality has been corrected -She wants to go home and she will be discharged Hypoxia - pt is in ED on 2L of suppl. O2 , saturating 97% - discussed w/ ED provider - tried to wean off but pt would desaturate - pt denies any shortness of breath or any resp. symptoms - CXR obtained - shows Mild chronic interstitial coarsening. No pneumothorax, pleural effusion or airspace consolidation. - Biofire ordered-has been negative - Doppler of LE obtained by ED provider (would prefer not give contrast for CT PE study as she just received contrast w/ CT abd./pelvis), Doppler is negative - start incentive spirometry, cont. suppl. O2 , try to wean off -Has been saturating normally on room air -Hypoxia seems to be resolved and no issues with respiration and her cough (2) Pancolitis: History of ulcerative colitis and history of Salmonella enteritis Presented with ongoing diarrhea CT of the abdomen showed pancolitis likely secondary to flare Has had a course of prednisone about 1 week ago Appreciate GI input and recommendation Will start Solu-Medrol 20 mg every 8 hourly Has been on Protonix IV twice daily, famotidine and Carafate and will give Maa lox/Mylanta for ongoing symptoms Remains n.p.o. Has been tolerating regular diet She wants to go home and should be discharged home on tapering dose of steroid as advised Will a follow-up appointment with outpatient GI GERD Has cholelithiasis with normal LFTs Ultrasound did not show any evidence of acute cholecystitis Upper abdominal symptoms suggestive of due to gallbladder disease DVT prophylaxis Will start subcu heparin CODE STATUS Full Total Time Total Time Spent Total Time Spent (In Minutes): 40 minutes Discharge Plan Discharge Items Patient Disposition: Home - Self-Care Reason For Visit: ABD. PAIN, HYPOXIA Discharge Diagnosis: Flareup of ulcerative colitis, frequent diarrhea and abdominal pain Condition on Discharge: Fair Activity: Resume your previous activity Non-emergency contact: Primary Care Provider Call non-emergency contact if: you have any medication questions and your symptoms worsen Follow-up/Referrals: Chema Schwartz MD [Primary Care Provider] - (Date & Time 03/01/2024 2:00 PM Provider Florecita Knight MD Department [facility] ) Diet: Regular Addtl Attending Provider Instructions: Please take your medications as advised Have regular follow-up appointments with your healthcare providers 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 daily for 7 days, 3 and half tabs daily for 7 days, 3 tabs daily for 7 days, 2 and half tab daily for 7 days, 2 tablet daily for 7 days,1 and 1/2 tablet daily for 7 days, 1 tablet daily for 7 days and then half daily for 7 da ys to finish. potassium chloride 20 mEq tablet extended release 20 meq PO DAILY Qty: 30 0RF Mag 64 64 mg tablet,delayed release (DR/EC) 64 mg PO DAILY Qty: 30 0RF Continued dicyclomine 10 mg capsule 10 mg PO QID PRN (Reason: abd pain) omeprazole 40 mg Capsule,Delayed Release(Dr/Ec) 40 mg PO DAILY Qty: 30 0RF Discharge Orders: Discharge Order (Routine); Ordered 02/26/24 Ordered By: Jj Doherty/Other Patient Handouts: Ulcerative Colitis Dc, Ulcerative Colitis Managing, Ulcerative Colitis Tx, Understanding Colitis Admission Data Admit Date/Time: 02/24/24 13:43 Attending Provider: Jj Oconnor Admit Provider: Nikita Arredondo Primary Care Provider: Chema Schwartz Other Providers: Nikita Arredondo; Garrick Juarez Other Interventions: Discharge Summary Assessment (RN) Last Done: 02/26/24 15:29
== END 2024-02-26 16:56 | disposition home or self-care (01) | DRG 387 ==
LOC: ED 10:38 → SUATTDRO 13:43 → EDINP 13:43 → 2N 18:13